=== PATIENT | female | born 1955 | race Caucasian/White ===

== ENCOUNTER → 2016-10-23 | Outpatient (CLI) | payer OTHER ==
[~2016-10-23] MED LIST: ALBINS INH; ASPI-390 PO; BUTACAP7 PO; CHOL1TAB42 PO; CIPR-255 PO; CLON0.5T3 PO; CYAN100020 PO; DIPH1CRE EXT; DIPH1TAB87 PO; FRN PO; INSDGI SC; INSDGIPEN SC; IPRA1AER2 INH; Ipratropium-Albuterol INH; LEVO150T PO; METR-163 PO; MULT-845 PO; NVLG SC; NVLGI IM; PROM25TA9 PO; PRT40 PO; RANI1TAB75 PO; RANI300T2 PO; SNG10 PO; SPRIN INH; SYMIN INH; SYMIN160 INH; SYN175 PO; TRAM-10 PO; TRAZ100T29 PO; TRAZ1TAB52 PO; VITAMIN D PO; WLLSR150 PO; [UNRECOGNIZED DRUG - CODE] PO
--- NOTE | 2016-10-23 16:25 | DIAGNOSTIC IMAGING REPORT ---
L-SPINE MIN 4 VIEWS ROUTINE CLINICAL HISTORY: Low back pain with adequate. COMPARISON: None FINDINGS: Alignment of the lumbar spine is anatomic. Vertebral body heights are maintained. There is no fracture or suspicious lesion. There is mild multilevel degenerative disc disease and moderate multilevel facet arthrosis. IMPRESSION: 1. No acute lumbar spine fracture or subluxation. 2. Qysz-bn-thxkyvck multilevel degenerative disc disease and facet arthrosis. Electronically signed by: Israel Oliva M.D. 10/23/2016 4:23 PM Dictated Date/Time: 10/23/2016 4:22 PM
[2016-10-23 17:30] LABS: ALT/SGPT 60 U/L (12-78); AST/SGOT 84 U/L (15-37); BLOOD UREA NITROGEN 9 mg/dl (7-18); BUN/CREATININE RATIO 11.4 (10-20); CALCIUM 9.4 mg/dl (8.5-10.1); CARBON DIOXIDE 28 mmol/L (21-32); CHLORIDE 105 mmol/L (98-107); CREATININE 0.82 mg/dl (0.60-1.20); GLUCOSE 214 mg/dl (70-99); POTASSIUM 4.1 mmol/L (3.5-5.1); SODIUM 141 mmol/L (136-145)
[2016-10-23 17:41] LABS: ALB/GLOB RATIO 0.8 (0.9-2); ALKALINE PHOSPHATASE 68 U/L (45-117)
[2016-10-24 06:14] LABS: ESTIMATED AVERAGE GLUCOSE 214 mg/dl; HA1C FLAG Normal (Normal)
== END ==
LOC: C.LABBC 15:39
PROVIDERS: ATTEND Physician Assistant Medical
DX: M54.40 Lumbago with sciatica, unspecified side (principal)

== ENCOUNTER 2016-11-20 11:43 | Emergency (ER) | payer OTHER ==
[~2016-11-20] VITALS: Ht 167.6 cm; Wt 122.1 kg
[~2016-11-20 11:43] MED LIST changes: -ASPI-390 PO; -BUTACAP7 PO; -CIPR-255 PO; -CYAN100020 PO; -DIPH1CRE EXT; -DIPH1TAB87 PO; -FRN PO; -IPRA1AER2 INH; -LEVO150T PO; -METR-163 PO; -NVLG SC; -PROM25TA9 PO; -RANI300T2 PO; -SYMIN160 INH; -TRAZ1TAB52 PO; -VITAMIN D PO; -[UNRECOGNIZED DRUG - CODE] PO
[2016-11-20 11:48] VITALS: Ht 167.6 cm; Wt 122.1 kg
[2016-11-20] MEDS ORDERED: SODIUM CHLORIDE 0.9% 1000ML 1,000 ML IV STA ×2 (12:10)
[2016-11-20 12:36] VITALS: O2SAT 97
--- NOTE | 2016-11-20 12:37 | DIAGNOSTIC IMAGING REPORT ---
CHEST ONE VIEW PORTABLE CLINICAL HISTORY: Weakness, fever. COMPARISON STUDY: 03/11/2015 FINDINGS: The cardiac and mediastinal contours are normal. There is no evidence of focal pulmonary consolidation. There is no evidence of failure. No pleural effusions are visualized.[ IMPRESSION: No active disease in the chest. Electronically signed by: Renzo Arceo M.D. 11/20/2016 12:36 PM Dictated Date/Time: 11/20/2016 12:36 PM
[2016-11-20 12:42] LABS: BASO ABS # 0.07 K/uL (0-0.2); COMPLETE YES; EOS % 2.4 %; HEMATOCRIT 40.3 % (37-47); IG% 0.3 %; MEAN CORPUSCULAR HEMOGLOBIN 30.7 pg (25-34); MEAN PLATELET VOLUME 11.4 fL (7.4-10.4); MONO % 8.2 %; NEUT % 45.1 %; PLATELET COUNT 234 K/uL (130-400); WHITE BLOOD COUNT 6.97 K/uL (4.8-10.8)
[2016-11-20] MEDS ORDERED: DIPH1TAB87 PO (12:54)
[2016-11-20] MEDS ORDERED: DIPH1CRE EXT (12:54)
[2016-11-20] MEDS ORDERED: IPRA1AER2 INH (12:54)
[2016-11-20] MEDS ORDERED: FRN PO (12:54)
[2016-11-20] MEDS ORDERED: ASPI-390 PO (12:54)
[2016-11-20] MEDS ORDERED: RANI300T2 PO (12:54)
[2016-11-20] MEDS ORDERED: LEVO150T PO (12:54)
[2016-11-20] MEDS ORDERED: NVLG SC (12:55)
[2016-11-20] MEDS ORDERED: INSDGI SC (12:55)
[2016-11-20 12:56] LABS: INR 1.1 (0.9-1.1); PROTHROMBIN TIME (PATIENT) 11.3 SECONDS (9.0-12.0)
[2016-11-20] MEDS ORDERED: OPTIRAY 320 IV PRN (13:00)
[2016-11-20 13:06] LABS: CALCIUM 9.4 mg/dl (8.5-10.1)
[2016-11-20 13:07] LABS: ALT/SGPT 32 U/L (12-78); AST/SGOT 64 U/L (15-37); BLOOD UREA NITROGEN 7 mg/dl (7-18); CARBON DIOXIDE 23 mmol/L (21-32); CHLORIDE 108 mmol/L (98-107); GLUCOSE 217 mg/dl (70-99); MAGNESIUM 2.1 mg/dl (1.8-2.4); POTASSIUM 3.7 mmol/L (3.5-5.1); SODIUM 142 mmol/L (136-145)
[2016-11-20 13:17] LABS: ALKALINE PHOSPHATASE 67 U/L (45-117)
--- NOTE | 2016-11-20 13:57 | DIAGNOSTIC IMAGING REPORT ---
ABDOMEN AND PELVIS CT WITH IV CONTRAST CT DOSE: 1622.52 mGy.cm HISTORY: Pain Upper abd pain, fever TECHNIQUE: Multiaxial CT images of the abdomen and pelvis were performed following the use of intravenous contrast. COMPARISON STUDY: 08/30/2007 FINDINGS: Focal atelectasis right base. Lung bases otherwise are clear. Mild fatty infiltration of liver. Kidneys enhance uniformly. There is no evidence for renal mass or hydronephrosis. Abdominal bowel pattern is unremarkable. Pelvic bowel pattern is remarkable for chronic sigmoid diverticulosis. There is a small focus of pericolonic infiltrative change of the mid sigmoid suggesting a component of acute diverticulitis. There is no evidence for abscess collection or obstruction. Several small reactive mesenteric nodes. There is no bulky adenopathy. IMPRESSION: 1. Mild acute sigmoid diverticulitis 2. Mild pericolonic infiltrative change. 3. No abscess,collection,or obstruction./ Electronically signed by: John Paul Márquez M.D. 11/20/2016 1:55 PM Dictated Date/Time: 11/20/2016 1:37 PM
[2016-11-20] MEDS ORDERED: CIPROFLOXACIN 500 MG TAB PO STA (14:32)
[2016-11-20] MEDS ORDERED: METRONIDAZOLE 250 MG TAB PO STA (14:32)
[2016-11-20] MEDS ORDERED: PROMETHAZINE HCL 25 MG TAB PO ONE (14:45)
[2016-11-20 15:54] LABS: URINE APPEARANCE CLEAR (CLEAR); URINE BILIRUBIN NEG (NEG); URINE COLOR YELLOW; URINE NITRITE NEG (NEG); URINE SPECIFIC GRAVITY 1.028 (1.000-1.030); UROBILINOGEN NEG (NEG)
[2016-11-20 16:12] LABS: MANUAL MICROSCOPIC REQUIRED? NO; REVIEW REQ? NO
[2016-11-20] MEDS ORDERED: METR-163 PO (16:12)
[2016-11-20] MEDS ORDERED: CIPR-255 PO (16:12)
[2016-11-20] MEDS ORDERED: PROM25TA9 PO (16:12)
[2016-11-20 16:52] VITALS: BP 152/89; PULSE 77; TEMP 36; O2SAT 95
--- NOTE | 2016-11-20 19:04 | EMERGENCY ROOM VISIT NOTE ---
History Report prepared by Du: Rigoberto De Jesus Under the Supervision of: Dr. Jerrell Siegel M.D. First contact with patient: 12:02 Chief Complaint: FEVER Stated Complaint: TEMP X3 WKS (PMR ON PREDNISONE) History of Present Illness The patient is a 61 year old female who presents to the Emergency Room with complaints of persistent fevers that the patient has been experiencing for the past three weeks. She is referred to the Emergency Room by her boat laborer, Dr. Jaimes. The patient states that her normal body temperature is 96.8 degrees, and has had fevers as high as 102 degrees over the past three weeks. Before her fever began she experienced umbilical abdominal pain. She is still experiencing this abdominal discomfort. Over the last weeks she has also experienced constipation, diarrhea, vomiting, and respiratory issues. She has been having increased difficulty breathing. The patient was recently on Prednisone for PMR, but stopped this medication due to blood sugars into the 400s. The patient is diabetic. She also has a history of COPD, hypertension, and hyperlipidemia. The patient currently denies LOC, headache, chills, diaphoresis, visual changes, neck pain, chest pain, back pain, melena, hematochezia, urinary symptoms, numbness, weakness, lymphadenopathy, rash, or other complaints. Source of History: patient Onset: 3 weeks Position: other (Global) Quality: other (Fever) Timing: other (Persistent) Associated Symptoms: + SOB, + abdominal pain, + diarrhea, + vomiting Review of Systems See HPI for pertinent positives and negatives. A total of ten systems were reviewed and were otherwise negative. Past Medical & Surgical Medical Problems: (1) Asthma, Unspecified (2) Bronchitis Nos (3) Chr Ischemic Hrt Dis Nos (4) Chronic Sinusitis Nos (5) COPD (chronic obstructive pulmonary disease) (6) [place]'s Syndrome (7) Depressive Disorder Nec (8) Diab Jenna Wo Compl, Type Ii Or Unspec Type, Not Uncntrld (9) Esophageal Reflux (10) Hyperlipidemia Nec/Nos (11) Hypertension Nos (12) Hypothyroidism Nos (13) Irritable Bowel Syndrome (14) Lupus (15) Urticaria Family History FH: lung disease Hypertension Social History Smoking Status: Former Smoker Alcohol Use: none Drug Use: none Marital Status: Housing Status: lives with family Occupation Status: unemployed Current/Historical Medications Scheduled Nancbtm-Yzajzfgmgoxuo-Agzxpmwx (Excedrin Migraine), 2 TABS PO QAM Budesonide/Formoterol Fumarate (Symbicort 160-4.5 Mcg/Act), 2 PUFFS INH BID Bupropion HCl (Bupropion HCl Sr), 150 MG PO BID Cholecalciferol (Vitamin D), 10,000 UNITS PO DAILY Ciprofloxacin Hcl (Cipro), 500 MG PO BID Diphenhydramine Hcl (Benadryl Allergy), 1 CAP PO HS Insulin Glargine (Lantus Solostar), 100 UNIT SC QAM Insulin Glargine (Lantus), 50 UNITS SC QPM Ipratropium-Albuterol (Combivent Respimat), 1 PUFFS INH QID Levothyroxine Sodium (Synthroid), 150 MCG PO DAILY Metronidazole (Flagyl), 500 MG PO TID Montelukast Sod (Montelukast Sodium), 10 MG PO HS Multiple Vitamins W/ Minerals (Centrum Silver Adult 50+), 1 TAB PO DAILY Pantoprazole (Pantoprazole Sodium), 40 MG PO BID Ranitidine (Zantac), 300 MG PO BID Tiotropium [place] (Spiriva Handihaler), 1 PUFF INH QAM Trazodone Hcl (Trazodone), 100 MG PO HS [Ipratropium-Albuterol], 3 ML INH Q6R Scheduled PRN Albuterol Sulf (Albuterol Sulfate), 1 INHA INH QID PRN for SOB/Wheezing Dvvlfffspj-Ewpjtig-Jamolxkx (Butalbital/Aspirin/Caffei 50-325-40 mg), 1 CAP PO Q6 PRN for Headache Diphenhydramine-Zinc Acetate (Benadryl), 1 APPLN EXT UD PRN for Itching Promethazine Hcl (Phenergan), 25 MG PO Q6H PRN for Nausea Tramadol (Ultram), 50 MG PO Q4 PRN for Pain Miscellaneous Medications Insulin Aspart (Novolog) Allergies Coded Allergies: Penicillins (Verified Allergy, Severe, THROAT SWELLS, 11/20/16) Fluticasone (Unverified Allergy, Intermediate, HARD OF BREATHING, 11/20/16) Insulin Lispro (Unverified Allergy, Intermediate, HIVES, 11/20/16) Milk Protein Extract (Unverified Allergy, Intermediate, HARD OF BREATHING , 11/20/16) Phenol (Unverified Allergy, Intermediate, HIVES, 11/20/16) Salmeterol (Unverified Allergy, Intermediate, HARD OF BREATHING, 11/20/16) Fluoxetine (Unverified Allergy, Mild, UNKNOWN, 11/20/16) Iodides (Unverified Allergy, Mild, RASH, 11/20/16) Levofloxacin (Unverified Allergy, Mild, UNKNOWN, 11/20/16) Cephalosporins (Verified Allergy, Unknown, 11/20/16) Citalopram (Verified Allergy, Unknown, 11/20/16) Dust (Verified Allergy, Unknown, 11/20/16) Goose Feathers (Verified Allergy, Unknown, 11/20/16) Guaifenesin (Verified Allergy, Unknown, 11/20/16) Macrolides and Ketolides (Verified Allergy, Unknown, UNKNOWN, 11/20/16) Molds and Smuts (Verified Allergy, Unknown, 11/20/16) Phenylephrine (Verified Allergy, Unknown, 11/20/16) Phenylpropanolamine (Verified Allergy, Unknown, 11/20/16) Quinolones (Verified Allergy, Unknown, 11/20/16) Physical Exam Vital Signs Date Time Temp Pulse Resp B/P Pulse Ox O2 Delivery O2 Flow Rate FiO2 11/20/16 16:52 36.0 77 18 152/89 95 11/20/16 15:28 78 18 160/89 94 Room Air 11/20/16 14:49 77 16 152/93 94 Room Air 11/20/16 13:38 81 18 164/91 94 Room Air 11/20/16 12:36 97 Room Air 11/20/16 12:25 94 125/97 96 Room Air 93 121/96 93 103/76 11/20/16 11:48 36.0 92 26 164/86 93 Room Air Physical Exam GENERAL: Awake, alert, well-appearing, in no distress HENT: Normocephalic, atraumatic. Oropharynx unremarkable. EYES: Normal conjunctiva. Sclera non-icteric. NECK: Supple. No nuchal rigidity. FROM. No JVD. RESPIRATORY: Clear to auscultation. CARDIAC: Borderline Tachycardiac rate, normal rhythm. Extremities warm and well perfused. Pulses equal. ABDOMEN: Soft, non-distended. Mild RUQ and Epigastric abdominal tenderness to palpation. No rebound or guarding. No masses. RECTAL: Deferred. MUSCULOSKELETAL: Chest examination reveals no tenderness. The back is symmetrical on inspection without obvious abnormality. There is no CVA tenderness to palpation. No joint edema. LOWER EXTREMITIES: Calves are equal size bilaterally and non-tender. No edema. No discoloration. NEURO: Normal sensorium. No sensory or motor deficits noted. SKIN: No rash or jaundice noted. Medical Decision & Procedures ER Provider Diagnostic Interpretation: Radiology results as stated below per my review and radiologist interpretation: ABDOMEN AND PELVIS CT WITH IV CONTRAST CT DOSE: 1622.52 mGy.cm HISTORY: Pain Upper abd pain, fever TECHNIQUE: Multiaxial CT images of the abdomen and pelvis were performed following the use of intravenous contrast. COMPARISON STUDY: 08/30/2007 FINDINGS: Focal atelectasis right base. Lung bases otherwise are clear. Mild fatty infiltration of liver. Kidneys enhance uniformly. There is no evidence for renal mass or hydronephrosis. Abdominal bowel pattern is unremarkable. Pelvic bowel pattern is remarkable for chronic sigmoid diverticulosis. There is a small focus of pericolonic infiltrative change of the mid sigmoid suggesting a component of acute diverticulitis. There is no evidence for abscess collection or obstruction. Several small reactive mesenteric nodes. There is no bulky adenopathy. IMPRESSION: 1. Mild acute sigmoid diverticulitis 2. Mild pericolonic infiltrative change. 3. No abscess,collection,or obstruction./ Electronically signed by: John Paul Márquez M.D. 11/20/2016 1:55 PM Dictated Date/Time: 11/20/2016 1:37 PM Laboratory Results 11/20/16 12:27 Red Blood Count 4.20, Mean Corpuscular Volume 96.0, Mean Corpuscular Hemoglobin 30.7, Mean Corpuscular Hemoglobin Concent 32.0, Mean Platelet Volume 11.4, Neutrophils (%) (Auto) 45.1, Lymphocytes (%) (Auto) 43.0, Monocytes (%) (Auto) 8.2, Eosinophils (%) (Auto) 2.4, Basophils (%) (Auto) 1.0, Neutrophils # (Auto) 3.14, Lymphocytes # (Auto) 3.00, Monocytes # (Auto) 0.57, Eosinophils # (Auto) 0.17, Basophils # (Auto) 0.07 11/20/16 12:27 Test 11/20/16 12:27 11/20/16 15:40 White Blood Count 6.97 K/uL (4.8-10.8) Red Blood Count 4.20 M/uL (4.2-5.4) Hemoglobin 12.9 g/dL (12.0-16.0) Hematocrit 40.3 % (37-47) Mean Corpuscular Volume 96.0 fL (80-100) Mean Corpuscular Hemoglobin 30.7 pg (25-34) Mean Corpuscular Hemoglobin Concent 32.0 g/dl (32-36) Platelet Count 234 K/uL (130-400) Mean Platelet Volume 11.4 fL (7.4-10.4) Neutrophils (%) (Auto) 45.1 % Lymphocytes (%) (Auto) 43.0 % Monocytes (%) (Auto) 8.2 % Eosinophils (%) (Auto) 2.4 % Basophils (%) (Auto) 1.0 % Neutrophils # (Auto) 3.14 K/uL (1.4-6.5) Lymphocytes # (Auto) 3.00 K/uL (1.2-3.4) Monocytes # (Auto) 0.57 K/uL (0.11-0.59) Eosinophils # (Auto) 0.17 K/uL (0-0.5) Basophils # (Auto) 0.07 K/uL (0-0.2) RDW Standard Deviation 49.8 fL (36.4-46.3) RDW Coefficient of Variation 14.2 % (11.5-14.5) Immature Granulocyte % (Auto) 0.3 % Immature Granulocyte # (Auto) 0.02 K/uL (0.00-0.02) Prothrombin Time 11.3 SECONDS (9.0-12.0) Prothromb Time International Ratio 1.1 (0.9-1.1) Activated Partial Thromboplast Time 26.4 SECONDS (21.0-31.0) Partial Thromboplastin Ratio 1.0 Anion Gap 11.0 mmol/L (3-11) Est Creatinine Clear Calc Drug Dose 115.3 ml/min Estimated GFR () 109.9 Estimated GFR (Non- 94.8 BUN/Creatinine Ratio 10.0 (10-20) Calcium Level 9.4 mg/dl (8.5-10.1) Magnesium Level 2.1 mg/dl (1.8-2.4) Total Bilirubin 0.4 mg/dl (0.2-1) Direct Bilirubin < 0.1 mg/dl (0-0.2) Aspartate Amino Transf (AST/SGOT) 64 U/L (15-37) Alanine Aminotransferase (ALT/SGPT) 32 U/L (12-78) Alkaline Phosphatase 67 U/L (45-117) Troponin I < 0.015 ng/ml (0-0.045) Total Protein 7.7 gm/dl (6.4-8.2) Albumin 3.3 gm/dl (3.4-5.0) Lipase 103 U/L (73-393) Thyroid Stimulating Hormone (TSH) 2.660 uIu/ml (0.300-4.500) Urine Color YELLOW Urine Appearance CLEAR (CLEAR) Urine pH 5.0 (4.5-7.5) Urine Specific [place] 1.028 (1.000-1.030) Urine Protein NEG (NEG) Urine Glucose (UA) NEG (NEG) Urine Ketones NEG (NEG) Urine Occult Blood NEG (NEG) Urine Nitrite NEG (NEG) Urine Bilirubin NEG (NEG) Urine Urobilinogen NEG (NEG) Urine Leukocyte Esterase NEG (NEG) Laboratory results reviewed by me Medications Administered Medications (Trade) Dose Ordered Sig/John Route Start Time Stop Time Status Last Admin Dose Admin Sodium Chloride 1,000 ml @ 125 mls/hr Q8H STAT IV 11/20/16 12:10 11/20/16 17:29 DC 11/20/16 12:10 125 MLS/HR Sodium Chloride (Nss 1000ml) 1,000 ml @ 999 mls/hr Q1H1M STAT IV 11/20/16 12:10 11/20/16 13:10 DC 11/20/16 12:10 999 MLS/HR Ciprofloxacin (Cipro Tab) 500 mg NOW STAT PO 11/20/16 14:32 11/20/16 14:35 DC 11/20/16 15:31 500 MG Metronidazole (Flagyl Tab) 500 mg NOW STAT PO 11/20/16 14:32 11/20/16 14:35 DC 11/20/16 15:31 500 MG Promethazine HCl (Phenergan Tab) 25 mg NOW ONCE PO 11/20/16 14:45 11/20/16 14:46 DC 11/20/16 16:00 25 MG ECG Indication: SOB/dyspnea Rate (beats per minute): 81 Rhythm: normal sinus Findings: nonspecific-ST abn, prolonged QT ED Course 1210: Ordered Sodium Chloride 1000 mL @ 999 mL/hr IV, Sodium Chloride 1000 mL @ 125 mL/hr IV. 1211: The patient was evaluated in room B9. A complete history and physical exam was performed. 1407: I reevaluated the patient at this time. She was resting in bed. 1431: I made the nurse aware that I was going to order medications at this time , and told her to observe the patient closely. 1432: Ordered Flagyl 500 mg PO, Ciprofloxacin 500 mg PO. 1445: Ordered Promethazine HCl 25 mg PO. 1548: I reevaluated the patient at this time. She was doing well. 1610: I discussed the case with Dr. Jaimes - Rheumatology at this time who referred the patient here today. She is in agreement with the plan. She agrees that she should follow up with her PCP. She will be discharged home. Medical Decision Triage Nursing notes reviewed. The patient's presentation and history were concerning for fevers and abdominal pain. Etiologies such as bacteremia, UTI, biliary pathology, appendicitis, diverticulitis, obstruction, inflammatory bowel disease, renal colic, PUD, pancreatitis, mesenteric ischemia, infections, genitourinary, perforated viscus , as well as others were entertained. The patient was evaluated. She had a tender abdomen no peritoneal findings. Her CBC, chemistry panel and urinalysis were unremarkable. She had a mild elevation of blood glucose. Her AST were minimally elevated. The patient's troponin, TSH and lipase are negative. The patient underwent CT imaging and this revealed diverticulitis. This would explain fever as well as her abdominal pain and GI symptoms. The patient was treated with oral Cipro, Phenergan, and metronidazole. She was observed as she has had GI upset with Levaquin. She had no GI upset. The patient felt very comfortable with conservative management. I did inform her significant other who presented to the Emergency Room as well. If the patient worsens in any way she will be back. The patient will follow-up with her primary physician. By the evaluation outlined above other emergent etiologies such as those listed in the differential, as well as others, were deemed relatively unlikely. The patient and significant other were informed about the findings as listed above. All questions were answered and they were pleased with the treatment. Return instructions were outlined and the patient was discharged in stable condition. The patient was referred to her PCP for follow-up first thing next week for a recheck of the current condition. The chart was completed utilizing [employer] Speech voice recognition software. Grammatical errors, random word insertions, pronoun errors, and incomplete sentences are an occasional consequence of this system due to software limitations, ambient noise, and hardware issues. Any formal questions or concerns about the content, text, or information contained within the body of this dictation should be directly addressed to the physician for clarification. Consults Time Called: 1605 Consulting Physician: Dr. Theodore Bunn Returned Call: 1610 I discussed the case with Dr. Theodore Bunn at this time who referred the patient here today. She is in agreement with the plan. She agrees that she should follow up with her PCP. Impression Primary Impression: Diverticulitis Additional Impression: Fever Scribe Attestation The scribe's documentation has been prepared under my direction and personally reviewed by me in its entirety. I confirm that the note above accurately reflects all work, treatment, procedures, and medical decision making performed by me. Departure Information Dispostion Home / Self-Care Prescriptions Promethazine Hcl (Phenergan) 25 Mg Tab 25 MG PO Q6H Y for Nausea, #10 TAB Prov: Jerrell Siegel MD 11/20/16 Metronidazole (Flagyl) 500 Mg Tab 500 MG PO TID, #29 TAB Prov: Jerrell Siegel MD 11/20/16 Ciprofloxacin Hcl (CIPRO) 500 Mg Tab 500 MG PO BID, #19 TAB Prov: Jerrell Siegel MD 11/20/16 Referrals Michael Wharton M.D. (PCP) Forms HOME CARE DOCUMENTATION FORM, IMPORTANT VISIT INFORMATION Patient Instructions [facility] Additional Instructions DIVERTICULITIS INSTRUCTIONS: Ciprofloxacin(Cipro) 500mg: Take one pill twice daily for 10 days for your bowel infection. All antibiotics can cause diarrhea. If this occurs and you feel worse or it does not resolve in 1-2 days follow up with your doctor or return to the Emergency Department as this could be signs of serious underlying problems. If you experience any pain in your tendons or any tendon injury return to the ER for re-evaluation. Any medication can cause an allergic reaction, stop the pills immediately and return to the ER for rash, hives, breathing difficulties, or swelling. Metronidazole(Flagyl) 500mg: Take one pill 3 times daily for 10 days for your bowel infection. DO NOT drink alcohol or take alcohol containing products with this medication. Any medication can cause an allergic reaction, stop the pills immediately and return to the ER for rash, hives, breathing difficulties, or swelling. Acetaminophen(Tylenol) may be used for fever or pain. Use 1000mg every six hours as needed. Avoid using more than 4000mg in a 24 hour period. Phenergan 25mg tabs, one every six hours for nausea. Rest and drink plenty of fluids as tolerated. Slow sips of water or sports drinks are recommended instead of large amounts all at once. Continue current medications. Once your stomach is settled start with a clear liquid diet (jello, soup broth, etc.) and then advance as tolerated. You should avoid full, heavy meals for about 24 hrs from the time your symptoms resolved. Return to the ER immediately for worsening or persistent abdominal pain, vomiting, fevers, chest pains, difficulty breathing, black or bloody stools, worsening of your condition, or as needed. Follow up with your primary physician Thursday for recheck of your current condition. Problem Qualifiers
[2017-01-21] MEDS ORDERED: TRAZ1TAB52 PO (11:28)
[2017-01-21] MEDS ORDERED: IPRA1AER2 INH (11:28)
[2017-01-21] MEDS ORDERED: VITAMIN D PO (11:28)
[2017-01-21] MEDS ORDERED: SYMIN160 INH (11:28)
[2017-01-21] MEDS ORDERED: CYAN100020 PO (11:28)
[2017-01-21] MEDS ORDERED: BUTACAP7 PO (11:28)
[2017-01-21] MEDS ORDERED: TRAM-10 PO (11:28)
[2017-01-21] MEDS ORDERED: ASPI-390 PO (11:28)
[2017-01-21] MEDS ORDERED: [UNRECOGNIZED DRUG - CODE] PO (11:28)
== END 2016-11-20 16:53 | disposition home or self-care (01) ==
LOC: C.EDB 11:47
DX: K57.92 Diverticulitis of intestine, part unspecified, without perforation or abscess without bleeding (principal); R50.9 Fever, unspecified; E11.9 Type 2 diabetes mellitus without complications; J44.9 Chronic obstructive pulmonary disease, unspecified; I10 Essential (primary) hypertension; E78.5 Hyperlipidemia, unspecified; J45.909 Unspecified asthma, uncomplicated; I25.9 Chronic ischemic heart disease, unspecified; J32.9 Chronic sinusitis, unspecified; F32.9 Major depressive disorder, single episode, unspecified; E24.9 Cushing's syndrome, unspecified; K21.9 Gastro-esophageal reflux disease without esophagitis; E03.9 Hypothyroidism, unspecified; K58.9 Irritable bowel syndrome, unspecified; L93.0 Discoid lupus erythematosus; Z87.891 Personal history of nicotine dependence; Z82.49 Family history of ischemic heart disease and other diseases of the circulatory system; Z79.4 Long term (current) use of insulin

== ENCOUNTER → 2017-01-26 | Day surgery (SDC) | payer OTHER ==
[2017-01-21 11:07] VITALS: Ht 167.6 cm; Wt 119.5 kg
[~2017-01-26] VITALS: Ht 167.6 cm; Wt 119.5 kg
[~2017-01-26] MED LIST changes: +ASPI-390 PO; +BUTACAP7 PO; -CHOL1TAB42 PO; -CLON0.5T3 PO; +CYAN100020 PO; +DIPH1CRE EXT; +DIPH1TAB PO; +IPRA1AER2 INH; -Ipratropium-Albuterol INH; +LEVO150T PO; +LIDOCAINE HCL 2% 2 ML VIAL (20MG/ML) ONE; +NVLG SC; -NVLGI IM; +PROPOFOL IV EMULSION 10 MG/ML 20 ML VIAL IV ONE; -PRT40 PO; -RANI1TAB75 PO; +RANI300T2 PO; +SODIUM CHLORIDE 0.9% 500ML 500 ML IV ONE; -SYMIN INH; +SYMIN160 INH; -SYN175 PO; -TRAZ100T29 PO; +TRAZ1TAB52 PO; +VITAMIN D PO; -WLLSR150 PO; +[UNRECOGNIZED DRUG - CODE] PO
--- NOTE | 2017-01-26 11:59 | Endo History and Physical ---
History & Physical Date of Service: Jan 26, 2017. Chief Complaint: Diverticulitis Referring Physician: Sandra BRYANT History of Present Illness 61 yo CF who presents for colonoscopy secondary to diverticulitis. Past Medical History Diabetes, Asthma, Anxiety, Reflux, High Cholesterol, Sleep Apnea, Hypertension, COPD, Thyroid Disease, Depression Past Surgical History Hx Cardiac Surgery: Yes (HEART CATH X 2 (NO STENTS)) Hx Internal Defibrillator: No Hx Pacemaker: No Hx Abdominal Surgery: Yes (LAPAROSCOPY) Hx of Implantable Prosthesis: No Hx Post-Op Nausea and Vomiting: No Hx Cancer Surgery: No Hx Thoracic Surgery: No Hx Orthopedic: No Hx Urinary Tract Surgery: No Family History IBD Social History Smoking Status: Former Smoker Hx Substance Use: No Hx Alcohol Use: No Allergies Coded Allergies: Penicillins (Verified Allergy, Severe, THROAT SWELLS, 01/21/17) Fluticasone (Verified Allergy, Intermediate, HARD OF BREATHING, 01/26/17) Insulin Lispro (Verified Allergy, Intermediate, HIVES, 01/26/17) Milk Protein Extract (Verified Allergy, Intermediate, HARD OF BREATHING, ) Phenol (Verified Allergy, Intermediate, HIVES, 01/26/17) Salmeterol (Verified Allergy, Intermediate, HARD OF BREATHING, 01/26/17) Fluoxetine (Verified Allergy, Mild, UNKNOWN, 01/26/17) Iodides (Verified Allergy, Mild, RASH, 01/26/17) Levofloxacin (Verified Allergy, Mild, SEVERE NAUSEA, 01/26/17) Adhesives (Verified Allergy, Unknown, WELTS ON SKIN, 01/21/17) Cefaclor (Verified Allergy, Unknown, HIVES, HARD TIME BREATHING, 01/21/17) Cephalosporins (Verified Allergy, Unknown, UNKNOWN, 01/21/17) Citalopram (Verified Allergy, Unknown, UNKNOWN, 01/21/17) Dust (Verified Allergy, Unknown, ENVIRONMENTAL ALLERGIES, 01/21/17) Goose Feathers (Verified Allergy, Unknown, ALLERGIC RX "SOMETHING WEIRD", 01/21/17) Guaifenesin (Verified Allergy, Unknown, UNKNOWN, 01/21/17) Macrolides and Ketolides (Verified Allergy, Unknown, UNKNOWN, 11/20/16) Molds and Smuts (Verified Allergy, Unknown, 11/20/16) Phenylephrine (Verified Allergy, Unknown, UNKNOWN, 01/21/17) Phenylpropanolamine (Verified Allergy, Unknown, UNKNOWN, 01/21/17) Quinolones (Verified Allergy, Unknown, UNKNOWN, 01/21/17) Yellow Dye (Verified Allergy, Unknown, DIFFICULTY BREATHING, 01/21/17) Current Medications Reported Home Medications Medications Dose Route/Sig Max Daily Dose Days Date Category Dose Instructions Vitamin B12 (Cyanocobalamin) 1,000 Mcg Tab 1 Tab PO QPM 01/21/17 Reported [Vitamin D] 1 Tab PO QPM 01/21/17 Reported Desyrel (Trazodone Hcl) 150 Mg Tab 1-2 Tab PO HS 01/21/17 Reported Ultram (Tramadol HCl) 50 Mg Tab 50 Mg PO Q4H PRN 01/21/17 Reported Symbicort 160/4.5 Inhaler (Budesonide/Formoterol Fumarate) Aero 2 Puffs INH BID 01/21/17 Reported Gas Relief Maximum Streng (Simethicone) 125 Mg Chw 1 Dose PO DIRECTED PRN 01/21/17 Reported Excedrin Migraine (Trnhzbd-Oakajjhihgqpy-Nurqzfui) 1 Tab Tab 1 Tab PO QAM 01/21/17 Reported Butal/Asa/Caff (Yxogsznvic-Qzoocxo-Zfubnifw) 1 Cap Cap 1 Cap PO DIRECTED PRN 01/21/17 Reported Combivent Respimat (Ipratropium-Albuterol) 1 Aer Aer 1 Puffs INH QID PRN 01/21/17 Reported Lantus (Insulin Glargine) 100 Unit/Ml Inj 50 Units SC QPM 11/20/16 Reported Novolog (Insulin Aspart) 100 Units/Ml Inj 1 Dose SC DIRECTED 11/20/16 Reported SL[employer]ING [employer] Benadryl Allergy (Diphenhydramine Hcl) 25 Mg Tab 1 Cap PO DAILY PRN 11/20/16 Reported Benadryl (Diphenhydramine-Zinc Acetate) 1 Cre Cre 1 Appln EXT UD PRN 11/20/16 Reported Zantac (Ranitidine HCl) 300 Mg Tab 300 Mg PO BID 11/20/16 Reported Synthroid (Levothyroxine Sodium) 150 Mcg Tab 150 Mcg PO DAILY 11/20/16 Reported TAKES 2 PILLS ON TUESDAYS Montelukast Sodium (Montelukast Sod) 10 Mg Tab 10 Mg PO HS 03/15/15 Rx Spiriva Handihaler (Tiotropium [place]) 5 Puff/90 Mcg Aerp 1 Puff INH QAM 03/15/15 Rx Albuterol Sulfate (Albuterol Sulf) 2.5 Mg/3 Ml Nebu 1 Inha INH QID PRN 03/11/15 Reported Lantus Solostar (Insulin Glargine) 100 Unit/Ml Inj 100 Unit SC QAM 03/11/15 Reported Centrum Silver Adult 50+ (Multiple Vitamins W/ Minerals) 1 Tab Tab 1 Tab PO QPM 03/11/15 Reported Vital Signs Weight (Kilograms): 119.55 Height (Feet): 5 Height (Inches): 6 Date Time Temp Pulse Resp B/P (MAP) Pulse Ox O2 Delivery O2 Flow Rate FiO2 01/26/17 11:19 37.4 95 22 135/83 (100) 95 Room Air Physical Exam General Appearance: WD/WN, no apparent distress Respiratory/Chest: Auscultation: breath sounds normal Cardiovascular: Heart Auscultation: RRR Abdomen: Bowel Sounds: normal Inspection & Palpation: soft, non-distended, no tenderness, guarding & rebound Assessment and Plan Assessment: 61 yo CF who presents for colonoscopy secondary to diverticulitis. Plan: Proceed with colonoscopy.
--- NOTE | 2017-01-26 12:47 | Anesthesiology Progress Note ---
Anesthesia Post Op Note Date & Time Jan 26, 2017 at 12:47 Vital Signs Pain Intensity: 2 Vital Signs Past 12 Hours Date Time Temp Pulse Resp B/P (MAP) Pulse Ox O2 Delivery O2 Flow Rate FiO2 01/26/17 12:41 78 22 135/79 (97) 96 Room Air 01/26/17 11:19 37.4 95 22 135/83 (100) 95 Room Air Notes Mental Status: alert / awake / arousable, participated in evaluation Pt Amnestic to Procedure: Yes Nausea / Vomiting: adequately controlled Pain: adequately controlled Airway Patency, RR, SpO2: stable & adequate BP & HR: stable & adequate Hydration State: stable & adequate Anesthetic Complications: no major complications apparent
--- NOTE | 2017-01-26 12:56 | GI REPORT ---
Procedure Date: 01/26/2017 11:38 AM Procedure: Colonoscopy Indications: Follow-up of diverticulitis Medicines: Monitored Anesthesia Care Complications: No immediate complications. Estimated Blood Loss: Estimated blood loss: none. Procedure: Pre-Anesthesia Assessment: - Prior to the procedure, a History and Physical was performed, and patient medications and allergies were reviewed. The patient's tolerance of previous anesthesia was also reviewed. The risks and benefits of the procedure and the sedation options and risks were discussed with the patient. All questions were answered, and informed consent was obtained. Prior Anticoagulants: The patient has taken aspirin, last dose was 2 days prior to procedure. ASA Grade Assessment: III - A patient with severe systemic disease. After reviewing the risks and benefits, the patient was deemed in satisfactory condition to undergo the procedure. After I obtained informed consent, the scope was passed under direct vision. Throughout the procedure, the patient's blood pressure, pulse, and oxygen saturations were monitored continuously. The scope was introduced through the anus and advanced to the terminal ileum. The patient tolerated the procedure well. The quality of the bowel preparation was good. The terminal ileum, ileocecal valve, appendiceal orifice, and rectum were photographed. The colonoscopy was performed with moderate difficulty due to significant looping. Successful completion of the procedure was aided by withdrawing the scope and replacing with the pediatric colonoscope. Findings: Two sessile polyps were found in the ascending colon. The polyps were 5 to 7 mm in size. These polyps were removed with a hot snare. Resection and retrieval were complete. Multiple small-mouthed diverticula were found in the sigmoid colon. Non-bleeding internal hemorrhoids were found during retroflexion. The hemorrhoids were small. Impression: - Two 5 to 7 mm polyps in the ascending colon, removed with a hot snare. Resected and retrieved. - Diverticulosis in the sigmoid colon. - Non-bleeding internal hemorrhoids. Recommendation: - Resume previous diet. - Continue present medications. - Repeat colonoscopy for surveillance based on pathology results. - Return to primary care physician as previously scheduled. Attila Valentine DO 01/26/2017 12:55:55 PM This report has been signed electronically. Note Initiated On: 01/26/2017 11:38 AM I attest to the content of the Intraoperative Record and orders documented therein, exceptions below
[2017-01-26 13:15] VITALS: BP 119/81; PULSE 74; O2SAT 93
--- NOTE | 2017-01-26 13:16 | Discharge Instructions ---
Endoscopy Patient Instructions Date / Procedure(s) Performed Jan 26, 2017. Colonoscopy Allergy Information Coded Allergies: Penicillins (Verified Allergy, Severe, THROAT SWELLS, 01/21/17) Fluticasone (Verified Allergy, Intermediate, HARD OF BREATHING, 01/26/17) Insulin Lispro (Verified Allergy, Intermediate, HIVES, 01/26/17) Milk Protein Extract (Verified Allergy, Intermediate, HARD OF BREATHING, ) Phenol (Verified Allergy, Intermediate, HIVES, 01/26/17) Salmeterol (Verified Allergy, Intermediate, HARD OF BREATHING, 01/26/17) Fluoxetine (Verified Allergy, Mild, UNKNOWN, 01/26/17) Iodides (Verified Allergy, Mild, RASH, 01/26/17) Levofloxacin (Verified Allergy, Mild, SEVERE NAUSEA, 01/26/17) Adhesives (Verified Allergy, Unknown, WELTS ON SKIN, 01/21/17) Cefaclor (Verified Allergy, Unknown, HIVES, HARD TIME BREATHING, 01/21/17) Cephalosporins (Verified Allergy, Unknown, UNKNOWN, 01/21/17) Citalopram (Verified Allergy, Unknown, UNKNOWN, 01/21/17) Dust (Verified Allergy, Unknown, ENVIRONMENTAL ALLERGIES, 01/21/17) Goose Feathers (Verified Allergy, Unknown, ALLERGIC RX "SOMETHING WEIRD", 01/21/17) Guaifenesin (Verified Allergy, Unknown, UNKNOWN, 01/21/17) Macrolides and Ketolides (Verified Allergy, Unknown, UNKNOWN, 11/20/16) Molds and Smuts (Verified Allergy, Unknown, 11/20/16) Phenylephrine (Verified Allergy, Unknown, UNKNOWN, 01/21/17) Phenylpropanolamine (Verified Allergy, Unknown, UNKNOWN, 01/21/17) Quinolones (Verified Allergy, Unknown, UNKNOWN, 01/21/17) Yellow Dye (Verified Allergy, Unknown, DIFFICULTY BREATHING, 01/21/17) Discharge Date / Findings Jan 26, 2017. Colon polyps Diverticulosis Internal hemorrhoids Medication Instructions Stopped Medication(s): Patient was told to stop insulin. OK to resume all medications today as prescribed Reported Home Medications Medications Dose Route/Sig Max Daily Dose Days Date Category Dose Instructions Vitamin B12 (Cyanocobalamin) 1,000 Mcg Tab 1 Tab PO QPM 01/21/17 Reported [Vitamin D] 1 Tab PO QPM 01/21/17 Reported Desyrel (Trazodone Hcl) 150 Mg Tab 1-2 Tab PO HS 01/21/17 Reported Ultram (Tramadol HCl) 50 Mg Tab 50 Mg PO Q4H PRN 01/21/17 Reported Symbicort 160/4.5 Inhaler (Budesonide/Formoterol Fumarate) Aero 2 Puffs INH BID 01/21/17 Reported Gas Relief Maximum Streng (Simethicone) 125 Mg Chw 1 Dose PO DIRECTED PRN 01/21/17 Reported Excedrin Migraine (Skkwoyy-Oegfaehchnylh-Twywssls) 1 Tab Tab 1 Tab PO QAM 01/21/17 Reported Butal/Asa/Caff (Qwmafflvgi-Oqjhzic-Tmvgediv) 1 Cap Cap 1 Cap PO DIRECTED PRN 01/21/17 Reported Combivent Respimat (Ipratropium-Albuterol) 1 Aer Aer 1 Puffs INH QID PRN 01/21/17 Reported Lantus (Insulin Glargine) 100 Unit/Ml Inj 50 Units SC QPM 11/20/16 Reported Novolog (Insulin Aspart) 100 Units/Ml Inj 1 Dose SC DIRECTED 11/20/16 Reported [employer] Benadryl Allergy (Diphenhydramine Hcl) 25 Mg Tab 1 Cap PO DAILY PRN 11/20/16 Reported Benadryl (Diphenhydramine-Zinc Acetate) 1 Cre Cre 1 Appln EXT UD PRN 11/20/16 Reported Zantac (Ranitidine HCl) 300 Mg Tab 300 Mg PO BID 11/20/16 Reported Synthroid (Levothyroxine Sodium) 150 Mcg Tab 150 Mcg PO DAILY 11/20/16 Reported TAKES 2 PILLS ON TUESDAYS Montelukast Sodium (Montelukast Sod) 10 Mg Tab 10 Mg PO HS 03/15/15 Rx Spiriva Handihaler (Tiotropium [place]) 5 Puff/90 Mcg Aerp 1 Puff INH QAM 03/15/15 Rx Albuterol Sulfate (Albuterol Sulf) 2.5 Mg/3 Ml Nebu 1 Inha INH QID PRN 03/11/15 Reported Lantus Solostar (Insulin Glargine) 100 Unit/Ml Inj 100 Unit SC QAM 03/11/15 Reported Centrum Silver Adult 50+ (Multiple Vitamins W/ Minerals) 1 Tab Tab 1 Tab PO QPM 03/11/15 Reported Provider Instructions Activity Restrictions - No exercising or heavy lifting for 24 hours. - Do not drink alcohol the day of the procedure. - Do not drive a car or operate machinery until the day after the procedure. - Do not make any important decisions or sign important papers in 24 hours after the procedure. Following Day: - Return to full activity which may include returning to work/school. Diet Start your diet with liquids and light foods (jello, soup, juice, toast). Then eat your usual diet if not nauseated. Treatment For Common After Affects For mild abdominal pain, bloating, or excessive gas: - Rest - Eat lightly - Lie on right side Followup in our office for evaluation of constipation. Follow-Up Information Follow-up with Sandra BRYANT as scheduled Anesthesia Information What You Should Know You have had a procedure that required some medicine to reduce anxiety and discomfort. This treatment is called moderate sedation. After receiving the treatment, you may be sleepy, but you will be able to breathe on your own. The effects of the treatment may last for several hours. Follow these instructions along with Activity/Diet recommendations noted above: * Do NOT do anything where dizziness or clumsiness would be dangerous. * Rest quietly at home today, then you can be up and about tomorrow. * Have a responsible person stay with you the rest of today. * You may have had an I.V. today. If so, you may take the dressing off later today. Recommendations Call your doctor if: * Trouble breathing * Continuous vomiting for more than 24 hours * Temperature above 101 degrees * Severe abdominal pain or bloating * Pain not relieved by pain medicine ordered * There is increased drainage or redness from any incision * A large amount of rectal bleeding greater than 2-3 tablespoons. (If you had a polyp/s removed or have hemorrhoids, a small amount of blood - from the rectum is to be expected.) * You have any unanswered questions or concerns. IN THE EVENT OF A SERIOUS EMERGENCY, GO TO THE NEAREST EMERGENCY ROOM Your discharge instructions were prepared by provider Attila Valentine. Patient Instructions Signature Page Tamara Bryan Patient (or Guardian) Signature/Date: I have read and understand the instructions given to me by my caregivers. Caregiver/RN/Doctor Signature/Date: The above-named patient and/or guardian has received patient instructions on this date. + Original Patient Signature Page (only) stays with chart. Please make copy for patient.
== END | disposition home or self-care (01) ==
LOC: C.GI 10:57
PROVIDERS: ATTEND Internal Medicine
DX: K57.30 Diverticulosis of large intestine without perforation or abscess without bleeding (principal); D12.2 Benign neoplasm of ascending colon; K64.8 Other hemorrhoids; E11.9 Type 2 diabetes mellitus without complications; J45.909 Unspecified asthma, uncomplicated; K21.9 Gastro-esophageal reflux disease without esophagitis; E78.00 Pure hypercholesterolemia, unspecified; G47.30 Sleep apnea, unspecified; I10 Essential (primary) hypertension; J44.9 Chronic obstructive pulmonary disease, unspecified; F32.9 Major depressive disorder, single episode, unspecified; Z87.891 Personal history of nicotine dependence

== ENCOUNTER → 2017-01-27 | Outpatient (CLI) | payer OTHER ==
[~2017-01-27] MED LIST changes: -LIDOCAINE HCL 2% 2 ML VIAL (20MG/ML) ONE; -PROPOFOL IV EMULSION 10 MG/ML 20 ML VIAL IV ONE; -SODIUM CHLORIDE 0.9% 500ML 500 ML IV ONE
[2017-01-27 12:37] LABS: ALT/SGPT 32 U/L (12-78); BLOOD UREA NITROGEN 5 mg/dl (7-18); BUN/CREATININE RATIO 7.1 (10-20); CALCIUM 9.6 mg/dl (8.5-10.1); CARBON DIOXIDE 29 mmol/L (21-32); CHLORIDE 106 mmol/L (98-107); CREATININE 0.76 mg/dl (0.60-1.20); GLUCOSE 149 mg/dl (70-99); POTASSIUM 3.7 mmol/L (3.5-5.1); SODIUM 141 mmol/L (136-145)
[2017-01-27 12:40] LABS: ALB/GLOB RATIO 0.7 (0.9-2); ALKALINE PHOSPHATASE 90 U/L (45-117); AST/SGOT 39 U/L (15-37)
[2017-01-27 12:49] LABS: THYROID STIMULATING HORMONE 1.31 uIu/ml (0.300-4.500)
== END | disposition home or self-care (01) ==
LOC: C.LAB1850 09:44
PROVIDERS: ATTEND Internal Medicine Endocrinology, Diabetes & Metabolism
DX: E89.0 Postprocedural hypothyroidism (principal); E11.9 Type 2 diabetes mellitus without complications; R53.82 Chronic fatigue, unspecified; Z79.899 Other long term (current) drug therapy; E78.5 Hyperlipidemia, unspecified; E55.9 Vitamin D deficiency, unspecified; R70.0 Elevated erythrocyte sedimentation rate

== ENCOUNTER → 2017-07-10 | Outpatient (CLI) | payer OTHER ==
[~2017-07-10] MED LIST changes: -DIPH1TAB PO; +DIPH1TAB87 PO
[2017-07-10 10:17] LABS: T3 FREE 2.92 pg/ml (2.30-4.20)
== END | disposition home or self-care (01) ==
LOC: C.LAB1850 08:39
PROVIDERS: ATTEND Internal Medicine
DX: E89.0 Postprocedural hypothyroidism (principal); E11.9 Type 2 diabetes mellitus without complications; E78.5 Hyperlipidemia, unspecified; E55.9 Vitamin D deficiency, unspecified

== ENCOUNTER → 2018-02-27 | Outpatient (CLI) | payer OTHER | END | disposition home or self-care (01) | LOC: C.LAB 10:05 | PROVIDERS: ATTEND Physician Assistant Medical | DX: E89.0 Postprocedural hypothyroidism (principal) ==

== ENCOUNTER 2020-02-12 13:54 | Inpatient (IN) ==
[2020-02-12] MEDS ORDERED: ALBUT/IPRATROP 3MG/0.5MG NEB 3 ML VIAL INH STA (14:43)
[2020-02-12] MEDS ORDERED: methylPREDNISolone 125 MG/2 ML VIAL IV STA (14:43)
--- NOTE | 2020-02-12 14:51 | Emergency Department Note ---
History of Present Illness General Chief complaint: Shortness of Breath/Dyspnea Stated complaint: TROUBLE BREATHING Time Seen by Provider: 02/12/20 14:22 Source: patient History of Present Illness Provider complaint: Shortness of breath Onset (ago): week(s) Location: chest Radiation: non-radiation Severity: severe Pain Consistency: + intermittent Maximum Pain Intensity: 5 Quality: + other (Wheezing and shortness of breath) Relieved By: + medication (Nebulizers every 2 hours) Associated symptoms: + cough and + fever/chills; no chest pain and no nausea/vomiting This is a 64-year-old female with a history of COPD who is been sick for about 6 weeks. She has had a productive cough with brown sputum as well as shortness of breath. Her shortness of breath is slightly improved when she uses her nebulizer. She has been on 3 courses of antibiotics prescribed by her doctor. She was initially on Zithromax and then another course of Zithromax. She was then placed on Levaquin here but she was afraid to take it because she was concerned about the side effects and so her doctor placed her on doxycycline which she has finished. She continues to have a cough. She has had low-grade fevers at home up to 99.9. She complains of body aches. She has had no loss of sense of taste or smell. She has not been around anyone she knows of that has had COVID. She is only been to the doctor's office and to the emergency department and has her groceries and medications delivered. She has not been tested for COVID-19 during the course of her illness. She does complain of diarrhea which is now resolved. She started having diarrhea after the antibiotics and it got better after she was placed on probiotics by the physician in the emergency department. She has had ankle and foot swelling but this is a chronic problem for her. Home Medications Home Medications Medication Instructions Recorded Confirmed Type CPAP Machine #1 ea 01/01/19 08/23/19 History ywupsgp-xpvuxknbjtwim-hlcwoqwf 250 2 tab PO QAM tab 01/01/19 02/12/20 History mg-250 mg-65 mg tablet blood sugar diagnostic #10 ea 01/01/19 08/23/19 History inhalational spacing device #1 ea 01/01/19 08/23/19 History insulin admin supplies #1 ea 01/01/19 08/23/19 History lancets 33 gauge #100 ea 01/01/19 08/23/19 History multivitamin 1 tab PO DAILY 01/01/19 02/12/20 History pen needle, diabetic 32 gauge x #50 ea 01/01/19 08/23/19 History 1/4" sxcbwpolzy-kblcsjx-jeekxtud 50 1 cap PO DAILY PRN #30 cap 04/11/19 02/12/20 History mg-325 mg-40 mg capsule cholecalciferol (vitamin D3) 25 5,000 units PO DAILY cap 04/12/19 02/12/20 History mcg (1,000 unit) capsule cyanocobalamin (vitamin B-12) 1,000 mcg PO DAILY tab 04/12/19 02/12/20 History 1,000 mcg tablet diphenhydramine-zinc acetate 1 1 appln TOPICAL USEASDIRECTD PRN 06/14/19 02/12/20 History %-0.1 % topical cream gm simethicone 125 mg capsule 125 mg PO USEASDIRECTD PRN cap 06/14/19 02/12/20 History levothyroxine 137 mcg tablet 137 mcg PO DAILY #90 tab 06/29/19 02/12/20 Rx Ventolin HFA 90 mcg/actuation 1 puffs INH QID PRN #18 gm NS 09/06/19 02/12/20 Rx aerosol inhaler montelukast 10 mg tablet 10 mg PO QPM #90 tab 09/09/19 02/12/20 Rx trazodone 150 mg tablet 150 mg PO .COMPLEX #180 tab 09/23/19 02/12/20 Rx metformin 500 mg tablet,extended 1,000 mg PO BIDM #360 tab 10/18/19 02/12/20 Rx release 24 hr famotidine 40 mg tablet 40 mg PO BID #180 tab 12/20/19 02/12/20 Rx tramadol 50 mg tablet 50 mg PO Q4H PRN #30 tab 12/20/19 02/12/20 Rx lorazepam 0.5 mg tablet 0.5 - 1 mg PO DAILY PRN #30 tab 12/21/19 02/12/20 Rx benzonatate 200 mg capsule 200 mg PO TID PRN #21 cap 01/26/20 02/12/20 Rx Saccharomyces boulardii [Florastor] 250 mg PO BID #20 cap 02/01/20 02/12/20 Rx insulin glargine U-300 conc 60 unit SUBCUT QAM 02/01/20 02/12/20 History [Bayron June U-300 Insulin] doxycycline monohydrate 100 mg 100 mg PO BID #20 cap 02/02/20 02/12/20 Rx capsule bupropion HCl 300 mg 24 hr tablet, 300 mg PO QPM #90 tab 02/06/20 02/12/20 Rx extended release Allergies Allergy/AdvReac Type Severity Reaction Status Date / Time cefaclor Allergy Severe HIVES, Verified 02/12/20 15:34 HARD TIME BREATHING Penicillins Allergy Severe THROAT Verified 02/12/20 15:34 SWELLS yellow dye Allergy Severe DIFFICULTY Verified 02/12/20 15:34 BREATHING adhesive Allergy Intermediate WELTS ON Verified 02/12/20 15:34 SKIN fluticasone Allergy Intermediate HARD OF Verified 02/12/20 15:34 BREATHING insulin lispro Allergy Intermediate HIVES Verified 02/12/20 15:34 milk Allergy Intermediate HARD OF Verified 02/12/20 15:34 BREATHING phenol Allergy Intermediate HIVES Verified 02/12/20 15:34 salmeterol Allergy Intermediate HARD OF Verified 02/12/20 15:34 BREATHING fluoxetine Allergy Mild UNKNOWN Verified 02/12/20 15:34 Iodine and Iodide Containing Allergy Mild RASH Verified 02/12/20 15:34 Produc atorvastatin [From Lipitor] Allergy Unknown Unknown Verified 02/12/20 15:34 Cephalosporins Allergy Unknown UNKNOWN Verified 02/12/20 15:34 citalopram Allergy Unknown UNKNOWN Verified 02/12/20 15:34 clarithromycin [From Biaxin] Allergy Unknown Unknown Verified 02/12/20 15:34 duloxetine [From Cymbalta] Allergy Unknown Unknown Verified 02/12/20 15:34 escitalopram [From Lexapro] Allergy Unknown Unknown Verified 02/12/20 15:34 ezetimibe [From Vytorin] Allergy Unknown Unknown Verified 02/12/20 15:34 feathers Allergy Unknown ALLERGIC Verified 02/12/20 15:34 RX "SOMETHING WEIRD" gatifloxacin [From Tequin] Allergy Unknown Unknown Verified 02/12/20 15:34 guaifenesin Allergy Unknown UNKNOWN Verified 02/12/20 15:34 insulin lispro protamine Allergy Unknown Unknown Verified 02/12/20 15:34 [From Humalog Mix] Macrolide Antibiotics Allergy Unknown UNKNOWN Verified 02/12/20 15:34 mold Allergy Unknown Unknown Verified 02/12/20 15:34 moxifloxacin [From Avelox] Allergy Unknown Unknown Verified 02/12/20 15:34 paroxetine [From Paxil] Allergy Unknown Unknown Verified 02/12/20 15:34 phenylephrine Allergy Unknown UNKNOWN Verified 02/12/20 15:34 phenylpropanolamine Allergy Unknown UNKNOWN Verified 02/12/20 15:34 Quinolones Allergy Unknown UNKNOWN Verified 02/12/20 15:34 rosuvastatin [From Crestor] Allergy Unknown Unknown Verified 02/12/20 15:34 simvastatin [From Vytorin] Allergy Unknown Unknown Verified 02/12/20 15:34 Sulfa (Sulfonamide Allergy Unknown Unknown Verified 02/12/20 15:34 Antibiotics) Tetracyclines Allergy Unknown Unknown Verified 02/12/20 15:34 levofloxacin AdvReac Intermediate SEVERE Verified 02/12/20 15:34 NAUSEA house dust AdvReac Unknown Unknown Verified 02/12/20 20:25 insulin aspart AdvReac Unknown Unknown Verified 02/12/20 19:06 [From Novolog U-100 Insulin aspart] Past Med/Surg History Medical History (Updated 02/12/20 @ 21:28 by Luis Alfredo Ahuja MD) Cirrhosis of liver not due to alcohol COPD (chronic obstructive pulmonary disease) (Chronic) Frequent falls (Chronic) Hypertension (Chronic) Non-occlusive coronary artery disease Obstructive sleep apnea of adult (Chronic) Surgical History (Updated 02/12/20 @ 17:56 by Camryn Salazar MD) H/O breast surgery biopsy 1989, cyst removal times 3 H/O prior ablation treatment endometrosis History of adenoidectomy History of ear surgery myringotomy right History of surgery on arm Left ORIF humerus Family History Grandfather (Maternal) Myocardial infarction Mother Anxiety Depression Lung disease Sinusitis Father Stroke Allergies Social History Smoking Status: Former smoker Tobacco Type: Cigarettes Smoking End Date: 6 years ago; Second Hand Exposure: Yes ( smoked); Hx Alcohol Use: No Hx Substance Use: No Preferred Language: Romansh Communication Ability: Effective Visual Impairment: Limited Hearing Ability: Hard of Hearing Entry Level Java Developer Required: No Beliefs That Will Affect Care: None marital status: / Current Living Situation: Alone current occupational status: retired Other Information That Helps Us Care for You: No Feels Safe at Home: Yes Safety Concerns: Feels Safe At This Time caffeine: Yes Dental Care, Regularly: No Physical Activity Frequency: Does not Exercise Seatbelt Use: always Review of Systems See HPI for pertinent positives & negatives. and A total of 10 systems reviewed and were otherwise negative Physical Exam Vital Signs Vital Signs - 24 hr 02/12/20 13:56 02/12/20 15:24 02/12/20 15:35 Temperature 37.2 C Temperature Source Oral Pulse Rate 106 H 102 H Pulse Rate [Left Finger] Pulse Rate from SpO2 Sensor 102 H Respiratory Rate 24 26 H Respiratory Effort / Characteristics Spontaneous Labored Short of Breath Respiratory Pattern Regular Blood Pressure 169/73 H 119/100 Blood Pressure Mean 105 105 Pulse Oximetry 94 98 98 Oxygen Delivery Method Room Air Nasal Cannula Nasal Cannula Oxygen Flow Rate 2 2 Sepsis Recent Fever Within 48 Hours No Sepsis New/Unexplained Change in Mental Status N/A Sepsis Action Taken by Nursing No Action Required Oxygen Flow Rate - Titration 2 Pulse Oximetry Post Tiitration 98 02/12/20 15:49 02/12/20 16:01 02/12/20 16:30 Temperature Temperature Source Pulse Rate 93 H 94 H Pulse Rate [Left Finger] 97 H Pulse Rate from SpO2 Sensor 93 H 93 H Respiratory Rate 20 13 18 Respiratory Effort / Characteristics Spontaneous Respiratory Pattern Blood Pressure 145/103 H 151/99 H Blood Pressure Mean 119 118 Pulse Oximetry 98 100 100 Oxygen Delivery Method Nasal Cannula Oxygen Flow Rate 2 Sepsis Recent Fever Within 48 Hours Sepsis New/Unexplained Change in Mental Status Sepsis Action Taken by Nursing Oxygen Flow Rate - Titration Pulse Oximetry Post Tiitration 02/12/20 17:00 02/12/20 17:21 Temperature Temperature Source Pulse Rate Pulse Rate [Left Finger] 99 H Pulse Rate from SpO2 Sensor 92 H Respiratory Rate 44 H 20 Respiratory Effort / Characteristics Non-Labored Spontaneous Respiratory Pattern Blood Pressure 143/78 H Blood Pressure Mean 113 Pulse Oximetry 100 99 Oxygen Delivery Method Aerosol Mask Oxygen Flow Rate 8 Sepsis Recent Fever Within 48 Hours Sepsis New/Unexplained Change in Mental Status Sepsis Action Taken by Nursing Oxygen Flow Rate - Titration Pulse Oximetry Post Tiitration Constitutional: Vital signs reviewed. Eyes: Pupils are equal round reactive to light. Conjunctiva are noninjected. ENT: Pharynx is clear without erythema or exudate. Mucous membranes are moist. Neck supple without meningeal signs. Respiratory: Diffuse wheezing bilaterally with poor air entry. Breath sounds are equal bilaterally. Cardiovascular: Tachycardic. Heart rate 106. GI: Soft, nondistended and nontender. Bowel sounds are present. Musculoskeletal: Bilateral pedal edema. No lower extremity tenderness. Integumentary: No cyanosis. or jaundice. Neurological: The patient is awake and alert. No focal deficits. Psychiatric: Normal affect. Not anxious appearing. Course Administered Medications Albuterol (Duoneb) 3 ml NEB Q2H PRN PRN Reason: Shortness of Breath/Wheezing Stop: 03/13/20 19:06 Last Admin: 02/12/20 20:26 Dose: 3 ml Documented by: [id number] Albuterol (Duoneb) 3 ml INH Q6R [facility] Stop: 03/13/20 19:06 Last Admin: 02/12/20 19:52 Dose: Not Given Documented by: [id number] Bupropion HCl (Wellbutrin-Xl) 300 mg PO QPM [facility] Stop: 03/13/20 20:59 Last Admin: 02/12/20 20:49 Dose: 300 mg Documented by: [id number] Enoxaparin Sodium (Lovenox) 40 mg SQ Q24H [facility] Stop: 03/13/20 19:59 Last Admin: 02/12/20 20:50 Dose: Not Given Documented by: [id number] Famotidine (Pepcid) 40 mg PO BID [facility] Stop: 03/13/20 20:59 Last Admin: 02/12/20 20:48 Dose: 40 mg Documented by: [id number] Insulin Aspart (Novolog Flexpen) 0 units SC [facility]; Protocol Stop: 03/13/20 19:59 Last Admin: 02/12/20 20:46 Dose: 10 units Documented by: [id number] Cosigned by: [id number] Montelukast Sodium (Singulair) 10 mg PO QPM [facility] Stop: 03/13/20 20:59 Last Admin: 02/12/20 20:49 Dose: 10 mg Documented by: [id number] Saccharomyces Boulardii (Florastor) 250 mg PO BID [facility] Stop: 03/13/20 20:59 Last Admin: 02/12/20 20:49 Dose: 250 mg Documented by: [id number] Discontinued Medications Albuterol (Duoneb) 12 ml INH ONE STA Stop: 02/12/20 14:44 Last Admin: 02/12/20 16:00 Dose: Not Given Documented by: [id number] Albuterol (Ventolin 0.083% 2.5mg/3ml) 10 mg NEB NOW STA Stop: 02/12/20 15:46 Last Admin: 02/12/20 15:48 Dose: 10 mg Documented by: [id number] Ipratropium Aurora (Atrovent 0.02% 0.5mg/2.5ml) 0.5 mg NEB NOW STA Stop: 02/12/20 16:39 Last Admin: 02/12/20 17:21 Dose: 0.5 mg Documented by: [id number] Methylprednisolone (Solumedrol) 125 mg IV NOW STA Stop: 02/12/20 14:44 Last Admin: 02/12/20 15:16 Dose: 125 mg Documented by: [id number] Medical Decision Making Differential Diagnosis Pneumonia, COVID-19, bronchitis, COPD exacerbation, CHF Medical Records Attestation: I reviewed the patient's medical records. The patient was seen here January 31 for similar symptoms. She had a chest x-ray and blood work and was discharged home after treatment and evaluation. She was discharged with a prescription for Levaquin and a probiotic. Home Medications Current Medication List: was personally reviewed by me Laboratory Data Attestation: I reviewed the patient's lab results. Result diagrams: 02/12/20 15:07 02/12/20 15:07 Lab Results 02/12/20 02/12/20 02/12/20 Range/Units 15:07 15:07 15:07 WBC 12.82 H (4.8-10.8) K/uL RBC 4.27 (4.2-5.4) M/uL Hgb 9.1 L (12.0-16.0) g/dL Hct 32.0 L (37-47) % MCV 74.9 L (80-100) fL MCH 21.3 L (25-34) pg MCHC 28.4 L (32-36) g/dL RDW Std Deviation 52.8 H (36.4-46.3) fL RDW Coeff of [place] 19.5 H (11.5-14.5) % Plt Count 359 (130-400) K/uL MPV 10.3 (7.4-10.4) fL Immature Gran % (Auto) 0.8 % Neut % (Auto) 47.9 % Lymph % (Auto) 30.7 % [facility] % (Auto) 6.7 % Eos % (Auto) 13.3 % Baso % (Auto) 0.6 % Neut # (Auto) 6.13 (1.4-6.5) K/uL Lymph # (Auto) 3.94 H (1.2-3.4) K/uL [facility] # (Auto) 0.86 H (0.11-0.59) K/uL Eos # (Auto) 1.71 H (0-0.5) K/uL Baso # (Auto) 0.08 (0-0.2) K/uL Immature Gran # (Auto) 0.10 H (0.00-0.02) K/uL Hypochromasia Present PT (9.0-12.0) Seconds INR (0.9-1.1) APTT (21.0-31.0) Seconds PTT Ratio D-Dimer Cancelled Sodium 139 (136-145) mmol/L Potassium 3.4 L (3.5-5.1) mmol/L Chloride 101 (98-107) mmol/L Carbon Dioxide 27 (21-32) mmol/L Anion Gap 11.0 (3-11) BUN 7 (7-18) mg/dl Creatinine 0.80 (0.6-1.2) mg/dl Est Cr Clr Drug Dosing 88.6 ml/min Est GFR ( Amer) 91.6 Est GFR (Non-Af Amer) 79.0 BUN/Creatinine Ratio 8.6 L (10-20) Glucose 186 H (70-99) mg/dl Lactate (0.4-2.0) mmol/L Calcium 8.6 (8.5-10.1) mg/dl Total Bilirubin 0.3 (0.2-1) mg/dl AST 20 (15-37) U/L ALT 21 (12-78) U/L Alkaline Phosphatase 74 (45-117) U/L Troponin I < 0.015 (0-0.045) ng/ml Total Protein 7.6 (6.4-8.2) gm/dl Albumin 3.4 (3.4-5.0) gm/dl Globulin 4.2 H (2.5-4.0) gm/dl Albumin/Globulin Ratio 0.8 L (0.9-2) COVID-19 PCR (Negative) Hepatitis C Ab Screen (Neg) Influenza Type A (PCR) (Neg) Influenza Type B (PCR) (Neg) 02/12/20 02/12/20 02/12/20 Range/Units 15:07 15:07 15:07 WBC (4.8-10.8) K/uL RBC (4.2-5.4) M/uL Hgb (12.0-16.0) g/dL Hct (37-47) % MCV (80-100) fL MCH (25-34) pg MCHC (32-36) g/dL RDW Std Deviation (36.4-46.3) fL RDW Coeff of [place] (11.5-14.5) % Plt Count (130-400) K/uL MPV (7.4-10.4) fL Immature Gran % (Auto) % Neut % (Auto) % Lymph % (Auto) % [facility] % (Auto) % Eos % (Auto) % Baso % (Auto) % Neut # (Auto) (1.4-6.5) K/uL Lymph # (Auto) (1.2-3.4) K/uL [facility] # (Auto) (0.11-0.59) K/uL Eos # (Auto) (0-0.5) K/uL Baso # (Auto) (0-0.2) K/uL Immature Gran # (Auto) (0.00-0.02) K/uL Hypochromasia PT 11.3 (9.0-12.0) Seconds INR 1.1 (0.9-1.1) APTT 22.2 (21.0-31.0) Seconds PTT Ratio 0.8 D-Dimer 450 Sodium (136-145) mmol/L Potassium (3.5-5.1) mmol/L Chloride (98-107) mmol/L Carbon Dioxide (21-32) mmol/L Anion Gap (3-11) BUN (7-18) mg/dl Creatinine (0.6-1.2) mg/dl Est Cr Clr Drug Dosing ml/min Est GFR ( Amer) Est GFR (Non-Af Amer) BUN/Creatinine Ratio (10-20) Glucose (70-99) mg/dl Lactate 5.1 H* (0.4-2.0) mmol/L Calcium (8.5-10.1) mg/dl Total Bilirubin (0.2-1) mg/dl AST (15-37) U/L ALT (12-78) U/L Alkaline Phosphatase (45-117) U/L Troponin I (0-0.045) ng/ml Total Protein (6.4-8.2) gm/dl Albumin (3.4-5.0) gm/dl Globulin (2.5-4.0) gm/dl Albumin/Globulin Ratio (0.9-2) COVID-19 PCR (Negative) Hepatitis C Ab Screen Neg (Neg) Influenza Type A (PCR) (Neg) Influenza Type B (PCR) (Neg) 02/12/20 02/12/20 02/12/20 Range/Units 15:11 15:11 17:18 WBC (4.8-10.8) K/uL RBC (4.2-5.4) M/uL Hgb (12.0-16.0) g/dL Hct (37-47) % MCV (80-100) fL MCH (25-34) pg MCHC (32-36) g/dL RDW Std Deviation (36.4-46.3) fL RDW Coeff of [place] (11.5-14.5) % Plt Count (130-400) K/uL MPV (7.4-10.4) fL Immature Gran % (Auto) % Neut % (Auto) % Lymph % (Auto) % [facility] % (Auto) % Eos % (Auto) % Baso % (Auto) % Neut # (Auto) (1.4-6.5) K/uL Lymph # (Auto) (1.2-3.4) K/uL [facility] # (Auto) (0.11-0.59) K/uL Eos # (Auto) (0-0.5) K/uL Baso # (Auto) (0-0.2) K/uL Immature Gran # (Auto) (0.00-0.02) K/uL Hypochromasia PT (9.0-12.0) Seconds INR (0.9-1.1) APTT (21.0-31.0) Seconds PTT Ratio D-Dimer Sodium (136-145) mmol/L Potassium (3.5-5.1) mmol/L Chloride (98-107) mmol/L Carbon Dioxide (21-32) mmol/L Anion Gap (3-11) BUN (7-18) mg/dl Creatinine (0.6-1.2) mg/dl Est Cr Clr Drug Dosing ml/min Est GFR ( Amer) Est GFR (Non-Af Amer) BUN/Creatinine Ratio (10-20) Glucose (70-99) mg/dl Lactate 4.3 H* (0.4-2.0) mmol/L Calcium (8.5-10.1) mg/dl Total Bilirubin (0.2-1) mg/dl AST (15-37) U/L ALT (12-78) U/L Alkaline Phosphatase (45-117) U/L Troponin I (0-0.045) ng/ml Total Protein (6.4-8.2) gm/dl Albumin (3.4-5.0) gm/dl Globulin (2.5-4.0) gm/dl Albumin/Globulin Ratio (0.9-2) COVID-19 PCR NEGATIVE (Negative) Hepatitis C Ab Screen (Neg) Influenza Type A (PCR) Neg for Influ A (Neg) Influenza Type B (PCR) Neg for Influ B (Neg) Imaging Data Radiologist's Impression: XR chest 1V portable CLINICAL HISTORY: Dyspnea COMPARISON STUDY: 02/01/2020 FINDINGS: The cardiac and mediastinal contours are normal. There is no evidence of focal pulmonary consolidation. There is no evidence of failure. No pleural effusions are visualized.[ IMPRESSION: No active disease in the chest. ACT 112: Negative or not required by law. Electronically signed by: Renzo Arceo M.D. 02/12/2020 3:38 PM Dictated: 02/12/201537 Transcribed: 02/12/201537 ECG Data Attestation: I personally reviewed and interpreted this ECG as follows: Indication: + SOB/dyspnea Rhythm: + normal sinus ECG Gravity: + Normal ECG ST segments: no ST elevation ECG Findings: no PVCs Blood Pressure Blood Pressure Findings: Elevated blood pressure Blood Pressure Disposition: Referred to patients primary care provider MDM Narrative I did evaluate the patient as noted above. The patient is presenting with cough and shortness of breath for past 6 weeks. She has been on 3 courses of antibiotics and steroids which she has finished. She continues to be short of breath and is tight and wheezing on exam here. She was placed in respiratory isolation. IV access was established. I did treat her with a hour-long continuous nebulizer with albuterol. She told the nurse that she could not take a DuoNeb because of her allergies. She was also given Solu-Medrol IV. I did place an order for continuous cardiac monitoring. The monitor showed sinus tachycardia at a rate of 102. I did order and personally review the patient's 12-lead EKG as described above. She has no acute ischemic changes on there. I did order and personally reviewed the images of the patient's chest x-ray as described above. There is no evidence of pneumonia. I did order and review the patient's blood work as noted in the electronic medical record. Her white count is elevated but this may simply be due to her recent steroids. She is anemic which is stable. Potassium is 3.4 likely from her continuous use of albuterol. Troponin is negative. On reassessment the patient states she feels somewhat better but is still short of breath and tachypneic. She stated that the nebulizer she was given on her previous visit worked well for her. Looking that up she was given a DuoNeb despite saying she was allergic to it. She was given an Atrovent nebulizer. I did recommend hospitalization for further care and evaluation. Her COVID-19 test came back negative. Flu swab is negative as well. I did discuss the case with the hospitalist and bilingual case manager. Impression & Plan Acute exacerbation of chronic obstructive pulmonary disease, Anemia, Bronchitis Discharge Plan Visit Data *Final* Discharge Date/Time: 02/12/20 18:48 Chief Complaint: Shortness of Breath/Dyspnea Stated Complaint: TROUBLE BREATHING ED Provider: Luis Alfredo Ahuja Discharge Problem: Acute exacerbation of chronic obstructive pulmonary disease, Anemia, Bronchitis Patient Disposition: Admitted As Inpatient Discharge Instructions Interventions: ED Discharge Assessment Last Done: 02/12/20 18:48
[2020-02-12 15:25] LABS: Hemoglobin 9.1 g/dL (12.0-16.0); Mean Corpuscular Hemoglobin 21.3 pg (25-34); Mean Corpuscular Hgb Conc 28.4 g/dL (32-36); Mean Corpuscular Volume 74.9 fL (80-100); Mean Platelet Volume 10.3 fL (7.4-10.4); Platelet Count 359 K/uL (130-400); RDW Coefficient of Variation 19.5 % (11.5-14.5); RDW Standard Deviation 52.8 fL (36.4-46.3); Red Blood Count 4.27 M/uL (4.2-5.4); White Blood Count 12.82 K/uL (4.8-10.8)
[2020-02-12 15:33] LABS: D Dimer 450 ug/L FEU (0-500); INR 1.1 (0.9-1.1); Partial Thromboplastin Ratio 0.8; Partial Thromboplastin Time 22.2 Seconds (21.0-31.0); Prothrombin Time 11.3 Seconds (9.0-12.0)
--- NOTE | 2020-02-12 15:39 | XRay Report ---
XR chest 1V portable CLINICAL HISTORY: Dyspnea COMPARISON STUDY: 02/01/2020 FINDINGS: The cardiac and mediastinal contours are normal. There is no evidence of focal pulmonary co nsolidation. There is no evidence of failure. No pleural effusions are visualized.[ IMPRESSION: No active disease in the chest. ACT 112: Negative or not required by law. Electronically signed by: Renzo Arceo M.D. 02/12/2020 3:38 PM
[2020-02-12 15:42] LABS: Alanine Aminotransferase 21 U/L (12-78); Albumin Level 3.4 gm/dl (3.4-5.0); Aspartate Aminotransferase 20 U/L (15-37); BUN Creatinine Ratio 8.6 (10-20); Blood Urea Nitrogen 7 mg/dl (7-18); Calcium 8.6 mg/dl (8.5-10.1); Carbon Dioxide 27 mmol/L (21-32); Chloride 101 mmol/L (98-107); Creatinine Clr Calc Pharmacy 88.6 ml/min; Est GFR (African American) 91.6; Glucose 186 mg/dl (70-99); Potassium 3.4 mmol/L (3.5-5.1); Sodium 139 mmol/L (136-145)
[2020-02-12 15:44] LABS: Basophils # (auto) 0.08 K/uL (0-0.2); Basophils % (auto) 0.6 %; Eosinophils # (auto) 1.71 K/uL (0-0.5); Eosinophils % (auto) 13.3 %; Hypochromasia Present; Immature Granulocytes % (auto) 0.8 %; Lymphocytes # (auto) 3.94 K/uL (1.2-3.4); Lymphocytes % (auto) 30.7 %; Monocytes # (auto) 0.86 K/uL (0.11-0.59); Monocytes % (auto) 6.7 %; Neutrophils # (auto) 6.13 K/uL (1.4-6.5); Neutrophils % (auto) 47.9 %
[2020-02-12] MEDS ORDERED: ALBUTEROL 0.083% NEBU SOLN 3 ML VIAL NEB STA (15:45)
[2020-02-12 15:46] LABS: Albumin Globulin Ratio 0.8 (0.9-2); Alkaline Phosphatase 74 U/L (45-117); Bilirubin,Total 0.3 mg/dl (0.2-1); Globulin 4.2 gm/dl (2.5-4.0); Total Protein 7.6 gm/dl (6.4-8.2); Troponin I < 0.015 ng/ml (0-0.045)
[2020-02-12 16:04] LABS: Influenza A virus by PCR Neg for Influ A (Neg); Influenza B virus by PCR Neg for Influ B (Neg)
[2020-02-12] MEDS ORDERED: IPRATROPIUM BROMIDE NEB SOLN 0.02% 2.5 ML VIAL NEB STA (16:38)
--- NOTE | 2020-02-12 17:16 | History & Physical Report ---
Date of Service February 12, 2020 Assessment & Plan (1) Acute exacerbation of chronic obstructive pulmonary disease: Presents with shortness of breath, productive cough and wheezing for the last 6 weeks that failed outpatient courses of azithromycin and doxycycline as well as prednisone burst. With long history of smoking, [id number], quit in 2013. Last followed with pulmonology in 01/2018 Last PFTs were in 2014 which showed: "Severe obstructive airway disease. Lung volumes demonstrate mixed restrictive/obstructive disease due to obstructive airway disease and obesity. Moderate reduction in DLCO-Dr. Portillo FVC: 2.02/57, FEV1 of 1.23/44, FEV1/FVC: 61/78, FEF 25-75%: 0.69/26, RV: 2.79/134, T.98/91, RV/T/147, DLCO: 53, dL/VA: 83" -Admit to medical floor with telemetry -Continue IV Solu-Medrol 40 mg IV every 8 hours -Continue scheduled duo nebs every 6 hours -She has an allergy to Mucinex -Add flutter valve 4 times daily -No need for antibiotics at this point as she has already taken 2 courses of azithromycin and 1 course of doxycycline in the recent past, with no pneumonia on chest x-ray -Check sputum culture given increased production of sputum -Consider pulmonology consultation -She is not a chronic CO2 retainer as per her serum bicarbonate (2) Acute respiratory failure with hypoxia: Secondary to COPD exacerbation Do not suspect acute CHF D-dimer is negative, do not suspect PE ECG without acute ischemic changes and troponin is negative -Continue supplemental O2 to keep pulse ox greater than 88-92% CPAP for NIGHAT at nighttime -Bronchodilators, IV steroids (3) Anemia: Hemoglobin down to 9.1 and is significantly microcytic. Baseline hemoglobin a year ago was 12.4 She denies any signs or symptoms of GI bleeding, no vaginal bleeding, no hematuria. Colonoscopy was performed in 01/2017 and showed 2 5 to 7 mm polyps in the ascending colon removed, diverticulosis in the sigmoid colon, nonbleeding internal hemorrhoids-pathology showed tubular adenomas EGD was performed in 04/2015 which showed a normal esophagus, mild gastritis, normal duodenum -Check iron studies in the morning -Supplement with iron if iron studies prove to be low -Needs outpatient follow-up with GI-she follows with them anyway for her cirrhosis of the liver and was due to have a screening EGD for varices several months back -Follow CBC (4) Obstructive sleep apnea of adult: She has not been using her CPAP at home as difficult for her to maintain her machine -She is willing to try CPAP here in the hospital again especially in the setting of respiratory distress (5) Hypertension: Blood pressures are mildly hypertensive here She is not on medications at home for this -Monitor blood pressures and consider starting diuretic (6) Non-occlusive coronary artery disease: Diagnostic cardiac catheterization performed in 2009 showed mild scattered CAD with up to 40-50% narrowing in the proximal PDA with normal LV function -She is not on daily aspirin, but with anemia as above, would advise against this at this time in case of peptic ulcer disease -She is also not on a statin -Consider addition of HOLLY inhibitor and/or diuretic for hypertension as above (7) Cirrhosis of liver not due to alcohol: Follows with [facility] Is overdue for follow-up and screening EGD, screening for HCC, etc. likely due to recent COVID pandemic -Follow-up as an outpatient with GI (8) Vitamin D deficiency: Continue home supplementation (9) Migraine, unspecified, not intractable, without status migrainosus: Continue PRN Fioricet (10) Persistent insomnia: Continue home trazodone (11) Chronic sinusitis, unspecified: Continue Singulair (12) Depression: Continue bupropion, trazodone (13) Diabetes: Severely uncontrolled, last hemoglobin A1c was 10.8% in 2019 She takes Toujeo 60 units once daily-continue this here She reports hives with Humalog and 100 pound weight gain on NovoLog -Okay to start NovoLog here at least temporarily, as she will have hyperglycemia with IV Solu-Medrol -Check hemoglobin A1c in the morning -Consult pharmacy for glycemic control ADA diet Accu-Cheks before meals and at bedtime (14) GERD (gastroesophageal reflux disease): Continue Pepcid 40 mg p.o. twice daily Follow-up with GI as an outpatient in the setting of microcytic anemia (15) Hyperlipidemia: Not on a statin Follow-up with PCP (16) Hypothyroidism: Continue home levothyroxine TSH was normal at 1.14 in 06/2018 (17) Polymyalgia rheumatica: Previously on long-term prednisone but now discontinued for several years No longer follows with rheumatology No acute issues (18) DVT prophylaxis: Lovenox SQ Disposition-admit to medical floor with telemetry History of Present Illness Chief Complaint: Shortness of breath Primary Care Provider: Michael Wharton MD This patient is a 64-year-old female with a history of COPD, NIGHAT, HTN, nonocclusive CAD, cirrhosis most likely secondary to fatty liver, vitamin D deficiency, arthritis, migraine, depression, GERD, hyperlipidemia, hypothyroidism, irritable bowel syndrome, and PMR, who presents to the ER for the second time in 1 week with shortness of breath and wheezing. She reports she is been coughing and shortness of breath with wheezing for the last 6 weeks. She has been treated with 2 different courses of azithromycin and was seen in the ER here a week ago. She was given a prednisone burst and a prescription for levofloxacin, however she was hesitant to take it given a severe reaction to it in the past. She was then prescribed doxycycline by her PCP which she finished this morning. She continues to be very short of breath and is wheezing. She has a cough productive of yellow-brown sputum, has been afebrile. In the ER, she was hypoxic to 87% on room air and was placed on nasal cannula. She was tachypneic and tachycardic, but afebrile and blood pressure was elevated. Her chest x-ray was read as normal. She had an elevated WBC count at 12 but recently completed a prednisone burst; her hemoglobin was low at 9.1 with microcytosis. Her d-dimer was normal, her lactate was elevated at 5.1, and her potassium was mildly low at 3.4. She was hyperglycemic in the 180s. Troponin was negative and her ECG showed a normal sinus rhythm, rate 98, with mild T wave flattening in leads II and III. Unchanged from previous. A rapid COVID-19 test was negative. Blood cultures were drawn and pending. She received a continuous albuterol nebulizer, IV Solu-Medrol 125 mg x 1, and had some improvement. She will be admitted for acute COPD exacerbation and acute respiratory failure with hypoxia Allergies Allergy/AdvReac Type Severity Reaction Status Date / Time cefaclor Allergy Severe HIVES, Verified 02/12/20 15:34 HARD TIME BREATHING Penicillins Allergy Severe THROAT Verified 02/12/20 15:34 SWELLS yellow dye Allergy Severe DIFFICULTY Verified 02/12/20 15:34 BREATHING adhesive Allergy Intermediate WELTS ON Verified 02/12/20 15:34 SKIN fluticasone Allergy Intermediate HARD OF Verified 02/12/20 15:34 BREATHING insulin lispro Allergy Intermediate HIVES Verified 02/12/20 15:34 milk Allergy Intermediate HARD OF Verified 02/12/20 15:34 BREATHING phenol Allergy Intermediate HIVES Verified 02/12/20 15:34 salmeterol Allergy Intermediate HARD OF Verified 02/12/20 15:34 BREATHING fluoxetine Allergy Mild UNKNOWN Verified 02/12/20 15:34 Iodine and Iodide Containing Allergy Mild RASH Verified 02/12/20 15:34 Produc atorvastatin [From Lipitor] Allergy Unknown Unknown Verified 02/12/20 15:34 Cephalosporins Allergy Unknown UNKNOWN Verified 02/12/20 15:34 citalopram Allergy Unknown UNKNOWN Verified 02/12/20 15:34 clarithromycin [From Biaxin] Allergy Unknown Unknown Verified 02/12/20 15:34 duloxetine [From Cymbalta] Allergy Unknown Unknown Verified 02/12/20 15:34 escitalopram [From Lexapro] Allergy Unknown Unknown Verified 02/12/20 15:34 ezetimibe [From Vytorin] Allergy Unknown Unknown Verified 02/12/20 15:34 feathers Allergy Unknown ALLERGIC Verified 02/12/20 15:34 RX "SOMETHING WEIRD" gatifloxacin [From Tequin] Allergy Unknown Unknown Verified 02/12/20 15:34 guaifenesin Allergy Unknown UNKNOWN Verified 02/12/20 15:34 insulin lispro protamine Allergy Unknown Unknown Verified 02/12/20 15:34 [From Humalog Mix] Macrolide Antibiotics Allergy Unknown UNKNOWN Verified 02/12/20 15:34 mold Allergy Unknown Unknown Verified 02/12/20 15:34 moxifloxacin [From Avelox] Allergy Unknown Unknown Verified 02/12/20 15:34 paroxetine [From Paxil] Allergy Unknown Unknown Verified 02/12/20 15:34 phenylephrine Allergy Unknown UNKNOWN Verified 02/12/20 15:34 phenylpropanolamine Allergy Unknown UNKNOWN Verified 02/12/20 15:34 Quinolones Allergy Unknown UNKNOWN Verified 02/12/20 15:34 rosuvastatin [From Crestor] Allergy Unknown Unknown Verified 02/12/20 15:34 simvastatin [From Vytorin] Allergy Unknown Unknown Verified 02/12/20 15:34 Sulfa (Sulfonamide Allergy Unknown Unknown Verified 02/12/20 15:34 Antibiotics) Tetracyclines Allergy Unknown Unknown Verified 02/12/20 15:34 levofloxacin AdvReac Intermediate SEVERE Verified 02/12/20 15:34 NAUSEA house dust AdvReac Unknown Unknown Verified 02/12/20 20:25 insulin aspart AdvReac Unknown Unknown Verified 02/12/20 19:06 [From Novolog U-100 Insulin aspart] Home Medications Home Medications Medication Instructions Recorded Confirmed Type CPAP Machine #1 ea 01/01/19 08/23/19 History tirkbut-qvdtsxmoidlsl-itlqzlvj 250 2 tab PO QAM tab 01/01/19 02/12/20 History mg-250 mg-65 mg tablet blood sugar diagnostic #10 ea 01/01/19 08/23/19 History inhalational spacing device #1 ea 01/01/19 08/23/19 History insulin admin supplies #1 ea 01/01/19 08/23/19 History lancets 33 gauge #100 ea 01/01/19 08/23/19 History multivitamin 1 tab PO DAILY 01/01/19 02/12/20 History pen needle, diabetic 32 gauge x #50 ea 01/01/19 08/23/19 History 1/4" xwmlokmede-seoajpc-ljvpyjsu 50 1 cap PO DAILY PRN #30 cap 04/11/19 02/12/20 History mg-325 mg-40 mg capsule cholecalciferol (vitamin D3) 25 5,000 units PO DAILY cap 04/12/19 02/12/20 History mcg (1,000 unit) capsule cyanocobalamin (vitamin B-12) 1,000 mcg PO DAILY tab 04/12/19 02/12/20 History 1,000 mcg tablet diphenhydramine-zinc acetate 1 1 appln TOPICAL USEASDIRECTD PRN 06/14/19 02/12/20 History %-0.1 % topical cream gm simethicone 125 mg capsule 125 mg PO USEASDIRECTD PRN cap 06/14/19 02/12/20 History levothyroxine 137 mcg tablet 137 mcg PO DAILY #90 tab 06/29/19 02/12/20 Rx Ventolin HFA 90 mcg/actuation 1 puffs INH QID PRN #18 gm NS 09/06/19 02/12/20 Rx aerosol inhaler montelukast 10 mg tablet 10 mg PO QPM #90 tab 09/09/19 02/12/20 Rx trazodone 150 mg tablet 150 mg PO .COMPLEX #180 tab 09/23/19 02/12/20 Rx metformin 500 mg tablet,extended 1,000 mg PO BIDM #360 tab 10/18/19 02/12/20 Rx release 24 hr famotidine 40 mg tablet 40 mg PO BID #180 tab 12/20/19 02/12/20 Rx tramadol 50 mg tablet 50 mg PO Q4H PRN #30 tab 12/20/19 02/12/20 Rx lorazepam 0.5 mg tablet 0.5 - 1 mg PO DAILY PRN #30 tab 12/21/19 02/12/20 Rx benzonatate 200 mg capsule 200 mg PO TID PRN #21 cap 01/26/20 02/12/20 Rx Saccharomyces boulardii [Florastor] 250 mg PO BID #20 cap 02/01/20 02/12/20 Rx insulin glargine U-300 conc 60 unit SUBCUT QAM 02/01/20 02/12/20 History [Torodney June U-300 Insulin] doxycycline monohydrate 100 mg 100 mg PO BID #20 cap 02/02/20 02/12/20 Rx capsule bupropion HCl 300 mg 24 hr tablet, 300 mg PO QPM #90 tab 02/06/20 02/12/20 Rx extended release Past Med/Surg History Medical History (Updated 02/12/20 @ 22:47 by Camryn Salazar MD) Arthritis (Acute) Asthma (Chronic) Chronic constipation (Chronic) Chronic fatigue syndrome (Chronic) Chronic ischemic heart disease, unspecified (Chronic) Chronic sinusitis, unspecified (Chronic) Cirrhosis of liver not due to alcohol COPD (chronic obstructive pulmonary disease) (Chronic) Eva's syndrome (Chronic) Depression (Chronic) Diabetes (Chronic) Frequent falls (Chronic) GERD (gastroesophageal reflux disease) (Chronic) Hidradenitis suppurativa (Inactive) Hyperlipidemia (Chronic) Hypertension (Chronic) Hypothyroidism (Chronic) Irritable bowel syndrome (Chronic) Migraine, unspecified, not intractable, without status migrainosus (Chronic) Non-occlusive coronary artery disease Obstructive sleep apnea of adult (Chronic) Persistent insomnia (Chronic) Polymyalgia rheumatica SNHL (sensorineural hearing loss) (Chronic) Tubular adenoma of colon (Chronic) Vitamin D deficiency (Acute) Surgical History H/O breast surgery biopsy 1989, cyst removal times 3 H/O prior ablation treatment endometrosis History of adenoidectomy History of ear surgery myringotomy right History of surgery on arm Left ORIF humerus Family History Grandfather (Maternal) Myocardial infarction Mother Anxiety Depression Lung disease Sinusitis Father Stroke Allergies Social History Smoking Status: Former smoker Tobacco Type: Cigarettes Smoking End Date: 6 years ago; Second Hand Exposure: Yes ( smoked); Hx Alcohol Use: No Hx Substance Use: No Preferred Language: Gambian Communication Ability: Effective Visual Impairment: Limited Hearing Ability: Hard of Hearing Tiltrot[employer] Chief Required: No Beliefs That Will Affect Care: None marital status: / Current Living Situation: Alone current occupational status: retired Other Information That Helps Us Care for You: No Feels Safe at Home: Yes Safety Concerns: Feels Safe At This Time caffeine: Yes Dental Care, Regularly: No Physical Activity Frequency: Does not Exercise Seatbelt Use: always Review of Systems Review of Systems: All systems reviewed & are unremarkable except as noted in HPI & below Physical Exam Constitutional: WD/WN, vitals as above + acute distress (With mild tachypnea) and + ill appearing Eyes: PERRL, conjunctivae normal, anicteric sclerae ENMT: external ear and nose normal, oropharynx normal Neck: trachea midline, no thyromegaly Respiratory: + labored breathing and + tachypneic Auscultation: + diminished lung sounds (Throughout all lung palacios) and + wheezes (Diffusely); no crackles and no rhonchi Cardiovascular: RRR, no murmur, no edema Chest (Breasts): Chest: normal inspection of chest Gastrointestinal (Abdomen): normal bowel sounds, soft, nontender, no hepatosplenomegaly Musculoskeletal: Extremities: extremities normal to inspection; no cyanosis and no clubbing Skin: no rashes, warm and dry Neurologic: moves all extremities and awake; no focal motor deficits Psychiatric: A+Ox3, euthymic affect Lymphatic: no lymphedema Results & Data Results & Data ([facility]) Vital Signs (Past 12 Hours) Vital Signs Temp Pulse Pulse Resp BP Pulse Ox 02/12/20 15:49 97 H 20 98 02/12/20 15:35 102 H 26 H 119/100 98 02/12/20 15:24 98 02/12/20 13:56 37.2 C 106 H 24 169/73 H 94 Laboratory Results 02/12/20 02/12/20 02/12/20 Range/Units 19:11 17:18 15:11 WBC (4.8-10.8) K/uL RBC (4.2-5.4) M/uL Hgb (12.0-16.0) g/dL Hct (37-47) % MCV (80-100) fL MCH (25-34) pg MCHC (32-36) g/dL RDW Std Deviation (36.4-46.3) fL RDW Coeff of [place] (11.5-14.5) % Plt Count (130-400) K/uL MPV (7.4-10.4) fL Immature Gran % (Auto) % Neut % (Auto) % Lymph % (Auto) % [place] % (Auto) % Eos % (Auto) % Baso % (Auto) % Neut # (Auto) (1.4-6.5) K/uL Lymph # (Auto) (1.2-3.4) K/uL [place] # (Auto) (0.11-0.59) K/uL Eos # (Auto) (0-0.5) K/uL Baso # (Auto) (0-0.2) K/uL Immature Gran # (Auto) (0.00-0.02) K/uL Hypochromasia PT (9.0-12.0) Seconds INR (0.9-1.1) APTT (21.0-31.0) Seconds PTT Ratio D-Dimer Sodium (136-145) mmol/L Potassium (3.5-5.1) mmol/L Chloride (98-107) mmol/L Carbon Dioxide (21-32) mmol/L Anion Gap (3-11) BUN (7-18) mg/dl Creatinine (0.6-1.2) mg/dl Est Cr Clr Drug Dosing ml/min Est GFR ( Amer) Est GFR (Non-Af Amer) BUN/Creatinine Ratio (10-20) Glucose (70-99) mg/dl POC Glucose 279 H (70-99) mg/dl Lactate 4.3 H* (0.4-2.0) mmol/L Calcium (8.5-10.1) mg/dl Total Bilirubin (0.2-1) mg/dl AST (15-37) U/L ALT (12-78) U/L Alkaline Phosphatase (45-117) U/L Troponin I (0-0.045) ng/ml Total Protein (6.4-8.2) gm/dl Albumin (3.4-5.0) gm/dl Globulin (2.5-4.0) gm/dl Albumin/Globulin Ratio (0.9-2) COVID-19 PCR NEGATIVE (Negative) Hepatitis C Ab Screen (Neg) Influenza Type A (PCR) (Neg) Influenza Type B (PCR) (Neg) 02/12/20 02/12/20 02/12/20 Range/Units 15:11 15:07 15:07 WBC (4.8-10.8) K/uL RBC (4.2-5.4) M/uL Hgb (12.0-16.0) g/dL Hct (37-47) % MCV (80-100) fL MCH (25-34) pg MCHC (32-36) g/dL RDW Std Deviation (36.4-46.3) fL RDW Coeff of [place] (11.5-14.5) % Plt Count (130-400) K/uL MPV (7.4-10.4) fL Immature Gran % (Auto) % Neut % (Auto) % Lymph % (Auto) % [place] % (Auto) % Eos % (Auto) % Baso % (Auto) % Neut # (Auto) (1.4-6.5) K/uL Lymph # (Auto) (1.2-3.4) K/uL [place] # (Auto) (0.11-0.59) K/uL Eos # (Auto) (0-0.5) K/uL Baso # (Auto) (0-0.2) K/uL Immature Gran # (Auto) (0.00-0.02) K/uL Hypochromasia PT (9.0-12.0) Seconds INR (0.9-1.1) APTT (21.0-31.0) Seconds PTT Ratio D-Dimer Sodium (136-145) mmol/L Potassium (3.5-5.1) mmol/L Chloride (98-107) mmol/L Carbon Dioxide (21-32) mmol/L Anion Gap (3-11) BUN (7-18) mg/dl Creatinine (0.6-1.2) mg/dl Est Cr Clr Drug Dosing ml/min Est GFR ( Amer) Est GFR (Non-Af Amer) BUN/Creatinine Ratio (10-20) Glucose (70-99) mg/dl POC Glucose (70-99) mg/dl Lactate 5.1 H* (0.4-2.0) mmol/L Calcium (8.5-10.1) mg/dl Total Bilirubin (0.2-1) mg/dl AST (15-37) U/L ALT (12-78) U/L Alkaline Phosphatase (45-117) U/L Troponin I (0-0.045) ng/ml Total Protein (6.4-8.2) gm/dl Albumin (3.4-5.0) gm/dl Globulin (2.5-4.0) gm/dl Albumin/Globulin Ratio (0.9-2) COVID-19 PCR (Negative) Hepatitis C Ab Screen Neg (Neg) Influenza Type A (PCR) Neg for Influ A (Neg) Influenza Type B (PCR) Neg for Influ B (Neg) 02/12/20 02/12/20 02/12/20 Range/Units 15:07 15:07 15:07 WBC 12.82 H (4.8-10.8) K/uL RBC 4.27 (4.2-5.4) M/uL Hgb 9.1 L (12.0-16.0) g/dL Hct 32.0 L (37-47) % MCV 74.9 L (80-100) fL MCH 21.3 L (25-34) pg MCHC 28.4 L (32-36) g/dL RDW Std Deviation 52.8 H (36.4-46.3) fL RDW Coeff of [place] 19.5 H (11.5-14.5) % Plt Count 359 (130-400) K/uL MPV 10.3 (7.4-10.4) fL Immature Gran % (Auto) 0.8 % Neut % (Auto) 47.9 % Lymph % (Auto) 30.7 % [place] % (Auto) 6.7 % Eos % (Auto) 13.3 % Baso % (Auto) 0.6 % Neut # (Auto) 6.13 (1.4-6.5) K/uL Lymph # (Auto) 3.94 H (1.2-3.4) K/uL [place] # (Auto) 0.86 H (0.11-0.59) K/uL Eos # (Auto) 1.71 H (0-0.5) K/uL Baso # (Auto) 0.08 (0-0.2) K/uL Immature Gran # (Auto) 0.10 H (0.00-0.02) K/uL Hypochromasia Present PT 11.3 (9.0-12.0) Seconds INR 1.1 (0.9-1.1) APTT 22.2 (21.0-31.0) Seconds PTT Ratio 0.8 D-Dimer 450 Sodium 139 (136-145) mmol/L Potassium 3.4 L (3.5-5.1) mmol/L Chloride 101 (98-107) mmol/L Carbon Dioxide 27 (21-32) mmol/L Anion Gap 11.0 (3-11) BUN 7 (7-18) mg/dl Creatinine 0.80 (0.6-1.2) mg/dl Est Cr Clr Drug Dosing 88.6 ml/min Est GFR ( Amer) 91.6 Est GFR (Non-Af Amer) 79.0 BUN/Creatinine Ratio 8.6 L (10-20) Glucose 186 H (70-99) mg/dl POC Glucose (70-99) mg/dl Lactate (0.4-2.0) mmol/L Calcium 8.6 (8.5-10.1) mg/dl Total Bilirubin 0.3 (0.2-1) mg/dl AST 20 (15-37) U/L ALT 21 (12-78) U/L Alkaline Phosphatase 74 (45-117) U/L Troponin I < 0.015 (0-0.045) ng/ml Total Protein 7.6 (6.4-8.2) gm/dl Albumin 3.4 (3.4-5.0) gm/dl Globulin 4.2 H (2.5-4.0) gm/dl Albumin/Globulin Ratio 0.8 L (0.9-2) COVID-19 PCR (Negative) Hepatitis C Ab Screen (Neg) Influenza Type A (PCR) (Neg) Influenza Type B (PCR) (Neg) 02/12/20 Range/Units 15:07 WBC (4.8-10.8) K/uL RBC (4.2-5.4) M/uL Hgb (12.0-16.0) g/dL Hct (37-47) % MCV (80-100) fL MCH (25-34) pg MCHC (32-36) g/dL RDW Std Deviation (36.4-46.3) fL RDW Coeff of [place] (11.5-14.5) % Plt Count (130-400) K/uL MPV (7.4-10.4) fL Immature Gran % (Auto) % Neut % (Auto) % Lymph % (Auto) % [place] % (Auto) % Eos % (Auto) % Baso % (Auto) % Neut # (Auto) (1.4-6.5) K/uL Lymph # (Auto) (1.2-3.4) K/uL [place] # (Auto) (0.11-0.59) K/uL Eos # (Auto) (0-0.5) K/uL Baso # (Auto) (0-0.2) K/uL Immature Gran # (Auto) (0.00-0.02) K/uL Hypochromasia PT (9.0-12.0) Seconds INR (0.9-1.1) APTT (21.0-31.0) Seconds PTT Ratio D-Dimer Cancelled Sodium (136-145) mmol/L Potassium (3.5-5.1) mmol/L Chloride (98-107) mmol/L Carbon Dioxide (21-32) mmol/L Anion Gap (3-11) BUN (7-18) mg/dl Creatinine (0.6-1.2) mg/dl Est Cr Clr Drug Dosing ml/min Est GFR ( Amer) Est GFR (Non-Af Amer) BUN/Creatinine Ratio (10-20) Glucose (70-99) mg/dl POC Glucose (70-99) mg/dl Lactate (0.4-2.0) mmol/L Calcium (8.5-10.1) mg/dl Total Bilirubin (0.2-1) mg/dl AST (15-37) U/L ALT (12-78) U/L Alkaline Phosphatase (45-117) U/L Troponin I (0-0.045) ng/ml Total Protein (6.4-8.2) gm/dl Albumin (3.4-5.0) gm/dl Globulin (2.5-4.0) gm/dl Albumin/Globulin Ratio (0.9-2) COVID-19 PCR (Negative) Hepatitis C Ab Screen (Neg) Influenza Type A (PCR) (Neg) Influenza Type B (PCR) (Neg) Diagnostic Findings XR chest 1V portable CLINICAL HISTORY: Dyspnea COMPARISON STUDY: 02/01/2020 FINDINGS: The cardiac and mediastinal contours are normal. There is no evidence of focal pulmonary consolidation. There is no evidence of failure. No pleural effusions are visualized.[ IMPRESSION: No active disease in the chest. ECG Additional Comments: ECG on 02/12/2020 at 1503 with normal sinus rhythm, rate 98, nonspecific ST and T wave abnormality in the inferior leads, unchanged from previous Code Status & VTE Plan Code Status DNR/DNI VTE Prophylaxis Plan VTE Prophylaxis will be ordered: Yes PG Care Time/CCT Total # of Minutes Spent Total Time Spent with Patient: Total time spent is greater than 50% in coordination of care (as documented) at patient's floor/unit and/or counseling patient: Coding Level of Care Code 43703 Initial Inpt Care Lvl 3 Diagnoses Acute exacerbation of chronic obstructive pulmonary disease J44.1 Acute respiratory failure with hypoxia J96.01 Anemia D64.9 Anemia type: unspecified type Obstructive sleep apnea of adult G47.33 Hypertension I10 Hypertension type: essential hypertension Non-occlusive coronary artery disease I25.10 Cirrhosis of liver not due to alcohol K74.60 Vitamin D deficiency E55.9 Migraine, unspecified, not intractable, without status migrainosus G43.909 Persistent insomnia G47.00 Chronic sinusitis, unspecified J32.9 Depression F34.1 Depression Type: dysthymia Diabetes E11.65 Diabetes mellitus complication status: with hyperglycemia Diabetes mellitus ocean transportation intermediary insulin use: without ocean transportation intermediary use Diabetes mellitus type: type 2 GERD (gastroesophageal reflux disease) K21.9 Hyperlipidemia E78.5 Hypothyroidism E03.9 Polymyalgia rheumatica M35.3 DVT prophylaxis Z29.9 (1) Diabetes Diabetes mellitus complication status: with hyperglycemia Diabetes mellitus chcf insulin use: without chcf use Diabetes mellitus type: type 2 Qualified Code(s): E11.65 - Type 2 diabetes mellitus with hyperglycemia (2) Depression Depression Type: dysthymia Qualified Code(s): F34.1 - Dysthymic disorder (3) Hypertension Hypertension type: essential hypertension Qualified Code(s): I10 - Essential (primary) hypertension (4) Anemia Anemia type: unspecified type Qualified Code(s): D64.9 - Anemia, unspecified
[2020-02-12] MEDS ORDERED: PHARMACY GLYCEMIC MGMT CONSULT STA (17:24)
[2020-02-12] MEDS ORDERED: DEXTROSE 50% 50 ML SYRINGE IV PRN (19:07)
[2020-02-12] MEDS ORDERED: GLUCOSE 40% GEL 15 GM TUBE PO PRN (19:07)
[2020-02-12] MEDS ORDERED: LORazepam 0.5 MG TAB PO PRN (19:07)
[2020-02-12] MEDS ORDERED: BUTALBITAL/ASPIRIN/CAFFEINE 1 TAB TAB PO PRN (19:07)
[2020-02-12] MEDS ORDERED: CARBOHYDRATES FOR HYPOGLYCEMIA PO PRN (19:07)
[2020-02-12] MEDS ORDERED: GLUCAGON FOR INJ 1 MG VIAL SQ PRN (19:07)
[2020-02-12] MEDS ORDERED: GLUCOSE 10 TABS/TUBE PO PRN (19:07)
[2020-02-12] MEDS ORDERED: BENZONATATE 100 MG CAPSULE PO PRN (19:07)
[2020-02-12] MEDS ORDERED: ONDANSETRON INJ 2 MG/ML 2 ML VIAL IV PRN (19:07)
[2020-02-12] MEDS ORDERED: PHARMACY GLYCEMIC MGMT CONSULT PRN (19:18)
[2020-02-12] MEDS: ALBUT/IPRATROP 3MG/0.5MG NEB 3 ML VIAL INH SCH (19:52)
[2020-02-12] MEDS: ALBUT/IPRATROP 3MG/0.5MG NEB 3 ML VIAL NEB PRN (20:26)
[2020-02-12] MEDS: INSULIN ASPART 100 UNITS/ML 3 ML PEN SC SCH (20:46)
[2020-02-12] MEDS: FAMOTIDINE 40 MG TABLET PO SCH (20:48)
[2020-02-12] MEDS: SACCHAROMYCES BOULARDII 250 MG CAP PO SCH (20:49)
[2020-02-12] MEDS: MONTELUKAST SODIUM 10 MG TABLET PO SCH (20:49)
[2020-02-12] MEDS: BuPROPion XL 300 MG TABCR PO SCH (20:49)
[2020-02-12] MEDS: ENOXAPARIN INJ 40 MG/0.4 ML SYR SQ SCH (20:50)
[2020-02-12] MEDS: TRAZODONE HCL 50 MG TAB PO SCH (22:15)
[2020-02-12] MEDS: methylPREDNISolone 40 MG in SYRINGE 0 ML IV SCH (22:16)
[2020-02-12] MEDS ORDERED: POTASSIUM CHLORIDE 20 MEQ TABCR PO STA (22:20)
[2020-02-12] MEDS ORDERED: COUGH DROP (SUGAR FREE) LOZ 24 LOZ/1 BOX BUCCAL PRN (22:40)
[2020-02-13] MEDS ORDERED: INSULIN HUMAN REGULAR PER UNIT 10 UNITS in SYRINGE 9.9 ML IV ONE ×2 (00:15→04:00)
[2020-02-13] MEDS: INSULIN ASPART 100 UNITS/ML 3 ML PEN SC SCH ×4 (00:51→12:35)
[2020-02-13] MEDS: ALBUT/IPRATROP 3MG/0.5MG NEB 3 ML VIAL INH SCH ×4 (01:20→19:11)
[2020-02-13] MEDS: methylPREDNISolone 40 MG in SYRINGE 0 ML IV SCH ×3 (05:47→21:54)
[2020-02-13] MEDS: LEVOTHYROXINE SODIUM 137 MCG TABLET PO SCH (05:47)
[2020-02-13] MEDS: SACCHAROMYCES BOULARDII 250 MG CAP PO SCH ×2 (08:32→20:36)
[2020-02-13] MEDS: CHOLECALCIFEROL 1,000 UNITS 25 MCG TAB PO SCH (08:32)
[2020-02-13] MEDS: FAMOTIDINE 40 MG TABLET PO SCH ×2 (08:32→20:36)
[2020-02-13] MEDS: CYANOCOBALAMIN 500 MCG TABLET (VITAMIN B-12) PO SCH (08:32)
[2020-02-13] MEDS: MULTIVITAMIN TAB PO SCH (08:32)
[2020-02-13 08:44] LABS: Basophils # (auto) 0.01 K/uL (0-0.2); Basophils % (auto) 0.1 %; Hematocrit (blood only) 28.6 % (37-47); Hemoglobin 8.3 g/dL (12.0-16.0); Immature Granulocytes # (auto) 0.06 K/uL (0.00-0.02); Immature Granulocytes % (auto) 0.7 %; Lymphocytes # (auto) 1.37 K/uL (1.2-3.4); Lymphocytes % (auto) 16.7 %; Mean Corpuscular Hemoglobin 21.4 pg (25-34); Mean Corpuscular Volume 73.7 fL (80-100); Mean Platelet Volume 10.4 fL (7.4-10.4); Monocytes # (auto) 0.23 K/uL (0.11-0.59); Monocytes % (auto) 2.8 %; Neutrophils # (auto) 6.52 K/uL (1.4-6.5); Neutrophils % (auto) 79.7 %; Platelet Count 266 K/uL (130-400); RDW Coefficient of Variation 19.4 % (11.5-14.5); RDW Standard Deviation 51.8 fL (36.4-46.3); Red Blood Count 3.88 M/uL (4.2-5.4); White Blood Count 8.19 K/uL (4.8-10.8)
[2020-02-13] MEDS ORDERED: INSULIN GLARGINE SOLOSTAR 100 UNITS/ML 3 ML PEN SC SCH ×3 (09:00)
[2020-02-13] MEDS ORDERED: NON-FORMULARY MEDICATION (Aspirin-Acetaminophen-Caffeine [Excedrin Migraine] 2 TAB) PO SCH (09:00)
--- NOTE | 2020-02-13 09:14 | Pharmacy Report ---
Glycemic Control Consultation - Date of Service February 13, 2020 - Scope Scope: Glycemic Pharmacist consulted for glycemic control and to write orders per [facility] inpatient glycemic control protocol. - Objective Weight: 100 kg Accdemian BSG (last 24hrs): 02/12/20 02/12/20 02/13/20 15:07 19:11 00:07 Glucose 186 H POC Glucose 279 H 378 H* 02/13/20 02/13/20 03:39 07:36 Glucose POC Glucose 319 H* 254 H Laboratory Data (last 24hrs): 02/12/20 15:07 Potassium 3.4 L Carbon Dioxide 27 Anion Gap 11.0 Creatinine 0.80 Est Cr Clr Drug Dosing 88.6 - Recent Pertinent Medications Outpatient Anti-diabetic Regimen: * Toujeo 60 units SC QAM + Metformin 1000 mg PO BIDM * A1c = [] % [date] The patient is currently receiving: * Basal insulin: Lantus 48 units x 1 this AM * Correctional Insulin: Novolog Correction per scale ACHS Goal Range: Low 110 mg/dL - High 140 mg/dL Correction Factor: 20 mg/dL/unit * Prandial insulin: Per carb ratio of 1 unit per 8 grams CHO consumed Risk Factors for Insulin Resistance: * Steroids: * SoluMedrol 40 mg IV Q8H * Diet: * T2DM - Assessment & Plan Assessment & Plan: ASSESSMENT: * 64 yo F admitted secondary to Acute Exacerbation of COPD. Pharmacy is consulted for inpatient glycemic management. * Patient is uncontrolled as an outpatient on Toujeo and Metformin based upon most recent A1c. However, this result is likely somewhat unreliable secondary to patient's history of anemia. * Admission BSG was 186 mg/dL. Patient received 125 mg of IV SoluMedrol in the ED followed by being started on SoluMedrol 40 mg IV Q8H. Steroids can cause hyperglycemia and have their most profound effect on post-prandial BSGs. * Subsequent BSGs were 279 - 378 - 319 mg/dL. Patient received two 10 unit IV Insulin Boluses with each BSG > 300 mg/dL. * Fasting BSG this AM was 254 mg/dL which is uncontrolled. AM Lantus dose was originally reduced by 20% this morning for conversion from Toujeo to Lantus. However, given steroid-induced hyperglycemia and continued SoluMedrol schedule, Lantus was increased to stress the patient's home dose of Toujeo. * Will also tighten carb ratio and correction factor this morning to reflect a high-stress, weight-based regimen. Patient reports she is not supposed to Novolog because it makes her BSGs "shoot up" and causes her to gain weight. Her insurance will not cover Humalog at home so she takes Metformin instead. Patient was given option to switch to Regular insulin every 6 hours while inpatient but she agreed to continue Novolog for now. * Expect basal and bolus insulin requirements to decrease as steroids are tapered. PLAN FOR INPATIENT GLYCEMIC CONTROL: * Holding outpatient oral diabetes medications * Basal insulin - increased * Lantus 72 units SQ QAM (~ 20% increase in home dose) * Bolus insulin - tightened * NovoLog per scale ACHS or Q6hrs while NPO * Goal Range: Low 110 mg/dL - High 140 mg/dL * Correction Factor: 12 mg/dL/unit * Nutritional / Prandial insulin per carb ratio of 1 unit per 4 grams CHO consumed * Please note that the plan above was derived based on current level of insulin resistance and hospital stress. These recommendations are appropriate for inpatient admission only. Plan of care upon discharge will need to be reassessed to avoid potential outpatient hypo/hyperglycemia. Thank you.
[2020-02-13 09:15] LABS: Hypochromasia Present; Microcytosis Present
[2020-02-13 09:19] LABS: Albumin Level 3.2 gm/dl (3.4-5.0); Bilirubin,Total 0.5 mg/dl (0.2-1); Creatinine Clr Calc Pharmacy 97.1 ml/min; Est GFR (African American) 102.3; Est GFR (Non-African American) 88.3; Potassium 4.1 mmol/L (3.5-5.1)
[2020-02-13 09:24] LABS: Albumin Globulin Ratio 0.8 (0.9-2); Ferritin 7.4 ng/ml (8-388); Thyroid Stimulating Hormone 0.861 uIu/ml (0.300-4.500); Total Protein 7.2 gm/dl (6.4-8.2)
[2020-02-13 09:45] LABS: Estimated Average Glucose 237 mg/dl; Hemoglobin A1C 9.9 % (4.5-5.6)
[2020-02-13] MEDS: TRAMADOL HCL 50 MG TABLET PO PRN (12:32)
--- NOTE | 2020-02-13 14:10 | Hospitalist Progress Note ---
Date of Service February 13, 2020 Assessment & Plan (1) Acute exacerbation of chronic obstructive pulmonary disease: Last PFTs were in 2014 which showed: Severe obstructive airway disease. Lung volumes demonstrate mixed restrictive/obstructive disease due to obstructive airway disease and obesity. Moderate reduction in DLCO. - Continue DuoNebs, steroids - Add flutter valve 4 times daily - No need for antibiotics at this point as she has already taken 2 courses of azithromycin and 1 course of doxycycline in the recent past, with no pneumonia on chest x-ray. - Will get procalcitonin in the AM. - Check sputum culture given increased production of sputum - Improving today. (2) Acute respiratory failure with hypoxia: Secondary to COPD exacerbation. Do not suspect acute CHF. D-dimer is negative, do not suspect PE. ECG without acute ischemic changes and troponin is negative. - Continue supplemental O2 to keep pulse ox greater than 88-92% - CPAP for NIGHAT at nighttime - Bronchodilators, IV steroids (3) Anemia: Hemoglobin down to 9.1 and is significantly microcytic. Baseline hemoglobin a year ago was 12.4. She denies any signs or symptoms of GI bleeding, no vaginal bleeding, no hematuria. Colonoscopy was performed in 01/2017 and showed 2 5 to 7 mm polyps in the ascending colon removed, diverticulosis in the sigmoid colon, nonbleeding internal hemorrhoids-pathology showed tubular adenomas. EGD was performed in 04/2015 which showed a normal esophagus, mild gastritis, normal duodenum. - Iron studies show iron deficiency. - Needs outpatient follow-up with GI - she follows with them anyway for her cirrhosis of the liver and was due to have a screening EGD for varices several months back. - Follow CBC -> Down somewhat today. (4) Obstructive sleep apnea of adult: She has not been using her CPAP at home as difficult for her to maintain her machine. - She is willing to try CPAP here in the hospital again especially in the setting of respiratory distress. (5) Hypertension: Blood pressures is mildly hypertensive today again at 155/80. She is not on medications at home for this. - Monitor blood pressures and consider starting diuretic (6) Non-occlusive coronary artery disease: Diagnostic cardiac catheterization performed in 2009 showed mild scattered CAD with up to 40-50% narrowing in the proximal PDA with normal LV function. 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 Is overdue for follow-up and screening EGD, screening for HCC, etc. likely due to recent COVID pandemic. - Will consult today given worsening anemia. (8) Vitamin D deficiency: Continue home supplementation. (9) Migraine, unspecified, not intractable, without status migrainosus: Continue PRN Fioricet (10) Persistent insomnia: Continue home trazodone (11) Depression: Continue bupropion, trazodone (12) Diabetes: Severely uncontrolled, last hemoglobin A1c was 10.8% in 2019. A1c was 9.9% this admission. - She takes Toujeo 60 units once daily - continue this here. - She reports hives with Humalog and 100 pound weight gain on NovoLog. - Okay to start NovoLog here at least temporarily, as she will have hyperglycemia with IV Solu-Medrol - Consulted pharmacy for glycemic control (13) GERD (gastroesophageal reflux disease): Continue Pepcid 40 mg p.o. twice daily Follow-up with GI as an outpatient in the setting of microcytic anemia (14) Hyperlipidemia: Not on a statin. - Follow-up with PCP (15) Hypothyroidism: TSH was normal at 1.14 in 06/2018. - Continue home levothyroxine (16) Polymyalgia rheumatica: Previously on long-term prednisone but now discontinued for several years. No longer follows with rheumatology. Has some shoulder pain, but this is stable and responds to oral Tylenol. - No acute issues (17) DVT prophylaxis: Lovenox SQ Admission and Anticipated Discharge Date Admission Date: February 12, 2020 Subjective Still with shortness of breath, but 40% better she reports. Reports no fevers/chills, chest pain, abdominal pain, nausea, or vomiting. Physical Exam Constitutional: WD/WN, vitals as above Eyes: EOM intact bilaterally; no conjunctival abnormality ENMT: external ear and nose normal, oropharynx normal Neck: trachea midline, no thyromegaly normal visual inspection Respiratory: normal respiratory effort, lungs clear to auscultation no respiratory distress Cardiovascular: RRR, no murmur, no edema Gastrointestinal (Abdomen): Inspection/Auscultation: abdomen normal to inspection; abdomen not distended Musculoskeletal: no cyanosis or clubbing, extremities motor strength 5/5 Skin: no rashes, warm and dry Neurologic: moves all extremities and awake Psychiatric: Orientation: alert, oriented to person and cooperative Results & Data Results & Data ([facility]) Vital Signs (Past 12 Hours) Vital Signs Temp Pulse Pulse Resp BP Pulse Ox 02/13/20 12:54 92 H 18 94 02/13/20 11:34 36.7 C 93 H 17 154/81 H 93 02/13/20 07:43 36.4 C L 97 H 19 152/70 H 97 02/13/20 07:24 81 02/13/20 07:00 85 16 96 02/13/20 04:00 36.7 C 92 H 18 112/71 92 PG Care Time/CCT Total # of Minutes Spent Total Time Spent with Patient: Total time spent is greater than 50% in coordination of care (as documented) at patient's floor/unit and/or counseling patient: Coding Level of Care Code 45575 Subseq Hosp Care Lvl 2 Diagnoses Acute exacerbation of chronic obstructive pulmonary disease J44.1 Acute respiratory failure with hypoxia J96.01 Anemia D64.9 Anemia type: unspecified type Obstructive sleep apnea of adult G47.33 Hypertension I10 Hypertension type: essential hypertension Non-occlusive coronary artery disease I25.10 Cirrhosis of liver not due to alcohol K74.60 Vitamin D deficiency E55.9 Migraine, unspecified, not intractable, without status migrainosus G43.909 Persistent insomnia G47.00 Depression F34.1 Depression Type: dysthymia Diabetes E11.65 Diabetes mellitus type: type 2 Diabetes mellitus director long term care insulin use: without retirement use Diabetes mellitus complication status: with hyperglycemia GERD (gastroesophageal reflux disease) K21.9 Hyperlipidemia E78.5 Hypothyroidism E03.9 Polymyalgia rheumatica M35.3 DVT prophylaxis Z29.9 (1) Anemia Anemia type: unspecified type Qualified Code(s): D64.9 - Anemia, unspecified (2) Hypertension Hypertension type: essential hypertension Qualified Code(s): I10 - Essential (primary) hypertension (3) Depression Depression Type: dysthymia Qualified Code(s): F34.1 - Dysthymic disorder (4) Diabetes Diabetes mellitus type: type 2 Diabetes mellitus director long term care insulin use: without retirement use Diabetes mellitus complication status: with hyperglycemia Qualified Code(s): E11.65 - Type 2 diabetes mellitus with hyperglycemia
[2020-02-13] MEDS: BUTALBITAL/ASPIRIN/CAFFEINE 1 TAB TAB PO PRN (16:49)
[2020-02-13] MEDS: INSULIN HUMAN LISPRO (humaLOG) 100 UNITS/ML VIAL SC SCH ×2 (17:20→20:37)
--- NOTE | 2020-02-13 17:57 | Electrocardiogram Report ---
Test Reason : Blood Pressure : / mmHG Vent. Rate : 098 BPM Atrial Rate : 098 BPM P-R Int : 150 ms QRS Dur : 096 ms QT Int : 368 ms P-R-T Axes : 091 037 057 degrees QTc Int : 469 ms Poor data quality, interpretation may be adversely affected Normal sinus rhythm Nonspecific ST and T wave abnormality Abnormal ECG When compared with ECG of 01-FEB-2020 18:16, Premature ventricular complexes are no longer Present Confirmed by Mariano Crocker ([id number]) on 02/13/2020 5:57:13 PM Referred By: REFERRED SELF Confirmed By:Delvis Crocker
[2020-02-13] MEDS: ENOXAPARIN INJ 40 MG/0.4 ML SYR SQ SCH (20:34)
[2020-02-13] MEDS: BuPROPion XL 300 MG TABCR PO SCH (20:36)
[2020-02-13] MEDS: MONTELUKAST SODIUM 10 MG TABLET PO SCH (20:36)
[2020-02-13] MEDS: TRAZODONE HCL 50 MG TAB PO SCH (21:54)
[2020-02-14] MEDS: ALBUT/IPRATROP 3MG/0.5MG NEB 3 ML VIAL INH SCH ×4 (00:30→19:03)
[2020-02-14] MEDS ORDERED: INSULIN HUMAN LISPRO (humaLOG) 100 UNITS/ML VIAL SC SCH (02:00)
[2020-02-14] MEDS: methylPREDNISolone 40 MG in SYRINGE 0 ML IV SCH ×3 (05:57→20:36)
[2020-02-14] MEDS: LEVOTHYROXINE SODIUM 137 MCG TABLET PO SCH (05:57)
[2020-02-14 07:05] LABS: Hematocrit (blood only) 31.2 % (37-47); Hemoglobin 8.9 g/dL (12.0-16.0); Mean Corpuscular Hemoglobin 21.2 pg (25-34); Mean Corpuscular Hgb Conc 28.5 g/dL (32-36); Mean Corpuscular Volume 74.3 fL (80-100); Mean Platelet Volume 10.1 fL (7.4-10.4); Platelet Count 301 K/uL (130-400); RDW Coefficient of Variation 19.7 % (11.5-14.5); White Blood Count 11.21 K/uL (4.8-10.8)
[2020-02-14] MEDS: CHOLECALCIFEROL 1,000 UNITS 25 MCG TAB PO SCH (07:19)
[2020-02-14] MEDS: FAMOTIDINE 40 MG TABLET PO SCH ×2 (07:19→20:36)
[2020-02-14] MEDS: CYANOCOBALAMIN 500 MCG TABLET (VITAMIN B-12) PO SCH (07:19)
[2020-02-14] MEDS: MULTIVITAMIN TAB PO SCH (07:19)
[2020-02-14] MEDS: SACCHAROMYCES BOULARDII 250 MG CAP PO SCH ×3 (07:20→20:36)
[2020-02-14 07:26] LABS: BUN Creatinine Ratio 12.1 (10-20); Calcium 8.7 mg/dl (8.5-10.1); Est GFR (African American) 88.9; Est GFR (Non-African American) 76.7; Magnesium 2.1 mg/dl (1.8-2.4); Potassium 3.9 mmol/L (3.5-5.1)
[2020-02-14] MEDS: INSULIN HUMAN LISPRO (humaLOG) 100 UNITS/ML VIAL SC SCH ×4 (08:14→20:37)
--- NOTE | 2020-02-14 08:59 | XRay Report ---
XR chest 2V PA/lateral CLINICAL HISTORY: Hypoxemia COMPARISON STUDY: February 12, 2020 FINDINGS: The cardiac and mediastinal contours are normal. There is no evidence of focal pulmonary co nsolidation. There is no evidence of failure. No pleural effusions are visualized.[ IMPRESSION: No active disease in the chest. ACT 112: Negative or not required by law. Electronically signed by: Renzo Arceo M.D. 02/14/2020 8:57 AM
[2020-02-14] MEDS ORDERED: INSULIN GLARGINE SOLOSTAR 100 UNITS/ML 3 ML PEN SC SCH ×3 (09:00)
--- NOTE | 2020-02-14 09:09 | Pharmacy Report ---
Pharmacy Glycemic Short Note 2 - Date of Service February 14, 2020 - Glycemic Short BSG Results (Last 24 hours): OUTPATIENT ANTIDIABETIC REGIMEN: * Toujeo 60 units SC QAM + Metformin 1000 mg PO BIDM * A1c = 9.9% (02/13/2020) ASSESSMENT: 02/13: * Patient received 147 units of insulin yesterday: * 72 units of basal + 75 units of bolus * BSGs ranged 253 - 319 mg/dL, uncontrolled * Of note, patient was switched to Humalog yesterday afternoon secondary to patient preference and adverse reaction listed to Novolog (weight gain). * Fasting BSG this AM was 211 mg/dL - uncontrolled * Patient's O2 sats dropped into the 80's this morning requiring increase to 5 L NC. Spoke with attending who does not plan on tapering solumedrol dose today. Given continued steroids and uncontrolled BSGs, will stress patient's total daily insulin dose from yesterday: * 20% increase of 147 units = 175 units * Will attempt to split this into a 50% basal and 50% bolus regimen today * Expecting patient's insulin requirements to decrease once steroids begin to be tapered. 02/12: * 64 yo F admitted secondary to Acute Exacerbation of COPD. Pharmacy is consulted for inpatient glycemic management. * Patient is uncontrolled as an outpatient on Toujeo and Metformin based upon most recent A1c. However, this result is likely somewhat unreliable secondary to patient's history of anemia & recent steroid use. * Admission BSG was 186 mg/dL. Patient received 125 mg of IV SoluMedrol in the ED followed by being started on SoluMedrol 40 mg IV Q8H. Steroids can cause hyperglycemia and have their most profound effect on post-prandial BSGs. * Subsequent BSGs were 279 - 378 - 319 mg/dL. Patient received two 10 unit IV Insulin Boluses with each BSG > 300 mg/dL. * Fasting BSG this AM was 254 mg/dL which is uncontrolled. AM Lantus dose was originally reduced by 20% this morning for conversion from Toujeo to Lantus. However, given steroid-induced hyperglycemia and continued SoluMedrol schedule, Lantus was increased to stress the patient's home dose of Toujeo. * Will also tighten carb ratio and correction factor this morning to reflect a high-stress, weight-based regimen. Patient reports she is not supposed to Novolog because it makes her BSGs "shoot up" and causes her to gain weight. Her insurance will not cover Humalog at home so she takes Metformin instead. Patient was given option to switch to Regular insulin every 6 hours while inpatient but she agreed to continue Novolog for now. * Expect basal and bolus insulin requirements to decrease as steroids are tapered. PLAN FOR INPATIENT GLYCEMIC CONTROL: * Hold outpatient oral diabetes medications * Basal insulin - increased * Lantus 84 units SQ QAM * Bolus insulin - tightened CF & CR * NovoLog per scale ACHS or Q6hrs while NPO * Goal Range: Low 110 mg/dL - High 140 mg/dL * Correction Factor: 9 mg/dL/unit * Nutritional / Prandial insulin per carb ratio of 1 unit per 2.5 grams CHO consumed PLAN FOR DISCHARGE: * Most recent A1c of 9.9% shows poor outpatient control of T2DM. * Patient will likely require an increase in Toujeo dose upon discharge. Although a specific dose cannot be recommended at this time secondary to changing insulin requirements while on steroids. One possible strategy is to increase Toujeo dose by 10% every 5 days until fasting BSGs are < 150 mg/dL. Would not recommend increasing more than 20% without talking to provider (MDD: 72 units). * Recommend starting a once weekly GLP-1 agonist, such as Trulicity or Ozempic, for weight loss and post-prandial coverage. According to CDE discussion with patient, she will discuss with her outpatient provider.
[2020-02-14] MEDS: BUTALBITAL/ASPIRIN/CAFFEINE 1 TAB TAB PO PRN ×2 (09:38→16:00)
[2020-02-14] MEDS: ALBUT/IPRATROP 3MG/0.5MG NEB 3 ML VIAL NEB PRN (10:59)
--- NOTE | 2020-02-14 12:39 | Hospitalist Progress Note ---
Date of Service February 14, 2020 Assessment & Plan (1) Acute exacerbation of chronic obstructive pulmonary disease: Last PFTs were in 2014 which showed: "Severe obstructive airway disease. Lung volumes demonstrate mixed restrictive/obstructive disease due to obstructive airway disease and obesity. Moderate reduction in DLCO." - Continue DuoNebs, steroids - Add flutter valve 4 times daily - No need for antibiotics at this point as she has already taken 2 courses of azithromycin and 1 course of doxycycline in the recent past, with no pneumonia on chest x-ray. Procalcitonin on 02/13 was negative. - Sputum culture from 02/13 pending - Improving today, though slowly. (2) Acute respiratory failure with hypoxia: Secondary to COPD exacerbation. Do not suspect acute CHF. D-dimer is negative, do not suspect PE. ECG without acute ischemic changes and troponin is negative. - Continue supplemental O2 to keep pulse ox greater than 88-92% - CPAP for NIGHAT at nighttime -> Trialed, but had an air leak. Will resume when she returns home. - Bronchodilators, IV steroids (3) Anemia: Hemoglobin down to 9.1 and is significantly microcytic. Baseline hemoglobin a year ago was 12.4. She denies any signs or symptoms of GI bleeding, no vaginal bleeding, no hematuria. Colonoscopy was performed in 01/2017 and showed 2 5 to 7 mm polyps in the ascending colon removed, diverticulosis in the sigmoid colon, nonbleeding internal hemorrhoids-pathology showed tubular adenomas. EGD was performed in 04/2015 which showed a normal esophagus, mild gastritis, normal duodenum. - Iron studies show iron deficiency. - Needs outpatient follow-up with GI - she follows with them anyway for her cirrhosis of the liver and was due to have a screening EGD for varices several months back. - Follow CBC -> Stable today. (4) Obstructive sleep apnea of adult: She has not been using her CPAP at home as difficult for her to maintain her machine. - She tried CPAP here in the hospital again especially in the setting of respiratory distress, but had an air leak and didn't want to try further. (5) Hypertension: Blood pressures was mildly hypertensive at 155/80 sometimes. Other times, she was ok at 135/70. She is not on medications at home for this. - Monitor blood pressures and consider starting diuretic (6) Non-occlusive coronary artery disease: Diagnostic cardiac catheterization performed in 2009 showed mild scattered CAD with up to 40-50% narrowing in the proximal PDA with normal LV function. 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 Is overdue for follow-up and screening EGD, screening for HCC, etc. likely due to recent COVID pandemic. - Will consult given anemia. (8) Vitamin D deficiency: Continue home supplementation. (9) Migraine, unspecified, not intractable, without status migrainosus: Continue PRN Fioricet (10) Persistent insomnia: Continue home trazodone (11) Depression: Continue bupropion, trazodone (12) Diabetes: Severely uncontrolled, last hemoglobin A1c was 10.8% in 2019. A1c was 9.9% this admission. - She takes Toujeo 60 units once daily - continue this here. - She reports hives with Humalog and 100 pound weight gain on NovoLog. - Okay to start NovoLog here at least temporarily, as she will have hyperglycemia with IV Solu-Medrol - Consulted pharmacy for glycemic control (13) GERD (gastroesophageal reflux disease): Follow-up with GI as an outpatient in the setting of microcytic anemia. - Continue Pepcid 40 mg p.o. twice daily (14) Hyperlipidemia: Not on a statin. - Follow-up with PCP (15) Hypothyroidism: TSH was normal at 1.14 in 06/2018. - Continue home levothyroxine (16) Polymyalgia rheumatica: Previously on long-term prednisone but now discontinued for several years. No longer follows with rheumatology. Has some shoulder pain, but this is stable and responds to oral Tylenol. - No acute issues (17) DVT prophylaxis: Lovenox SQ Admission and Anticipated Discharge Date Admission Date: February 12, 2020 Subjective Doing well today. A bit better than yesterday at ~50%. Reports no fevers/chills, chest pain, abdominal pain, nausea, or vomiting. Physical Exam Constitutional: WD/WN, vitals as above Eyes: EOM intact bilaterally; no conjunctival abnormality ENMT: external ear and nose normal, oropharynx normal Neck: trachea midline, no thyromegaly normal visual inspection Respiratory: no respiratory distress Auscultation: + wheezes Cardiovascular: RRR, no murmur, no edema Gastrointestinal (Abdomen): Inspection/Auscultation: abdomen normal to inspection; abdomen not distended Musculoskeletal: no cyanosis or clubbing, extremities motor strength 5/5 Skin: no rashes, warm and dry Neurologic: moves all extremities and awake Psychiatric: Orientation: alert, oriented to person and cooperative Results & Data Results & Data ([facility]) Vital Signs (Past 12 Hours) Vital Signs Temp Pulse Resp BP Pulse Ox 02/14/20 11:03 37.0 C 89 18 135/71 93 02/14/20 11:02 87 20 93 02/14/20 07:01 36.7 C 86 20 111/72 93 02/14/20 06:12 73 20 86 L 02/14/20 06:10 101 H 26 H 84 L 02/14/20 01:53 36.9 C 84 18 118/56 L 95 PG Care Time/CCT Total # of Minutes Spent Total Time Spent with Patient: Total time spent is greater than 50% in coordination of care (as documented) at patient's floor/unit and/or counseling patient: Coding Level of Care Code 83518 Subseq Hosp Care Lvl 2 Diagnoses Acute exacerbation of chronic obstructive pulmonary disease J44.1 Acute respiratory failure with hypoxia J96.01 Anemia D64.9 Anemia type: unspecified type Obstructive sleep apnea of adult G47.33 Hypertension I10 Hypertension type: essential hypertension Non-occlusive coronary artery disease I25.10 Cirrhosis of liver not due to alcohol K74.60 Vitamin D deficiency E55.9 Migraine, unspecified, not intractable, without status migrainosus G43.909 Persistent insomnia G47.00 Depression F34.1 Depression Type: dysthymia Diabetes E11.65 Diabetes mellitus complication status: with hyperglycemia Diabetes mellitus long term care pharmacist insulin use: without retirement use Diabetes mellitus type: type 2 GERD (gastroesophageal reflux disease) K21.9 Hyperlipidemia E78.5 Hypothyroidism E03.9 Polymyalgia rheumatica M35.3 DVT prophylaxis Z29.9 (1) Diabetes Diabetes mellitus complication status: with hyperglycemia Diabetes mellitus long term care pharmacist insulin use: without retirement use Diabetes mellitus type: type 2 Qualified Code(s): E11.65 - Type 2 diabetes mellitus with hyperglycemia (2) Anemia Anemia type: unspecified type Qualified Code(s): D64.9 - Anemia, unspecified (3) Depression Depression Type: dysthymia Qualified Code(s): F34.1 - Dysthymic disorder (4) Hypertension Hypertension type: essential hypertension Qualified Code(s): I10 - Essential (primary) hypertension
[2020-02-14] MEDS: TRAMADOL HCL 50 MG TABLET PO PRN ×2 (13:42→21:02)
[2020-02-14] MEDS: IRON SUCROSE 200 MG in 0.9 % SODIUM CHLORIDE 100 ML IV SCH (13:53)
--- NOTE | 2020-02-14 15:49 | Gastrointestinal Consultation ---
Date of Consultation February 14, 2020 Assessment & Plan (1) Microcytic anemia: -Can consider endoscopic evaluation once respiratory status improves (or sooner if significant gross bleeding were to occur). -Protonix 40 mg BID. -Continue to monitor H/H. (2) Cirrhosis of liver not due to alcohol: -Will require further outpatient management including HCC surveillance imaging & variceal surveillance. Supervising Physician Co-Signing Physician Notes I personally evaluated the patient and agree with the findings as documented by Roseanne Beck, PAC Exam: abd: soft, nt, nd, obese will need EGD for variceal surveillance at some point likely as an outpatient, but could be done sooner if her anemia worsens while inpatient. treatment of COPD exacerbation as per primary team. History of Present Illness Attending Physician: Paresh Wells MD History of Present Illness Patient is a 64 year-old female with a history of fatty liver disease, diabetes, HTN, and lupus being first seen in our outpatient clinic by Rocio Shrestha in April 2019 for an incidental finding of cirrhotic appearing liver on CTA chest from January 2019. From review of past laboratory testing, it appears she has been noted to have mildly elevated AST levels in the past. Most recent liver panel was normal. Preliminary laboratory work up included iron studies, acute hepatitis serologies and autoantibodies (slightly elevated ASMA of 1:20) but work up has been otherwise unremarkable. H&H, platelets, electrolytes, TB and albumin were normal at that time, but she had not had a recent INR then in order to calculate a MELD score. She denies any alcohol consumptionand reported only several glasses of wine total since 2016. Over the past 1-2 years, she reportedly lost 80 pounds with a prior maximal weight of 296 pounds. BMI is 35. No family history of liver disease. She was scheduled with Dr. Heck for an EGD for variceal surveillance but has not had this at this time. Colonoscopy in 2017 indicated polyps and diverticulosis. She is currently hospitalized with an exacerbation of her COPD. GI has been consulted for further evaluation of her cirrhosis & anemia. The patient's current H/H is at 8.9/31.2. She denies hematemesis, melena, or hematochezia. She denies abdominal pain & jaundice. She denies NSAID use as an outpatient. She notes that her biggest complaint (and what brought her to the ED) is her breathing. She reports significant shortness of breath at rest and with exertion. She is also reporting a migraine today. Allergies Allergy/AdvReac Type Severity Reaction Status Date / Time cefaclor Allergy Severe HIVES, Verified 02/12/20 15:34 HARD TIME BREATHING Penicillins Allergy Severe THROAT Verified 02/12/20 15:34 SWELLS yellow dye Allergy Severe DIFFICULTY Verified 02/12/20 15:34 BREATHING adhesive Allergy Intermediate WELTS ON Verified 02/12/20 15:34 SKIN fluticasone Allergy Intermediate HARD OF Verified 02/12/20 15:34 BREATHING insulin lispro Allergy Intermediate HIVES Verified 02/12/20 15:34 milk Allergy Intermediate HARD OF Verified 02/12/20 15:34 BREATHING phenol Allergy Intermediate HIVES Verified 02/12/20 15:34 salmeterol Allergy Intermediate HARD OF Verified 02/12/20 15:34 BREATHING fluoxetine Allergy Mild UNKNOWN Verified 02/12/20 15:34 Iodine and Iodide Containing Allergy Mild RASH Verified 02/12/20 15:34 Produc atorvastatin [From Lipitor] Allergy Unknown Unknown Verified 02/12/20 15:34 Cephalosporins Allergy Unknown UNKNOWN Verified 02/12/20 15:34 citalopram Allergy Unknown UNKNOWN Verified 02/12/20 15:34 clarithromycin [From Biaxin] Allergy Unknown Unknown Verified 02/12/20 15:34 duloxetine [From Cymbalta] Allergy Unknown Unknown Verified 02/12/20 15:34 escitalopram [From Lexapro] Allergy Unknown Unknown Verified 02/12/20 15:34 ezetimibe [From Vytorin] Allergy Unknown Unknown Verified 02/12/20 15:34 feathers Allergy Unknown ALLERGIC Verified 02/12/20 15:34 RX "SOMETHING WEIRD" gatifloxacin [From Tequin] Allergy Unknown Unknown Verified 02/12/20 15:34 guaifenesin Allergy Unknown UNKNOWN Verified 02/12/20 15:34 insulin lispro protamine Allergy Unknown Unknown Verified 02/12/20 15:34 [From Humalog Mix] Macrolide Antibiotics Allergy Unknown UNKNOWN Verified 02/12/20 15:34 mold Allergy Unknown Unknown Verified 02/12/20 15:34 moxifloxacin [From Avelox] Allergy Unknown Unknown Verified 02/12/20 15:34 paroxetine [From Paxil] Allergy Unknown Unknown Verified 02/12/20 15:34 phenylephrine Allergy Unknown UNKNOWN Verified 02/12/20 15:34 phenylpropanolamine Allergy Unknown UNKNOWN Verified 02/12/20 15:34 Quinolones Allergy Unknown UNKNOWN Verified 02/12/20 15:34 rosuvastatin [From Crestor] Allergy Unknown Unknown Verified 02/12/20 15:34 simvastatin [From Vytorin] Allergy Unknown Unknown Verified 02/12/20 15:34 Sulfa (Sulfonamide Allergy Unknown Unknown Verified 02/12/20 15:34 Antibiotics) Tetracyclines Allergy Unknown Unknown Verified 02/12/20 15:34 levofloxacin AdvReac Intermediate SEVERE Verified 02/12/20 15:34 NAUSEA house dust AdvReac Unknown Unknown Verified 02/12/20 20:25 insulin aspart AdvReac Unknown Unknown Verified 02/12/20 19:06 [From Novolog U-100 Insulin aspart] Home Medications Home Medications Medication Instructions Recorded Confirmed Type CPAP Machine #1 ea 01/01/19 08/23/19 History hzaltgx-chiengvxctwdd-otkirxim 250 2 tab PO QAM tab 01/01/19 02/12/20 History mg-250 mg-65 mg tablet blood sugar diagnostic #10 ea 01/01/19 08/23/19 History inhalational spacing device #1 ea 01/01/19 08/23/19 History insulin admin supplies #1 ea 01/01/19 08/23/19 History lancets 33 gauge #100 ea 01/01/19 08/23/19 History multivitamin 1 tab PO DAILY 01/01/19 02/12/20 History pen needle, diabetic 32 gauge x #50 ea 01/01/19 08/23/19 History 1/4" vprfpbhkgc-warqbvv-eqjomayp 50 1 cap PO DAILY PRN #30 cap 04/11/19 02/12/20 History mg-325 mg-40 mg capsule cholecalciferol (vitamin D3) 25 5,000 units PO DAILY cap 04/12/19 02/12/20 History mcg (1,000 unit) capsule cyanocobalamin (vitamin B-12) 1,000 mcg PO DAILY tab 04/12/19 02/12/20 History 1,000 mcg tablet diphenhydramine-zinc acetate 1 1 appln TOPICAL USEASDIRECTD PRN 06/14/19 02/12/20 History %-0.1 % topical cream gm simethicone 125 mg capsule 125 mg PO USEASDIRECTD PRN cap 06/14/19 02/12/20 History levothyroxine 137 mcg tablet 137 mcg PO DAILY #90 tab 06/29/19 02/12/20 Rx Ventolin HFA 90 mcg/actuation 1 puffs INH QID PRN #18 gm NS 09/06/19 02/12/20 Rx aerosol inhaler montelukast 10 mg tablet 10 mg PO QPM #90 tab 09/09/19 02/12/20 Rx trazodone 150 mg tablet 150 mg PO .COMPLEX #180 tab 09/23/19 02/12/20 Rx metformin 500 mg tablet,extended 1,000 mg PO BIDM #360 tab 10/18/19 02/12/20 Rx release 24 hr famotidine 40 mg tablet 40 mg PO BID #180 tab 12/20/19 02/12/20 Rx tramadol 50 mg tablet 50 mg PO Q4H PRN #30 tab 12/20/19 02/12/20 Rx lorazepam 0.5 mg tablet 0.5 - 1 mg PO DAILY PRN #30 tab 12/21/19 02/12/20 Rx benzonatate 200 mg capsule 200 mg PO TID PRN #21 cap 01/26/20 02/12/20 Rx Saccharomyces boulardii [Florastor] 250 mg PO BID #20 cap 02/01/20 02/12/20 Rx insulin glargine U-300 conc 60 unit SUBCUT QAM 02/01/20 02/12/20 History [Toujeo SoloStar U-300 Insulin] doxycycline monohydrate 100 mg 100 mg PO BID #20 cap 02/02/20 02/12/20 Rx capsule bupropion HCl 300 mg 24 hr tablet, 300 mg PO QPM #90 tab 02/06/20 02/12/20 Rx extended release Patient History Medical History (Updated 02/14/20 @ 15:58 by Roseanne Beck PA-C) Arthritis (Acute) Asthma (Chronic) Chronic constipation (Chronic) Chronic fatigue syndrome (Chronic) Chronic ischemic heart disease, unspecified (Chronic) Chronic sinusitis, unspecified (Chronic) Cirrhosis of liver not due to alcohol COPD (chronic obstructive pulmonary disease) (Chronic) Eva's syndrome (Chronic) Depression (Chronic) Diabetes (Chronic) Frequent falls (Chronic) GERD (gastroesophageal reflux disease) (Chronic) Hidradenitis suppurativa (Inactive) Hyperlipidemia (Chronic) Hypertension (Chronic) Hypothyroidism (Chronic) Irritable bowel syndrome (Chronic) Migraine, unspecified, not intractable, without status migrainosus (Chronic) Non-occlusive coronary artery disease Obstructive sleep apnea of adult (Chronic) Persistent insomnia (Chronic) Polymyalgia rheumatica SNHL (sensorineural hearing loss) (Chronic) Tubular adenoma of colon (Chronic) Vitamin D deficiency (Acute) Surgical History H/O breast surgery biopsy 1989, cyst removal times 3 H/O prior ablation treatment endometrosis History of adenoidectomy History of ear surgery myringotomy right History of surgery on arm Left ORIF humerus Family History Grandfather (Maternal) Myocardial infarction Mother Anxiety Depression Lung disease Sinusitis Father Stroke Allergies Social History Smoking Status: Former smoker Tobacco Type: Cigarettes Smoking End Date: 6 years ago; Second Hand Exposure: Yes ( smoked); Hx Alcohol Use: No Hx Substance Use: No Preferred Language: Surinamese Communication Ability: Effective Visual Impairment: Limited Hearing Ability: Hard of Hearing 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 Beliefs That Will Affect Care: None marital status: / Current Living Situation: Alone current occupational status: retired Other Information That Helps Us Care for You: No Feels Safe at Home: Yes Safety Concerns: Feels Safe At This Time caffeine: Yes Dental Care, Regularly: No Physical Activity Frequency: Does not Exercise Seatbelt Use: always Review of Systems Constitutional: no fever and no chills Eyes: no problem reported Ear, Nose, Mouth, Throat: reports lump on neck Respiratory: + cough, + dyspnea and + dyspnea on exertion; no hemoptysis Cardiovascular: no chest pain Gastrointestinal: no abdominal pain, no coffee ground emesis, no hematemesis, no change in bowel habits, no blood in stools and no melena Musculoskeletal: no problem reported Integumentary: no rash Neurologic: + headache(s) Psychiatric: no problem reported Hematologic / Lymphatic: no unexplained weight loss Physical Exam Constitutional: WD/WN, vitals as above Eyes: PERRL, conjunctivae normal, anicteric sclerae Neck: normal visual inspection Respiratory: normal respiratory effort Cardiovascular: Extremities: no edema Gastrointestinal (Abdomen): Inspection/Auscultation: abdomen normal to in spection Musculoskeletal: Head/Neck/Chest: normocephalic Skin: no rashes Neurologic: Motor/Sensory: no tremor Psychiatric: A+Ox3, euthymic affect Results & Data ([facility]) Vital Signs (Past 12 Hours) Vital Signs Temp Pulse Resp BP BP Pulse Ox 02/14/20 15:16 37.5 C 104 H 18 137/77 90 02/14/20 13:15 93 H 20 96 02/14/20 11:03 37.0 C 89 18 135/71 93 02/14/20 11:02 87 20 93 02/14/20 07:01 36.7 C 86 20 111/72 93 02/14/20 06:12 73 20 86 L 02/14/20 06:10 101 H 26 H 84 L PG Care Time/CCT Total # of Minutes Spent Total Time Spent with Patient: Total time spent is greater than 50% in coordination of care (as documented) at patient's floor/unit and/or counseling patient: Coding Level of Care Code 29735 Inpt Consult Level 4 Diagnoses Microcytic anemia D50.9 Cirrhosis of liver not due to alcohol K74.60
[2020-02-14] MEDS: ENOXAPARIN INJ 40 MG/0.4 ML SYR SQ SCH (20:35)
[2020-02-14] MEDS: PANTOprazole 40 MG TAB PO SCH (20:36)
[2020-02-14] MEDS: MONTELUKAST SODIUM 10 MG TABLET PO SCH (20:37)
[2020-02-14] MEDS: BuPROPion XL 300 MG TABCR PO SCH (20:37)
[2020-02-15] MEDS: ALBUT/IPRATROP 3MG/0.5MG NEB 3 ML VIAL INH SCH ×6 (00:35→22:02)
[2020-02-15] MEDS: TRAZODONE HCL 50 MG TAB PO SCH ×2 (00:51→22:06)
[2020-02-15] MEDS: LEVOTHYROXINE SODIUM 137 MCG TABLET PO SCH (06:33)
[2020-02-15] MEDS: methylPREDNISolone 40 MG in SYRINGE 0 ML IV SCH (06:33)
[2020-02-15 07:10] LABS: Hemoglobin 8.8 g/dL (12.0-16.0); Mean Corpuscular Hemoglobin 21.1 pg (25-34); Mean Corpuscular Hgb Conc 28.4 g/dL (32-36); Mean Corpuscular Volume 74.3 fL (80-100); Mean Platelet Volume 10.1 fL (7.4-10.4); Platelet Count 290 K/uL (130-400); RDW Coefficient of Variation 19.7 % (11.5-14.5); RDW Standard Deviation 52.1 fL (36.4-46.3); Red Blood Count 4.17 M/uL (4.2-5.4); White Blood Count 11.42 K/uL (4.8-10.8)
[2020-02-15] MEDS: SACCHAROMYCES BOULARDII 250 MG CAP PO SCH ×2 (07:24→20:19)
[2020-02-15] MEDS: BUTALBITAL/ASPIRIN/CAFFEINE 1 TAB TAB PO PRN ×3 (07:26→20:20)
[2020-02-15] MEDS: MULTIVITAMIN TAB PO SCH (07:26)
[2020-02-15] MEDS: PANTOprazole 40 MG TAB PO SCH ×2 (07:26→20:20)
[2020-02-15] MEDS: CYANOCOBALAMIN 500 MCG TABLET (VITAMIN B-12) PO SCH (07:26)
[2020-02-15] MEDS: FAMOTIDINE 40 MG TABLET PO SCH ×2 (07:26→20:19)
[2020-02-15 07:29] LABS: Albumin Level 3.3 gm/dl (3.4-5.0); Calcium 8.7 mg/dl (8.5-10.1); Creatinine Clr Calc Pharmacy 96.1 ml/min; Est GFR (African American) 100.6; Est GFR (Non-African American) 86.8; Magnesium 2.2 mg/dl (1.8-2.4); Potassium 3.5 mmol/L (3.5-5.1)
[2020-02-15 07:32] LABS: Albumin Globulin Ratio 0.8 (0.9-2); Bilirubin,Total 0.3 mg/dl (0.2-1); Total Protein 7.3 gm/dl (6.4-8.2)
[2020-02-15] MEDS: INSULIN HUMAN LISPRO (humaLOG) 100 UNITS/ML VIAL SC SCH ×4 (08:01→20:45)
[2020-02-15] MEDS: CHOLECALCIFEROL 1,000 UNITS 25 MCG TAB PO SCH (08:02)
[2020-02-15] MEDS: IRON SUCROSE 200 MG in 0.9 % SODIUM CHLORIDE 100 ML IV SCH (08:36)
[2020-02-15] MEDS ORDERED: INSULIN GLARGINE SOLOSTAR 100 UNITS/ML 3 ML PEN SC SCH (09:00)
[2020-02-15] MEDS: TRAMADOL HCL 50 MG TABLET PO PRN ×3 (10:14→20:20)
[2020-02-15] MEDS: ALBUT/IPRATROP 3MG/0.5MG NEB 3 ML VIAL NEB PRN (11:16)
--- NOTE | 2020-02-15 12:04 | Pharmacy Report ---
Pharmacy Glycemic Short Note 2 - Date of Service February 15, 2020 - Glycemic Short BSG Results (Last 24 hours): 02/14/20 02/14/20 02/14/20 14:13 16:27 20:11 Glucose POC Glucose 258 H 272 H 170 H 02/15/20 02/15/20 02/15/20 06:28 07:21 11:31 Glucose 120 H POC Glucose 132 H 208 H OUTPATIENT ANTIDIABETIC REGIMEN: * Toujeo 60 units SC QAM + Metformin 1000 mg PO BIDM * A1c = 9.9% (02/13/2020) ASSESSMENT: 02/14: * Patient received 189 units of insulin yesterday with BSGs ranging from 170 - 272 mg/dL: * 84 units of basal * 105 units of bolus * on solu medrol 40 mg IV q8h during this time * Solu medrol IV was discontinued after the morning dose today. Patient will start pred 40 mg PO daily starting 02/15. Will need to back off insulin over the next 24 hours due to tapering of steroids: * Decrease basal insulin * Start NPH (0.4 unit/kg) tomorrow AM - to be given with prednisone * Loosen Novolog CF/CR after lunch administration 02/13: * Patient received 147 units of insulin yesterday: * 72 units of basal + 75 units of bolus * BSGs ranged 253 - 319 mg/dL, uncontrolled * Of note, patient was switched to Humalog yesterday afternoon secondary to patient preference and adverse reaction listed to Novolog (weight gain). * Fasting BSG this AM was 211 mg/dL - uncontrolled * Patient's O2 sats dropped into the 80's this morning requiring increase to 5 L NC. Spoke with attending who does not plan on tapering solumedrol dose today. Given continued steroids and uncontrolled BSGs, will stress patient's total daily insulin dose from yesterday: * 20% increase of 147 units = 175 units * Will attempt to split this into a 50% basal and 50% bolus regimen today * Expecting patient's insulin requirements to decrease once steroids begin to be tapered. 02/12: * 64 yo F admitted secondary to Acute Exacerbation of COPD. Pharmacy is consulted for inpatient glycemic management. * Patient is uncontrolled as an outpatient on Toujeo and Metformin based upon m ost recent A1c. However, this result is likely somewhat unreliable secondary to patient's history of anemia & recent steroid use. * Admission BSG was 186 mg/dL. Patient received 125 mg of IV SoluMedrol in the ED followed by being started on SoluMedrol 40 mg IV Q8H. Steroids can cause hyperglycemia and have their most profound effect on post-prandial BSGs. * Subsequent BSGs were 279 - 378 - 319 mg/dL. Patient received two 10 unit IV Insulin Boluses with each BSG > 300 mg/dL. * Fasting BSG this AM was 254 mg/dL which is uncontrolled. AM Lantus dose was originally reduced by 20% this morning for conversion from Toujeo to Lantus. However, given steroid-induced hyperglycemia and continued SoluMedrol schedule, Lantus was increased to stress the patient's home dose of Toujeo. * Will also tighten carb ratio and correction factor this morning to reflect a high-stress, weight-based regimen. Patient reports she is not supposed to Novolog because it makes her BSGs "shoot up" and causes her to gain weight. Her insurance will not cover Humalog at home so she takes Metformin instead. Patient was given option to switch to Regular insulin every 6 hours while inpatient but she agreed to continue Novolog for now. * Expect basal and bolus insulin requirements to decrease as steroids are tapered. PLAN FOR INPATIENT GLYCEMIC CONTROL: * Hold outpatient oral diabetes medications * Basal insulin - decrease * Lantus 72 units SQ QAM * Bolus insulin - loosen CF & CR after lunch * NovoLog per scale ACHS or Q6hrs while NPO * Goal Range: Low 110 mg/dL - High 140 mg/dL * Correction Factor: 9 mg/dL/unit * Nutritional / Prandial insulin per carb ratio of 1 unit per 2.5 grams CHO consumed Starting with dinner on 02/14: * Correction Factor: 15 mg/dL/unit * Nutritional / Prandial insulin per carb ratio of 1 unit per 5 grams CHO consumed PLAN FOR DISCHARGE: * Most recent A1c of 9.9% shows poor outpatient control of T2DM. * Patient will likely require an increase in Toujeo dose upon discharge. Although a specific dose cannot be recommended at this time secondary to changing insulin requirements while on steroids. One possible strategy is to increase Toujeo dose by 10% every 5 days until fasting BSGs are < 150 mg/dL. Would not recommend increasing more than 20% without talking to provider (MDD: 72 units). * Recommend starting a once weekly GLP-1 agonist, such as Trulicity or Ozempic, for weight loss and post-prandial coverage. According to CDE discussion with patient, she will discuss with her outpatient provider.
--- NOTE | 2020-02-15 13:52 | Hospitalist Progress Note ---
Date of Service February 15, 2020 Assessment & Plan (1) Acute exacerbation of chronic obstructive pulmonary disease: Last PFTs were in 2014 which showed: "Severe obstructive airway disease. Lung volumes demonstrate mixed restrictive/obstructive disease due to obstructive airway disease and obesity. Moderate reduction in DLCO." - Continue DuoNebs, steroids - Add flutter valve 4 times daily - No need for antibiotics at this point as she has already taken 2 courses of azithromycin and 1 course of doxycycline in the recent past, with no pneumonia on chest x-ray. Procalcitonin on 02/13 was negative. - Sputum culture from 02/13 pending, but prelim just shows heavy normal buck. - Improving today, though slowly. Will get PT/OT as atelectasis may be playing a role in hypoxemia. (2) Acute respiratory failure with hypoxia: Secondary to COPD exacerbation. Do not suspect acute CHF. D-dimer is negative, do not suspect PE. ECG without acute ischemic changes and troponin is negative. - Continue supplemental O2 to keep pulse ox greater than 88-92% - CPAP for NIGHAT at nighttime -> Trialed, but had an air leak. Will resume when she returns home. - Bronchodilators, IV steroids (3) Anemia: Hemoglobin down to 9.1 and is significantly microcytic. Baseline hemoglobin a year ago was 12.4. She denies any signs or symptoms of GI bleeding, no vaginal bleeding, no hematuria. Colonoscopy was performed in 01/2017 and showed 2 5 to 7 mm polyps in the ascending colon removed, diverticulosis in the sigmoid colon, nonbleeding internal hemorrhoids-pathology showed tubular adenomas. EGD was performed in 04/2015 which showed a normal esophagus, mild gastritis, normal duodenum. - Iron studies show iron deficiency. - Needs outpatient follow-up with GI - she follows with them anyway for her cirrhosis of the liver and was due to have a screening EGD for varices several months back. - Follow CBC -> Stable today at 8.8. (4) Obstructive sleep apnea of adult: She has not been using her CPAP at home as difficult for her to maintain her machine. - She tried CPAP here in the hospital again especially in the setting of respiratory distress, but had an air leak and didn't want to try further. (5) Hypertension: Blood pressures was mildly hypertensive at 170/90 sometimes. Other times, she was ok at 135/70. She is not on medications at home for this. - Will start HCTZ tomorrow. (6) Non-occlusive coronary artery disease: Diagnostic cardiac catheterization performed in 2009 showed mild scattered CAD with up to 40-50% narrowing in the proximal PDA with normal LV function. 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 Is overdue for follow-up and screening EGD, screening for HCC, etc. likely due to recent COVID pandemic. - Consulted -> No acute inpatient need for EGD. (8) Vitamin D deficiency: Continue home supplementation. (9) Migraine, unspecified, not intractable, without status migrainosus: Continue PRN Fioricet (10) Persistent insomnia: Continue home trazodone (11) Depression: Continue bupropion, trazodone (12) Diabetes: Severely uncontrolled, last hemoglobin A1c was 10.8% in 2019. A1c was 9.9% this admission. - She takes Toujeo 60 units once daily - continue this here. - She reports hives with Humalog and 100 pound weight gain on NovoLog. - Okay to start NovoLog here at least temporarily, as she will have hyperg lycemia with IV Solu-Medrol - Consulted pharmacy for glycemic control (13) GERD (gastroesophageal reflux disease): Follow-up with GI as an outpatient in the setting of microcytic anemia. - Continue Pepcid 40 mg p.o. twice daily (14) Hyperlipidemia: Not on a statin. - Follow-up with PCP (15) Hypothyroidism: TSH was normal at 1.14 in 06/2018. - Continue home levothyroxine (16) Polymyalgia rheumatica: Previously on long-term prednisone but now discontinued for several years. No longer follows with rheumatology. Has some shoulder pain, but this is stable and responds to oral Tylenol. - No acute issues (17) DVT prophylaxis: Lovenox SQ Admission and Anticipated Discharge Date Admission Date: February 12, 2020 Subjective Improving again today. No major changes in cough though. Reports no fevers/chills, chest pain, abdominal pain, nausea, or vomiting. Physical Exam Constitutional: WD/WN, vitals as above + acute distress Eyes: EOM intact bilaterally; no conjunctival abnormality ENMT: external ear and nose normal, oropharynx normal Neck: trachea midline, no thyromegaly normal visual inspection Respiratory: normal respiratory effort, lungs clear to auscultation no respiratory distress Auscultation: no wheezes Cardiovascular: RRR, no murmur, no edema Gastrointestinal (Abdomen): Inspection/Auscultation: abdomen normal to inspec tion; abdomen not distended Musculoskeletal: no cyanosis or clubbing, extremities motor strength 5/5 Skin: no rashes, warm and dry Neurologic: moves all extremities and awake Psychiatric: Orientation: alert, oriented to person and cooperative Results & Data Results & Data ([facility]) Vital Signs (Past 12 Hours) Vital Signs Temp Pulse Resp BP BP Pulse Ox 02/15/20 13:14 69 20 93 02/15/20 11:16 37.1 C 86 18 167/99 H 92 02/15/20 07:25 89 18 91 02/15/20 06:54 37.0 C 88 18 138/72 90 02/15/20 04:08 36.8 C 89 20 148/78 H 95 PG Care Time/CCT Total # of Minutes Spent Total Time Spent with Patient: Total time spent is greater than 50% in coordination of care (as documented) at patient's floor/unit and/or counseling patient: Coding Level of Care Code 30409 Subseq Hosp Care Lvl 2 Diagnoses Acute exacerbation of chronic obstructive pulmonary disease J44.1 Acute respiratory failure with hypoxia J96.01 Anemia D64.9 Anemia type: unspecified type Obstructive sleep apnea of adult G47.33 Hypertension I10 Hypertension type: essential hypertension Non-occlusive coronary artery disease I25.10 Cirrhosis of liver not due to alcohol K74.60 Vitamin D deficiency E55.9 Migraine, unspecified, not intractable, without status migrainosus G43.909 Persistent insomnia G47.00 Depression F34.1 Depression Type: dysthymia Diabetes E11.65 Diabetes mellitus type: type 2 Diabetes mellitus chcf insulin use: without chcf use Diabetes mellitus complication status: with hyperglycemia GERD (gastroesophageal reflux disease) K21.9 Hyperlipidemia E78.5 Hypothyroidism E03.9 Polymyalgia rheumatica M35.3 DVT prophylaxis Z29.9 (1) Anemia Anemia type: unspecified type Qualified Code(s): D64.9 - Anemia, unspecified (2) Hypertension Hypertension type: essential hypertension Qualified Code(s): I10 - Essential (primary) hypertension (3) Depression Depression Type: dysthymia Qualified Code(s): F34.1 - Dysthymic disorder (4) Diabetes Diabetes mellitus type: type 2 Diabetes mellitus chcf insulin use: without chcf use Diabetes mellitus complication status: with hyperglycemia Qualified Code(s): E11.65 - Type 2 diabetes mellitus with hyperglycemia
[2020-02-15] MEDS: POLYETHYLENE (MIRALAX) 17 GM PACK PO SCH (14:10)
[2020-02-15 17:03] LABS: Appearance Urine Clear (Clear); Bacteria Urine Automated Negative (Negative); Bilirubin Urine Negative (Negative); Blood Urine Negative (Negative); Cast Urine Automated 0 /lpf (0-5); Color Urine Yellow; Epithelial Cell Urine Auto 0-5 /lpf (0-5); Glucose Urine UA 1+ (Negative); Ketones Urine Negative (Negative); Leukocyte Esterase Urine Trace (Negative); Nitrite Urine Negative (Negative); Protein Urine Negative (Negative); RBC Urine Automated 0-4 /hpf (0-4); Specific Gravity Urine 1.015 (1.000-1.030); Urobilinogen Urine Negative (Negative); pH Urine 6.5 (4.5-7.5)
[2020-02-15] MEDS: ENOXAPARIN INJ 40 MG/0.4 ML SYR SQ SCH (20:06)
[2020-02-15] MEDS: BuPROPion XL 300 MG TABCR PO SCH (20:19)
[2020-02-15] MEDS: MONTELUKAST SODIUM 10 MG TABLET PO SCH (20:19)
[2020-02-16] MEDS: ALBUT/IPRATROP 3MG/0.5MG NEB 3 ML VIAL INH SCH ×4 (02:23→15:24)
[2020-02-16] MEDS ORDERED: COUGH DROP (SUGAR FREE) LOZ 24 LOZ/1 BOX BUCCAL STA (04:30)
[2020-02-16] MEDS: LEVOTHYROXINE SODIUM 137 MCG TABLET PO SCH (06:08)
[2020-02-16 07:11] LABS: Hematocrit (blood only) 30.9 % (37-47); Hemoglobin 8.7 g/dL (12.0-16.0); Mean Corpuscular Hemoglobin 21.1 pg (25-34); Mean Corpuscular Hgb Conc 28.2 g/dL (32-36); Nucleated RBC # (auto) 0.08 K/uL (0-0); Nucleated RBC % (auto) 0.7 %; Platelet Count 257 K/uL (130-400); RDW Standard Deviation 53.9 fL (36.4-46.3); Red Blood Count 4.12 M/uL (4.2-5.4); White Blood Count 12.32 K/uL (4.8-10.8)
[2020-02-16] MEDS: POLYETHYLENE (MIRALAX) 17 GM PACK PO SCH (07:25)
[2020-02-16] MEDS: CYANOCOBALAMIN 500 MCG TABLET (VITAMIN B-12) PO SCH (07:25)
[2020-02-16] MEDS: CHOLECALCIFEROL 1,000 UNITS 25 MCG TAB PO SCH (07:25)
[2020-02-16] MEDS: SACCHAROMYCES BOULARDII 250 MG CAP PO SCH ×2 (07:26→20:48)
[2020-02-16] MEDS: FAMOTIDINE 40 MG TABLET PO SCH ×2 (07:26→20:48)
[2020-02-16] MEDS: predniSONE 20 MG TAB PO SCH (07:26)
[2020-02-16] MEDS: PANTOprazole 40 MG TAB PO SCH ×2 (07:26→20:48)
[2020-02-16] MEDS: MULTIVITAMIN TAB PO SCH (07:26)
[2020-02-16 07:37] LABS: BUN Creatinine Ratio 11.9 (10-20); Calcium 8.8 mg/dl (8.5-10.1); Est GFR (African American) 107.6; Est GFR (Non-African American) 92.9; Magnesium 2.1 mg/dl (1.8-2.4); Potassium 3.2 mmol/L (3.5-5.1)
[2020-02-16] MEDS: IRON SUCROSE 200 MG in 0.9 % SODIUM CHLORIDE 100 ML IV SCH (07:42)
[2020-02-16] MEDS: INSULIN HUMAN LISPRO (humaLOG) 100 UNITS/ML VIAL SC SCH ×4 (08:27→20:49)
[2020-02-16] MEDS: INSULIN GLARGINE SOLOSTAR 100 UNITS/ML 3 ML PEN SC SCH (08:28)
[2020-02-16] MEDS ORDERED: NovoLIN-N (NPH) PER UNIT CHARGE SQ ONE (09:00)
--- NOTE | 2020-02-16 10:08 | Gastroenterology Progress Note ---
Date of Service February 16, 2020 Assessment & Plan (1) Microcytic anemia: -Keep NPO after midnight; If breathing is better in the AM, can proceed with an EGD. -Protonix 40 mg BID. -Continue to monitor H/H. (2) Cirrhosis of liver not due to alcohol: -Will require further outpatient management including HCC surveillance imaging. Admission and Anticipated Discharge Date Admission Date: February 12, 2020 Subjective Patient is a 64 yo female hospitalized with a COPD exacerbation and anemia along with a diagnosis of cirrhosis. Her H/H is 8.7/30.9. She denies visible GI bleeding. She feels exhausted at present and notes she feels as though her breathing "took 4 steps forward and 2 steps back." She reports significant dyspnea on exertion and cough. She does not presently feel up to an EGD. She denies any further new symptoms. Review of Systems Constitutional: no fever and no chills Respiratory: + cough, + dyspnea and + dyspnea on exertion; no hemoptysis Cardiovascular: no chest pain Gastrointestinal: no abdominal pain, no blood in stools and no melena Physical Exam Constitutional: WD/WN, vitals as above Eyes: PERRL, conjunctivae normal, anicteric sclerae Neck: normal visual inspection Respiratory: normal respiratory effort Cardiovascular: Extremities: no edema Gastrointestinal (Abdomen): Inspection/Auscultation: abdomen normal to inspection Musculoskeletal: Head/Neck/Chest: normocephalic Skin: no rashes Neurologic: Motor/Sensory: no tremor Psychiatric: A+Ox3, euthymic affect Results & Data Results & Data ([facility]) Vital Signs (Past 12 Hours) Vital Signs Temp Pulse Pulse Resp BP BP Pulse Ox 02/16/20 07:44 98 H 20 93 02/16/20 07:06 88 18 97 02/16/20 07:00 36.7 C 104 H 22 146/78 H 95 02/16/20 03:02 36.7 C 86 18 95/58 L 95 02/16/20 02:38 94 H 18 92 02/16/20 02:23 93 H 22 89 L 02/16/20 02:15 103 H 02/15/20 22:39 36.8 C 78 18 145/77 H 93 PG Care Time/CCT Total # of Minutes Spent Total Time Spent with Patient: Total time spent is greater than 50% in coordination of care (as documented) at patient's floor/unit and/or counseling patient: Coding Level of Care Code 60976 Subseq Hosp Care Lvl 2 Diagnoses Microcytic anemia D50.9 Cirrhosis of liver not due to alcohol K74.60
--- NOTE | 2020-02-16 10:13 | Pharmacy Report ---
Pharmacy Glycemic Short Note 2 - Date of Service February 16, 2020 - Glycemic Short BSG Results (Last 24 hours): 02/15/20 02/15/20 02/15/20 11:31 16:25 20:42 Glucose POC Glucose 208 H 205 H 110 H 02/16/20 02/16/20 06:41 07:28 Glucose 82 POC Glucose 95 OUTPATIENT ANTIDIABETIC REGIMEN: * Toujeo 60 units SC QAM + Metformin 1000 mg PO BIDM * A1c = 9.9% (02/13/2020) ASSESSMENT: 02/15: * Glycemic control significantly improved with tapering of IV steroids * Fasting BSG of 95 mg/dL is at goal. I will resume home dose of Lantus at this time (~17% decrease compared to yesterdays dose). * Will start once daily NPH (0.4 units/kg based on AdjBW) to combat hyperglycemia from prednisone * Will slightly back of Novolog since NPH is on board 02/14: * Patient received 189 units of insulin yesterday with BSGs ranging from 170 - 272 mg/dL: * 84 units of basal * 105 units of bolus * on solu medrol 40 mg IV q8h during this time * Solu medrol IV was discontinued after the morning dose today. Patient will s tart pred 40 mg PO daily starting 02/15. Will need to back off insulin over the next 24 hours due to tapering of steroids: * Decrease basal insulin * Start NPH (0.4 unit/kg) tomorrow AM - to be given with prednisone * Loosen Novolog CF/CR after lunch administration 02/13: * Patient received 147 units of insulin yesterday: * 72 units of basal + 75 units of bolus * BSGs ranged 253 - 319 mg/dL, uncontrolled * Of note, patient was switched to Humalog yesterday afternoon secondary to patient preference and adverse reaction listed to Novolog (weight gain). * Fasting BSG this AM was 211 mg/dL - uncontrolled * Patient's O2 sats dropped into the 80's this morning requiring increase to 5 L NC. Spoke with attending who does not plan on tapering solumedrol dose today. Given continued steroids and uncontrolled BSGs, will stress patient's total daily insulin dose from yesterday: * 20% increase of 147 units = 175 units * Will attempt to split this into a 50% basal and 50% bolus regimen today * Expecting patient's insulin requirements to decrease once steroids begin to be tapered. 02/12: * 64 yo F admitted secondary to Acute Exacerbation of COPD. Pharmacy is consulted for inpatient glycemic management. * Patient is uncontrolled as an outpatient on Toujeo and Metformin based upon most recent A1c. However, this result is likely somewhat unreliable secondary to patient's history of anemia & recent steroid use. * Admission BSG was 186 mg/dL. Patient received 125 mg of IV SoluMedrol in the ED followed by being started on SoluMedrol 40 mg IV Q8H. Steroids can cause hyperglycemia and have their most profound effect on post-prandial BSGs. * Subsequent BSGs were 279 - 378 - 319 mg/dL. Patient received two 10 unit IV Insulin Boluses with each BSG > 300 mg/dL. * Fasting BSG this AM was 254 mg/dL which is uncontrolled. AM Lantus dose was originally reduced by 20% this morning for conversion from Toujeo to Lantus. However, given steroid-induced hyperglycemia and continued SoluMedrol schedule, Lantus was increased to stress the patient's home dose of Toujeo. * Will also tighten carb ratio and correction factor this morning to reflect a high-stress, weight-based regimen. Patient reports she is not supposed to Novolog because it makes her BSGs "shoot up" and causes her to gain weight. Her insurance will not cover Humalog at home so she takes Metformin instead. Patient was given option to switch to Regular insulin every 6 hours while inpatient but she agreed to continue Novolog for now. * Expect basal and bolus insulin requirements to decrease as steroids are tapered. PLAN FOR INPATIENT GLYCEMIC CONTROL: * Hold outpatient oral diabetes medications * Basal insulin - decrease Lantus, add NPH * Lantus 60 units SQ QAM * NPH 32 units SQ QAM (to be given with prednisone 40 mg) * Bolus insulin - loosen * NovoLog per scale ACHS or Q6hrs while NPO * Goal Range: Low 110 mg/dL - High 140 mg/dL * Correction Factor: 20 mg/dL/unit * Nutritional / Prandial insulin per carb ratio of 1 unit per 6 grams CHO consumed PLAN FOR DISCHARGE: * Most recent A1c of 9.9% shows poor outpatient control of T2DM. * Patient will likely require an increase in Toujeo dose upon discharge. Although a specific dose cannot be recommended at this time secondary to changing insulin requirements while on steroids. One possible strategy is to increase Toujeo dose by 10% every 5 days until fasting BSGs are < 150 mg/dL. Would not recommend increasing more than 20% without talking to provider (MDD: 72 units). * Recommend starting a once weekly GLP-1 agonist, such as Trulicity or Ozempic, for weight loss and post-prandial coverage. According to CDE discussion with patient, she will discuss with her outpatient provider.
[2020-02-16] MEDS: POTASSIUM CHLORIDE 10 MEQ TABCR PO SCH ×2 (11:55→20:50)
--- NOTE | 2020-02-16 15:00 | Pulmonary Consultation ---
Date of Consultation February 16, 2020 Assessment & Plan (1) Acute exacerbation of chronic obstructive pulmonary disease: Is a 64-year-old female who presented 8-20 with shortness of breath and admitted for COPD exacerbation. Over the course of her hospital stay she has not improved significantly. Imaging shows no significant cardiopulmonary disease. She has intermittent increased needs for supplemental oxygen of undisclosed etiology. The patient does have obstructive sleep apnea and has refused polysomnography exam. She is most recently seen in the pulmonary office January 2019. It was recommended at that time that she repeat PFTs. This has not been done. Her most recent PFTs are from 2014. Quit smoking in 2013. Reports compliance with prescribed medications. Follows with Dr. Michael Wharton for primary care. Patient tolerates powdered inhalers poorly and failed Brio Ellipta in the past. She apparently has done well with Symbicort and Combivent in the past. Recommendations: 1. Hypoxia: Patient has not been ambulating well in the hospital. Imaging is nondiagnostic. We will continue supplemental oxygen to titrate between 88 and 92%. Currently on prednisone 40 mg p.o. daily. We will continue to taper this as tolerated. Currently tolerating Anoro Ellipta which provides AC/LABA coverage. Also tolerating duo nebs for JUAN. Continue Anoro Ellipta on discharge if covered by insurance. Continue to encourage increased activity as tolerated. Continue incentive spirometry. No benefit to flutter valve is patient's x-ray and physical examination revealed no rhonchi or congestion. 2. NIGHAT: Patient has history of severe sleep apnea. She is refused treatment and testing in the past. Continue to encourage outpatient polysomnography. Chemistry CO2 is 28. No indication of hypercapnia. Outpatient follow-up in the pulmonary clinic on discharge 3. Obesity: Discussed role of weight loss in respiratory disease. Continue to work on calorie reduction and increasing activity. Thank you for including us in the care of this patient. Please refer to Dr. Elizabeth's addendum for further recommendations. (2) Obstructive sleep apnea of adult: (3) Asthma: Asthma severity: mild Asthma persistence: intermittent Asthma complication type: uncomplicated Qualified Code(s): J45.20 - Mild intermittent asthma, uncomplicated (4) Obesity: Supervising Physician Co-Signing Physician Notes Patient seen and examined with Lamont fabian PA-C. I agree with his assessment and plan aside for any additions/exceptions noted: Patient with a known history of COPD and asthma. She is also morbidly obese and has obstructive sleep apnea. She is noncompliant with therapy. She also notes that she was previously on oxygen but stopped using oxygen many years ago as she felt that she did not need to wear it. She uses nebulizers sometimes up to every 2 hours. She is not on any maintenance inhaler. She says she was previously on Spiriva but has stopped taking it as she cannot afford it. She is currently on steroids during this hospital admission. She is not on any maintenance inhalers currently. Recommend starting her on Anoro Ellipta. Recommend a short course of prednisone 5 to 7 days. Significant weight loss is also recommended. She will likely need chronic oxygen and should be evaluated for home oxygen prior to discharge. I also discussed pulmonary rehab with her and she indicated that she would be interested in this. She will need follow-up in the pulmonary clinic with repeat pulmonary function testing. History of Present Illness Attending Physician: Paresh Wells MD History of Present Illness Attending: Dr. Elizabeth Is a 64-year-old female with past medical history of polymyalgia rheumatica, GERD, tubular adenoma of colon, diabetes mellitus type 2, hypothyroidism, irritable bowel syndrome, hyperlipidemia, chronic anemia, insomnia, hydradenitis superlative, chronic fatigue syndrome, asthma, history of bronchitis, COPD, obstructive sleep apnea, nonocclusive coronary artery disease, [place], frequent falls, and hypertension. Patient was admitted 02/12/2020 for COPD exacerbation. She had recently completed a course of azithromycin and doxycycline so was not started on antibiotics. Patient was doing well and was hopeful for discharge but had acute hypoxia. Over the course of the last 2 days patient's SaO2 would suddenly be found to be low but would recover quickly. D-dimer was completed and is negative. Imaging is negative for acute cardiopulmonary disease. Patient does have multifactoral medical history including COPD with severe obstructive disease as well as restrictive/obstructive disease. PFTs were last completed in 2014 and revealed FVC: 2.02/57, FEV1 of 1.23/44, FEV1/FVC: 61/78, FEF 25-75%: 0.69/26, RV: 2.79/134, T.98/91, RV/T/147, DLCO: 53, dL/VA: 83. Patient previously followed with Dr. Jolley and states that she has not seen anyone since he left. Patient does have a tobacco abuse history with a 40+ pack year. And states that she quit smoking 6 years ago in 2013. Most recent CT of the chest was 01/18/2019 and showed no significant pulmonary disease. The patient denies any significant sputum production. She has no hemoptysis. She does have fatigability. She is quick to point out that she is on 4 L/min via nasal cannula. She has no chest pain or tightness. Exam is negative for significant bronchospasm and patient denies any significant wheezing. She has no fever chills. She denies any nausea or vomiting. From a social standpoint, the patient lives alone at home. Her committed suicide a little over 2 years ago in their home. The patient gets tearful thinking about that and states that she has to walk by that site every time she comes out of the bathroom. In disclosing this she developed anxiety and appeared to have some increased respiratory effort. She denies suicidal ideology but states that she does have difficulty coping some days. Allergies Allergy/AdvReac Type Severity Reaction Status Date / Time cefaclor Allergy Severe HIVES, Verified 02/12/20 15:34 HARD TIME BREATHING Penicillins Allergy Severe THROAT Verified 02/12/20 15:34 SWELLS yellow dye Allergy Severe DIFFICULTY Verified 02/12/20 15:34 BREATHING adhesive Allergy Intermediate WELTS ON Verified 02/12/20 15:34 SKIN fluticasone Allergy Intermediate HARD OF Verified 02/12/20 15:34 BREATHING insulin lispro Allergy Intermediate HIVES Verified 02/12/20 15:34 milk Allergy Intermediate HARD OF Verified 02/12/20 15:34 BREATHING phenol Allergy Intermediate HIVES Verified 02/12/20 15:34 salmeterol Allergy Intermediate HARD OF Verified 02/12/20 15:34 BREATHING fluoxetine Allergy Mild UNKNOWN Verified 02/12/20 15:34 Iodine and Iodide Containing Allergy Mild RASH Verified 02/12/20 15:34 Produc atorvastatin [From Lipitor] Allergy Unknown Unknown Verified 02/12/20 15:34 Cephalosporins Allergy Unknown UNKNOWN Verified 02/12/20 15:34 citalopram Allergy Unknown UNKNOWN Verified 02/12/20 15:34 clarithromycin [From Biaxin] Allergy Unknown Unknown Verified 02/12/20 15:34 duloxetine [From Cymbalta] Allergy Unknown Unknown Verified 02/12/20 15:34 escitalopram [From Lexapro] Allergy Unknown Unknown Verified 02/12/20 15:34 ezetimibe [From Vytorin] Allergy Unknown Unknown Verified 02/12/20 15:34 feathers Allergy Unknown ALLERGIC Verified 02/12/20 15:34 RX "SOMETHING WEIRD" gatifloxacin [From Tequin] Allergy Unknown Unknown Verified 02/12/20 15:34 guaifenesin Allergy Unknown UNKNOWN Verified 02/12/20 15:34 insulin lispro protamine Allergy Unknown Unknown Verified 02/12/20 15:34 [From Humalog Mix] Macrolide Antibiotics Allergy Unknown UNKNOWN Verified 02/12/20 15:34 mold Allergy Unknown Unknown Verified 02/12/20 15:34 moxifloxacin [From Avelox] Allergy Unknown Unknown Verified 02/12/20 15:34 paroxetine [From Paxil] Allergy Unknown Unknown Verified 02/12/20 15:34 phenylephrine Allergy Unknown UNKNOWN Verified 02/12/20 15:34 phenylpropanolamine Allergy Unknown UNKNOWN Verified 02/12/20 15:34 Quinolones Allergy Unknown UNKNOWN Verified 02/12/20 15:34 rosuvastatin [From Crestor] Allergy Unknown Unknown Verified 02/12/20 15:34 simvastatin [From Vytorin] Allergy Unknown Unknown Verified 02/12/20 15:34 Sulfa (Sulfonamide Allergy Unknown Unknown Verified 02/12/20 15:34 Antibiotics) Tetracyclines Allergy Unknown Unknown Verified 02/12/20 15:34 levofloxacin AdvReac Intermediate SEVERE Verified 02/12/20 15:34 NAUSEA house dust AdvReac Unknown Unknown Verified 02/12/20 20:25 insulin aspart AdvReac Unknown Unknown Verified 02/12/20 19:06 [From Novolog U-100 Insulin aspart] Home Medications Home Medications Medication Instructions Recorded Confirmed Type CPAP Machine #1 ea 01/01/19 08/23/19 History eryzpwg-aufykrrmepawc-tiupjtal 250 2 tab PO QAM tab 01/01/19 02/12/20 History mg-250 mg-65 mg tablet blood sugar diagnostic #10 ea 01/01/19 08/23/19 History inhalational spacing device #1 ea 01/01/19 08/23/19 History insulin admin supplies #1 ea 01/01/19 08/23/19 History lancets 33 gauge #100 ea 01/01/19 08/23/19 History multivitamin 1 tab PO DAILY 01/01/19 02/12/20 History pen needle, diabetic 32 gauge x #50 ea 01/01/19 08/23/19 History 1/4" owglenvorr-txoqzcv-gflzkecj 50 1 cap PO DAILY PRN #30 cap 04/11/19 02/12/20 History mg-325 mg-40 mg capsule cholecalciferol (vitamin D3) 25 5,000 units PO DAILY cap 04/12/19 02/12/20 History mcg (1,000 unit) capsule cyanocobalamin (vitamin B-12) 1,000 mcg PO DAILY tab 04/12/19 02/12/20 History 1,000 mcg tablet diphenhydramine-zinc acetate 1 1 appln TOPICAL USEASDIRECTD PRN 06/14/19 02/12/20 History %-0.1 % topical cream gm simethicone 125 mg capsule 125 mg PO USEASDIRECTD PRN cap 06/14/19 02/12/20 History levothyroxine 137 mcg tablet 137 mcg PO DAILY #90 tab 06/29/19 02/12/20 Rx Ventolin HFA 90 mcg/actuation 1 puffs INH QID PRN #18 gm NS 09/06/19 02/12/20 Rx aerosol inhaler montelukast 10 mg tablet 10 mg PO QPM #90 tab 09/09/19 02/12/20 Rx trazodone 150 mg tablet 150 mg PO .COMPLEX #180 tab 09/23/19 02/12/20 Rx metformin 500 mg tablet,extended 1,000 mg PO BIDM #360 tab 10/18/19 02/12/20 Rx release 24 hr famotidine 40 mg tablet 40 mg PO BID #180 tab 12/20/19 02/12/20 Rx tramadol 50 mg tablet 50 mg PO Q4H PRN #30 tab 12/20/19 02/12/20 Rx lorazepam 0.5 mg tablet 0.5 - 1 mg PO DAILY PRN #30 tab 12/21/19 02/12/20 Rx benzonatate 200 mg capsule 200 mg PO TID PRN #21 cap 01/26/20 02/12/20 Rx Saccharomyces boulardii [Florastor] 250 mg PO BID #20 cap 02/01/20 02/12/20 Rx insulin glargine U-300 conc 60 unit SUBCUT QAM 02/01/20 02/12/20 History [Bayron June U-300 Insulin] doxycycline monohydrate 100 mg 100 mg PO BID #20 cap 02/02/20 02/12/20 Rx capsule bupropion HCl 300 mg 24 hr tablet, 300 mg PO QPM #90 tab 02/06/20 02/12/20 Rx extended release Patient History Medical History Arthritis (Acute) Asthma (Chronic) Chronic constipation (Chronic) Chronic fatigue syndrome (Chronic) Chronic ischemic heart disease, unspecified (Chronic) Chronic sinusitis, unspecified (Chronic) Cirrhosis of liver not due to alcohol COPD (chronic obstructive pulmonary disease) (Chronic) Eva's syndrome (Chronic) Depression (Chronic) Diabetes (Chronic) Frequent falls (Chronic) GERD (gastroesophageal reflux disease) (Chronic) Hidradenitis suppurativa (Inactive) Hyperlipidemia (Chronic) Hypertension (Chronic) Hypothyroidism (Chronic) Irritable bowel syndrome (Chronic) Migraine, unspecified, not intractable, without status migrainosus (Chronic) Non-occlusive coronary artery disease Obstructive sleep apnea of adult (Chronic) Persistent insomnia (Chronic) Polymyalgia rheumatica SNHL (sensorineural hearing loss) (Chronic) Tubular adenoma of colon (Chronic) Vitamin D deficiency (Acute) Surgical History H/O breast surgery biopsy 1989, cyst removal times 3 H/O prior ablation treatment endometrosis History of adenoidectomy History of ear surgery myringotomy right History of surgery on arm Left ORIF humerus Family History Grandfather (Maternal) Myocardial infarction Mother Anxiety Depression Lung disease Sinusitis Father Stroke Allergies Social History Smoking Status: Former smoker Tobacco Type: Cigarettes Smoking End Date: 6 years ago; Second Hand Exposure: Yes ( smoked); Hx Alcohol Use: No Hx Substance Use: No Preferred Language: Moroccan Communication Ability: Effective Visual Impairment: Limited Hearing Ability: Hard of Hearing Manugrapher Required: No Beliefs That Will Affect Care: None marital status: / Current Living Situation: Alone current occupational status: retired Other Information That Helps Us Care for You: No Feels Safe at Home: Yes Safety Concerns: Feels Safe At This Time caffeine: Yes Dental Care, Regularly: No Physical Activity Frequency: Does not Exercise Seatbelt Use: always Review of Systems Review of Systems: All systems reviewed & are unremarkable except as noted in HPI & below Physical Exam Physical Exam: GENERAL : No acute distress. EYES: No icterus, gaze conjugate NOSE: No evidence of epistaxis. Nasal cannula in place MOUTH: No lesions or candidiasis. NECK: Supple LUNGS: Decreased breath sounds globally. No rales rhonchi or bronchospasm appreciated HEART: Regular, rate controlled ABDOMEN: Soft, NT, ND, BS Present EXTREMITIES: No LE edema, pedal pulses intact and equal bilaterally. NEURO: A&OX3 Results & Data Results & Data ([facility]) Vital Signs (Past 12 Hours) Vital Signs Temp Pulse Resp BP BP Pulse Ox Pulse Ox 02/16/20 14:46 92 02/16/20 11:03 91 H 18 94 02/16/20 11:02 36.8 C 95 H 20 127/77 94 02/16/20 07:44 98 H 20 93 02/16/20 07:06 88 18 97 02/16/20 07:00 36.7 C 104 H 22 146/78 H 95 02/16/20 03:02 36.7 C 86 18 95/58 L 95 Laboratory Results 02/16/20 06:41 02/16/20 06:41 Diagnostic Findings XR chest 2V PA/lateral CLINICAL HISTORY: Hypoxemia COMPARISON STUDY: February 12, 2020 FINDINGS: The cardiac and mediastinal contours are normal. There is no evidence of focal pulmonary consolidation. There is no evidence of failure. No pleural effusions are visualized.[ IMPRESSION: No active disease in the chest. ACT 112: Negative or not required by law. Electronically signed by: Renzo Arceo M.D. 02/14/2020 8:57 AM PG Care Time/CCT Total # of Minutes Spent Total Time Spent with Patient: Total time spent is greater than 50% in coordination of care (as documented) at patient's floor/unit and/or counseling patient: 45 minutes Coding Diagnoses Acute exacerbation of chronic obstructive pulmonary disease J44.1 Obstructive sleep apnea of adult G47.33 Asthma J45.20 Asthma severity: mild Asthma persistence: intermittent Asthma complication type: uncomplicated Obesity E66.9
[2020-02-16] MEDS ORDERED: UMECLIDINIUM/VILANTEROL 62.5/25MCG 7 PUFFS/INHALER INH SCH (16:15)
--- NOTE | 2020-02-16 17:14 | Hospitalist Progress Note ---
Date of Service February 16, 2020 Assessment & Plan (1) Acute exacerbation of chronic obstructive pulmonary disease: Last PFTs were in 2014 which showed: "Severe obstructive airway disease. Lung volumes demonstrate mixed restrictive/obstructive disease due to obstructive airway disease and obesity. Moderate reduction in DLCO." - Continue DuoNebs, steroids - Add flutter valve 4 times daily - No need for antibiotics at this point as she has already taken 2 courses of azithromycin and 1 course of doxycycline in the recent past, with no pneumonia on chest x-ray. Procalcitonin on 02/13 was negative. - Sputum culture from 02/13 pending, but prelim just shows heavy normal buck. - Not dramatically better today. Will get pulm consult to try to determine if I'm missing anything regarding pneumonia or other infection. (2) Acute respiratory failure with hypoxia: Secondary to COPD exacerbation. Do not suspect acute CHF. D-dimer is negative, do not suspect PE. ECG without acute ischemic changes and troponin is negative. - Continue supplemental O2 to keep pulse ox greater than 88-92%. - CPAP for NIGHAT at night-time -> Trialed, but had an air leak. Will resume when she returns home. Will need outpatient repeat sleep study. - Bronchodilators, IV steroids (3) Anemia: Hemoglobin down to 9.1 and is significantly microcytic. Baseline hemoglobin a year ago was 12.4. She denies any signs or symptoms of GI bleeding, no vaginal bleeding, no hematuria. Colonoscopy was performed in 01/2017 and showed 2 5 to 7 mm polyps in the ascending colon removed, diverticulosis in the sigmoid colon, nonbleeding internal hemorrhoids-pathology showed tubular adenomas. EGD was performed in 04/2015 which showed a normal esophagus, mild gastritis, normal duodenum. - Iron studies show iron deficiency. - Needs outpatient follow-up with GI - she follows with them anyway for her cirrhosis of the liver and was due to have a screening EGD for varices several months back. - Follow CBC -> Stable today at 8.7. (4) Obstructive sleep apnea of adult: She has not been using her CPAP at home as difficult for her to maintain her machine. - She tried CPAP here in the hospital again especially in the setting of respiratory distress, but had an air leak and didn't want to try further. (5) Hypertension: Blood pressures was mildly hypertensive at 170/90 sometimes. Other times, she was ok at 135/70. She is not on medications at home for this. - Monitor (6) Non-occlusive coronary artery disease: Diagnostic cardiac catheterization performed in 2009 showed mild scattered CAD with up to 40-50% narrowing in the proximal PDA with normal LV function. - She is not on daily aspirin, but with anemia as above, would advise against this at this time in case of peptic ulcer disease - She is also not on a statin (7) Cirrhosis of liver not due to alcohol: Follows with [facility]. Is overdue for follow-up and screening EGD, screening for HCC, etc. likely due to recent COVID pandemic. - GI consulted -> Considering EGD tomorrow if respiratory status stable. (8) Vitamin D deficiency: Continue home supplementation. (9) Migraine, unspecified, not intractable, without status migrainosus: Continue PRN Fioricet (10) Persistent insomnia: Continue home trazodone (11) Depression: Continue bupropion, trazodone (12) Diabetes: Severely uncontrolled, last hemoglobin A1c was 10.8% in 2018. A1c was 9.9% this admission. - She takes Toujeo 60 units once daily - continue this here. - She reports hives with Humalog and 100 pound weight gain on NovoLog. - Okay to start NovoLog here at least temporarily, as she will have hyperglycemia with IV Solu-Medrol - Consulted pharmacy for glycemic control (13) GERD (gastroesophageal reflux disease): Follow-up with GI as an outpatient in the setting of microcytic anemia. - Continue Pepcid 40 mg p.o. twice daily (14) Hyperlipidemia: Not on a statin. - Follow-up with PCP (15) Hypothyroidism: TSH was normal at 1.14 in 06/2018. - Continue home levothyroxine (16) Polymyalgia rheumatica: Previously on long-term prednisone but now discontinued for several years. No longer follows with rheumatology. Has some shoulder pain, but this is stable and responds to oral Tylenol. - No acute issues (17) DVT prophylaxis: Will hold Lovenox tomorrow for possible EGD. Admission and Anticipated Discharge Date Admission Date: February 12, 2020 Subjective Feels she is not doing well today. Reports more shortness of breath and that she's "never been this sick before." Reports no fevers/chills, chest pain, abdominal pain, nausea, or vomiting. Physical Exam Constitutional: WD/WN, vitals as above + acute distress Eyes: EOM intact bilaterally; no conjunctival abnormality ENMT: external ear and nose normal, oropharynx normal Neck: trachea midline, no thyromegaly normal visual inspection Respiratory: normal respiratory effort, lungs clear to auscultation no respiratory distress Auscultation: no wheezes Cardiovascular: RRR, no murmur, no edema Gastrointestinal (Abdomen): Inspection/Auscultation: abdomen normal to inspection; abdomen not distended Musculoskeletal: no cyanosis or clubbing, extremities motor strength 5/5 Skin: no rashes, warm and dry Neurologic: moves all extremities and awake Psychiatric: Orientation: alert, oriented to person and cooperative Results & Data Results & Data ([facility]) Vital Signs (Past 12 Hours) Vital Signs Temp Pulse Pulse Resp BP BP Pulse Ox 02/16/20 15:42 90 18 90 02/16/20 15:38 36.8 C 93 H 18 109/61 91 02/16/20 15:04 104 H 02/16/20 14:46 02/16/20 11:03 91 H 18 94 02/16/20 11:02 36.8 C 95 H 20 127/77 94 02/16/20 07:44 98 H 20 93 02/16/20 07:06 88 18 97 02/16/20 07:00 36.7 C 104 H 22 146/78 H 95 Pulse Ox 02/16/20 15:42 02/16/20 15:38 02/16/20 15:04 02/16/20 14:46 92 02/16/20 11:03 02/16/20 11:02 02/16/20 07:44 02/16/20 07:06 02/16/20 07:00 PG Care Time/CCT Total # of Minutes Spent Total Time Spent with Patient: Total time spent is greater than 50% in coordination of care (as documented) at patient's floor/unit and/or counseling patient: Coding Level of Care Code 48100 Subseq Hosp Care Lvl 2 Diagnoses Acute exacerbation of chronic obstructive pulmonary disease J44.1 Acute respiratory failure with hypoxia J96.01 Anemia D64.9 Anemia type: unspecified type Obstructive sleep apnea of adult G47.33 Hypertension I10 Hypertension type: essential hypertension Non-occlusive coronary artery disease I25.10 Cirrhosis of liver not due to alcohol K74.60 Vitamin D deficiency E55.9 Migraine, unspecified, not intractable, without status migrainosus G43.909 Persistent insomnia G47.00 Depression F34.1 Depression Type: dysthymia Diabetes E11.65 Diabetes mellitus type: type 2 Diabetes mellitus exterminator helper insulin use: without senior living use Diabetes mellitus complication status: with hyperglycemia GERD (gastroesophageal reflux disease) K21.9 Hyperlipidemia E78.5 Hypothyroidism E03.9 Polymyalgia rheumatica M35.3 DVT prophylaxis Z29.9 (1) Anemia Anemia type: unspecified type Qualified Code(s): D64.9 - Anemia, unspecified (2) Hypertension Hypertension type: essential hypertension Qualified Code(s): I10 - Essential (primary) hypertension (3) Depression Depression Type: dysthymia Qualified Code(s): F34.1 - Dysthymic disorder (4) Diabetes Diabetes mellitus type: type 2 Diabetes mellitus senior living insulin use: without senior living use Diabetes mellitus complication status: with hyperglycemia Qualified Code(s): E11.65 - Type 2 diabetes mellitus with hyperglycemia
[2020-02-16] MEDS: FLUTICASONE/VILANTEROL 100/25MCG 14 PUFFS/INHALER INH SCH (18:35)
[2020-02-16] MEDS: BUTALBITAL/ASPIRIN/CAFFEINE 1 TAB TAB PO PRN (19:17)
[2020-02-16] MEDS: BuPROPion XL 300 MG TABCR PO SCH (20:48)
[2020-02-16] MEDS: MONTELUKAST SODIUM 10 MG TABLET PO SCH (20:48)
[2020-02-16] MEDS: TRAZODONE HCL 50 MG TAB PO SCH (20:48)
[2020-02-16] MEDS: ALBUT/IPRATROP 3MG/0.5MG NEB 3 ML VIAL NEB PRN (21:03)
[2020-02-17] MEDS ORDERED: INSULIN HUMAN LISPRO (humaLOG) 100 UNITS/ML VIAL SC SCH
[2020-02-17] MEDS: LEVOTHYROXINE SODIUM 137 MCG TABLET PO SCH (05:51)
[2020-02-17] MEDS: ALBUT/IPRATROP 3MG/0.5MG NEB 3 ML VIAL NEB PRN ×3 (06:13→19:08)
[2020-02-17 06:50] LABS: Hematocrit (blood only) 27.3 % (37-47); Hemoglobin 7.8 g/dL (12.0-16.0); Mean Corpuscular Hemoglobin 21.7 pg (25-34); Mean Corpuscular Hgb Conc 28.6 g/dL (32-36); Mean Platelet Volume 10.2 fL (7.4-10.4); Nucleated RBC # (auto) 0.07 K/uL (0-0); Nucleated RBC % (auto) 0.7 %; Platelet Count 248 K/uL (130-400); RDW Coefficient of Variation 20.3 % (11.5-14.5); RDW Standard Deviation 54.5 fL (36.4-46.3); Red Blood Count 3.59 M/uL (4.2-5.4); White Blood Count 10.25 K/uL (4.8-10.8)
[2020-02-17 07:00] LABS: BUN Creatinine Ratio 12.1 (10-20); Calcium 8.6 mg/dl (8.5-10.1); Creatinine Clr Calc Pharmacy 130.7 ml/min; Est GFR (African American) 115.8; Est GFR (Non-African American) 99.9; Magnesium 2.1 mg/dl (1.8-2.4); Potassium 3.5 mmol/L (3.5-5.1)
[2020-02-17] MEDS: FLUTICASONE/VILANTEROL 100/25MCG 14 PUFFS/INHALER INH SCH (07:09)
[2020-02-17] MEDS: INSULIN GLARGINE SOLOSTAR 100 UNITS/ML 3 ML PEN SC SCH (08:40)
[2020-02-17] MEDS: INSULIN HUMAN LISPRO (humaLOG) 100 UNITS/ML VIAL SC SCH ×4 (08:42→20:55)
[2020-02-17] MEDS: CHOLECALCIFEROL 1,000 UNITS 25 MCG TAB PO SCH (08:50)
[2020-02-17] MEDS: BUTALBITAL/ASPIRIN/CAFFEINE 1 TAB TAB PO PRN ×2 (08:51→14:40)
[2020-02-17] MEDS: FAMOTIDINE 40 MG TABLET PO SCH ×2 (08:51→20:57)
[2020-02-17] MEDS: MULTIVITAMIN TAB PO SCH (08:51)
[2020-02-17] MEDS: predniSONE 20 MG TAB PO SCH (08:51)
[2020-02-17] MEDS: PANTOprazole 40 MG TAB PO SCH ×2 (08:51→20:57)
[2020-02-17] MEDS: CYANOCOBALAMIN 500 MCG TABLET (VITAMIN B-12) PO SCH (08:51)
[2020-02-17] MEDS: POLYETHYLENE (MIRALAX) 17 GM PACK PO SCH (08:51)
[2020-02-17] MEDS: SACCHAROMYCES BOULARDII 250 MG CAP PO SCH ×2 (08:51→20:57)
[2020-02-17] MEDS ORDERED: NovoLIN-N (NPH) PER UNIT CHARGE SQ ONE (09:00)
--- NOTE | 2020-02-17 09:12 | Anesthesiology Consultation ---
Date of Service February 17, 2020 Assessment & Plan (1) Encounter for pre-operative examination: Chart Review Chart Review: Acceptable Risk for Surgery (Increased risk of pulmonary complications but Hb continues to drop) History Surgery Operation Date: 02/17/20 13:00 Proposed Procedures p Esophagogastroduodenoscopy Dr. Umang Heck MD Height/Weight Height: 5 ft 7 in Weight: 106.3 kg Allergies Allergy/AdvReac Type Severity Reaction Status Date / Time cefaclor Allergy Severe HIVES, Verified 02/12/20 15:34 HARD TIME BREATHING Penicillins Allergy Severe THROAT Verified 02/12/20 15:34 SWELLS yellow dye Allergy Severe DIFFICULTY Verified 02/12/20 15:34 BREATHING adhesive Allergy Intermediate WELTS ON Verified 02/12/20 15:34 SKIN fluticasone Allergy Intermediate HARD OF Verified 02/12/20 15:34 BREATHING insulin lispro Allergy Intermediate HIVES Verified 02/12/20 15:34 milk Allergy Intermediate HARD OF Verified 02/12/20 15:34 BREATHING phenol Allergy Intermediate HIVES Verified 02/12/20 15:34 salmeterol Allergy Intermediate HARD OF Verified 02/12/20 15:34 BREATHING fluoxetine Allergy Mild UNKNOWN Verified 02/12/20 15:34 Iodine and Iodide Containing Allergy Mild RASH Verified 02/12/20 15:34 Produc atorvastatin [From Lipitor] Allergy Unknown Unknown Verified 02/12/20 15:34 Cephalosporins Allergy Unknown UNKNOWN Verified 02/12/20 15:34 citalopram Allergy Unknown UNKNOWN Verified 02/12/20 15:34 clarithromycin [From Biaxin] Allergy Unknown Unknown Verified 02/12/20 15:34 duloxetine [From Cymbalta] Allergy Unknown Unknown Verified 02/12/20 15:34 escitalopram [From Lexapro] Allergy Unknown Unknown Verified 02/12/20 15:34 ezetimibe [From Vytorin] Allergy Unknown Unknown Verified 02/12/20 15:34 feathers Allergy Unknown ALLERGIC Verified 02/12/20 15:34 RX "SOMETHING WEIRD" gatifloxacin [From Tequin] Allergy Unknown Unknown Verified 02/12/20 15:34 guaifenesin Allergy Unknown UNKNOWN Verified 02/12/20 15:34 insulin lispro protamine Allergy Unknown Unknown Verified 02/12/20 15:34 [From Humalog Mix] Macrolide Antibiotics Allergy Unknown UNKNOWN Verified 02/12/20 15:34 mold Allergy Unknown Unknown Verified 02/12/20 15:34 moxifloxacin [From Avelox] Allergy Unknown Unknown Verified 02/12/20 15:34 paroxetine [From Paxil] Allergy Unknown Unknown Verified 02/12/20 15:34 phenylephrine Allergy Unknown UNKNOWN Verified 02/12/20 15:34 phenylpropanolamine Allergy Unknown UNKNOWN Verified 02/12/20 15:34 Quinolones Allergy Unknown UNKNOWN Verified 02/12/20 15:34 rosuvastatin [From Crestor] Allergy Unknown Unknown Verified 02/12/20 15:34 simvastatin [From Vytorin] Allergy Unknown Unknown Verified 02/12/20 15:34 Sulfa (Sulfonamide Allergy Unknown Unknown Verified 02/12/20 15:34 Antibiotics) Tetracyclines Allergy Unknown Unknown Verified 02/12/20 15:34 levofloxacin AdvReac Intermediate SEVERE Verified 02/12/20 15:34 NAUSEA house dust AdvReac Unknown Unknown Verified 02/12/20 20:25 insulin aspart AdvReac Unknown Unknown Verified 02/12/20 19:06 [From Novolog U-100 Insulin aspart] Medications Home Medications Medication Instructions Recorded Confirmed Last Taken CPAP Machine #1 ea 01/01/19 08/23/19 Unknown ypicebv-tgnhtuwsrbhwm-pgbuiluo 250 2 tab PO QAM tab 01/01/19 02/12/20 02/12/20 mg-250 mg-65 mg tablet blood sugar diagnostic #10 01/01/19 08/23/19 Unknown inhalational spacing device #1 ea 01/01/19 08/23/19 Unknown insulin admin supplies #1 ea 01/01/19 08/23/19 Unknown lancets 33 gauge #100 ea 01/01/19 08/23/19 Unknown multivitamin 1 tab PO DAILY 01/01/19 02/12/20 02/12/20 pen needle, diabetic 32 gauge x #50 ea 01/01/19 08/23/19 Unknown 1/4" myesxfyggg-hvtlvxr-hcuumfgd 50 1 cap PO DAILY PRN #30 cap 04/11/19 02/12/20 Unknown mg-325 mg-40 mg capsule cholecalciferol (vitamin D3) 25 5,000 units PO DAILY cap 04/12/19 02/12/20 02/12/20 mcg (1,000 unit) capsule cyanocobalamin (vitamin B-12) 1,000 mcg PO DAILY tab 04/12/19 02/12/20 02/12/20 1,000 mcg tablet diphenhydramine-zinc acetate 1 1 appln TOPICAL USEASDIRECTD PRN 06/14/19 02/12/20 Unknown %-0.1 % topical cream gm simethicone 125 mg capsule 125 mg PO USEASDIRECTD PRN cap 06/14/19 02/12/20 Unknown levothyroxine 137 mcg tablet 137 mcg PO DAILY #90 tab 06/29/19 02/12/20 02/12/20 Ventolin HFA 90 mcg/actuation 1 puffs INH QID PRN #18 gm NS 09/06/19 02/12/20 Unknown aerosol inhaler montelukast 10 mg tablet 10 mg PO QPM #90 tab 09/09/19 02/12/20 02/11/20 trazodone 150 mg tablet 150 mg PO .COMPLEX #180 tab 09/23/19 02/12/20 02/11/20 metformin 500 mg tablet,extended 1,000 mg PO BIDM #360 tab 10/18/19 02/12/20 02/12/20 08:00 release 24 hr famotidine 40 mg tablet 40 mg PO BID #180 tab 12/20/19 02/12/20 02/12/20 08:00 tramadol 50 mg tablet 50 mg PO Q4H PRN #30 tab 12/20/19 02/12/20 Unknown lorazepam 0.5 mg tablet 0.5 - 1 mg PO DAILY PRN #30 tab 12/21/19 02/12/20 Unknown benzonatate 200 mg capsule 200 mg PO TID PRN #21 cap 01/26/20 02/12/20 Unknown Saccharomyces boulardii [Florastor] 250 mg PO BID #20 cap 02/01/20 02/12/20 02/12/20 08:00 insulin glargine U-300 conc 60 unit SUBCUT QAM 02/01/20 02/12/20 02/12/20 [Bayron June U-300 Insulin] doxycycline monohydrate 100 mg 100 mg PO BID #20 cap 02/02/20 02/12/20 02/12/20 08:00 capsule LAST DAY OF COURSE bupropion HCl 300 mg 24 hr tablet, 300 mg PO QPM #90 tab 02/06/20 02/12/20 02/11/20 extended release Active Medications Generic Name Dose Route Start Last Admin Trade Name Freq PRN Reason Stop Dose Admin Albuterol 3 ml 02/16/20 16:07 02/17/20 06:13 Duoneb NEB 03/13/20 19:06 3 ml Q4H PRN Administration Shortness of Breath/Wheezing Benzonatate 200 mg 02/12/20 19:07 02/14/20 21:01 Tessalon Perle PO 03/13/20 19:06 200 mg TID PRN Administration cough Bupropion HCl 300 mg 02/12/20 21:00 02/16/20 20:48 Wellbutrin-Xl PO 03/13/20 20:59 300 mg QPM VANE Administration Butalbital/Aspirin/Caffeine 1 tab 02/13/20 15:54 02/17/20 08:51 Fiorinal PO 03/14/20 15:53 1 tab Q6H PRN Administration Migraine Headache Cyanocobalamin 1,000 mcg 02/13/20 09:00 02/17/20 08:51 Vitamin B-12 PO 03/14/20 08:59 1,000 mcg DAILY VANE Administration Famotidine 40 mg 02/12/20 21:00 02/17/20 08:51 Pepcid PO 03/13/20 20:59 40 mg BID VANE Administration Fluticasone/Vilanterol 1 puffs 02/16/20 17:15 02/17/20 07:09 Breo Ellipta 100/25 Mcg Inh INH 03/17/20 17:14 1 puffs DAILY VANE Administration Insulin Glargine 60 units 02/16/20 09:00 02/17/20 08:40 Lantus Solostar Pen SC 03/17/20 08:59 60 units QAM VANE Administration Protocol Insulin Human Lispro 0 units 02/13/20 16:30 02/17/20 08:42 Humalog SC 03/14/20 16:29 Not Given ACHS VANE Protocol Levothyroxine Sodium 137 mcg 02/13/20 06:30 02/17/20 05:51 Levothyroxine Sodium PO 03/14/20 06:29 137 mcg DAILYBB VANE Administration Montelukast Sodium 10 mg 02/12/20 21:00 02/16/20 20:48 Singulair PO 03/13/20 20:59 10 mg QPM VANE Administration Multivitamins 1 tab 02/13/20 09:00 02/17/20 08:51 Multivitamin Tab PO 03/14/20 08:59 1 tab DAILY VANE Administration Pantoprazole Sodium 40 mg 02/14/20 21:00 02/17/20 08:51 Protonix PO 03/15/20 20:59 40 mg BID VANE Administration Polyethylene Glycol 17 gm 02/15/20 14:00 02/17/20 08:51 Miralax Powder Packet PO 03/16/20 13:59 Not Given DAILY VANE Prednisone 40 mg 02/16/20 09:00 02/17/20 08:51 Prednisone PO 03/17/20 08:59 40 mg DAILY VANE Administration Saccharomyces Boulardii 250 mg 02/12/20 21:00 02/17/20 08:51 Florastor PO 03/13/20 20:59 250 mg BID VANE Administration Tramadol HCl 50 mg 02/12/20 19:07 02/15/20 20:20 Ultram PO 03/13/20 19:06 50 mg Q4H PRN Administration pain Trazodone HCl 150 mg 02/12/20 21:00 02/16/20 20:48 Desyrel PO 03/13/20 20:59 150 mg HS VANE Administration Vitamin D 5,000 units 02/13/20 09:00 02/17/20 08:50 Vitamin D3 PO 03/14/20 08:59 5,000 units DAILY VANE Administration NPO Date Last Intake of Fluids: 02/17/20 Time Last Intake of Fluids: 00:00 Date Last Intake of Solids: 02/17/20 Time Last Intake of Solids: 00:00 Past Medical History Medical History (Updated 02/17/20 @ 09:12 by Fran Monroy MD) Arthritis (Acute) Asthma (Chronic) Chronic constipation (Chronic) Chronic fatigue syndrome (Chronic) Chronic ischemic heart disease, unspecified (Chronic) Chronic sinusitis, unspecified (Chronic) Cirrhosis of liver not due to alcohol COPD (chronic obstructive pulmonary disease) (Chronic) Eva's syndrome (Chronic) Depression (Chronic) Diabetes (Chronic) Frequent falls (Chronic) GERD (gastroesophageal reflux disease) (Chronic) Hidradenitis suppurativa (Inactive) Hyperlipidemia (Chronic) Hypertension (Chronic) Hypothyroidism (Chronic) Irritable bowel syndrome (Chronic) Microcytic anemia Migraine, unspecified, not intractable, without status migrainosus (Chronic) Non-occlusive coronary artery disease Obesity Obstructive sleep apnea of adult (Chronic) Persistent insomnia (Chronic) Polymyalgia rheumatica SNHL (sensorineural hearing loss) (Chronic) Tubular adenoma of colon (Chronic) Vitamin D deficiency (Acute) Past Family History Family History Grandfather (Maternal) Myocardial infarction Mother Anxiety Depression Lung disease Sinusitis Father Stroke Allergies Past Surgical History Surgical History H/O breast surgery biopsy 1989, cyst removal times 3 H/O prior ablation treatment endometrosis History of adenoidectomy History of ear surgery myringotomy right History of surgery on arm Left ORIF humerus Social History Smoking Status: Former smoker Smoking End Date: 6 years ago Hx Alcohol Use: No Hx Substance Use: No Physical Exam Vital Signs Last Vital Signs Temp 36.9 C 02/17/20 07:00 Pulse 93 H 02/17/20 07:00 Resp 18 02/17/20 07:00 BP 130/92 02/17/20 07:00 Pulse Ox 91 02/17/20 07:00 Testing Laboratory Results 02/17/20 05:47 02/17/20 05:47 PT 11.0 Seconds (9.0-12.0) 02/15/20 06:28 INR 1.0 (0.9-1.1) 02/15/20 06:28 APTT 22.2 Seconds (21.0-31.0) 02/12/20 15:07 Hemoglobin A1c 9.9 % (4.5-5.6) H 02/13/20 07:51 Urine Color Yellow 02/15/20 16:30 Urine Appearance Clear (Clear) 02/15/20 16:30 Urine pH 6.5 (4.5-7.5) 02/15/20 16:30 Ur Specific [place] 1.015 (1.000-1.030) 02/15/20 16:30 Urine Protein Negative (Negative) 02/15/20 16:30 Urine Glucose (UA) 1+ (Negative) H 02/15/20 16:30 Urine Ketones Negative (Negative) 02/15/20 16:30 Urine Nitrite Negative (Negative) 02/15/20 16:30 Ur Leukocyte Esterase Trace (Negative) H 02/15/20 16:30 Urine WBC (Auto) 1-5 /hpf (0-5) 02/15/20 16:30 Urine RBC (Auto) 0-4 /hpf (0-4) 02/15/20 16:30 U Hyaline Cast (Auto) 0 /lpf (0-5) 02/15/20 16:30 U Epithel Cells (Auto) 0-5 /lpf (0-5) 02/15/20 16:30 Urine Bacteria (Auto) Negative (Negative) 02/15/20 16:30 02/14/20 11:26 Gram Stain - Final Sputum, Expectorated Sputum Culture - Final Heavy normal buck. 02/12/20 15:19 Aerobic Blood Culture - Preliminary Blood No growth in Aerobic bottle after 48 hours. Anaerobic Blood Culture - Preliminary No growth in Anaerobic bottle after 48 hours. 02/12/20 15:07 Aerobic Blood Culture - Preliminary Blood No growth in Aerobic bottle after 48 hours. Anaerobic Blood Culture - Preliminary No growth in Anaerobic bottle after 48 hours. 02/17/20 02/16/20 07:27 23:52 POC Glucose 91 98
--- NOTE | 2020-02-17 09:28 | History & Physical Bridge Note ---
Date of Service February 17, 2020 History & Physical Bridge Note I have examined the patient, reviewed the History & Physical and in the interval since the performance of the History & Physical I have noted the following changes of clinical significance: no changes noted. Patient has been evaluated by pulmonology & hospitalist team. It is felt she is close to her baseline COPD. If okay with anesthesia, proceed with an EGD today as her H/H has declined overnight to 7.8/27.3. Patient is very emotional about the state of her medical issues. No obvious bleeding.
--- NOTE | 2020-02-17 11:36 | Pharmacy Report ---
Pharmacy Glycemic Short Note 2 - Date of Service February 17, 2020 - Glycemic Short BSG Results (Last 24 hours): 02/16/20 02/16/20 02/16/20 11:31 16:46 20:03 Glucose POC Glucose 203 H 202 H 162 H 02/16/20 02/17/20 02/17/20 23:52 05:47 07:27 Glucose 70 POC Glucose 98 91 02/17/20 11:21 Glucose POC Glucose 93 OUTPATIENT ANTIDIABETIC REGIMEN: * Toujeo 60 units SC QAM + Metformin 1000 mg PO BIDM * A1c = 9.9% (02/13/2020) ASSESSMENT: 02/16: * Patient received 126 units of insulin over the past 24hrs * 60 units of basal + 32 units of NPH for steroid induced hyperglycemia + 34 units of bolus * BSGs ranged 95 - 203 mg/dl * Pt NPO today for EGD --> it is recommended to decrease basal insulin regimen by 20-50% while NPO. Unfortunately insulin orders were not adjusted this morning; full doses of Lantus 60 units and NPH 32 units given. Checking BSGs frequently and were 91, 93. May consider addition of D5W if NPO will be prolonged. Will significantly loosen CF/CR today since she has full basal/steroid hyperglycemia insulin doses on board. 02/15: * Glycemic control significantly improved with tapering of IV steroids * Fasting BSG of 95 mg/dL is at goal. I will resume home dose of Lantus at this time (~17% decrease compared to yesterdays dose). * Will start once daily NPH (0.4 units/kg based on AdjBW) to combat hyperglycemia from prednisone * Will slightly back of Novolog since NPH is on board 02/14: * Patient received 189 units of insulin yesterday with BSGs ranging from 170 - 272 mg/dL: * 84 units of basal * 105 units of bolus * on solu medrol 40 mg IV q8h during this time * Solu medrol IV was discontinued after the morning dose today. Patient will start pred 40 mg PO daily starting 02/15. Will need to back off insulin over the next 24 hours due to tapering of steroids: * Decrease basal insulin * Start NPH (0.4 unit/kg) tomorrow AM - to be given with prednisone * Loosen Novolog CF/CR after lunch administration PLAN FOR INPATIENT GLYCEMIC CONTROL: * Hold outpatient oral diabetes medications * Basal insulin * Lantus 60 units SQ QAM * Steroid induced hyperglycemia * NPH 32 units SQ QAM (to be given with prednisone 40 mg) * May need to reduce dosing if NPO/prolonged NPO * Bolus insulin - loosen * NovoLog per scale ACHS or Q6hrs while NPO * Goal Range: Low 110 mg/dL - High 140 mg/dL * Correction Factor: 30 mg/dL/unit * Nutritional / Prandial insulin per carb ratio of 1 unit per 10 grams CHO consumed PLAN FOR DISCHARGE: * Most recent A1c of 9.9% shows poor outpatient control of T2DM. * Patient will likely require an increase in Toujeo dose upon discharge. Although a specific dose cannot be recommended at this time secondary to changing insulin requirements while on steroids. One possible strategy is to increase Toujeo dose by 10% every 5 days until fasting BSGs are < 150 mg/dL. Would not recommend increasing more than 20% without talking to provider (MDD: 72 units). * Recommend starting a once weekly GLP-1 agonist, such as Trulicity or Ozempic, for weight loss and post-prandial coverage. According to CDE discussion with patient, she will discuss with her outpatient provider.
[2020-02-17] MEDS ORDERED: LIDOCAINE HCL 2% 2 ML VIAL/AMP(20MG/ML) INFIL ONE (12:26)
[2020-02-17] MEDS ORDERED: PROPOFOL IV EMULSION 10 MG/ML 20 ML VIAL IV ONE (12:26)
--- NOTE | 2020-02-17 13:04 | GI REPORT ---
Addendum Number: 1 Addendum Date: 02/17/2020 1:04:17 PM return to floor for ongoing care. Blade Heck MD 02/17/2020 1:04:30 PM This report has been signed electronically. Patient Name: Tamara Horvath Procedure Date: 02/17/2020 12:27 PM Date of : 1955 Admit Type: Inpatient Age: 64 Gender: Female Attending MD: Blade Heck MD Procedure: Upper GI endoscopy Providers: Blade Heck MD Referring MD: Referred Self Indications: Unexplained iron deficiency anemia Medicines: Monitored Anesthesia Care Complications: No immediate complications. Estimated blood loss: None. Estimated Blood Loss: Estimated blood loss: none. Procedure: Pre-Anesthesia Assessment: - Prior Anticoagulants: The patient has taken no previous anticoagulant or antiplatelet agents. - ASA Grade Assessment: III - A patient with severe systemic disease. After obtaining informed consent, the endoscope was passed under direct vision. Throughout the procedure, the patient's blood pressure, pulse, and oxygen saturations were monitored continuously. The Endoscope was introduced through the mouth, and advanced to the second part of duodenum. The upper GI endoscopy was accomplished without difficulty. The patient tolerated the procedure well. Findings: Mildly severe esophagitis with no bleeding was found. Cells for cytology were obtained by brushing. Estimated blood loss: none. Diffuse moderate inflammation characterized by erosions and erythema was found in the gastric antrum. Biopsies were taken with a cold forceps for Helicobacter pylori testing. Estimated blood loss: none. The duodenal bulb and second portion of the duodenum were normal. Impression: - Mildly severe candidiasis esophagitis. Cells for cytology obtained. - Gastritis. Biopsied. - Normal duodenal bulb and second portion of the duodenum. Recommendation: - Discharge patient to home (with escort). - Resume previous diet today. - Await pathology results and cytology. supportive care will need colonoscopy to further evaluate symptoms likely as an outpatient Blade Heck MD 02/17/2020 1:03:28 PM This report has been signed electronically. Note Initiated On: 02/17/2020 12:27 PM Number of Addenda: 1 I attest to the content of the Intraoperative Record and orders documented therein, exceptions below {[id number]}
--- NOTE | 2020-02-17 14:14 | Hospitalist Progress Note ---
Date of Service February 17, 2020 Assessment & Plan (1) Acute exacerbation of chronic obstructive pulmonary disease: Last PFTs were in 2014 which showed: "Severe obstructive airway disease. Lung volumes demonstrate mixed restrictive/obstructive disease due to obstructive airway disease and obesity. Moderate reduction in DLCO." - Continue DuoNebs, steroids - Add flutter valve 4 times daily - No need for antibiotics at this point as she has already taken 2 courses of azithromycin and 1 course of doxycycline in the recent past, with no pneumonia on chest x-ray. Procalcitonin on 02/13 was negative. Sputum culture from 02/13 only grew heavy normal buck. - Pulm consulted who feel she is near baseline and would like further outpatient testing. - Not dramatically better today. (2) Anemia: Baseline hemoglobin a year ago was 12.4. She denies any signs or symptoms of GI bleeding, no vaginal bleeding, no hematuria. Colonoscopy was performed in 01/2017 and showed 2 5 to 7 mm polyps in the ascending colon removed, diverticulosis in the sigmoid colon, nonbleeding internal hemorrhoids-pathology showed tubular adenomas. EGD was performed in 04/2015 which showed a normal esophagus, mild gastritis, normal duodenum. - Iron studies show iron deficiency. - EGD on 02/16 showed esophageal candidiasis and gastritis. Will start fluconazole and continue PPI BID. - Start IV iron (3) Acute respiratory failure with hypoxia: Secondary to COPD exacerbation. Do not suspect acute CHF. D-dimer is negative, do not suspect PE. ECG without acute ischemic changes and troponin is negative. - Continue supplemental O2 to keep pulse ox greater than 88-92%. - CPAP for NIGHAT at night-time -> Trialed, but had an air leak. Will resume when she returns home. Will need outpatient repeat sleep study. - Bronchodilators, steroids (4) Obstructive sleep apnea of adult: She has not been using her CPAP at home as difficult for her to maintain her machine. - She tried CPAP here in the hospital again especially in the setting of respiratory distress, but had an air leak and didn't want to try further. (5) Hypertension: Blood pressures was mildly hypertensive at 170/90 sometimes. Other times, she was ok at 135/70. She is not on medications at home for this. - Monitor (6) Diabetes: Severely uncontrolled, last hemoglobin A1c was 10.8% in 2019. A1c was 9.9% this admission. - She takes Toujeo 60 units once daily - continue this here. - She reports hives with Humalog and 100 pound weight gain on NovoLog. - Okay to start NovoLog here at least temporarily, as she will have hyperglycemia with steroids - Consulted pharmacy for glycemic control (7) Non-occlusive coronary artery disease: Diagnostic cardiac catheterization performed in 2009 showed mild scattered CAD with up to 40-50% narrowing in the proximal PDA with normal LV function. - She is not on daily aspirin, but with anemia & EGD findings as above, would advise against this at this time - She is also not on a statin (8) Cirrhosis of liver not due to alcohol: Follows with [facility]. Is overdue for follow-up and screening EGD, screening for HCC, etc. likely due to recent COVID pandemic. - GI consulted -> EGD as above (9) Migraine, unspecified, not intractable, without status migrainosus: Continue PRN Fioricet (10) Persistent insomnia: Continue home trazodone (11) Depression: Continue bupropion, trazodone (12) GERD (gastroesophageal reflux disease): Gastritis seen on EGD on 02/17/2020. - Continue Pepcid 40 mg p.o. twice daily (13) Hyperlipidemia: Not on a statin. - Follow-up with PCP (14) Hypothyroidism: TSH was normal at 1.14 in 06/2018. - Continue home levothyroxine (15) Polymyalgia rheumatica: Previously on long-term prednisone but now discontinued for several years. No longer follows with rheumatology. Has some shoulder pain, but this is stable and responds to oral Tylenol. - No acute issues (16) DVT prophylaxis: Will hold Lovenox today for EGD. Can restart tomorrow. Admission and Anticipated Discharge Date Admission Date: February 12, 2020 Subjective Still very dispirited and frustrated today. She reports she doesn't feel any better than previous days. Physical Exam Constitutional: WD/WN, vitals as above + acute distress Eyes: EOM intact bilaterally; no conjunctival abnormality ENMT: external ear and nose normal, oropharynx normal Neck: trachea midline, no thyromegaly normal visual inspection Respiratory: normal respiratory effort, lungs clear to auscultation no respiratory distress Auscultation: no wheezes Cardiovascular: RRR, no murmur, no edema Gastrointestinal (Abdomen): Inspection/Auscultation: abdomen normal to inspection; abdomen not distended Musculoskeletal: no cyanosis or clubbing, extremities motor strength 5/5 Skin: no rashes, warm and dry Neurologic: moves all extremities and awake Psychiatric: Orientation: alert, oriented to person and cooperative Results & Data Results & Data ([facility]) Vital Signs (Past 12 Hours) Vital Signs Temp Pulse Resp BP BP Pulse Ox 02/17/20 13:18 85 16 146/82 H 94 02/17/20 13:02 89 16 157/94 H 93 02/17/20 12:47 92 H 16 98/71 L 94 02/17/20 11:38 36.8 C 90 20 165/76 H 96 02/17/20 11:04 93 H 18 91 02/17/20 11:00 36.9 C 90 18 135/69 94 02/17/20 07:00 36.9 C 93 H 18 130/92 91 02/17/20 06:13 90 18 91 02/17/20 04:00 36.8 C 79 18 112/74 96 PG Care Time/CCT Total # of Minutes Spent Total Time Spent with Patient: Total time spent is greater than 50% in coordination of care (as documented) at patient's floor/unit and/or counseling patient: Coding Level of Care Code 99957 Subseq Hosp Care Lvl 3 Diagnoses Acute exacerbation of chronic obstructive pulmonary disease J44.1 Anemia D64.9 Anemia type: unspecified type Acute respiratory failure with hypoxia J96.01 Obstructive sleep apnea of adult G47.33 Hypertension I10 Hypertension type: essential hypertension Diabetes E11.65 Diabetes mellitus complication status: with hyperglycemia Diabetes mellitus fpc insulin use: without fpc use Diabetes mellitus type: type 2 Non-occlusive coronary artery disease I25.10 Cirrhosis of liver not due to alcohol K74.60 Migraine, unspecified, not intractable, without status migrainosus G43.909 Persistent insomnia G47.00 Depression F34.1 Depression Type: dysthymia GERD (gastroesophageal reflux disease) K21.9 Hyperlipidemia E78.5 Hypothyroidism E03.9 Polymyalgia rheumatica M35.3 DVT prophylaxis Z29.9 (1) Diabetes Diabetes mellitus complication status: with hyperglycemia Diabetes mellitus fpc insulin use: without fpc use Diabetes mellitus type: type 2 Qualified Code(s): E11.65 - Type 2 diabetes mellitus with hyperglycemia (2) Anemia Anemia type: unspecified type Qualified Code(s): D64.9 - Anemia, unspecified (3) Depression Depression Type: dysthymia Qualified Code(s): F34.1 - Dysthymic disorder (4) Hypertension Hypertension type: essential hypertension Qualified Code(s): I10 - Essential (primary) hypertension
--- NOTE | 2020-02-17 14:22 | Anesthesiology Progress Note ---
Date of Service February 17, 2020 Anesthesia Post Procedure Vital Signs Vital Signs: Temp Pulse Pulse Resp BP BP Pulse Ox 02/17/20 13:18 85 16 146/82 H 94 02/17/20 13:02 89 16 157/94 H 93 02/17/20 12:47 92 H 16 98/71 L 94 02/17/20 11:38 36.8 C 90 20 165/76 H 96 02/17/20 11:04 93 H 18 91 02/17/20 11:00 36.9 C 90 18 135/69 94 02/17/20 07:00 36.9 C 93 H 18 130/92 91 02/17/20 06:13 90 18 91 02/17/20 04:00 36.8 C 79 18 112/74 96 02/16/20 23:00 37.0 C 85 18 109/66 92 02/16/20 22:22 81 02/16/20 21:04 93 H 18 92 02/16/20 19:15 36.8 C 89 18 115/74 95 02/16/20 15:42 90 18 90 02/16/20 15:38 36.8 C 93 H 18 109/61 91 02/16/20 15:04 104 H 02/16/20 14:46 Pulse Ox 02/17/20 13:18 02/17/20 13:02 02/17/20 12:47 02/17/20 11:38 02/17/20 11:04 02/17/20 11:00 02/17/20 07:00 02/17/20 06:13 02/17/20 04:00 02/16/20 23:00 02/16/20 22:22 02/16/20 21:04 02/16/20 19:15 02/16/20 15:42 02/16/20 15:38 02/16/20 15:04 02/16/20 14:46 92 Pain Intensity Head: Pain Intensity: 5 Transfer of Care Handoff Completed per policy Notes Mental Status: alert / awake / arousable Patient Amnestic to Procedure: Yes Nausea / Vomiting: adequately controlled Pain: adequately controlled Airway Patency, RR, SpO2: stable & adequate BP & HR: stable & adequate Hydration State: stable & adequate Anesthetic Complications: no major complications apparent
[2020-02-17] MEDS: IRON SUCROSE 300 MG in SODIUM CHLORIDE 0.9% 250 ML IV SCH (15:29)
[2020-02-17] MEDS ORDERED: IOVERSOL 100ml IV ONE (18:12)
--- NOTE | 2020-02-17 18:51 | CT Scan Report ---
CT OF THE CHEST WITHOUT IV CONTRAST CLINICAL HISTORY: Cough, shortness of breath COMPARISON STUDY: Chest CT January 18, 2019. Chest radiograph February 14, 2020. TECHNIQUE: Axial images of the chest were obtained without IV contrast. Images were reviewed in the axial, sagittal, and coronal planes. IV contrast was not administered for this examination. Automat ed exposure control was utilized for the study. A dose lowering technique was utilized adhering to t he principles of ALARA. FINDINGS: No enlarged axillary, mediastinal or hilar lymph nodes are present. The size the heart is normal. There is moderate coronary artery calcification. There is no pericardial effusion. No pneumot horax or pleural effusion is noted. Bilateral lower lobe airspace opacity is present. This favors ate lectasis. No central obstructing mass is noted. There is mild diffuse bronchial wall thickening. No s uspicious pulmonary nodules are noted. Bony thorax is unremarkable. The abdomen and pelvis will be re ported separately. IMPRESSION: 1. Bilateral lower lobe airspace opacity which favors subsegmental atelectasis. An infectious process is considered less likely. A chest CT in 2 months to ensure resolution is recommended. 2. Mild diffuse bronchial wall thickening. ACT 112: Negative or not required by law. Electronically signed by: Israel Oliva M.D. 02/17/2020 6:50 PM
--- NOTE | 2020-02-17 19:00 | CT Scan Report ---
CT OF THE ABDOMEN AND PELVIS WITH CONTRAST CLINICAL HISTORY: Abdominal pain; low hgb COMPARISON STUDY: CT of the abdomen and pelvis November 20, 2016. TECHNIQUE: Following IV administration of 94 mL of Optiray-320, axial images of the abdomen and pelvi s were obtained from the lung bases to the proximal femurs. Images were reviewed in the axial, sagitt al, and coronal planes. IV contrast was administered without complication. Automated exposure contro l was utilized for the study. A dose lowering technique was utilized adhering to the principles of A NAVID. CT DOSE: 2163.32 mGy.cm FINDINGS: Please note that the chest CT will be reported separately. The liver is cirrhotic. Sensitiv ity for detection of hypervascular lesions is diminished. No hepatic lesions are identified. There is no biliary or pancreatic ductal dilatation. There is moderate pancreatic glandular atrophy. There ar e pancreatic parenchymal calcifications. There is no peripancreatic infiltration. Size of the spleen is at the upper limits of normal. The adrenal glands and kidneys are normal. There is no hydronephros is. A moderate amount of stool within the colon is noted. There is sigmoid diverticulosis without abdias dence for acute diverticulitis. The appendix is normal. Sensitivity for detection mucosal lesions is diminished on CT. However, none are identified. Major vasculature is patent. There is no lymphadenopa thy or ascites. No suspicious osseous lesions are noted. IMPRESSION: 1. No acute findings within the abdomen or pelvis. 2. Cirrhosis. 3. Colonic diverticulosis without evidence for acute diverticulitis. Moderate amount stool within the colon. 4. Findings suggestive of chronic pancreatitis. No peripancreatic infiltration. ACT 112: Negative or not required by law. Electronically signed by: Israel Oliva M.D. 02/17/2020 6:58 PM
[2020-02-17] MEDS: MONTELUKAST SODIUM 10 MG TABLET PO SCH (20:57)
[2020-02-17] MEDS: TRAZODONE HCL 50 MG TAB PO SCH (20:57)
[2020-02-17] MEDS: BuPROPion XL 300 MG TABCR PO SCH (20:57)
[2020-02-18] MEDS: ALBUT/IPRATROP 3MG/0.5MG NEB 3 ML VIAL NEB PRN ×3 (03:47→19:41)
[2020-02-18] MEDS: TRAMADOL HCL 50 MG TABLET PO PRN (04:32)
[2020-02-18] MEDS: LEVOTHYROXINE SODIUM 137 MCG TABLET PO SCH (06:07)
[2020-02-18 08:22] LABS: Hemoglobin 8.9 g/dL (12.0-16.0); Mean Corpuscular Hemoglobin 22.1 pg (25-34); Mean Corpuscular Hgb Conc 28.7 g/dL (32-36); Mean Corpuscular Volume 76.9 fL (80-100); Mean Platelet Volume 10.6 fL (7.4-10.4); Platelet Count 272 K/uL (130-400); RDW Coefficient of Variation 20.7 % (11.5-14.5); RDW Standard Deviation 53.8 fL (36.4-46.3); Red Blood Count 4.03 M/uL (4.2-5.4); White Blood Count 10.15 K/uL (4.8-10.8)
[2020-02-18] MEDS: FLUTICASONE/VILANTEROL 100/25MCG 14 PUFFS/INHALER INH SCH (08:35)
[2020-02-18 08:45] LABS: BUN Creatinine Ratio 10.3 (10-20); Calcium 8.8 mg/dl (8.5-10.1); Creatinine Clr Calc Pharmacy 109.4 ml/min; Est GFR (African American) 109.2; Est GFR (Non-African American) 94.2; Magnesium 2.2 mg/dl (1.8-2.4); Potassium 3.3 mmol/L (3.5-5.1)
[2020-02-18] MEDS ORDERED: INSULIN HUMAN NPH SC SCH (09:00)
[2020-02-18] MEDS ORDERED: INSULIN GLARGINE SOLOSTAR 100 UNITS/ML 3 ML PEN SC SCH (09:00)
[2020-02-18] MEDS: CHOLECALCIFEROL 1,000 UNITS 25 MCG TAB PO SCH (09:03)
[2020-02-18] MEDS: FAMOTIDINE 40 MG TABLET PO SCH ×2 (09:03→20:00)
[2020-02-18] MEDS: CYANOCOBALAMIN 500 MCG TABLET (VITAMIN B-12) PO SCH (09:03)
[2020-02-18] MEDS: SACCHAROMYCES BOULARDII 250 MG CAP PO SCH ×2 (09:03→20:00)
[2020-02-18] MEDS: predniSONE 20 MG TAB PO SCH (09:03)
[2020-02-18] MEDS: MULTIVITAMIN TAB PO SCH (09:03)
[2020-02-18] MEDS: PANTOprazole 40 MG TAB PO SCH ×2 (09:03→20:01)
[2020-02-18] MEDS: INSULIN HUMAN LISPRO (humaLOG) 100 UNITS/ML VIAL SC SCH ×4 (09:04→20:35)
[2020-02-18] MEDS: POLYETHYLENE (MIRALAX) 17 GM PACK PO SCH (09:09)
--- NOTE | 2020-02-18 09:26 | Pharmacy Report ---
Pharmacy Glycemic Short Note 2 - Date of Service February 18, 2020 - Glycemic Short BSG Results (Last 24 hours): 02/17/20 02/17/20 02/17/20 11:21 16:37 20:40 Glucose POC Glucose 93 200 H 191 H 02/18/20 02/18/20 07:34 07:51 Glucose 75 POC Glucose 87 OUTPATIENT ANTIDIABETIC REGIMEN: * Toujeo 60 units SC QAM + Metformin 1000 mg PO BIDM * A1c = 9.9% (02/13/2020) ASSESSMENT: 02/17: * Patient received 100 units of insulin over the past 24hrs * 60 units of basal + 32 units of NPH for steroid induced hyperglycemia + 8 units of bolus * Bolus insulin "low dose" since pt NPO yesterday AM for EGD * Diet resumed yesterday after procedure. Pt eating well per discussion with nursing * AM fasting BSG just slightly below goal range again at 87mg/dl this morning. Will decrease basal insulin by ~10% * Loosened CF/CR yesterday when full insulin doses given while NPO - will tighten back today since diet resumed 02/16: * Patient received 126 units of insulin over the past 24hrs * 60 units of basal + 32 units of NPH for steroid induced hyperglycemia + 34 units of bolus * BSGs ranged 95 - 203 mg/dl * Pt NPO today for EGD --> it is recommended to decrease basal insulin regimen by 20-50% while NPO. Unfortunately insulin orders were not adjusted this morning; full doses of Lantus 60 units and NPH 32 units given. Checking BSGs frequently and were 91, 93. May consider addition of D5W if NPO will be prol onged. Will significantly loosen CF/CR today since she has full basal/steroid hyperglycemia insulin doses on board. 02/15: * Glycemic control significantly improved with tapering of IV steroids * Fasting BSG of 95 mg/dL is at goal. I will resume home dose of Lantus at this time (~17% decrease compared to yesterdays dose). * Will start once daily NPH (0.4 units/kg based on AdjBW) to combat hyperglycem ia from prednisone * Will slightly back of Novolog since NPH is on board 02/14: * Patient received 189 units of insulin yesterday with BSGs ranging from 170 - 272 mg/dL: * 84 units of basal * 105 units of bolus * on solu medrol 40 mg IV q8h during this time * Solu medrol IV was discontinued after the morning dose today. Patient will start pred 40 mg PO daily starting 8/6. Will need to back off insulin over the next 24 hours due to tapering of steroids: * Decrease basal insulin * Start NPH (0.4 unit/kg) tomorrow AM - to be given with prednisone * Loosen Novolog CF/CR after lunch administration PLAN FOR INPATIENT GLYCEMIC CONTROL: * Hold outpatient oral diabetes medications * Basal insulin * Lantus 60 units SQ QAM * Steroid induced hyperglycemia * NPH 32 units SQ QAM (to be given with prednisone 40 mg) * May need to reduce dosing if NPO/prolonged NPO * Bolus insulin - resume previous parameters * NovoLog per scale ACHS or Q6hrs while NPO * Goal Range: Low 110 mg/dL - High 140 mg/dL * Correction Factor: 20 mg/dL/unit * Nutritional / Prandial insulin per carb ratio of 1 unit per 5 grams CHO c onsumed PLAN FOR DISCHARGE: * Most recent A1c of 9.9% shows poor outpatient control of T2DM. * Patient will likely require addition of meal-time insulin. Could consider fi xed dosing vs CHO counting. * Fixed dosing would be ~ 15 units of NovoLog with meals * Carb counting would be CF = 20; CR = 5 * Recommend starting a once weekly GLP-1 agonist, such as Trulicity or Ozempic, for weight loss and post-prandial coverage. According to CDE discussion with patient, she will discuss with her outpatient provider.
[2020-02-18] MEDS: IRON SUCROSE 300 MG in SODIUM CHLORIDE 0.9% 250 ML IV SCH (09:48)
[2020-02-18] MEDS ORDERED: bisacodyL 5 MG TABEC PO ONE (10:01)
[2020-02-18] MEDS: ENOXAPARIN INJ 40 MG/0.4 ML SYR SQ SCH (10:04)
--- NOTE | 2020-02-18 12:13 | Hospitalist Progress Note ---
Date of Service February 18, 2020 Assessment & Plan (1) Acute exacerbation of chronic obstructive pulmonary disease: Last PFTs were in 2014 which showed: "Severe obstructive airway disease. Lung volumes demonstrate mixed restrictive/obstructive disease due to obstructive airway disease and obesity. Moderate reduction in DLCO." - Continue DuoNebs, steroids - Add flutter valve 4 times daily - No need for antibiotics at this point as she has already taken 2 courses of azithromycin and 1 course of doxycycline in the recent past, with no pneumonia on chest x-ray. Procalcitonin on 02/13 was negative. Sputum culture from 02/13 only grew heavy normal buck. - Pulm consulted who feel she is near baseline and would like further outpatient testing. - Somewhat better today. Will drop prednisone to 20 mg tomorrow, then stop. (2) Anemia: Baseline hemoglobin a year ago was 12.4. She denies any signs or symptoms of GI bleeding, no vaginal bleeding, no hematuria. Colonoscopy was performed in 01/2017 and showed 2 5 to 7 mm polyps in the ascending colon removed, diverticulosis in the sigmoid colon, nonbleeding internal hemorrhoids-pathology showed tubular adenomas. EGD was performed in 04/2015 which showed a normal esophagus, mild gastritis, normal duodenum. - Iron studies show iron deficiency. - EGD on 02/16 showed esophageal candidiasis and gastritis. Will continue PPI BID. Will start fluconazole if cytology confirms Aurelia. - Started IV iron on 02/16 -> Will have received 3 300 mg doses by discharge. (3) Acute respiratory failure with hypoxia: Secondary to COPD exacerbation. Do not suspect acute CHF. D-dimer is negative, do not suspect PE. ECG without acute ischemic changes and troponin is negative. - Continue supplemental O2 to keep pulse ox greater than 88-92%. - CPAP for NIGHAT at night-time -> Trialed, but had an air leak. Will resume when she returns home. Will need outpatient repeat sleep study. - Bronchodilators, steroids - Two-step today for O2 tomorrow. (4) Obstructive sleep apnea of adult: She has not been using her CPAP at home as difficult for her to maintain her machine. - She tried CPAP here in the hospital again especially in the setting of respiratory distress, but had an air leak and didn't want to try further. (5) Hypertension: Blood pressures was mildly hypertensive at 170/90 sometimes. Other times, she was ok at 135/70. She is not on medications at home for this. - Monitor (6) Diabetes: Severely uncontrolled, last hemoglobin A1c was 10.8% in 2019. A1c was 9.9% this admission. - She takes Toujeo 60 units once daily - continue this here. - She reports hives with Humalog and 100 pound weight gain on NovoLog. - Okay to start NovoLog here at least temporarily, as she will have hyperglycemia with steroids - Consulted pharmacy for glycemic control (7) Non-occlusive coronary artery disease: Diagnostic cardiac catheterization performed in 2009 showed mild scattered CAD with up to 40-50% narrowing in the proximal PDA with normal LV function. - She is not on daily aspirin, but with anemia & EGD findings as above, would advise against this at this time - She is also not on a statin (8) Cirrhosis of liver not due to alcohol: Follows with [facility]. Is overdue for follow-up and screening EGD, screening for HCC, etc. likely due to recent COVID pandemic. - GI consulted -> EGD as above (9) Migraine, unspecified, not intractable, without status migrainosus: Continue PRN Fioricet (10) Persistent insomnia: Continue home trazodone (11) Depression: Continue bupropion, trazodone (12) GERD (gastroesophageal reflux disease): Gastritis seen on EGD on 02/17/2020. - Continue Pepcid 40 mg p.o. twice daily (13) Hyperlipidemia: Not on a statin. - Follow-up with PCP (14) Hypothyroidism: TSH was normal at 1.14 in 06/2018. - Continue home levothyroxine (15) Polymyalgia rheumatica: Previously on long-term prednisone but now discontinued for several years. No longer follows with rheumatology. Has some shoulder pain, but this is stable and responds to oral Tylenol. - No acute issues (16) DVT prophylaxis: Lovenox SQ Admission and Anticipated Discharge Date Admission Date: February 12, 2020 Subjective Doing better today. Was able to sleep well without a roommate. Overall improving. Reports no fevers/chills, chest pain, abdominal pain, nausea, or vomiting. Physical Exam Constitutional: WD/WN, vitals as above + acute distress Eyes: EOM intact bilaterally; no conjunctival abnormality ENMT: external ear and nose normal, oropharynx normal Neck: trachea midline, no thyromegaly normal visual inspection Respiratory: normal respiratory effort, lungs clear to auscultation no respiratory distress Auscultation: no wheezes Cardiovascular: RRR, no murmur, no edema Gastrointestinal (Abdomen): Inspection/Auscultation: abdomen normal to inspection; abdomen not distended Musculoskeletal: no cyanosis or clubbing, extremities motor strength 5/5 Skin: no rashes, warm and dry Neurologic: moves all extremities and awake Psychiatric: Orientation: alert, oriented to person and cooperative Results & Data Results & Data ([facility]) Vital Signs (Past 12 Hours) Vital Signs Temp Pulse Resp BP BP Pulse Ox 02/18/20 11:19 36.7 C 80 16 130/82 91 02/18/20 07:16 36.7 C 84 16 125/61 97 02/18/20 03:48 84 20 87 L 02/18/20 03:00 36.6 C 69 20 108/67 90 PG Care Time/CCT Total # of Minutes Spent Total Time Spent with Patient: Total time spent is greater than 50% in coordination of care (as documented) at patient's floor/unit and/or counseling patient: Coding Level of Care Code 17144 Subseq Hosp Care Lvl 2 Diagnoses Acute exacerbation of chronic obstructive pulmonary disease J44.1 Anemia D64.9 Anemia type: unspecified type Acute respiratory failure with hypoxia J96.01 Obstructive sleep apnea of adult G47.33 Hypertension I10 Hypertension type: essential hypertension Diabetes E11.65 Diabetes mellitus type: type 2 Diabetes mellitus termite treater insulin use: without jail use Diabetes mellitus complication status: with hyperglycemia Non-occlusive coronary artery disease I25.10 Cirrhosis of liver not due to alcohol K74.60 Migraine, unspecified, not intractable, without status migrainosus G43.909 Persistent insomnia G47.00 Depression F34.1 Depression Type: dysthymia GERD (gastroesophageal reflux disease) K21.9 Hyperlipidemia E78.5 Hypothyroidism E03.9 Polymyalgia rheumatica M35.3 DVT prophylaxis Z29.9 (1) Anemia Anemia type: unspecified type Qualified Code(s): D64.9 - Anemia, unspecified (2) Hypertension Hypertension type: essential hypertension Qualified Code(s): I10 - Essential (primary) hypertension (3) Diabetes Diabetes mellitus type: type 2 Diabetes mellitus jail insulin use: without termite treater use Diabetes mellitus complication status: with hyperglycemia Qualified Code(s): E11.65 - Type 2 diabetes mellitus with hyperglycemia (4) Depression Depression Type: dysthymia Qualified Code(s): F34.1 - Dysthymic disorder
[2020-02-18] MEDS: BUTALBITAL/ASPIRIN/CAFFEINE 1 TAB TAB PO PRN (13:49)
--- NOTE | 2020-02-18 14:32 | Pulmonology Progress Note ---
Date of Service February 18, 2020 Assessment & Plan (1) Acute exacerbation of chronic obstructive pulmonary disease: 64-year-old female with a past medical history of reported COPD, tobacco abuse, obstructive sleep apnea noncompliant with therapy, chronic hypoxemic respiratory failure, morbid obesity and diastolic heart failure presenting to the hospital due to shortness of breath. Recommend obtaining an echocardiogram to evaluate for diastolic heart failure and secondary pulmonary hypertension. I would not recommend more than a 5 to 7- day course of prednisone especially in light of her esophagitis, anemia and diabetes mellitus. I do not think she has a very significant COPD exacerbation at this time. Continue Brio Ellipta inhaler. Strongly encourage CPAP compliance, but she is not interested at this time. She will likely need supplemental oxygen when she goes home. Pulmonary rehab is recommended as well. Patient needs updated pulmonary function testing in outpatient setting. She can follow-up with our pulmonary clinic if she would like. I do not think she currently has any significant pneumonia. Weight loss is advised. Pulmonary will sign off. Please call us with questions. Thank you. (2) Obstructive sleep apnea of adult: (3) Asthma: Asthma severity: mild Asthma persistence: intermittent Asthma complication type: uncomplicated Qualified Code(s): J45.20 - Mild intermittent asthma, uncomplicated (4) Obesity: Admission and Anticipated Discharge Date Admission Date: February 12, 2020 Subjective Patient seen and examined in the room today. She notes that she continues to feel weak and lethargic. She continues to have shortness of breath with exertion. She is currently down to 2 L via nasal cannula. Denies any chest pain currently. Appetite is good. Review of Systems Review of Systems: All systems reviewed & are unremarkable except as noted in HPI & below Physical Exam Physical Exam: GENERAL : No acute distress. EYES: No icterus, gaze conjugate NOSE: No evidence of epistaxis. Nasal cannula in place MOUTH: No lesions or candidiasis. NECK: Supple LUNGS: Decreased breath sounds globally. No rales rhonchi or bronchospasm appreciated HEART: Regular, rate controlled ABDOMEN: Soft, NT, ND, BS Present EXTREMITIES: No LE edema, pedal pulses intact and equal bilaterally. NEURO: A&OX3 Results & Data Results & Data ([facility]) Vital Signs (Past 12 Hours) Vital Signs Temp Pulse Pulse Pulse Pulse Pulse Resp 02/18/20 13:07 101 H 111 H 86 101 H 02/18/20 13:06 78 20 02/18/20 11:19 98.1 F 80 16 02/18/20 07:16 98.1 F 84 16 02/18/20 03:48 84 20 02/18/20 03:00 97.9 F 69 20 Resp Resp Resp Resp BP BP Pulse Ox 02/18/20 13:07 20 22 20 16 02/18/20 13:06 91 02/18/20 11:19 130/82 91 02/18/20 07:16 125/61 97 02/18/20 03:48 87 L 02/18/20 03:00 108/67 90 Pulse Ox Pulse Ox Pulse Ox Pulse Ox 02/18/20 13:07 92 90 93 84 L 02/18/20 13:06 02/18/20 11:19 02/18/20 07:16 02/18/20 03:48 02/18/20 03:00 I personally reviewed vital signs, labs and chest imaging PG Care Time/CCT Total # of Minutes Spent Total Time Spent with Patient: Total time spent is greater than 50% in coordination of care (as documented) at patient's floor/unit and/or counseling patient: Coding Level of Care Code 30659 Subseq Hosp Care Lvl 2 Diagnoses Acute exacerbation of chronic obstructive pulmonary disease J44.1 Obstructive sleep apnea of adult G47.33 Asthma J45.20 Asthma severity: mild Asthma persistence: intermittent Asthma complication type: uncomplicated Obesity E66.9
[2020-02-18] MEDS: MONTELUKAST SODIUM 10 MG TABLET PO SCH (20:00)
[2020-02-18] MEDS: BuPROPion XL 300 MG TABCR PO SCH (20:00)
[2020-02-18] MEDS: TRAZODONE HCL 50 MG TAB PO SCH (20:01)
[2020-02-19 05:52] LABS: Hemoglobin 8.4 g/dL (12.0-16.0); Mean Corpuscular Hemoglobin 22.8 pg (25-34); Mean Corpuscular Volume 78.8 fL (80-100); Mean Platelet Volume 10.3 fL (7.4-10.4); Platelet Count 250 K/uL (130-400); RDW Coefficient of Variation 22.4 % (11.5-14.5); RDW Standard Deviation 54.4 fL (36.4-46.3); Red Blood Count 3.68 M/uL (4.2-5.4); White Blood Count 10.46 K/uL (4.8-10.8)
[2020-02-19] MEDS: LEVOTHYROXINE SODIUM 137 MCG TABLET PO SCH (06:10)
[2020-02-19 06:21] LABS: BUN Creatinine Ratio 11.1 (10-20); Calcium 8.2 mg/dl (8.5-10.1); Creatinine Clr Calc Pharmacy 126.4 ml/min; Est GFR (African American) 114.5; Est GFR (Non-African American) 98.8; Potassium 3.3 mmol/L (3.5-5.1)
[2020-02-19] MEDS: ALBUT/IPRATROP 3MG/0.5MG NEB 3 ML VIAL NEB PRN (06:33)
[2020-02-19] MEDS ORDERED: INSULIN HUMAN NPH SC SCH (09:00)
[2020-02-19] MEDS ORDERED: predniSONE 20 MG TAB PO SCH (09:00)
[2020-02-19] MEDS ORDERED: INSULIN GLARGINE SOLOSTAR 100 UNITS/ML 3 ML PEN SC SCH (09:00)
[2020-02-19] MEDS: INSULIN HUMAN LISPRO (humaLOG) 100 UNITS/ML VIAL SC SCH ×2 (09:04→13:00)
[2020-02-19] MEDS: ENOXAPARIN INJ 40 MG/0.4 ML SYR SQ SCH (09:06)
[2020-02-19] MEDS: CYANOCOBALAMIN 500 MCG TABLET (VITAMIN B-12) PO SCH (09:07)
[2020-02-19] MEDS: PANTOprazole 40 MG TAB PO SCH (09:07)
[2020-02-19] MEDS: CHOLECALCIFEROL 1,000 UNITS 25 MCG TAB PO SCH (09:07)
[2020-02-19] MEDS: SACCHAROMYCES BOULARDII 250 MG CAP PO SCH (09:08)
[2020-02-19] MEDS: MULTIVITAMIN TAB PO SCH (09:08)
[2020-02-19] MEDS: FLUTICASONE/VILANTEROL 100/25MCG 14 PUFFS/INHALER INH SCH (09:08)
[2020-02-19] MEDS: POLYETHYLENE (MIRALAX) 17 GM PACK PO SCH (09:09)
[2020-02-19] MEDS: FAMOTIDINE 40 MG TABLET PO SCH (09:09)
[2020-02-19] MEDS ORDERED: OXYMETAZOLINE 0.05% 30 ML BTL SCH (09:45)
[2020-02-19] MEDS ORDERED: FLUTICASONE PROPIONATE NA SPR 16 GM BTL SCH (09:45)
--- NOTE | 2020-02-19 09:47 | Pharmacy Report ---
Pharmacy Glycemic Short Note 2 - Date of Service February 19, 2020 - Glycemic Short BSG Results (Last 24 hours): 02/18/20 02/18/20 02/18/20 11:37 16:41 20:18 Glucose POC Glucose 112 H 179 H 154 H 02/19/20 02/19/20 02/19/20 05:17 07:35 07:36 Glucose 54 L POC Glucose 67 L* 71 OUTPATIENT ANTIDIABETIC REGIMEN: * Toujeo 60 units SC QAM + Metformin 1000 mg PO BIDM * A1c = 9.9% (02/13/2020) ASSESSMENT: 02/18: * Patient received 112 units of insulin over the past 24hrs * 55 units of basal (Lantus) + 32 units of NPH for steroid induced hyperglycemia + 25 units of bolus (NovoLog) * Pt with LOW BSG this AM Fasting. Most likely secondary to Lantus dosing. * Will decrease Lantus dosing by 20% * Prednisone dosing tapering from 40mg daily to 20mg daily. * Will decrease NPH dosing by 50% and loosen CF/CR since steroids have their most profound effect on post-prandial hyperglycemia. * Step down in steroid dosing should decrease insulin needs. * NPH insulin is used to counteract the hyperglycemic effect of prednisone. The rationale for this approach is that the pharmacodynamics profile of NPH, with a peak effect of 4-8hrs and duration of action of 12-16hrs, mirrors the pharmacodynamics of prednisone. NPH should be dosed at the same time that prednisone is given * The dose of NPH given is dependent on the steroid dose given * For doses of prednisone 20mg/day or above NPH dose should be ~ 0.2 units/kg 02/17: * Patient received 100 units of insulin over the past 24hrs * 60 units of basal + 32 units of NPH for steroid induced hyperglycemia + 8 units of bolus * Bolus insulin "low dose" since pt NPO yesterday AM for EGD * Diet resumed yesterday after procedure. Pt eating well per discussion with nursing * AM fasting BSG just slightly below goal range again at 87mg/dl this morning. Will decrease basal insulin by ~10% * Loosened CF/CR yesterday when full insulin doses given while NPO - will tighten back today since diet resumed 02/16: * Patient received 126 units of insulin over the past 24hrs * 60 units of basal + 32 units of NPH for steroid induced hyperglycemia + 34 units of bolus * BSGs ranged 95 - 203 mg/dl * Pt NPO today for EGD --> it is recommended to decrease basal insulin regimen by 20-50% while NPO. Unfortunately insulin orders were not adjusted this morning; full doses of Lantus 60 units and NPH 32 units given. Checking BSGs frequently and were 91, 93. May consider addition of D5W if NPO will be prolonged. Will significantly loosen CF/CR today since she has full basal/steroid hyperglycemia insulin doses on board. 02/15: * Glycemic control significantly improved with tapering of IV steroids * Fasting BSG of 95 mg/dL is at goal. I will resume home dose of Lantus at this time (~17% decrease compared to yesterdays dose). * Will start once daily NPH (0.4 units/kg based on AdjBW) to combat hyperglycemia from prednisone * Will slightly back of Novolog since NPH is on board 02/14: * Patient received 189 units of insulin yesterday with BSGs ranging from 170 - 272 mg/dL: * 84 units of basal * 105 units of bolus * on solu medrol 40 mg IV q8h during this time * Solu medrol IV was discontinued after the morning dose today. Patient will start pred 40 mg PO daily starting 02/15. Will need to back off insulin over the next 24 hours due to tapering of steroids: * Decrease basal insulin * Start NPH (0.4 unit/kg) tomorrow AM - to be given with prednisone * Loosen Novolog CF/CR after lunch administration PLAN FOR INPATIENT GLYCEMIC CONTROL: * Hold outpatient oral diabetes medications * Basal insulin: decrease for LOW this AM * Lantus 45 units SQ QAM * Steroid induced hyperglycemia: decrease dosing for step down in steroid dosing * NPH 16 units SQ QAM (to be given with prednisone 20 mg) * Bolus insulin - loosen parameters for step down in steroid dosing * NovoLog per scale ACHS or Q6hrs while NPO * Goal Range: Low 110 mg/dL - High 140 mg/dL * Correction Factor: 20 mg/dL/unit * Nutritional / Prandial insulin per carb ratio of 1 unit per 6 grams CHO consumed PLAN FOR DISCHARGE: * Most recent A1c of 9.9% shows poor outpatient control of T2DM. * Patient will likely require addition of meal-time insulin. Could consider fixed dosing vs CHO counting. * Fixed dosing would be ~ 15 units of NovoLog with meals * Carb counting would be CF = 20; CR = 5 * Recommend starting a once weekly GLP-1 agonist, such as Trulicity or Ozempic, for weight loss and post-prandial coverage. According to CDE discussion with patient, she will discuss with her outpatient provider.
[2020-02-19] MEDS: IRON SUCROSE 300 MG in SODIUM CHLORIDE 0.9% 250 ML IV SCH (10:22)
--- NOTE | 2020-02-19 10:44 | XCELERA ---
[id number]
[2020-02-19] MEDS ORDERED: bisacodyL 5 MG TABEC PO ONE (11:57)
--- NOTE | 2020-02-19 13:49 | Discharge Summary ---
Date of Service February 19, 2020 Admission HPI Per Admitting Provider This patient is a 64-year-old female with a history of COPD, NIGHAT, HTN, nonocclusive CAD, cirrhosis most likely secondary to fatty liver, vitamin D deficiency, arthritis, migraine, depression, GERD, hyperlipidemia, hypot hyroidism, irritable bowel syndrome, and PMR, who presents to the ER for the second time in 1 week with shortness of breath and wheezing. She reports she is been coughing and shortness of breath with wheezing for the last 6 weeks. She has been treated with 2 different courses of azithromycin and was seen in the ER here a week ago. She was given a prednisone burst and a prescription for levofloxacin, however she was hesitant to take it given a severe reaction to it in the past. She was then prescribed doxycycline by her PCP which she finished this morning. She continues to be very short of breath and is wheezing. She has a cough productive of yellow-brown sputum, has been afebrile. In the ER, she was hypoxic to 87% on room air and was placed on nasal cannula. She was tachypneic and tachycardic, but afebrile and blood pressure was elevated. Her chest x-ray was read as normal. She had an elevated WBC count at 12 but recently completed a prednisone burst; her hemoglobin was low at 9.1 with microcytosis. Her d-dimer was normal, her lactate was elevated at 5.1, and her potassium was mildly low at 3.4. She was hyperglycemic in the 180s. Troponin was negative and her ECG showed a normal sinus rhythm, rate 98, with mild T wave flattening in leads II and III. Unchanged from previous. A rapid COVID-19 test was negative. Blood cultures were drawn and pending. She received a continuous albuterol nebulizer, IV Solu-Medrol 125 mg x 1, and had some improvement. She will be admitted for acute COPD exacerbation and acute respiratory failure with hypoxia Principal Diagnosis COPD exacerbation Iron deficiency anemia of unknown origin Discharge Exam Constitutional WD/WN, vitals as above + acute distress Eyes EOM intact bilaterally; no conjunctival abnormality ENMT external ear and nose normal, oropharynx normal Neck trachea midline, no thyromegaly normal visual inspection Respiratory normal respiratory effort, lungs clear to auscultation no respiratory distress Auscultation: no wheezes Cardiovascular RRR, no murmur, no edema Gastrointestinal (Abdomen) Inspection/Auscultation: abdomen normal to inspection; abdomen not distended Musculoskeletal no cyanosis or clubbing, extremities motor strength 5/5 Skin no rashes, warm and dry Neurologic moves all extremities and awake Psychiatric Orientation: alert, oriented to person and cooperative Discharge Data Allergies Allergy/AdvReac Type Severity Reaction Status Date / Time cefaclor Allergy Severe HIVES, Verified 02/12/20 15:34 HARD TIME BREATHING Penicillins Allergy Severe THROAT Verified 02/12/20 15:34 SWELLS yellow dye Allergy Severe DIFFICULTY Verified 02/12/20 15:34 BREATHING adhesive Allergy Intermediate WELTS ON Verified 02/12/20 15:34 SKIN fluticasone Allergy Intermediate HARD OF Verified 02/12/20 15:34 BREATHING insulin lispro Allergy Intermediate HIVES Verified 02/12/20 15:34 milk Allergy Intermediate HARD OF Verified 02/12/20 15:34 BREATHING phenol Allergy Intermediate HIVES Verified 02/12/20 15:34 salmeterol Allergy Intermediate HARD OF Verified 02/12/20 15:34 BREATHING fluoxetine Allergy Mild UNKNOWN Verified 02/12/20 15:34 Iodine and Iodide Containing Allergy Mild RASH Verified 02/12/20 15:34 Produc atorvastatin [From Lipitor] Allergy Unknown Unknown Verified 02/12/20 15:34 Cephalosporins Allergy Unknown UNKNOWN Verified 02/12/20 15:34 citalopram Allergy Unknown UNKNOWN Verified 02/12/20 15:34 clarithromycin [From Biaxin] Allergy Unknown Unknown Verified 02/12/20 15:34 duloxetine [From Cymbalta] Allergy Unknown Unknown Verified 02/12/20 15:34 escitalopram [From Lexapro] Allergy Unknown Unknown Verified 02/12/20 15:34 ezetimibe [From Vytorin] Allergy Unknown Unknown Verified 02/12/20 15:34 feathers Allergy Unknown ALLERGIC Verified 02/12/20 15:34 RX "SOMETHING WEIRD" gatifloxacin [From Tequin] Allergy Unknown Unknown Verified 02/12/20 15:34 guaifenesin Allergy Unknown UNKNOWN Verified 02/12/20 15:34 insulin lispro protamine Allergy Unknown Unknown Verified 02/12/20 15:34 [From Humalog Mix] Macrolide Antibiotics Allergy Unknown UNKNOWN Verified 02/12/20 15:34 mold Allergy Unknown Unknown Verified 02/12/20 15:34 moxifloxacin [From Avelox] Allergy Unknown Unknown Verified 02/12/20 15:34 paroxetine [From Paxil] Allergy Unknown Unknown Verified 02/12/20 15:34 phenylephrine Allergy Unknown UNKNOWN Verified 02/12/20 15:34 phenylpropanolamine Allergy Unknown UNKNOWN Verified 02/12/20 15:34 Quinolones Allergy Unknown UNKNOWN Verified 02/12/20 15:34 rosuvastatin [From Crestor] Allergy Unknown Unknown Verified 02/12/20 15:34 simvastatin [From Vytorin] Allergy Unknown Unknown Verified 02/12/20 15:34 Sulfa (Sulfonamide Allergy Unknown Unknown Verified 02/12/20 15:34 Antibiotics) Tetracyclines Allergy Unknown Unknown Verified 02/12/20 15:34 levofloxacin AdvReac Intermediate SEVERE Verified 02/12/20 15:34 NAUSEA house dust AdvReac Unknown Unknown Verified 02/12/20 20:25 insulin aspart AdvReac Unknown Unknown Verified 02/12/20 19:06 [From Novolog U-100 Insulin aspart] Consultations 02/12/20 16:38 ED Decision to Admit Stat 02/14/20 12:44 Consult Gastroenterology Routine 02/16/20 11:31 Consult Pulmonology Routine Procedures Performed Operation Date: 02/17/20 13:00 Actual Procedures p EGD Biopsy Cytology - Blade Heck MD Ordered Studies 02/17/20 17:42 CT abd pelvis IV con only Routine CT chest wo con Routine Hospital Course (1) Acute exacerbation of chronic obstructive pulmonary disease: Last PFTs were in 2014 which showed: "Severe obstructive airway disease. Lung volumes demonstrate mixed restrictive/obstructive disease due to obstructive airway disease and obesity. Moderate reduction in DLCO." - Continue DuoNebs, steroids - Add flutter valve 4 times daily - No need for antibiotics at this point as she has already taken 2 courses of azithromycin and 1 course of doxycycline in the recent past, with no pneumonia on chest x-ray. Procalcitonin on 02/13 was negative. Sputum culture from 02/13 only grew heavy normal buck. - Pulm consulted who feel she is near baseline and would like further outpatient testing. Finished course of steroids inpatient. - Discharged on 2L home O2. (2) Anemia: Baseline hemoglobin a year ago was 12.4. She denies any signs or symptoms of GI bleeding, no vaginal bleeding, no hematuria. Colonoscopy was performed in 01/2017 and showed 2 5 to 7 mm polyps in the ascending colon removed, diverticulosis in the sigmoid colon, nonbleeding internal hemorrhoids-pathology showed tubular adenomas. EGD was performed in 04/2015 which showed a normal esophagus, mild gastritis, normal duodenum. - Iron studies show iron deficiency. - EGD on 02/16 showed esophageal candidiasis and gastritis. Will continue PPI BID. Will start fluconazole if cytology confirms Aurelia. - Started IV iron on 02/16 -> Will have received 4 300 mg doses by discharge. - Follow up with GI as outpatient for colonoscopy. (3) Acute respiratory failure with hypoxia: Secondary to COPD exacerbation. Do not suspect acute CHF. D-dimer is negative, do not suspect PE. ECG without acute ischemic changes and troponin is negative. - Continue supplemental O2 to keep pulse ox greater than 88-92%. - CPAP for NIGHAT at night-time -> Trialed, but had an air leak. Will resume when she returns home. Will need outpatient repeat sleep study. - Bronchodilators, steroids (4) Obstructive sleep apnea of adult: She has not been using her CPAP at home as difficult for her to maintain her machine. - She tried CPAP here in the hospital again especially in the setting of respiratory distress, but had an air leak and didn't want to try further. (5) Hypertension: Blood pressures was mildly hypertensive at 170/90 sometimes. Other times, she was ok at 135/70. She is not on medications at home for this. - Monitor (6) Diabetes: Severely uncontrolled, last hemoglobin A1c was 10.8% in 2019. A1c was 9.9% this admission. - She takes Toujeo 60 units once daily - continue this here. (7) Non-occlusive coronary artery disease: Diagnostic cardiac catheterization performed in 2009 showed mild scattered CAD with up to 40-50% narrowing in the proximal PDA with normal LV function. - She is not on daily aspirin, but with anemia & EGD findings as above, would advise against this at this time - She is also not on a statin (8) Cirrhosis of liver not due to alcohol: Follows with [facility]. Is overdue for follow-up and screening EGD, screening for HCC, etc. likely due to recent COVID pandemic. - GI consulted -> EGD as above (9) Migraine, unspecified, not intractable, without status migrainosus: Continue PRN Fioricet (10) Persistent insomnia: Continue home trazodone (11) Depression: Continue bupropion, trazodone (12) GERD (gastroesophageal reflux disease): Gastritis seen on EGD on 02/17/2020. - Continue Pepcid 40 mg p.o. twice daily (13) Hyperlipidemia: Not on a statin. - Follow-up with PCP (14) Hypothyroidism: TSH was normal at 1.14 in 06/2018. - Continue home levothyroxine (15) Polymyalgia rheumatica: Previously on long-term prednisone but now discontinued for several years. No longer follows with rheumatology. Has some shoulder pain, but this is stable and responds to oral Tylenol. - No acute issues (16) DVT prophylaxis: Lovenox SQ Total Time Total Time Spent Total Time Spent (In Minutes): 35 Discharge Plan Discharge Items Patient Disposition: Home - Home Health Services Reason For Visit: COPD EXACERBATION Discharge Diagnosis: COPD exacerbation Anemia (low red blood cells) from iron deficiency of unknown cause Activity: Resume your previous activity Non-emergency contact: Primary Care Provider and Manager Grant Call non-emergency contact if: your symptoms worsen Follow-up/Referrals: Michael Wharton MD [Primary Care Provider] - Gerald Elizabeth MD [Physician] - (Please follow up with the lung team in the next 1-2 weeks to see how you're doing and for any further testing.) Blade Heck MD [Physician] - (Please see Dr. Heck in his clinic in 2 weeks for further follow up.) Diet: Carb Consistent or DM2 Addtl Attending Provider Instructions: You were admitted to the hospital with shortness of breath that we felt was related to a COPD exacerbation. With some time, the steroids and breathing treatments did the trick and have helped open up your airways & lungs. However, it does seem like you now need oxygen in the daytime. We have helped arrange home oxygen supplies. Please follow up with the lung doctors in their clinic. They will repeat your breathing tests and can even offer a sleep study to help optimize your lung function. However, we also noted that you have become quite anemic in the year since your last check. This means you have fewer red blood cells than you did a year ago. The red blood cells carry oxygen around to the body, so you especially want lots of the since you have COPD. We did a scope (called an EGD) of your stomach and first part of the small intestine, and did not see any signs of bleeding. The GI doctors would like you to follow up in their clinic to discuss further investigation (such as a colonoscopy). Our CT scan did not see any internal bleeding which is great news! Please use the Afrin nasal spray 1 spray two times per day in the left nostril for the next 3 days, then stop. Please use the Flonase nasal spray 1 spray two times per day in the left nostril for the next 2 weeks. If your left ear "fullness" or popping has not resolved by then, please speak with Dr. Wharton about seeing an ENT doctor. Pending Studies at Discharge: Yes Studies:: Pathology results from EGD Stand-Alone Forms: My [facility], Smoking Cessation Medications and DC Order Prescriptions: New fluticasone propionate 50 mcg/actuation [place],Suspension 1 spray NA BID Qty: 1 RF: 0 oxymetazoline [Nasal [place] (oxymetazoline)] 0.05 % [place],Non-Aerosol 1 spray NA BID 3 Days Qty: 1 RF: 0 Breo Ellipta 100-25 mcg/dose Blister With Device 1 ea inhalation DAILY Qty: 28 RF: 0 pantoprazole 40 mg tablet,delayed release (DR/EC) 40 mg PO BID 14 Days Qty: 28 RF: 0 Continued levothyroxine 137 mcg tablet 137 mcg PO DAILY Qty: 90 RF: 3 albuterol sulfate [Ventolin HFA] 90 mcg/actuation HFA aerosol inhaler 1 puffs INH QID PRN (Reason: shortness of breath or wheezing) Qty: 18 RF: 3 montelukast 10 mg tablet 10 mg PO QPM Qty: 90 RF: 4 trazodone 150 mg tablet 150 mg PO .COMPLEX Qty: 180 RF: 3 metformin 500 mg tablet extended release 24 hr 1,000 mg PO BIDM Qty: 360 RF: 3 tramadol 50 mg tablet 50 mg PO Q4H PRN (Reason: pain) Qty: 30 RF: 0 lorazepam 0.5 mg tablet 0.5 - 1 mg PO DAILY PRN (Reason: anxiety) Qty: 30 RF: 0 benzonatate 200 mg capsule 200 mg PO TID PRN (Reason: cough) Qty: 21 RF: 2 bupropion HCl 300 mg tablet extended release 24 hr 300 mg PO QPM Qty: 90 RF: 2 (DME) Aerochamber Plus Z Stat spacer See Dose Instructions .ROUTE .MEDSUPPLY Qty: 1 RF: 0 (DME) insulin admin supplies insulin pen See Dose Instructions .ROUTE .MEDSUPPLY Qty: 1 RF: 0 Excedrin Migraine 250-250-65 mg tablet 2 tab PO QAM RF: 0 (DME) CPAP Machine Misc See Dose Instructions .ROUTE .MEDSUPPLY Qty: 1 RF: 0 (DME) pen needle, diabetic [Novofine 32] 32 gauge x 1/4" needle See Dose Instructions .ROUTE .MEDSUPPLY Qty: 50 RF: 0 (DME) lancets [OneTouch Delica Plus Lancet] 33 gauge misc See Dose Instructions .ROUTE .MEDSUPPLY Qty: 100 RF: 0 (DME) blood sugar diagnostic strip See Dose Instructions .ROUTE .MEDSUPPLY Qty: 10 RF: 0 multivitamin [Multiple Vitamins] tablet 1 tab PO DAILY RF: 0 fhygongvps-cppyygl-fdsstbsf 50-325-40 mg capsule 1 cap PO DAILY PRN (Reason: Migraine Headache) Qty: 30 RF: 0 cholecalciferol (vitamin D3) 1,000 unit capsule 5,000 units PO DAILY RF: 0 cyanocobalamin (vitamin B-12) 1,000 mcg tablet 1,000 mcg PO DAILY RF: 0 simethicone 125 mg capsule 125 mg PO USEASDIRECTD PRN (Reason: BLOATING/GAS RELIEF) RF: 0 diphenhydramine-zinc acetate 1-0.1 % cream 1 appln topical USEASDIRECTD PRN (Reason: itching) RF: 0 famotidine 40 mg tablet 40 mg PO BID Qty: 180 RF: 3 Saccharomyces boulardii [Florastor] 250 mg capsule 250 mg PO BID Qty: 20 RF: 0 Toujeo SoloStar U-300 Insulin 300 unit/mL (1.5 mL) insulin pen 60 unit SUBCUT QAM RF: 0 Discontinued doxycycline monohydrate 100 mg capsule 100 mg PO BID Qty: 20 RF: 0 Discharge Orders: Discharge Order (Routine); Ordered 02/19/20 Ordered By: Paresh Wells Admission Data Admit Date/Time: 02/12/20 17:24 Attending Provider: Paresh Wells Admit Provider: Camryn Salazar Primary Care Provider: Michael Wharton Other Providers: Paresh Wells ; Camryn Salazar ; Blade Heck ; Gerald Elizabeth Other Interventions: Discharge Summary Assessment (RN) Last Done: 02/19/20 12:42 DC Date/Time DO NOT enter until pt leaves facility: 02/19/20 13:40 Coding Level of Care Code D/C Day Management >30 mins Diagnoses Acute exacerbation of chronic obstructive pulmonary disease J44.1 Anemia D64.9 Anemia type: unspecified type Acute respiratory failure with hypoxia J96.01 Obstructive sleep apnea of adult G47.33 Hypertension I10 Hypertension type: essential hypertension Diabetes E11.65 Diabetes mellitus type: type 2 Diabetes mellitus [facility] insulin use: without [facility] use Diabetes mellitus complication status: with hyperglycemia Non-occlusive coronary artery disease I25.10 Cirrhosis of liver not due to alcohol K74.60 Migraine, unspecified, not intractable, without status migrainosus G43.909 Persistent insomnia G47.00 Depression F34.1 Depression Type: dysthymia GERD (gastroesophageal reflux disease) K21.9 Hyperlipidemia E78.5 Hypothyroidism E03.9 Polymyalgia rheumatica M35.3 DVT prophylaxis Z29.9
== END 2020-02-19 13:40 | disposition home or self-care (01) | DRG 190 ==
LOC: ED 13:54 → SUATTDRO 17:24 → 2W 17:24

== ENCOUNTER 2023-12-05 13:15 | Inpatient (IN) ==
[2023-12-05 14:54] LABS: Base Excess VBG -0.2 mEq/L; HCO3 VBG 26 mmol/L; Oxygen Saturation VBG < 60.0 %; PCO2 VBG 47 mmHg (38-50); PO2 VBG 22 mmHg; pH VBG 7.35 (7.36-7.41)
[2023-12-05 15:05] LABS: Basophils # (auto) 0.04 K/uL (0.00-0.20); Basophils % (auto) 0.8 %; Eosinophils # (auto) 0.11 K/uL (0.00-0.50); Eosinophils % (auto) 2.3 %; Hematocrit (blood only) 35.5 % (37.0-47.0); Hemoglobin 11.1 g/dl (12.0-16.0); Immature Granulocytes # (auto) 0.03 K/uL (0.01-0.20); Immature Granulocytes % (auto) 0.6 %; Lymphocytes # (auto) 0.73 K/uL (1.20-3.40); Lymphocytes % (auto) 15.4 %; Mean Corpuscular Hemoglobin 26.4 pg (25.0-34.0); Mean Corpuscular Hgb Conc 31.3 g/dL (32.0-36.0); Mean Corpuscular Volume 84.3 fL (80.0-100.0); Mean Platelet Volume 11.5 fL (9.4-12.4); Monocytes # (auto) 0.27 K/uL (0.11-0.59); Monocytes % (auto) 5.7 %; Neutrophils # (auto) 3.57 K/uL (1.40-6.50); Neutrophils % (auto) 75.2 %; Platelet Count 124 K/uL (130-400); Red Blood Count 4.21 M/uL (4.20-5.40); White Blood Count 4.75 K/ul (4.8-10.8)
--- NOTE | 2023-12-05 15:15 | CT Scan Report ---
HEAD CT NONCONTRAST CT DOSE: 2552.74 mGy.cm HISTORY: fall TECHNIQUE: Multiaxial CT images of the head were performed without the use of intravenous contrast. A utomated exposure control was utilized for this study. A dose lowering technique was utilized adheri ng to the principles of ALARA. Comparison: None. Findings: The paranasal sinuses and mastoid air cells are clear. The calvarium and skull base are int act. The ventricles and sulci are within normal limits. There is no mass, hematoma, midline shift, or acute infarct. Motion artifact at the skull base. Impression: Motion artifact. No definite acute intracranial abnormality. ACT 112: Negative or not required by law. Electronically signed by: Amari Christiansen M.D. 12/05/2023 3:13 PM
--- NOTE | 2023-12-05 15:20 | CT Scan Report ---
CERVICAL SPINE CT CT DOSE: HISTORY: fall TECHNIQUE: Multiaxial CT images of the cervical spine were performed and reformatted in the sagittal and coronal plane without the use of contrast. A dose lowering technique was utilized adhering to th e principles of ALARA. COMPARISON: None. FINDINGS: No fractures. No subluxation. Prevertebral soft tissues and the C1-C2 interval are intact. No pneumothorax. IMPRESSION: No fractures within the cervical spine. ACT 112: Negative or not required by law. Electronically signed by: Amari Christiansen M.D. 12/05/2023 3:18 PM
[2023-12-05 15:26] LABS: Calcium 9.1 mg/dl (8.6-10.3); Creatinine Clr Calc Pharmacy 96.4 ml/min; Est GFR (African American) 106.2 ml/min; Est GFR (Non-African American) 91.6 ml/min; Magnesium 1.8 mg/dl (1.7-2.4); Potassium 4.5 mmol/L (3.5-5.1)
--- NOTE | 2023-12-05 15:35 | CT Scan Report ---
ABDOMEN AND PELVIS CT WITHOUT CONTRAST CT DOSE: HISTORY: fall TECHNIQUE: Multiaxial CT images of the abdomen and pelvis were performed without contrast. A dose lo wering technique was utilized adhering to the principles of ALARA. COMPARISON STUDY: Abdomen and pelvis CT 02/17/2020. FINDINGS: The lung bases are clear. No pneumoperitoneum. No pneumatosis. An acute mild superior endpl ate compression fracture at L1 demonstrating less than 10% loss of height. No associated retropulsion . No additional fractures identified. Cirrhotic liver and splenomegaly again noted. Punctate calcific ations within the pancreatic head. The unenhanced adrenal glands and kidneys unremarkable. No hydrone phrosis. Calcified plaque within the normal caliber abdominal aorta. No retroperitoneal hematoma or l ymphadenopathy. No pelvic free fluid. The bladder is unremarkable. The uterus and bilateral adnexa ar e within normal limits. Suboptimal evaluation for bowel pathology due to the lack of intravenous and oral contrast. However, there is no definite bowel wall thickening or obstruction. Colonic diverticul osis. No evidence for acute diverticulitis. Moderate fecal retention. Normal appendix. IMPRESSION: 1. An acute mild superior endplate compression fracture at L1. No associated retropulsion. 2. Cirrhotic liver with splenomegaly, unchanged. 3. Colonic diverticulosis. No evidence for acute diverticulitis. 4. Additional findings as described above. ACT 112: Negative or not required by law. Electronically signed by: Amari Christiansen M.D. 12/05/2023 3:32 PM
[2023-12-05 15:36] LABS: INR 1.1 (0.9-1.1); Partial Thromboplastin Ratio 0.9; Partial Thromboplastin Time 23 Seconds (21-31); Prothrombin Time 11.4 Seconds (9.0-12.0)
[2023-12-05] MEDS: SODIUM CHLORIDE 0.9% 1,000 ML IV ONE (15:36)
--- NOTE | 2023-12-05 16:40 | XRay Report ---
XR chest 1V portable HISTORY: fall COMPARISON: Chest 02/14/2020. FINDINGS: No pneumothorax. No pleural fusions. The cardiac silhouette is borderline enlarged. The emile gs are clear. No evidence for pulmonary edema. No acute fractures identified. Postoperative changes w ithin the left humerus. IMPRESSION: No acute process. ACT 112: Negative or not required by law. Electronically signed by: Amari Christiansen M.D. 12/05/2023 4:39 PM
--- NOTE | 2023-12-05 16:42 | XRay Report ---
LEFT KNEE 2 VIEWS HISTORY: Left knee pain. fall COMPARISON: Left knee 10/23/2021. FINDINGS: There is no fracture or dislocation. Soft tissues are unremarkable. No radiopaque foreign b odies. No knee effusion. Mild osteoarthritis again noted. IMPRESSION: No fracture or dislocation within the left knee. ACT 112: Negative or not required by law. Electronically signed by: Amari Christiansen M.D. 12/05/2023 4:40 PM
--- NOTE | 2023-12-05 16:43 | XRay Report ---
XR lumbar spine min 4V routine CLINICAL HISTORY: fall COMPARISON STUDY: Lumbar spine 10/23/2016. FINDINGS: There is an acute mild superior endplate compression fracture at L1. This demonstrates less than 10% loss of height. No associated retropulsion. No additional fractures within the lumbar spine . Yaxv-uc-baabjpix facet degenerative changes. The visualized sacrum is intact. IMPRESSION: An acute mild superior endplate compression fracture at L1. No associated retropulsion. ACT 112: Negative or not required by law. Electronically signed by: Amari Christiansen M.D. 12/05/2023 4:41 PM
--- NOTE | 2023-12-05 16:44 | XRay Report ---
XR pelvis 1-2V routine CLINICAL HISTORY: fall. Pelvic pain. COMPARISON STUDY: None. FINDINGS: No fracture or dislocation within the pelvis or hips. The sacrum is intact. Mild degenerati ve changes within the bilateral hips. Soft tissues are unremarkable. No radiopaque foreign bodies. IMPRESSION: No fracture or dislocation within the pelvis or hips. ACT 112: Negative or not required by law. Electronically signed by: Amari Christiansen M.D. 12/05/2023 4:42 PM
--- NOTE | 2023-12-05 16:52 | Emergency Department Note ---
History of Present Illness General Chief complaint: Fall Time Seen by Provider: 12/05/23 14:16 History of Present Illness Provider complaint: Fall Onset (ago): hour(s) 2 Maximum Pain Intensity: 6 68-year-old female presents emergency department for fall. Patient states she fell around noon. Patient states since then she has been having pain in her back. No urinary incontinence or retention. No numbness. Patient reports her sugars have been running high and her abdomen has been hurting. Home Medications Medication Instructions Recorded Confirmed Type inhalational spacing device #1 ea 01/01/19 10/14/23 History (Aerochamber Plus Z Stat spacer) insulin admin supplies #1 ea 01/01/19 10/14/23 History lancets 33 gauge (OneTouch Delica #100 ea 01/01/19 10/14/23 History Plus Lancet) multivitamin (Multiple Vitamins 1 tab PO DAILY 01/01/19 12/05/23 History tablet) pen needle, diabetic 32 gauge x #50 ea 01/01/19 10/14/23 History 1/4" (Novofine 32) fluticasone furoate 100 1 inh inhalation DAILY #3 ea 04/13/23 12/05/23 Rx mcg-vilanterol 25 mcg/dose inhalation powder (Breo Ellipta) lorazepam 0.5 mg tablet 0.5 - 1 mg (1 - 2 x 0.5 mg) PO 04/13/23 12/05/23 Rx DAILY PRN anxiety #30 tabs tramadol 50 mg tablet 50 mg PO Q4H PRN pain #30 tabs 04/13/23 12/05/23 Rx pen needle, diabetic 31 gauge x #100 ea 04/28/23 10/14/23 Rx 3/16" (BD Ultra-Fine Mini Pen Needle) Ventolin HFA 90 mcg/actuation 1 inh inhalation QID PRN shortness 07/14/23 12/05/23 Rx aerosol inhaler (albuterol sulfate) of breath or wheezing #18 grams bppzqpz-ljoanznrscfov-cawfobni 250 2 tab PO QAM PRN headache #100 tabs 07/14/23 12/05/23 Rx mg-250 mg-65 mg tablet (Excedrin Migraine) blood sugar diagnostic #100 ea 07/14/23 10/14/23 Rx bupropion HCl 300 mg 24 hr tablet, 300 mg PO QPM #90 tabs 07/14/23 12/05/23 Rx extended release cholecalciferol (vitamin D3) 25 5,000 unit PO DAILY #90 caps 07/14/23 12/05/23 Rx mcg (1,000 unit) capsule cyanocobalamin (vitamin B-12) 1,000 mcg PO DAILY #90 tabs 07/14/23 12/05/23 Rx 1,000 mcg tablet famotidine 40 mg tablet 40 mg PO BID #180 tabs 07/14/23 12/05/23 Rx ipratropium 0.5 mg-albuterol 3 mg 3 ml inhalation QID PRN wheezing 07/14/23 12/05/23 Rx (2.5 mg base)/3 mL nebulization #90 mL soln levothyroxine 137 mcg tablet 137 mcg PO DAILY #90 tabs 07/14/23 12/05/23 Rx pantoprazole 40 mg tablet,delayed 40 mg PO DAILY #90 tabs 07/14/23 12/05/23 Rx release pen needle, diabetic 31 gauge x #100 ea 09/03/23 10/14/23 Rx 3/16" (BD Ultra-Fine Mini Pen Needle) blood sugar diagnostic (OneTouch #100 ea 09/22/23 10/14/23 Rx Verio test strips) blood-glucose meter (OneTouch #1 ea 09/22/23 10/14/23 Rx Verio Flex Meter) blood sugar diagnostic (True #100 ea 09/30/23 10/14/23 Rx Metrix Glucose Test Strip) blood-glucose meter (True Metrix #1 ea 09/30/23 10/14/23 Rx Glucose Meter) metformin 500 mg tablet,extended 1,000 mg PO BIDM 10/14/23 12/05/23 History release 24 hr insulin glargine U-300 conc 300 72 unit subcut QAM 12/05/23 12/05/23 History unit/mL (1.5 mL) subcutaneous pen (Bayron June U-300 Insulin) montelukast 10 mg tablet 10 mg PO QPM 12/05/23 12/05/23 History oxycodone 5 mg tablet 5 mg PO Q8H PRN pain #23 tabs 12/05/23 Rx trazodone 150 mg tablet 150 - 300 mg PO HS 12/05/23 12/05/23 History Allergies Allergy/AdvReac Type Severity Reaction Status Date / Time cefaclor Allergy Severe HIVES, Verified 12/05/23 15:49 HARD TIME BREATHING Penicillins Allergy Severe THROAT Verified 12/05/23 15:49 SWELLS yellow dye Allergy Severe DIFFICULTY Verified 12/05/23 15:49 BREATHING adhesive Allergy Intermediate WELTS ON Verified 12/05/23 15:49 SKIN fluticasone Allergy Intermediate HARD OF Verified 12/05/23 15:49 BREATHING insulin lispro Allergy Intermediate HIVES Verified 12/05/23 15:49 milk Allergy Intermediate HARD OF Verified 12/05/23 15:49 BREATHING phenol Allergy Intermediate HIVES Verified 12/05/23 15:49 salmeterol Allergy Intermediate HARD OF Verified 12/05/23 15:49 BREATHING fluoxetine Allergy Mild UNKNOWN Verified 12/05/23 15:49 iodine Allergy Mild Rash Verified 12/05/23 15:49 Iodine and Iodide Containing Allergy Mild RASH Verified 12/05/23 15:49 Produc atorvastatin [From Lipitor] Allergy Unknown Unknown Verified 12/05/23 15:49 Cephalosporins Allergy Unknown UNKNOWN Verified 12/05/23 15:49 citalopram Allergy Unknown UNKNOWN Verified 12/05/23 15:49 clarithromycin [From Biaxin] Allergy Unknown Unknown Verified 12/05/23 15:49 duloxetine [From Cymbalta] Allergy Unknown Unknown Verified 12/05/23 15:49 escitalopram [From Lexapro] Allergy Unknown Unknown Verified 12/05/23 15:49 ezetimibe [From Vytorin] Allergy Unknown Unknown Verified 12/05/23 15:49 feathers Allergy Unknown ALLERGIC Verified 12/05/23 15:49 RX "SOMETHING WEIRD" gatifloxacin [From Tequin] Allergy Unknown Unknown Verified 12/05/23 15:49 guaifenesin Allergy Unknown UNKNOWN Verified 12/05/23 15:49 insulin lispro protamine Allergy Unknown Unknown Verified 12/05/23 15:49 [From Humalog Mix] Macrolide Antibiotics Allergy Unknown UNKNOWN Verified 12/05/23 15:49 mold Allergy Unknown Unknown Verified 12/05/23 15:49 moxifloxacin [From Avelox] Allergy Unknown Unknown Verified 12/05/23 15:49 paroxetine [From Paxil] Allergy Unknown Unknown Verified 12/05/23 15:49 phenylephrine Allergy Unknown UNKNOWN Verified 12/05/23 15:49 phenylpropanolamine Allergy Unknown UNKNOWN Verified 12/05/23 15:49 Quinolones Allergy Unknown UNKNOWN Verified 12/05/23 15:49 rosuvastatin [From Crestor] Allergy Unknown Unknown Verified 12/05/23 15:49 simvastatin [From Vytorin] Allergy Unknown Unknown Verified 12/05/23 15:49 Sulfa (Sulfonamide Allergy Unknown Unknown Verified 12/05/23 15:49 Antibiotics) Tetracyclines Allergy Unknown Unknown Verified 12/05/23 15:49 levofloxacin AdvReac Intermediate SEVERE Verified 12/05/23 15:49 NAUSEA house dust AdvReac Unknown Unknown Verified 12/05/23 15:49 insulin aspart AdvReac Unknown Unknown Verified 12/05/23 15:49 [From Novolog U-100 Insulin aspart] Past Med/Surg History Problem List (Updated 12/05/23 @ 17:12 by Garrett Luciano MD) Hyperglycemia due to diabetes mellitus (Acute) Closed compression fracture of L1 vertebra (Acute) Gait abnormality Left knee DJD Shoulder pain Encounter for pre-operative examination Pending covid test. Poorly controlled diabetes mellitus Microcytic anemia Obesity Anemia Acute respiratory failure with hypoxia Irritable bowel syndrome (Chronic) Hypothyroidism (Chronic) Hyperlipidemia (Chronic) GERD (gastroesophageal reflux disease) (Chronic) Diabetes (Chronic) Depression (Chronic) [place]'s syndrome (Chronic) Chronic sinusitis, unspecified (Chronic) Chronic ischemic heart disease, unspecified (Chronic) Tubular adenoma of colon (Chronic) SNHL (sensorineural hearing loss) (Chronic) Persistent insomnia (Chronic) Migraine, unspecified, not intractable, without status migrainosus (Chronic) Chronic fatigue syndrome (Chronic) Chronic constipation (Chronic) Asthma (Chronic) Arthritis (Acute) Vitamin D deficiency (Acute) Bronchitis (Acute) COPD (chronic obstructive pulmonary disease) (Chronic) Obstructive sleep apnea of adult (Chronic) Hypertension (Chronic) 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 Chondromalacia of patella (Chronic) Frequent falls (Chronic) Medical History Polymyalgia rheumatica Acute exacerbation of chronic obstructive pulmonary disease Surgical History History of surgery on arm Left ORIF humerus H/O prior ablation treatment endometrosis History of ear surgery myringotomy right History of adenoidectomy H/O breast surgery biopsy 1989, cyst removal times 3 Family History Grandfather (Maternal) Myocardial infarction Mother Anxiety Depression Lung disease Sinusitis Father Stroke Allergies Social History Smoking Status: Former smoker Tobacco Type: Cigarettes Second Hand Exposure: Yes ( smoked); Hx Alcohol Use: No Hx Substance Use: No Preferred Language: Telugu Communication Ability: Effective Visual Impairment: Limited Hearing Ability: Hard of Hearing Flare Maker Required: No Beliefs That Will Affect Care: None marital status: / Current Living Situation: Alone current occupational status: retired Feels Safe at Home: Yes caffeine: Yes Dental Care, Regularly: No Physical Activity Frequency: Does not Exercise Seatbelt Use: always (takes bus) Assistive Devices: Cane, Oxygen - at Night, Raised Toilet Seat, Walker and Other (Shower Chair) Physical Exam Vital Signs Vital Signs - 24 hr 12/05/23 13:18 12/05/23 13:18 12/05/23 13:31 Temperature 37.2 C Temperature Source Oral Pulse Rate 84 83 Pulse Rate [Apical] 81 Respiratory Rate 20 20 Respiratory Effort / Characteristics Non-Labored Spontaneous Non-Labored Spontaneous Respiratory Depth Normal Normal Respiratory Pattern Regular Regular Blood Pressure 165/69 H Blood Pressure [Right Arm] 165/69 H Blood Pressure Mean 101 Blood Pressure Mean [Right Arm] 101 Blood Pressure Position Lying Blood Pressure Position [Right Arm] Lying Pulse Oximetry 92 93 Oxygen Delivery Method Room Air Room Air Sepsis Recent Fever Within 48 Hours No Sepsis New/Unexplained Change in Mental Status N/A Sepsis Action Taken by Nursing No Action Required 12/05/23 14:43 Temperature Temperature Source Pulse Rate 82 Pulse Rate [Apical] Respiratory Rate 20 Respiratory Effort / Characteristics Respiratory Depth Respiratory Pattern Blood Pressure Blood Pressure [Right Arm] Blood Pressure Mean Blood Pressure Mean [Right Arm] Blood Pressure Position Blood Pressure Position [Right Arm] Pulse Oximetry 94 Oxygen Delivery Method Room Air Sepsis Recent Fever Within 48 Hours Sepsis New/Unexplained Change in Mental Status Sepsis Action Taken by Nursing Physical Exam GENERAL: She is oriented to person, place, and time. She appears well-developed and well-nourished. She does not appear distressed. HENT: Exam performed. -Head: Normocephalic and atraumatic. -Right Ear: External ear normal. No mastoid erythema -Left Ear: External ear normal. No mastoid erythema -Mouth/Throat: The oropharynx is clear and moist. No trismus in the jaw. No dental abscesses or uvula swelling. No oropharyngeal exudate or tonsillar abscesses. EYES: Conjunctivae and EOM are normal. Pupils are equal, round, and reactive to light. Right eye exhibits no discharge. Left eye exhibits no discharge. No scleral icterus. NECK: Normal range of motion. Neck supple. No JVD present. No spinous process tenderness present. CV: Normal rate, regular rhythm, normal heart sounds and intact distal pulses. There is no peripheral edema. Palpable radial pulses bue. PULM/CHEST: Effort normal and breath sounds normal. No respiratory distress. No stridor. She has no wheezes. She has no rales. -Chest Wall: She exhibits no tenderness. ABD: The abdomen is soft. There is no tenderness. There is no rebound, no guarding MUSC/SKEL: Pelvis stable. No C or T-spine tenderness. Pain on palpation of the upper lumbar spine reproducing chief complaint. NEURO: She is alert and oriented to person, place, and time. She has normal strength. No cranial nerve deficit or sensory deficit. No saddle anesthesias or paresthesias. GCS eye subscore is 4. GCS verbal subscore is 5. GCS motor subscore is 6. Cerebellar tests wnl. SKIN: Skin is warm and dry. She is not diaphoretic. PSYCH: She has a normal mood and affect. Behavior is normal. Judgment and thought content normal. Course Course 1416: The patient was evaluated in room B3. A complete history and physical exam was performed Cardiac monitoring: An order was placed for continuous cardiac monitoring. The monitor shows a rate of 80 with sinus rhythm interpreted by me 1710: Vital signs stable. Imaging shows L1 compression fracture. Labs show hyperglycemia without any anion gap elevation. Blood sugar improved with IV hydration. Patient be discharged with follow-up spine surgery for bracing. DISCHARGE - Plan of care discussed with patient and questions answered. The patient was given both verbal and printed discharge instructions. The patient verbalized understanding and ability to comply. The patient is to seek outpatient follow up as noted in the discharge instructions. The patient verbalized understanding and ability to comply. The patient is discharged in stable condition. The patient was instructed to return for worsening symptoms. 1754: Vital signs stable. Family is at bedside stating they live very far away and do not think that the patient can be discharged home as they are afraid she will keep falling due to her pain and will not take her medications. I discussed with them we could try to place her into a jail/rehab facility and the patient and family are amenable to this idea. Patient and family will meet with case management to discuss these options. 1822: Spoke with [facility] case management assistant and the rehab facilities have no available beds. Patient will be admitted to the hospitalist team for rehab placement as the family states they cannot take the patient home. Administered Medications Discontinued Medications Sodium Chloride (Nss) 1,000 mls @ 999 mls/hr IV .Q1H1M ONE Stop: 12/05/23 16:30 Last Infusion: 12/05/23 16:49 Dose: Infused Documented By: Admin: 12/05/23 15:36 Dose: 999 mls/hr Documented By: THUY Ondansetron HCl (Ondansetron Inj 2 Mg/Ml 2 Ml Vial) 4 mg IV NOW STA Stop: 12/05/23 17:27 Last Admin: 12/05/23 17:31 Dose: 4 mg Documented By: THUY Medical Decision Making Laboratory Data Attestation: I reviewed the patient's lab results. 12/05/23 14:43 12/05/23 14:43 Lab Results 12/05/23 12/05/23 12/05/23 Range/Units 13:25 13:27 14:39 WBC (4.8-10.8) K/ul RBC (4.20-5.40) M/uL Hgb (12.0-16.0) g/dl Hct (37.0-47.0) % MCV (80.0-100.0) fL MCH (25.0-34.0) pg MCHC (32.0-36.0) g/dL RDW Std Deviation (36.4-46.3) fL RDW Coeff of [place] (11.5-14.5) % Plt Count (130-400) K/uL MPV (9.4-12.4) fL Immature Gran % (Auto) % Neut % (Auto) % Lymph % (Auto) % [place] % (Auto) % Eos % (Auto) % Baso % (Auto) % Neut # (Auto) (1.40-6.50) K/uL Lymph # (Auto) (1.20-3.40) K/uL [place] # (Auto) (0.11-0.59) K/uL Eos # (Auto) (0.00-0.50) K/uL Baso # (Auto) (0.00-0.20) K/uL Immature Gran # (Auto) (0.01-0.20) K/uL PT (9.0-12.0) Seconds INR (0.9-1.1) APTT (21-31) Seconds PTT Ratio VBG pH (7.36-7.41) VBG pCO2 (38-50) mmHg VBG pO2 mmHg VBG HCO3 mmol/L VBG O2 Saturation % VBG Base Excess mEq/L Sodium (136-145) mmol/L Potassium (3.5-5.1) mmol/L Chloride (98-107) mmol/L Carbon Dioxide (21-32) mmol/L Anion Gap (3-11) BUN (6-23) mg/dl Creatinine (0.6-1.2) mg/dl Est Cr Clr Drug Dosing ml/min Est GFR ( Amer) ml/min Est GFR (Non-Af Amer) ml/min BUN/Creatinine Ratio (10-20) Glucose (70-99(Fasting)) mg/dl POC Glucose 405 H* 358 H* 399 H* (70-99) mg/dl Calcium (8.6-10.3) mg/dl Magnesium (1.7-2.4) mg/dl Total Creatine Kinase (26-192) U/L Lipase (11-82) U/L 12/05/23 12/05/23 Range/Units 14:43 16:51 WBC 4.75 L (4.8-10.8) K/ul RBC 4.21 (4.20-5.40) M/uL Hgb 11.1 L (12.0-16.0) g/dl Hct 35.5 L (37.0-47.0) % MCV 84.3 (80.0-100.0) fL MCH 26.4 (25.0-34.0) pg MCHC 31.3 L (32.0-36.0) g/dL RDW Std Deviation 49.0 H (36.4-46.3) fL RDW Coeff of [place] 16.0 H (11.5-14.5) % Plt Count 124 L (130-400) K/uL MPV 11.5 (9.4-12.4) fL Immature Gran % (Auto) 0.6 % Neut % (Auto) 75.2 % Lymph % (Auto) 15.4 % [place] % (Auto) 5.7 % Eos % (Auto) 2.3 % Baso % (Auto) 0.8 % Neut # (Auto) 3.57 (1.40-6.50) K/uL Lymph # (Auto) 0.73 L (1.20-3.40) K/uL [place] # (Auto) 0.27 (0.11-0.59) K/uL Eos # (Auto) 0.11 (0.00-0.50) K/uL Baso # (Auto) 0.04 (0.00-0.20) K/uL Immature Gran # (Auto) 0.03 (0.01-0.20) K/uL PT 11.4 (9.0-12.0) Seconds INR 1.1 (0.9-1.1) APTT 23 (21-31) Seconds PTT Ratio 0.9 VBG pH 7.35 L (7.36-7.41) VBG pCO2 47 (38-50) mmHg VBG pO2 22 mmHg VBG HCO3 26 mmol/L VBG O2 Saturation < 60.0 % VBG Base Excess -0.2 mEq/L Sodium 133 L (136-145) mmol/L Potassium 4.5 (3.5-5.1) mmol/L Chloride 99 (98-107) mmol/L Carbon Dioxide 26 (21-32) mmol/L Anion Gap 8 (3-11) BUN 6 (6-23) mg/dl Creatinine 0.67 (0.6-1.2) mg/dl Est Cr Clr Drug Dosing 96.4 ml/min Est GFR ( Amer) 106.2 ml/min Est GFR (Non-Af Amer) 91.6 ml/min BUN/Creatinine Ratio 9.0 L (10-20) Glucose 436 H* (70-99(Fasting)) mg/dl POC Glucose 324 H* (70-99) mg/dl Calcium 9.1 (8.6-10.3) mg/dl Magnesium 1.8 (1.7-2.4) mg/dl Total Creatine Kinase 49 (26-192) U/L Lipase 23 (11-82) U/L Imaging Data Attestation: I personally reviewed and interpreted this imaging study as follows: My Impression: Lumbar spine x-ray: L1 for compression fracture. Radiologist's Impression: Abdomen/Pelvis CT 12/05/23 14:[address] WITHOUT CONTRAST CT DOSE: HISTORY: fall TECHNIQUE: Multiaxial CT images of the abdomen and pelvis were performed without contrast. A dose lowering technique was utilized adhering to the principles of ALARA. COMPARISON STUDY: Abdomen and pelvis CT 02/17/2020. FINDINGS: The lung bases are clear. No pneumoperitoneum. No pneumatosis. An acute mild superior endplate compression fracture at L1 demonstrating less than 10% loss of height. No associated retropulsion. No additional fractures identified. Cirrhotic liver and splenomegaly again noted. Punctate calcifications within the pancreatic head. The unenhanced adrenal glands and kidneys unremarkable. No hydronephrosis. Calcified plaque within the normal caliber abdominal aorta. No retroperitoneal hematoma or lymphadenopathy. No pelvic free fluid. The bladder is unremarkable. The uterus and bilateral adnexa are within normal limits. Suboptimal evaluation for bowel pathology due to the lack of intravenous and oral contrast. However, there is no definite bowel wall thickening or obstruction. Colonic diverticulosis. No evidence for acute diverticulitis. Moderate fecal retention. Normal appendix. IMPRESSION: 1. An acute mild superior endplate compression fracture at L1. No associated retropulsion. 2. Cirrhotic liver with splenomegaly, unchanged. 3. Colonic diverticulosis. No evidence for acute diverticulitis. 4. Additional findings as described above. ACT 112: Negative or not required by law. Electronically signed by: Amari Christiansen M.D. 12/05/2023 3:[address] 12/05/23 14:[address] DOSE: HISTORY: fall TECHNIQUE: Multiaxial CT images of the cervical spine were performed and reformatted in the sagittal and coronal plane without the use of contrast. A dose lowering technique was utilized adhering to the principles of ALARA. COMPARISON: None. FINDINGS: No fractures. No subluxation. Prevertebral soft tissues and the C1-C2 interval are intact. No pneumothorax. IMPRESSION: No fractures within the cervical spine. ACT 112: Negative or not required by law. Electronically signed by: Amari Christiansen M.D. 12/05/2023 3:18 PM Chest X-Ray 12/05/23 14:24 XR chest 1V portable HISTORY: fall COMPARISON: Chest 02/14/2020. FINDINGS: No pneumothorax. No pleural fusions. The cardiac silhouette is borderline enlarged. The lungs are clear. No evidence for pulmonary edema. No acute fractures identified. Postoperative changes within the left humerus. IMPRESSION: No acute process. ACT 112: Negative or not required by law. Electronically signed by: Amari Christiansen M.D. 12/05/2023 4:[address] 12/05/23 14:[address] DOSE: 2552.74 mGy.cm HISTORY: fall TECHNIQUE: Multiaxial CT images of the head were performed without the use of intravenous contrast. Automated exposure control was utilized for this study. A dose lowering technique was utilized adhering to the principles of ALARA. Comparison: None. Findings: The paranasal sinuses and mastoid air cells are clear. The calvarium and skull base are intact. The ventricles and sulci are within normal limits. There is no mass, hematoma, midline shift, or acute infarct. Motion artifact at the skull base. Impression: Motion artifact. No definite acute intracranial abnormality. ACT 112: Negative or not required by law. Electronically signed by: Amari Christiansen M.D. 12/05/2023 3:13 PM Knee X-Ray 12/05/23 14:25 LEFT KNEE 2 VIEWS HISTORY: Left knee pain. fall COMPARISON: Left knee 10/23/2021. FINDINGS: There is no fracture or dislocation. Soft tissues are unremarkable. No radiopaque foreign bodies. No knee effusion. Mild osteoarthritis again noted. IMPRESSION: No fracture or dislocation within the left knee. ACT 112: Negative or not required by law. Electronically signed by: Amari Christiansen M.D. 12/05/2023 4:40 PM Lumbar Spine X-Ray 12/05/23 14:25 XR lumbar spine min 4V routine CLINICAL HISTORY: fall COMPARISON STUDY: Lumbar spine 10/23/2016. FINDINGS: There is an acute mild superior endplate compression fracture at L1. This demonstrates less than 10% loss of height. No associated retropulsion. No additional fractures within the lumbar spine. [id number]-as-[id number] facet degenerative changes. The visualized sacrum is intact. IMPRESSION: An acute mild superior endplate compression fracture at L1. No associated retropulsion. ACT 112: Negative or not required by law. Electronically signed by: Amari Christiansen M.D. 12/05/2023 4:41 PM Pelvis X-Ray 12/05/23 14:25 XR pelvis 1-2V routine CLINICAL HISTORY: fall. Pelvic pain. COMPARISON STUDY: None. FINDINGS: No fracture or dislocation within the pelvis or hips. The sacrum is intact. Mild degenerative changes within the bilateral hips. Soft tissues are unremarkable. No radiopaque foreign bodies. IMPRESSION: No fracture or dislocation within the pelvis or hips. ACT 112: Negative or not required by law. Electronically signed by: Amari Christiansen M.D. 12/05/2023 4:42 PM ECG Data Attestation: I personally reviewed and interpreted this ECG as follows: Rate (beats per minute): 82 Rhythm: + normal sinus ECG Intervals/blocks: + Right Bundle branch block ECG ST segments: + Normal ST segments Additional Comments: CT 168 QRS 128 QTc 507 MDM Narrative 1416: The patient was evaluated in room B3. A complete history and physical exam was performed Cardiac monitoring: An order was placed for continuous cardiac monitoring. The monitor shows a rate of 80 with sinus rhythm interpreted by sc 1710: Vital signs stable. Imaging shows L1 compression fracture. Labs show hyperglycemia without any anion gap elevation. Blood sugar improved with IV hydration. Patient be discharged with follow-up spine surgery for bracing. DISCHARGE - Plan of care discussed with patient and questions answered. The patient was given both verbal and printed discharge instructions. The patient verbalized understanding and ability to comply. The patient is to seek outpatient follow up as noted in the discharge instructions. The patient verbalized understanding and ability to comply. The patient is discharged in stable condition. The patient was instructed to return for worsening symptoms. 1754: Vital signs stable. Family is at bedside stating they live very far away and do not think that the patient can be discharged home as they are afraid she will keep falling due to her pain and will not take her medications. I discussed with them we could try to place her into a jail/rehab facility and the patient and family are amenable to this idea. Patient and family will meet with case management to discuss these options. 1822: Spoke with [facility] case management assistant and the rehab facilities have no available beds. Patient will be admitted to the hospitalist team for rehab placement as the family states they cannot take the patient home. Impression & Plan Closed compression fracture of L1 vertebra, Hyperglycemia due to diabetes mellitus Discharge Plan Visit Data Chief Complaint: Fall ED Provider: Garrett Luciano Discharge Problem: Closed compression fracture of L1 vertebra, Hyperglycemia due to diabetes mellitus Patient Disposition: Being Evaluated by Hospitalist Discharge Instructions Fab/Other Patient Handouts: Compression Fx Forms Stand Alone Forms: [facility], Important Visit Information Prescriptions Prescriptions: New oxycodone 5 mg tablet 5 mg PO Q8H PRN (Reason: pain) Qty: 23 0RF No Action lorazepam 0.5 mg tablet 0.5 - 1 mg PO DAILY PRN (Reason: anxiety) Qty: 30 0RF fluticasone furoate-vilanterol [Breo Ellipta] 100-25 mcg/dose blister with device 1 inh inhalation DAILY Qty: 3 3RF tramadol 50 mg tablet 50 mg PO Q4H PRN (Reason: pain) Qty: 30 0RF Excedrin Migraine 250-250-65 mg tablet 2 tab PO QAM PRN (Reason: headache) Qty: 100 0RF (DME) blood sugar diagnostic Strip See Dose Instructions .ROUTE .MEDSUPPLY Qty: 100 3RF Rx Instructions: Testing four times per day. bupropion HCl 300 mg tablet extended release 24 hr 300 mg PO QPM Qty: 90 3RF cholecalciferol (vitamin D3) 25 mcg (1,000 unit) capsule 5,000 unit PO DAILY Qty: 90 3RF cyanocobalamin (vitamin B-12) 1,000 mcg tablet 1,000 mcg PO DAILY Qty: 90 3RF famotidine 40 mg tablet 40 mg PO BID Qty: 180 3RF ipratropium-albuterol 0.5 mg-3 mg(2.5 mg base)/3 mL solution for nebulization 3 ml inhalation QID PRN (Reason: wheezing) Qty: 90 3RF levothyroxine 137 mcg tablet 137 mcg PO DAILY Qty: 90 3RF pantoprazole 40 mg tablet,delayed release (DR/EC) 40 mg PO DAILY Qty: 90 3RF albuterol sulfate [Ventolin HFA] 90 mcg/actuation HFA aerosol inhaler 1 inh INH QID PRN (Reason: shortness of breath or wheezing) Qty: 18 3RF (DME) Aerochamber Plus Z Stat spacer See Dose Instructions .ROUTE .MEDSUPPLY Qty: 1 Rx Instructions: [place] [place] admin supplies insulin pen See Dose Instructions .ROUTE .MEDSUPPLY Qty: 1 Rx Instructions: Injecting 4-5 times QD. (DME) pen needle, diabetic [Novofine 32] 32 gauge x 1/4" needle See Dose Instructions .ROUTE .MEDSUPPLY Qty: 50 Rx Instructions: [place] directed [place] [place] lancets [OneTouch Delica Plus Lancet] 33 gauge misc See Dose Instructions .ROUTE .MEDSUPPLY Qty: 100 Rx Instructions: Testing four times per day. multivitamin [Multiple Vitamins] tablet 1 tab PO DAILY metformin 500 mg tablet extended release 24 hr 1,000 mg PO BIDM Rx Instructions: TAKE TWO TABLETS BY MOUTH TWICE DAILY (DME) pen needle, diabetic [BD Ultra-Fine Mini Pen Needle] 31 gauge x 3/16" needle See Rx Instructions .Route Qty: 100 0RF Rx Instructions: As directed [place] [place] blood-glucose meter [OneTouch Verio Flex meter] [facility] [place] See Rx Instructions .Route Qty: 1 0RF Rx Instructions: Test blood sugar twice daily (DME) OneTouch Verio test strips Strip See Rx Instructions .Route Qty: 100 6RF Rx Instructions: Test blood sugar twice daily (DME) blood-glucose meter [True Metrix Glucose Meter] [facility] [place] See Rx Instructions .Route Qty: 1 0RF Rx Instructions: test blood sugar 2 times daily (DME) True Metrix Glucose Test Strip Strip See Rx Instructions .Route Qty: 100 4RF Rx Instructions: test blood sugar twice daily (DME) pen needle, diabetic [BD Ultra-Fine Mini Pen Needle] 31 gauge x 3/16" needle See Rx Instructions .Route Qty: 100 2RF Rx Instructions: As directed trazodone 150 mg tablet 150 - 300 mg PO HS Rx Instructions: take 1 to 2 tablets by mouth daily montelukast 10 mg tablet 10 mg PO QPM Rx Instructions: take 1 tablet by mouth every evening insulin glargine U-300 conc [Toujeo SoloStar U-300 Insulin] 300 unit/mL (1.5 mL) insulin pen 72 unit SUBCUT QAM Rx Instructions: Dispense 90 day supply Referrals Referrals: Sreedhar Gaviria MD [Surgeon] - (Follow-up in 1-7 days.) Chrissy Henry DO [Primary Care Provider] - (Follow-up in 1-7 days.) Discharge Problem: Closed compression fracture of L1 vertebra Qualifiers: Encounter type: initial encounter Qualified Code(s): S32.010A - Wedge compression fracture of first lumbar vertebra, initial encounter for closed fracture
[2023-12-05] MEDS: ONDANSETRON INJ 2 MG/ML 2 ML VIAL IV STA (17:31)
--- NOTE | 2023-12-05 18:22 | History & Physical Report ---
Date of Service December 05, 2023 Assessment & Plan (1) Ambulatory dysfunction: Plan: Fall, ambulatory dysfunction Family reports goal has been to maintain her independence, but 'this isn't where we are at anymore'. Has multiple falls, lives alone, and cannot manage her medications any longer. Request PT/OT/CM/Placement - PT/OT consulted - CM consulted Pelvic x-ray: No acute fracture or dislocation Lumbar spine x-ray: L1 endplate compression fracture without retropulsion Left knee x-ray: No fracture or dislocation CThead: Motion artifact, no acute intracranial abnormality CTC-spine: No fracture/subluxation Chest x-ray: No acute findings CTA/P: L1 compression fracture noted. Cirrhotic liver with splenomegaly unchanged from prior. Diverticulosis with diverticulitis. Suboptimal bowel evaluation, but no overt abnormalities are noted No leukocytosis BSG 436, 324 and recheck post fluids (2) Diabetes: Plan: Type II DM Poorly controlled Basal bolus insulin while inpatient Basal 70 units every morning continued (3) COPD (chronic obstructive pulmonary disease): Plan: COPD/asthma overlap Severe obstructive disease on PFTs Continue nocturnal oxygen Patient has declined pulmonary follow-up in the past (4) Hypertension: Plan: Hypertension Normotensive on admission (5) Hypothyroidism: Plan: - Continue synthroid (6) Depression: Plan: Anxiety/depression Continue Wellbutrin/trazodone. 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 She endorses that she has had abdominal pain in addition to this. Imaging showed L1 compression fracture. Patient was treated symptomatically and recommended for discharge home. Unfortunately patient reports family is very far away, and patient cannot ambulate due to pain. Family request placement to prison/rehab. Recommended for admission for Was turning and lost balance and fell. No syncope/presyncope. Did hit head. No loss of consciousness. No fever/chills/sweats preceding fall or weakness. No chest pain No chest pressure Hx of COPD and asthma with some chronic shortness of breath which has not change. Is on 2L qHS No numbness or tingling in arms or legs NO pain when she pees Feels sore from her fall, had a little bit of belly pain by her bellybutton/pannus. Medical History: Reviewed Medications: Reviewed Surgical History: Reviewed Family history: Reviewed Allergies: Reviewed Social History: Deniest tobacco/etoh Code Status: DNR/DNI confirmed with family. Has an advanced directive Allergies Allergy/AdvReac Type Severity Reaction Status Date / Time cefaclor Allergy Severe HIVES, Verified 12/05/23 15:49 HARD TIME BREATHING Penicillins Allergy Severe THROAT Verified 12/05/23 15:49 SWELLS yellow dye Allergy Severe DIFFICULTY Verified 12/05/23 15:49 BREATHING adhesive Allergy Intermediate WELTS ON Verified 12/05/23 15:49 SKIN fluticasone Allergy Intermediate HARD OF Verified 12/05/23 15:49 BREATHING insulin lispro Allergy Intermediate HIVES Verified 12/05/23 15:49 milk Allergy Intermediate HARD OF Verified 12/05/23 15:49 BREATHING phenol Allergy Intermediate HIVES Verified 12/05/23 15:49 salmeterol Allergy Intermediate HARD OF Verified 12/05/23 15:49 BREATHING fluoxetine Allergy Mild UNKNOWN Verified 12/05/23 15:49 iodine Allergy Mild Rash Verified 12/05/23 15:49 Iodine and Iodide Containing Allergy Mild RASH Verified 12/05/23 15:49 Produc atorvastatin [From Lipitor] Allergy Unknown Unknown Verified 12/05/23 15:49 Cephalosporins Allergy Unknown UNKNOWN Verified 12/05/23 15:49 citalopram Allergy Unknown UNKNOWN Verified 12/05/23 15:49 clarithromycin [From Biaxin] Allergy Unknown Unknown Verified 12/05/23 15:49 duloxetine [From Cymbalta] Allergy Unknown Unknown Verified 12/05/23 15:49 escitalopram [From Lexapro] Allergy Unknown Unknown Verified 12/05/23 15:49 ezetimibe [From Vytorin] Allergy Unknown Unknown Verified 12/05/23 15:49 feathers Allergy Unknown ALLERGIC Verified 12/05/23 15:49 RX "SOMETHING WEIRD" gatifloxacin [From Tequin] Allergy Unknown Unknown Verified 12/05/23 15:49 guaifenesin Allergy Unknown UNKNOWN Verified 12/05/23 15:49 insulin lispro protamine Allergy Unknown Unknown Verified 12/05/23 15:49 [From Humalog Mix] Macrolide Antibiotics Allergy Unknown UNKNOWN Verified 12/05/23 15:49 mold Allergy Unknown Unknown Verified 12/05/23 15:49 moxifloxacin [From Avelox] Allergy Unknown Unknown Verified 12/05/23 15:49 paroxetine [From Paxil] Allergy Unknown Unknown Verified 12/05/23 15:49 phenylephrine Allergy Unknown UNKNOWN Verified 12/05/23 15:49 phenylpropanolamine Allergy Unknown UNKNOWN Verified 12/05/23 15:49 Quinolones Allergy Unknown UNKNOWN Verified 12/05/23 15:49 rosuvastatin [From Crestor] Allergy Unknown Unknown Verified 12/05/23 15:49 simvastatin [From Vytorin] Allergy Unknown Unknown Verified 12/05/23 15:49 Sulfa (Sulfonamide Allergy Unknown Unknown Verified 12/05/23 15:49 Antibiotics) Tetracyclines Allergy Unknown Unknown Verified 12/05/23 15:49 levofloxacin AdvReac Intermediate SEVERE Verified 12/05/23 15:49 NAUSEA house dust AdvReac Unknown Unknown Verified 12/05/23 15:49 insulin aspart AdvReac Unknown Unknown Verified 12/05/23 15:49 [From Novolog U-100 Insulin aspart] Home Medications Medication Instructions Recorded Confirmed Type inhalational spacing device #1 ea 01/01/19 10/14/23 History (Aerochamber Plus Z Stat spacer) insulin admin supplies #1 ea 01/01/19 10/14/23 History lancets 33 gauge (OneTouch Delica #100 ea 01/01/19 10/14/23 History Plus Lancet) multivitamin (Multiple Vitamins 1 tab PO DAILY 01/01/19 12/05/23 History tablet) pen needle, diabetic 32 gauge x #50 ea 01/01/19 10/14/23 History 1/4" (Novofine 32) fluticasone furoate 100 1 inh inhalation DAILY #3 ea 04/13/23 12/05/23 Rx mcg-vilanterol 25 mcg/dose inhalation powder (Breo Ellipta) lorazepam 0.5 mg tablet 0.5 - 1 mg (1 - 2 x 0.5 mg) PO 04/13/23 12/05/23 Rx DAILY PRN anxiety #30 tabs tramadol 50 mg tablet 50 mg PO Q4H PRN pain #30 tabs 04/13/23 12/05/23 Rx pen needle, diabetic 31 gauge x #100 ea 04/28/23 10/14/23 Rx 3/16" (BD Ultra-Fine Mini Pen Needle) Ventolin HFA 90 mcg/actuation 1 inh inhalation QID PRN shortness 07/14/23 12/05/23 Rx aerosol inhaler (albuterol sulfate) of breath or wheezing #18 grams pifixvi-ktdtlygkawbqg-vitmlibx 250 2 tab PO QAM PRN headache #100 tabs 07/14/23 12/05/23 Rx mg-250 mg-65 mg tablet (Excedrin Migraine) blood sugar diagnostic #100 ea 07/14/23 10/14/23 Rx bupropion HCl 300 mg 24 hr tablet, 300 mg PO QPM #90 tabs 07/14/23 12/05/23 Rx extended release cholecalciferol (vitamin D3) 25 5,000 unit PO DAILY #90 caps 07/14/23 12/05/23 Rx mcg (1,000 unit) capsule cyanocobalamin (vitamin B-12) 1,000 mcg PO DAILY #90 tabs 07/14/23 12/05/23 Rx 1,000 mcg tablet famotidine 40 mg tablet 40 mg PO BID #180 tabs 07/14/23 12/05/23 Rx ipratropium 0.5 mg-albuterol 3 mg 3 ml inhalation QID PRN wheezing 07/14/23 12/05/23 Rx (2.5 mg base)/3 mL nebulization #90 mL soln levothyroxine 137 mcg tablet 137 mcg PO DAILY #90 tabs 07/14/23 12/05/23 Rx pantoprazole 40 mg tablet,delayed 40 mg PO DAILY #90 tabs 07/14/23 12/05/23 Rx release pen needle, diabetic 31 gauge x #100 ea 09/03/23 10/14/23 Rx 3/16" (BD Ultra-Fine Mini Pen Needle) blood sugar diagnostic (OneTouch #100 ea 09/22/23 10/14/23 Rx Verio test strips) blood-glucose meter (OneTouch #1 ea 09/22/23 10/14/23 Rx Verio Flex Meter) blood sugar diagnostic (True #100 ea 09/30/23 10/14/23 Rx Metrix Glucose Test Strip) blood-glucose meter (True Metrix #1 ea 09/30/23 10/14/23 Rx Glucose Meter) metformin 500 mg tablet,extended 1,000 mg PO BIDM 10/14/23 12/05/23 History release 24 hr insulin glargine U-300 conc 300 72 unit subcut QAM 12/05/23 12/05/23 History unit/mL (1.5 mL) subcutaneous pen (Touadal SoloStar U-300 Insulin) montelukast 10 mg tablet 10 mg PO QPM 12/05/23 12/05/23 History oxycodone 5 mg tablet 5 mg PO Q8H PRN pain #23 tabs 12/05/23 Rx trazodone 150 mg tablet 150 - 300 mg PO HS 12/05/23 12/05/23 History Past Med/Surg History Problem List (Updated 12/05/23 @ 17:12 by Garrett Luciano MD) Hyperglycemia due to diabetes mellitus (Acute) Closed compression fracture of L1 vertebra (Acute) Gait abnormality Left knee DJD Shoulder pain Encounter for pre-operative examination Pending covid test. Poorly controlled diabetes mellitus Microcytic anemia Obesity Anemia Acute respiratory failure with hypoxia Irritable bowel syndrome (Chronic) Hypothyroidism (Chronic) Hyperlipidemia (Chronic) GERD (gastroesophageal reflux disease) (Chronic) Diabetes (Chronic) Depression (Chronic) Eva's syndrome (Chronic) Chronic sinusitis, unspecified (Chronic) Chronic ischemic heart disease, unspecified (Chronic) Tubular adenoma of colon (Chronic) SNHL (sensorineural hearing loss) (Chronic) Persistent insomnia (Chronic) Migraine, unspecified, not intractable, without status migrainosus (Chronic) Chronic fatigue syndrome (Chronic) Chronic constipation (Chronic) Asthma (Chronic) Arthritis (Acute) Vitamin D deficiency (Acute) Bronchitis (Acute) COPD (chronic obstructive pulmonary disease) (Chronic) Obstructive sleep apnea of adult (Chronic) Hypertension (Chronic) 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 Chondromalacia of patella (Chronic) Frequent falls (Chronic) Medical History Polymyalgia rheumatica Acute exacerbation of chronic obstructive pulmonary disease Surgical History History of surgery on arm Left ORIF humerus H/O prior ablation treatment endometrosis History of ear surgery myringotomy right History of adenoidectomy H/O breast surgery biopsy 1989, cyst removal times 3 Family History Grandfather (Maternal) Myocardial infarction Mother Anxiety Depression Lung disease Sinusitis Father Stroke Allergies Social History Smoking Status: Former smoker Tobacco Type: Cigarettes Second Hand Exposure: Yes ( smoked); Hx Alcohol Use: No Hx Substance Use: No Preferred Language: [place] Communication Ability: Effective Visual Impairment: Limited Hearing Ability: Hard of Hearing 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 NAD. Cooperative. HEENT: Atraumatic, normocephalic. Pulm: CTAB A&P. -wheezes, -rales, -rhonchi. Symmetrical chest rise. No increased work of breathing. No respiratory distress. Cardiac: RRR, -mrg. Radial pulses intact and symmetrical. Abdominal: Nontender, nondistended, soft. BS present. Obese. No hematoma on the abdomen or back Back: No midline TTP. R low back muscular tenderness w/o hematoma/contusion. ext: salt grinder, elbow flexion, ankle dorsi/plantarflexion, hip flexion 5/5. No sensory deficits Results & Data Results & Data Vital Signs (Past 12 Hours) Vital Signs Temp Pulse Pulse Resp BP BP Pulse Ox 12/05/23 14:43 82 20 94 12/05/23 13:31 83 12/05/23 13:18 81 20 165/69 H 93 12/05/23 13:18 37.2 C 84 20 165/69 H 92 O2 Del Method 12/05/23 14:43 Room Air 12/05/23 13:31 12/05/23 13:18 Room Air 12/05/23 13:18 Room Air PG Care Time/CCT Total # of Minutes Spent Total Time Spent with Patient: Total time spent is greater than 50% in coordination of care (as documented) at patient's floor/unit and/or counseling patient: Coding Level of Care Code 45278 INT INP/OBS CARE MIN Diagnoses Ambulatory dysfunction R26.2 Type 2 diabetes mellitus with hyperglycemia, without long-term current use of insulin E11.65 Diabetes mellitus type: type 2 Diabetes mellitus garde manager insulin use: without fci use Diabetes mellitus complication status: with hyperglycemia Chronic bronchitis, unspecified chronic bronchitis type J42 COPD type: chronic bronchitis Chronic bronchitis type: unspecified Essential hypertension I10 Hypertension type: essential hypertension Hypothyroidism E03.9 Dysthymia F34.1 Depression Type: dysthymia Cirrhosis of liver not due to alcohol K74.60 (2) Diabetes Diabetes mellitus type: type 2 Diabetes mellitus garde manager insulin use: without garde manager use Diabetes mellitus complication status: with hyperglycemia Qualified Code(s): E11.65 - Type 2 diabetes mellitus with hyperglycemia (3) COPD (chronic obstructive pulmonary disease) COPD type: chronic bronchitis Chronic bronchitis type: unspecified Qualified Code(s): J42 - Unspecified chronic bronchitis (4) Hypertension Hypertension type: essential hypertension Qualified Code(s): I10 - Essential (primary) hypertension (6) Depression Depression Type: dysthymia Qualified Code(s): F34.1 - Dysthymic disorder
[2023-12-05] MEDS ORDERED: PHARMACY GLYCEMIC MGMT CONSULT PRN (18:23)
[2023-12-05] MEDS ORDERED: DEXTROSE 50% 50 ML SYRINGE IV PRN (18:23)
[2023-12-05] MEDS ORDERED: CARBOHYDRATES FOR HYPOGLYCEMIA PO PRN (18:23)
[2023-12-05] MEDS ORDERED: GLUCOSE 40% GEL 15 GM TUBE PO PRN (18:23)
[2023-12-05] MEDS ORDERED: GLUCAGON FOR INJ 1 MG VIAL SQ PRN (18:23)
[2023-12-05] MEDS ORDERED: GLUCOSE 10 TAB/TUBE PO PRN (18:23)
[2023-12-05] MEDS: MoRPHine SULFATE 4 MG/ML 1 ML CARP\\VIAL IV STA (18:27)
[2023-12-05] MEDS: LANTUS PER UNIT CHARGE SC SCH (20:36)
[2023-12-05] MEDS: CALCITONIN SALMON NA 200 IU/AC 3.7 ML BTL SCH (20:37)
[2023-12-05] MEDS: INSULIN ASPART PER UNIT CHARGE SC SCH (20:37)
[2023-12-05] MEDS: CALCIUM 600MG + VIT D 400 IU TAB PO SCH (20:37)
[2023-12-06] MEDS: FAMOTIDINE 40 MG TABLET PO SCH (00:24)
[2023-12-06] MEDS: buPROPion XL 300 MG TABCR PO SCH (00:24)
[2023-12-06] MEDS: traZODone HCL 50 MG TAB PO SCH (00:24)
[2023-12-06] MEDS: MONTELUKAST SODIUM 10 MG TABLET PO SCH (00:24)
[2023-12-06] MEDS: oxyCODONE HCL IR 5 MG TAB (IMMEDIATE RELEASE) PO PRN (00:31)
[2023-12-06] MEDS: INSULIN ASPART PER UNIT CHARGE SC SCH (00:54)
[2023-12-06 05:50] LABS: Basophils # (auto) 0.05 K/uL (0.00-0.20); Eosinophils # (auto) 0.12 K/uL (0.00-0.50); Eosinophils % (auto) 2.5 %; Hematocrit (blood only) 31.7 % (37.0-47.0); Hemoglobin 9.9 g/dl (12.0-16.0); Immature Granulocytes # (auto) 0.03 K/uL (0.01-0.20); Immature Granulocytes % (auto) 0.6 %; Lymphocytes # (auto) 1.15 K/uL (1.20-3.40); Lymphocytes % (auto) 23.7 %; Mean Corpuscular Hgb Conc 31.2 g/dL (32.0-36.0); Mean Corpuscular Volume 83.2 fL (80.0-100.0); Mean Platelet Volume 11.2 fL (9.4-12.4); Monocytes # (auto) 0.44 K/uL (0.11-0.59); Monocytes % (auto) 9.1 %; Neutrophils # (auto) 3.07 K/uL (1.40-6.50); Neutrophils % (auto) 63.1 %; Platelet Count 130 K/uL (130-400); RDW Standard Deviation 48.6 fL (36.4-46.3); Red Blood Count 3.81 M/uL (4.20-5.40); White Blood Count 4.86 K/ul (4.8-10.8)
[2023-12-06 06:01] LABS: BUN Creatinine Ratio 12.5 (10-20); Calcium 8.6 mg/dl (8.6-10.3); Creatinine Clr Calc Pharmacy 116.5 ml/min; Est GFR (African American) 112.6 ml/min; Est GFR (Non-African American) 97.2 ml/min
[2023-12-06] MEDS: LEVOTHYROXINE SODIUM 137 MCG TABLET PO SCH (06:08)
[2023-12-06] MEDS: FLUTICASONE/VILANTEROL 100/25MCG 14 PUFFS/INHALER INH SCH (07:50)
[2023-12-06] MEDS: LANTUS PER UNIT CHARGE SC SCH (08:04)
[2023-12-06] MEDS ORDERED: LANTUS PER UNIT CHARGE SQ SCH (09:00)
[2023-12-06] MEDS: ACETAMINOPHEN 325 MG TAB PO PRN (09:36)
--- NOTE | 2023-12-06 13:11 | Hospitalist Progress Note ---
Date of Service December 06, 2023 Assessment & Plan (1) Ambulatory dysfunction: Plan: Family reports goal has been to maintain her independence, but 'this isn't where we are at anymore'. Has multiple falls, lives alone, and cannot manage her medications any longer. Did hit her head, no LOC. Request placement Pelvic x-ray: No acute fracture or dislocation Left knee x-ray: No fracture or dislocation CThead: Motion artifact, no acute intracranial abnormality CTC-spine: No fracture/subluxation Chest x-ray: No acute findings CTA/P: L1 compression fracture noted. Cirrhotic liver with splenomegaly unchanged from prior. Diverticulosis with diverticulitis. Suboptimal bowel evaluation, but no overt abnormalities are noted Lumbar spine x-ray: L1 endplate compression fracture without retropulsion - TLSO brace - scheduled tylenol, PRN oxycodone - PT/OT consulted - CM consulted (2) Diabetes: Plan: Type II DM Poorly controlled Basal bolus insulin while inpatient - pharmacy glycemic consulted. A1c pending (3) COPD (chronic obstructive pulmonary disease): Plan: COPD/asthma overlap Severe obstructive disease on PFTs Continue nocturnal oxygen Patient has declined pulmonary follow-up in the past (4) Hypothyroidism: Plan: - Continue synthroid TSH AM (5) Irritable bowel syndrome: Plan: Reports last BM over 10 days ago - daily ducolax prn miralax. Reports has had enema in the past without improvement Plan Chronic stable medical conditions: - Cirrhosis - no acute transaminitis - anxiety/depression - continue Wellbutrin/trazodone. prn lorazepam - hypertension - managed by diet DVT prophylaxis: heparin q12 Disposition: continued inpatient stay pending PT/OT evals Admission and Anticipated Discharge Date Admission Date: December 05, 2023 Supervising Physician Co-Signing Physician Notes Attending Attestation: Chart reviewed, care plan d/w ANNETTE Horton. I agree w/ the ash components of her documentation. Fall with L1 compression fracture. Agree with TLSO brace. PT, OT. Probable placement after discharge. Horacio Steven MD Subjective Tamara was seen resting in bed, has not been seen by therapy yet. Pain improving with PO pain meds. States last BM was 10 days ago, but she does have constipation at baseline Reports multiple falls at home Review of Systems Review of Systems: All systems reviewed & are unremarkable except as noted in Subjective Physical Exam Physical Exam: General: NAD, VS as above Resp: normal respiratory effort, lungs clear to auscultation CV: RRR, no murmur, Abd: mild distention, non tender, no hepatosplenomegaly Extremities: Moves all extremities, no edema Results & Data Results & Data Vital Signs (Past 12 Hours) Vital Signs Temp Pulse Resp BP Pulse Ox O2 Del Method 12/06/23 09:00 Room Air 12/06/23 08:36 97 Room Air 12/06/23 07:39 37.7 C H 83 16 101/64 90 Room Air Laboratory Results CBC and chemistry reviewed PG Care Time/CCT Total # of Minutes Spent Total Time Spent with Patient: Total time spent is greater than 50% in coordination of care (as documented) at patient's floor/unit and/or counseling patient: Coding Level of Care Code 14210 SUB INP/OBS CARE 2/35MIN Diagnoses Ambulatory dysfunction R26.2 Type 2 diabetes mellitus with hyperglycemia, without long-term current use of insulin E11.65 Diabetes mellitus complication status: with hyperglycemia Diabetes mellitus mold forms builder insulin use: without mold forms builder use Diabetes mellitus type: type 2 Chronic bronchitis, unspecified chronic bronchitis type J42 COPD type: chronic bronchitis Chronic bronchitis type: unspecified Hypothyroidism E03.9 Irritable bowel syndrome K58.9 (2) Diabetes Diabetes mellitus complication status: with hyperglycemia Diabetes mellitus mold forms builder insulin use: without mold forms builder use Diabetes mellitus type: type 2 Qualified Code(s): E11.65 - Type 2 diabetes mellitus with hyperglycemia (3) COPD (chronic obstructive pulmonary disease) COPD type: chronic bronchitis Chronic bronchitis type: unspecified Qualified Code(s): J42 - Unspecified chronic bronchitis
[2023-12-06] MEDS: ACETAMINOPHEN 500 MG TAB PO SCH (14:36)
[2023-12-06] MEDS: bisacodyL 5 MG TABEC PO SCH (14:36)
--- NOTE | 2023-12-06 14:38 | Pharmacy Report ---
Pharmacy Glycemic Short Note 2 - Date of Service December 06, 2023 - Glycemic Short BSG Results (Last 24 hours): 12/05/23 12/05/23 12/05/23 14:39 14:43 16:51 Glucose 436 H* POC Glucose 399 H* 324 H* 12/05/23 12/05/23 12/06/23 20:02 21:53 00:05 Glucose POC Glucose 276 H 265 H 237 H 12/06/23 12/06/23 12/06/23 00:41 04:05 05:23 Glucose 190 H POC Glucose 243 H 177 H 12/06/23 12/06/23 07:37 11:33 Glucose POC Glucose 161 H 119 H OUTPATIENT ANTIDIABETIC REGIMEN: * Toujeo 72 units daily, metformin 1 gm bid ASSESSMENT: * Patient admitted with s/p fall - patient with poorly controlled DM per notes, A1c pending. Patient had BSGs in 400s on arrival yesterday. Received 40 units of basal. Fasting BSG 190 mg/dL this AM, will increase to 50 units basal this AM with is full weight based stress 3 dosing * Lunch BSG trending down, will plan to loosen parameters for novolog with higher basal now on board. Note, this is about ~30% reduction from home dose. PLAN FOR INPATIENT GLYCEMIC CONTROL: * Hold outpatient oral diabetes medications * Basal insulin * Lantus 50 units daily * Bolus insulin * NovoLog per scale ACHS or Q6hrs while NPO * Goal Range: Low 110 mg/dL - High 150 mg/dL * Correction Factor: 15 mg/dL/unit * Nutritional / Prandial insulin per carb ratio of 1 unit per 6 grams CHO consumed
[2023-12-06] MEDS: HEPARIN SOD 5,000 UNIT/0.5 ML VIAL SQ SCH (20:54)
[2023-12-06] MEDS: POLYETHYLENE (MIRALAX) 17 GM PACK PO PRN (20:56)
--- NOTE | 2023-12-06 21:00 | Electrocardiogram Report ---
Test Reason : Blood Pressure : / mmHG Vent. Rate : 082 BPM Atrial Rate : 082 BPM P-R Int : 168 ms QRS Dur : 128 ms QT Int : 434 ms P-R-T Axes : 056 -01 010 degrees QTc Int : 507 ms Normal sinus rhythm Intermittent Right bundle branch block Abnormal ECG When compared with ECG of 23-OCT-2021 04:55, Right bundle branch block is now Present Confirmed by Thad Branch ([id number]) on 12/06/2023 9:00:24 PM Referred By: REFERRED SELF Confirmed By:Thad Branch
[2023-12-07 06:16] LABS: Basophils # (auto) 0.04 K/uL (0.00-0.20); Basophils % (auto) 0.8 %; Eosinophils # (auto) 0.23 K/uL (0.00-0.50); Eosinophils % (auto) 4.6 %; Hematocrit (blood only) 32.7 % (37.0-47.0); Hemoglobin 10.2 g/dl (12.0-16.0); Immature Granulocytes # (auto) 0.02 K/uL (0.01-0.20); Immature Granulocytes % (auto) 0.4 %; Lymphocytes # (auto) 1.33 K/uL (1.20-3.40); Lymphocytes % (auto) 26.6 %; Mean Corpuscular Hgb Conc 31.2 g/dL (32.0-36.0); Mean Corpuscular Volume 83.4 fL (80.0-100.0); Mean Platelet Volume 11.2 fL (9.4-12.4); Monocytes # (auto) 0.54 K/uL (0.11-0.59); Monocytes % (auto) 10.8 %; Neutrophils # (auto) 2.84 K/uL (1.40-6.50); Neutrophils % (auto) 56.8 %; Platelet Count 130 K/uL (130-400); RDW Coefficient of Variation 16.6 % (11.5-14.5); RDW Standard Deviation 49.9 fL (36.4-46.3); Red Blood Count 3.92 M/uL (4.20-5.40)
[2023-12-07 06:35] LABS: BUN Creatinine Ratio 13.7 (10-20); Calcium 8.3 mg/dl (8.6-10.3); Est GFR (African American) 116.1 ml/min; Est GFR (Non-African American) 100.2 ml/min
[2023-12-07 06:51] LABS: Thyroid Stimulating Hormone 0.366 uIu/ml (0.300-4.500)
[2023-12-07 07:10] LABS: Estimated Average Glucose 258 mg/dl; Hemoglobin A1C 10.6 % (4.5-5.6)
[2023-12-07] MEDS: metFORMIN HCL ER 500 MG TABCR PO SCH (08:17)
[2023-12-07] MEDS: INSULIN HUMAN NPH SC SCH (08:18)
[2023-12-07] MEDS ORDERED: LANTUS PER UNIT CHARGE SC SCH (09:00)
--- NOTE | 2023-12-07 12:48 | Hospitalist Progress Note ---
Date of Service December 07, 2023 Assessment & Plan (1) Ambulatory dysfunction: Plan: Supportive care. OT and PT evaluations. Multiple x-rays and CT scans are negative for fracture except she has an L1 compression fracture that may be chronic. CTA/P: L1 compression fracture noted. Cirrhotic liver with splenomegaly unchanged from prior imaging. She also has diverticulosis. (2) Diabetes: Plan: ADA diet. NPH insulin twice daily. She states she is allergic to NovoLog so short acting insulin will be avoided. (3) COPD (chronic obstructive pulmonary disease): Plan: Stable. Continue current management. She uses oxygen at bedtime (4) Hypothyroidism: Plan: Stable. Continue current Synthroid replacement therapy (5) Irritable bowel syndrome: Plan: Stable. Continue current medical management Plan It appears she will need placement. OT and PT assessments requested. Case management involved. Admission and Anticipated Discharge Date Admission Date: December 07, 2023 Subjective Alert and oriented. No distress. Lantus has been changed to NPH insulin twice daily dosing and metformin restarted. She now tells the nurse she is allergic to NovoLog short acting insulin. She has a long list of allergies which I suspect are mostly side effects but overall her "allergy reactions" are unknown to me. Will hold off on any further NovoLog for now. She is using oxycodone for her back pain. OT and PT evaluations are pending. It appears she will need placement since she lives alone and is exhibiting failure to thrive while living alone. Review of Systems 2 Review of Systems: Constitutional-no fever or chills ENT-no blurred vision, no double vision, no epistaxis, no sore throat Respiratory-no cough, no wheezing, no shortness of breath Cardiac-no palpitations, no chest pain, no syncope GI-no nausea, vomiting, diarrhea, melena, hematochezia -no urinary retention, no urinary incontinence, no dysuria, no hematuria Musculoskeletal-chronic low back pain. No muscle tenderness Skin-no bruising, no rashes, no pruritus Neuro-no isolated weakness, no paresthesia. Generalized weakness is present Psych-no depression, no anxiety Physical Exam 2 Physical Exam: General-alert and oriented x3, no fever, no chills HEENT-head atraumatic and normocephalic, pupils equal and reactive to light, extraocular muscles intact Neck-no lymphadenopathy or thyromegaly, trachea midline Chest-clear to auscultation. No rales, wheezing or rhonchi Cardiac-regular rate and rhythm, normal S1 and S2 Abdomen-normal bowel sounds, no hepatosplenomegaly Extremities-no cyanosis, clubbing, or edema Neuro-cranial nerves II through XII intact, motor and sensory function within normal limits, strength symmetrical with generalized weakness, no focal deficits Psych-normal affect, normal mood Results & Data Results & Data Vital Signs (Past 12 Hours) Vital Signs Temp Pulse Resp BP Pulse Ox O2 Del Method 12/07/23 09:00 Room Air 12/07/23 07:01 37.1 C 87 16 102/58 L 91 Room Air Laboratory Results 12/07/23 05:20 12/07/23 05:20 PG Care Time/CCT Total # of Minutes Spent Total Time Spent with Patient: Total time spent is greater than 50% in coordination of care (as documented) at patient's floor/unit and/or counseling patient: Coding Level of Care Code 95292 SUB INP/OBS CARE 3/50MIN Diagnoses Ambulatory dysfunction R26.2 Type 2 diabetes mellitus with hyperglycemia, without long-term current use of insulin E11.65 Diabetes mellitus type: type 2 Diabetes mellitus superintendent marine oil terminal insulin use: without superintendent marine [employer] use Diabetes mellitus complication status: with hyperglycemia Chronic bronchitis, unspecified chronic bronchitis type J42 COPD type: chronic bronchitis Chronic bronchitis type: unspecified Hypothyroidism E03.9 Irritable bowel syndrome K58.9 (2) Diabetes Diabetes mellitus type: type 2 Diabetes mellitus superintendent marine oil terminal insulin use: w ithout superintendent [employer] use Diabetes mellitus complication status: with hyperglycemia Qualified Code(s): E11.65 - Type 2 diabetes mellitus with hyperglycemia (3) COPD (chronic obstructive pulmonary disease) COPD type: chronic bronchitis Chronic bronchitis type: unspecified Qualified Code(s): J42 - Unspecified chronic bronchitis
[2023-12-07] MEDS: diphenhydrAMINE 50 MG/ML VIAL IV STA (22:08)
[2023-12-08 07:19] LABS: Basophils # (auto) 0.03 K/uL (0.00-0.20); Basophils % (auto) 0.7 %; Eosinophils # (auto) 0.23 K/uL (0.00-0.50); Eosinophils % (auto) 5.7 %; Hematocrit (blood only) 32.5 % (37.0-47.0); Hemoglobin 10.2 g/dl (12.0-16.0); Immature Granulocytes # (auto) 0.02 K/uL (0.01-0.20); Immature Granulocytes % (auto) 0.5 %; Lymphocytes # (auto) 1.31 K/uL (1.20-3.40); Lymphocytes % (auto) 32.5 %; Mean Corpuscular Hgb Conc 31.4 g/dL (32.0-36.0); Mean Corpuscular Volume 82.9 fL (80.0-100.0); Mean Platelet Volume 11.5 fL (9.4-12.4); Monocytes # (auto) 0.48 K/uL (0.11-0.59); Monocytes % (auto) 11.9 %; Neutrophils # (auto) 1.96 K/uL (1.40-6.50); Neutrophils % (auto) 48.7 %; Platelet Count 129 K/uL (130-400); RDW Coefficient of Variation 16.8 % (11.5-14.5); RDW Standard Deviation 50.2 fL (36.4-46.3); Red Blood Count 3.92 M/uL (4.20-5.40); White Blood Count 4.03 K/ul (4.8-10.8)
[2023-12-08 07:46] LABS: BUN Creatinine Ratio 13.7 (10-20); Calcium 8.4 mg/dl (8.6-10.3); Est GFR (African American) 116.1 ml/min; Est GFR (Non-African American) 100.2 ml/min
[2023-12-08] MEDS: diphenhydrAMINE Capsule 25 MG CAP PO SCH (09:32)
[2023-12-08] MEDS: INSULIN HUMAN NPH SC SCH (09:35)
--- NOTE | 2023-12-08 11:11 | Hospitalist Progress Note ---
Date of Service December 08, 2023 Assessment & Plan (1) Ambulatory dysfunction: Plan: Supportive care. OT and PT evaluations. Multiple x-rays and CT scans are negative for fracture except she has an L1 compression fracture that may be chronic. CTA/P: L1 compression fracture noted. Cirrhotic liver with splenomegaly unchanged from prior imaging. She also has diverticulosis. (2) Diabetes: Plan: ADA diet. NPH insulin twice daily. NPH dosage uptitrated today, December 07. She states she is allergic to NovoLog so short acting insulin will be avoided. (3) COPD (chronic obstructive pulmonary disease): Plan: Stable. Continue current management. She uses oxygen at bedtime (4) Hypothyroidism: Plan: Stable. Continue current Synthroid replacement therapy (5) Irritable bowel syndrome: Plan: Stable. Continue current medical management (6) Pruritus: Plan: No evidence of rash. Hydrocortisone cream ordered twice daily Plan It appears she will need placement. OT and PT assessments requested. Case management involved. Admission and Anticipated Discharge Date Admission Date: December 07, 2023 Subjective Alert and stable. She is complaining of itching but has no evidence of a rash or allergic reaction. This is probably from dry skin. Hydrocortisone cream has been ordered. She is requesting to take Benadryl before she takes her NPH insulin. Insulin was uptitrated to 20 units twice daily today. Glucose was 207 this morning Review of Systems 2 Review of Systems: Constitutional-no fever or chills ENT-no blurred vision, no double vision, no epistaxis, no sore throat Respiratory-no cough, no wheezing, no shortness of breath Cardiac-no palpitations, no chest pain, no syncope GI-no nausea, vomiting, diarrhea, melena, hematochezia -no urinary retention, no urinary incontinence, no dysuria, no hematuria Musculoskeletal-chronic low back pain. No muscle tenderness Skin-no bruising, no rashes. Diffuse pruritus however Neuro-no isolated weakness, no paresthesia. Generalized weakness is present Psych-no depression, no anxiety Physical Exam 2 Physical Exam: General-alert and oriented x3, no fever, no chills HEENT-head atraumatic and normocephalic, pupils equal and reactive to light, extraocular muscles intact Neck-no lymphadenopathy or thyromegaly, trachea midline Chest-clear to auscultation. No rales, wheezing or rhonchi Cardiac-regular rate and rhythm, normal S1 and S2 Abdomen-normal bowel sounds, no hepatosplenomegaly Extremities-no cyanosis, clubbing, or edema Neuro-cranial nerves II through XII intact, motor and sensory function within normal limits, strength symmetrical with generalized weakness, no focal deficits Psych-normal affect, normal mood Results & Data Results & Data Vital Signs (Past 12 Hours) Vital Signs Temp Pulse Resp BP Pulse Ox O2 Del Method 12/08/23 08:00 Room Air 12/08/23 07:17 37.1 C 78 16 117/75 92 Room Air 12/08/23 00:42 Room Air Laboratory Results 12/08/23 06:37 12/08/23 06:37 PG Care Time/CCT Total # of Minutes Spent Total Time Spent with Patient: Total time spent is greater than 50% in coordination of care (as documented) at patient's floor/unit and/or counseling patient: Coding Level of Care Code 84090 SUB INP/OBS CARE 3/50MIN Diagnoses Ambulatory dysfunction R26.2 Type 2 diabetes mellitus with hyperglycemia, without long-term current use of insulin E11.65 Diabetes mellitus type: type 2 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 use Diabetes mellitus complication status: with hyperglycemia Chronic bronchitis, unspecified chronic bronchitis type J42 COPD type: chronic bronchitis Chronic bronchitis type: unspecified Hypothyroidism E03.9 Irritable bowel syndrome K58.9 Pruritus L29.9 (2) Diabetes Diabetes mellitus type: type 2 Diabetes mellitus chcf insulin use: w ithout chcf use Diabetes mellitus complication status: with hyperglycemia Qualified Code(s): E11.65 - Type 2 diabetes mellitus with hyperglycemia (3) COPD (chronic obstructive pulmonary disease) COPD type: chronic bronchitis Chronic bronchitis type: unspecified Qualified Code(s): J42 - Unspecified chronic bronchitis
[2023-12-08] MEDS: HYDROCORTISONE 1% CRM 30 GM TUBE EXT PRN (12:01)
[2023-12-08] MEDS: ONDANSETRON INJ 2 MG/ML 2 ML VIAL IV PRN (19:39)
[2023-12-08] MEDS: ONDANSETRON 4 MG OD TAB PO PRN (21:50)
[2023-12-09] MEDS: POLYETHYLENE (MIRALAX) 17 GM PACK PO SCH (10:11)
[2023-12-09] MEDS: DOCUSATE SODIUM 100 MG CAP PO SCH (10:11)
--- NOTE | 2023-12-09 11:01 | Hospitalist Progress Note ---
Date of Service December 09, 2023 Assessment & Plan (1) Ambulatory dysfunction: Plan: Supportive care. OT and PT evaluations. Multiple x-rays and CT scans are negative for fracture except she has an L1 compression fracture that may be chronic. CTA/P: L1 compression fracture noted. Cirrhotic liver with splenomegaly unchanged from prior imaging. She also has diverticulosis. (2) Diabetes: Plan: Controlled. ADA diet. NPH insulin twice daily. NPH dosage uptitrated on December 07. She states she is allergic to NovoLog so short acting insulin will be avoided. (3) COPD (chronic obstructive pulmonary disease): Plan: Stable. Continue current management. She uses oxygen at bedtime (4) Hypothyroidism: Plan: Stable. Continue current Synthroid replacement therapy (5) Irritable bowel syndrome: Plan: Stable. Continue current medical management (6) Pruritus: Plan: No evidence of rash. Hydrocortisone cream ordered twice daily (7) Constipation: Plan: Scheduled MiraLAX and Colace ordered Plan Discharge to [facility] is pending Admission and Anticipated Discharge Date Admission Date: December 07, 2023 Subjective Alert and oriented. No distress. She is complaining of constipation. MiraLAX and Colace have been ordered on a scheduled basis twice daily. Glucose is 134 on current diabetic management. Benadryl and hydrocortisone cream have been ordered for the pruritus. She has no obvious rash. Awaiting eventual placement at [facility]. Review of Systems 2 Review of Systems: Constitutional-no fever or chills ENT-no blurred vision, no double vision, no epistaxis, no sore throat Respiratory-no cough, no wheezing, no shortness of breath Cardiac-no palpitations, no chest pain, no syncope GI-no nausea, vomiting, diarrhea, melena, hematochezia -no urinary retention, no urinary incontinence, no dysuria, no hematuria Musculoskeletal-chronic low back pain. No muscle tenderness Skin-no bruising, no rashes. Diffuse pruritus however Neuro-no isolated weakness, no paresthesia. Generalized weakness is present Psych-no depression, no anxiety Physical Exam 2 Physical Exam: General-alert and oriented x3, no fever, no chills HEENT-head atraumatic and normocephalic, pupils equal and reactive to light, extraocular muscles intact Neck-no lymphadenopathy or thyromegaly, trachea midline Chest-clear to auscultation. No rales, wheezing or rhonchi Cardiac-regular rate and rhythm, normal S1 and S2 Abdomen-normal bowel sounds, no hepatosplenomegaly Extremities-no cyanosis, clubbing, or edema Neuro-cranial nerves II through XII intact, motor and sensory function within normal limits, strength symmetrical with generalized weakness, no focal deficits Psych-normal affect, normal mood Results & Data Results & Data Vital Signs (Past 12 Hours) Vital Signs Temp Pulse Resp BP Pulse Ox O2 Del Method 12/09/23 07:20 Room Air 12/09/23 07:07 36.6 C 76 16 125/72 97 Room Air Laboratory Results 12/08/23 06:37 12/08/23 06:37 PG Care Time/CCT Total # of Minutes Spent Total Time Spent with Patient: Total time spent is greater than 50% in coordination of care (as documented) at patient's floor/unit and/or counseling patient: Coding Level of Care Code 72181 SUB INP/OBS CARE 3/50MIN Diagnoses Ambulatory dysfunction R26.2 Type 2 diabetes mellitus with hyperglycemia, without long-term current use of insulin E11.65 Diabetes mellitus type: type 2 Diabetes mellitus fpc insulin use: without fpc use Diabetes mellitus complication status: with hyperglycemia Chronic bronchitis, unspecified chronic bronchitis type J42 COPD type: chronic bronchitis Chronic bronchitis type: unspecified Hypothyroidism E03.9 Irritable bowel syndrome K58.9 Pruritus L29.9 Constipation K59.00 (2) Diabetes Diabetes mellitus type: type 2 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
--- NOTE | 2023-12-09 11:14 | Discharge Summary ---
Date of Service December 09, 2023 Admission HPI Per Admitting Provider Tamara is a 68-year-old female who presents with a fall around noon and presents to the ER for continued pain in her back. She endorses that she has had abdominal pain in addition to this. Imaging showed L1 compression fracture. Patient was treated symptomatically and recommended for discharge home. Unfortunately patient reports family is very far away, and patient cannot ambulate due to pain. Family request placement to half-way/rehab. Recommended for admission for Was turning and lost balance and fell. No syncope/presyncope. Did hit head. No loss of consciousness. No fever/chills/sweats preceding fall or weakness. No chest pain No chest pressure Hx of COPD and asthma with some chronic shortness of breath which has not change. Is on 2L qHS No numbness or tingling in arms or legs NO pain when she pees Feels sore from her fall, had a little bit of belly pain by her bellybutton/pannus. Medical History: Reviewed Medications: Reviewed Surgical History: Reviewed Family history: Reviewed Allergies: Reviewed Social History: Deniest tobacco/etoh Code Status: DNR/DNI confirmed with family. Has an advanced directive Principal Diagnosis Multiple falls, failure to thrive, L1 compression fracture with back pain, pruritus Discharge Exam General-alert and oriented x3, no fever, no chills HEENT-head atraumatic and normocephalic, pupils equal and reactive to light, extraocular muscles intact Neck-no lymphadenopathy or thyromegaly, trachea midline Chest-clear to auscultation. No rales, wheezing or rhonchi Cardiac-regular rate and rhythm, normal S1 and S2 Abdomen-normal bowel sounds, no hepatosplenomegaly Extremities-no cyanosis, clubbing, or edema Neuro-cranial nerves II through XII intact, motor and sensory function within normal limits, strength symmetrical with generalized weakness, no focal deficits Psych-normal affect, normal mood Discharge Data Allergies Allergy/AdvReac Type Severity Reaction Status Date / Time cefaclor Allergy Severe HIVES, Verified 12/05/23 15:49 HARD TIME BREATHING Penicillins Allergy Severe THROAT Verified 12/05/23 15:49 SWELLS yellow dye Allergy Severe DIFFICULTY Verified 12/05/23 15:49 BREATHING adhesive Allergy Intermediate WELTS ON Verified 12/05/23 15:49 SKIN fluticasone Allergy Intermediate HARD OF Verified 12/05/23 15:49 BREATHING insulin lispro Allergy Intermediate HIVES Verified 12/05/23 15:49 milk Allergy Intermediate HARD OF Verified 12/05/23 15:49 BREATHING phenol Allergy Intermediate HIVES Verified 12/05/23 15:49 salmeterol Allergy Intermediate HARD OF Verified 12/05/23 15:49 BREATHING fluoxetine Allergy Mild UNKNOWN Verified 12/05/23 15:49 iodine Allergy Mild Rash Verified 12/05/23 15:49 Iodine and Iodide Containing Allergy Mild RASH Verified 12/05/23 15:49 Produc atorvastatin [From Lipitor] Allergy Unknown Unknown Verified 12/05/23 15:49 Cephalosporins Allergy Unknown UNKNOWN Verified 12/05/23 15:49 citalopram Allergy Unknown UNKNOWN Verified 12/05/23 15:49 clarithromycin [From Biaxin] Allergy Unknown Unknown Verified 12/05/23 15:49 duloxetine [From Cymbalta] Allergy Unknown Unknown Verified 12/05/23 15:49 escitalopram [From Lexapro] Allergy Unknown Unknown Verified 12/05/23 15:49 ezetimibe [From Vytorin] Allergy Unknown Unknown Verified 12/05/23 15:49 feathers Allergy Unknown ALLERGIC Verified 12/05/23 15:49 RX "SOMETHING WEIRD" gatifloxacin [From Tequin] Allergy Unknown Unknown Verified 12/05/23 15:49 guaifenesin Allergy Unknown UNKNOWN Verified 12/05/23 15:49 insulin lispro protamine Allergy Unknown Unknown Verified 12/05/23 15:49 [From Humalog Mix] Macrolide Antibiotics Allergy Unknown UNKNOWN Verified 12/05/23 15:49 mold Allergy Unknown Unknown Verified 12/05/23 15:49 moxifloxacin [From Avelox] Allergy Unknown Unknown Verified 12/05/23 15:49 paroxetine [From Paxil] Allergy Unknown Unknown Verified 12/05/23 15:49 phenylephrine Allergy Unknown UNKNOWN Verified 12/05/23 15:49 phenylpropanolamine Allergy Unknown UNKNOWN Verified 12/05/23 15:49 Quinolones Allergy Unknown UNKNOWN Verified 12/05/23 15:49 rosuvastatin [From Crestor] Allergy Unknown Unknown Verified 12/05/23 15:49 simvastatin [From Vytorin] Allergy Unknown Unknown Verified 12/05/23 15:49 Sulfa (Sulfonamide Allergy Unknown Unknown Verified 12/05/23 15:49 Antibiotics) Tetracyclines Allergy Unknown Unknown Verified 12/05/23 15:49 levofloxacin AdvReac Intermediate SEVERE Verified 12/05/23 15:49 NAUSEA house dust AdvReac Unknown Unknown Verified 12/05/23 15:49 insulin aspart AdvReac Unknown Unknown Verified 12/05/23 15:49 [From Novolog U-100 Insulin aspart] Consultations 12/05/23 18:15 ED Decision to Admit Stat Ordered Studies 12/05/23 14:24 CT abd pelvis wo con Stat CT cervical spine wo con Stat CT head/brain wo con Stat Hospital Course (1) Ambulatory dysfunction: Supportive care. OT and PT evaluations. Multiple x-rays and CT scans are negative for fracture except she has an L1 compression fracture that may be chronic. CTA/P: L1 compression fracture noted. Cirrhotic liver with splenomegaly unchanged from prior imaging. She also has diverticulosis. (2) Diabetes: Controlled. ADA diet. NPH insulin twice daily. NPH dosage uptitrated on December 07. She states she is allergic to NovoLog so short acting insulin will be avoided. (3) COPD (chronic obstructive pulmonary disease): Stable. Continue current management. She uses oxygen at bedtime (4) Hypothyroidism: Stable. Continue current Synthroid replacement therapy (5) Irritable bowel syndrome: Stable. Continue current medical management (6) Pruritus: No evidence of rash. Hydrocortisone cream ordered twice daily (7) Constipation: Scheduled MiraLAX and Colace ordered Plan She is been approved to go to [facility] later today, December 08 Total Time Total Time Spent Total Time Spent (In Minutes): 45 minutes Discharge Plan Discharge Items Patient Disposition: Transfer Inpatient Rehab Fac Reason For Visit: FALLS, WEAKNESS, PLACEMENT REQUEST Discharge Diagnosis: Multiple falls, failure to thrive, L1 compression fracture with back pain, pruritus, constipation Activity: Resume your previous activity Non-emergency contact: Primary Care Provider Call non-emergency contact if: you have any medication questions and your symptoms worsen Follow-up/Referrals: Chrissy Henry DO [Primary Care Provider] - Diet: Carb Consistent or DM2 and Heart Healthy Addtl Attending Provider Instructions: See your primary care provider soon as possible after discharge from [facility] Pending Studies at Discharge: No Stand-Alone Forms: My [facility] Skilled Items Patient informed of condition?: Yes DNR: No Discharge Level of Care: Acute rehab Communicable Disease: No Discharge Prognosis: Stable Lines: None Urinary Catheter: No Medications and DC Order Prescriptions: New oxycodone 5 mg tablet 5 mg PO Q8H PRN (Reason: pain) Qty: 23 0RF calcitonin (salmon) 200 unit/actuation [place],Non-Aerosol 1 spray NA DAILY Qty: 0 0RF Novolin N NPH U-100 Insulin 100 unit/mL Suspension 20 unit SC BIDM Qty: 0 0RF hydrocortisone 1 % Ointment 1 applic EXT BID PRNQty: 0 0RF polyethylene glycol 3350 [Miralax] 17 gram Powder In Packet 17 g PO BID Qty: 0 0RF Caltrate 600-D Plus Minerals 600 mg calcium- 800 unit-50 mg Tablet 1 tab PO BID Qty: 0 0RF oxycodone 5 mg Tablet 5 mg PO Q6H PRNQty: 0 0RF diphenhydramine HCl [Benadryl] 25 mg Capsule 25 mg PO BIDM Qty: 0 0RF ondansetron 4 mg Tablet,Disintegrating 4 mg PO Q4H PRNQty: 0 0RF docusate sodium 100 mg Capsule 100 mg PO BID Qty: 0 0RF Continued lorazepam 0.5 mg tablet 0.5 - 1 mg PO DAILY PRN (Reason: anxiety) Qty: 30 0RF fluticasone furoate-vilanterol [Breo Ellipta] 100-25 mcg/dose blister with device 1 inh inhalation DAILY Qty: 3 3RF tramadol 50 mg tablet 50 mg PO Q4H PRN (Reason: pain) Qty: 30 0RF Excedrin Migraine 250-250-65 mg tablet 2 tab PO QAM PRN (Reason: headache) Qty: 100 0RF (DME) blood sugar diagnostic Strip See Dose Instructions .ROUTE .MEDSUPPLY Qty: 100 3RF Rx Instructions: Testing four times per day. bupropion HCl 300 mg tablet extended release 24 hr 300 mg PO QPM Qty: 90 3RF cholecalciferol (vitamin D3) 25 mcg (1,000 unit) capsule 5,000 unit PO DAILY Qty: 90 3RF cyanocobalamin (vitamin B-12) 1,000 mcg tablet 1,000 mcg PO DAILY Qty: 90 3RF famotidine 40 mg tablet 40 mg PO BID Qty: 180 3RF ipratropium-albuterol 0.5 mg-3 mg(2.5 mg base)/3 mL solution for nebulization 3 ml inhalation QID PRN (Reason: wheezing) Qty: 90 3RF levothyroxine 137 mcg tablet 137 mcg PO DAILY Qty: 90 3RF pantoprazole 40 mg tablet,delayed release (DR/EC) 40 mg PO DAILY Qty: 90 3RF albuterol sulfate [Ventolin HFA] 90 mcg/actuation HFA aerosol inhaler 1 inh INH QID PRN (Reason: shortness of breath or wheezing) Qty: 18 3RF (DME) Aerochamber Plus Z Stat spacer See Dose Instructions .ROUTE .MEDSUPPLY Qty: 1 Rx Instructions: As directed (DME) insulin admin supplies insulin pen See Dose Instructions .ROUTE .MEDSUPPLY Qty: 1 Rx Instructions: Injecting 4-5 times QD. (DME) pen needle, diabetic [Novofine 32] 32 gauge x 1/4" needle See Dose Instructions .ROUTE .MEDSUPPLY Qty: 50 Rx Instructions: As directed [place] lancets [OneTouch Delica Plus Lancet] 33 gauge misc See Dose Instructions .ROUTE .MEDSUPPLY Qty: 100 Rx Instructions: Testing four times per day. multivitamin [Multiple Vitamins] tablet 1 tab PO DAILY metformin 500 mg tablet extended release 24 hr 500 mg PO DAILY (DME) pen needle, diabetic [BD Ultra-Fine Mini Pen Needle] 31 gauge x 3/16" needle See Rx Instructions .Route Qty: 100 0RF Rx Instructions: As directed (DME) blood-glucose meter [OneTouch Verio Flex meter] [facility] [place] See Rx Instructions .Route Qty: 1 0RF Rx Instructions: Test blood sugar twice daily (DME) OneTouch Verio test strips Strip See Rx Instructions .Route Qty: 100 6RF Rx Instructions: Test blood sugar twice daily (DME) blood-glucose meter [True Metrix Glucose Meter] [facility] [place] See Rx Instructions .Route Qty: 1 0RF Rx Instructions: test blood sugar 2 times daily (DME) True Metrix Glucose Test Strip Strip See Rx Instructions .Route Qty: 100 4RF Rx Instructions: test blood sugar twice daily (DME) pen needle, diabetic [BD Ultra-Fine Mini Pen Needle] 31 gauge x 3/16" needle See Rx Instructions .Route Qty: 100 2RF Rx Instructions: As directed trazodone 150 mg tablet 150 - 300 mg PO HS Rx Instructions: take 1 to 2 tablets by mouth daily montelukast 10 mg tablet 10 mg PO QPM Rx Instructions: take 1 tablet by mouth every evening Discontinued insulin glargine U-300 conc [Toujeo SoloStar U-300 Insulin] 300 unit/mL (1.5 mL) insulin pen 72 unit SUBCUT QAM Rx Instructions: Dispense 90 day supply Discharge Orders: Discharge Order (Routine); Ordered 12/09/23 Ordered By: Ayad Vogel Admission Data Admit Date/Time: 12/07/23 09:40 Attending Provider: Ayad Vogel Admit Provider: Michael Carney Primary Care Provider: Chrissy Henry Other Providers: Michael Carney; [facility] Coding Level of Care Code 50437 INP/OBS DISCH >30 MIN Diagnoses Ambulatory dysfunction R26.2 Type 2 diabetes mellitus with hyperglycemia, without long-term current use of insulin E11.65 Diabetes mellitus type: type 2 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
== END 2023-12-09 15:00 | DRG 552 ==
LOC: ED 13:15 → 3E 13:15 → SUATTDRO 18:40 → 3E 20:53

== ENCOUNTER 2024-01-04 17:26 | Inpatient (IN) ==
--- NOTE | 2024-01-04 17:56 | ED Triage Note ---
Date of Service January 04, 2024 Provider in Triage Author: Rakesh Cueto. History of Present Illness This patient was briefly evaluated while in triage. An abbreviated physical exam was performed. This patient is a 68-year-old Female who presents to the ED for evaluation of right foot pain. Injury occurred 1 week ago. she fell down 2 stairs and hit her head. was able to get back up. can walk on the outside of the foot but has swelling and bruising. was in rehab for back fracture. pr'ed to home 2 weeks ago. Physical Exam CONSTITUTIONAL: in no acute pain or distress, poor historian SKIN: pink, warm, dry CARDIAC: regular rate and rhythm RESPIRATORY: in no respiratory distress MSK: extensive edema and bruising to right foot with metatarsal tenderness Initial orders for labs and / or imaging were placed and patient was placed in the waiting area until a bed is available. Please see further documentation for the full ED course.
--- NOTE | 2024-01-04 18:58 | XRay Report ---
XR foot RT min 3V routine CLINICAL HISTORY: injury 1 wk ago, bruising swelling, metatarsals COMPARISON: Right foot CT and right foot radiographs October 25, 2018. FINDINGS: A mildly displaced fracture within the base of the right first metatarsal is noted. This i s age indeterminate although probably subacute to chronic. No additional fractures within the right f oot are present. Alignment of the tarsometatarsal joints appears anatomic. Dorsal forefoot soft tissu e swelling is noted on lateral projection. 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 IMPRESSION: 1. Mildly displaced fracture within the base of the right first metatarsal. Although age indeterminat e, the appearance favors a subacute to chronic fracture. 2. No additional fractures within the right foot. 3. Dorsal foot soft tissue swelling. ACT 112: Negative or not required by law. Electronically signed by: Israel Oliva M.D. 01/04/2024 6:56 PM
[2024-01-04 19:14] LABS: Basophils # (auto) 0.04 K/uL (0.00-0.20); Basophils % (auto) 0.7 %; Eosinophils % (auto) 3.6 %; Hematocrit (blood only) 36.2 % (37.0-47.0); Hemoglobin 11.2 g/dl (12.0-16.0); Immature Granulocytes # (auto) 0.01 K/uL (0.01-0.20); Immature Granulocytes % (auto) 0.2 %; Lymphocytes # (auto) 1.74 K/uL (1.20-3.40); Mean Corpuscular Hemoglobin 25.9 pg (25.0-34.0); Mean Corpuscular Hgb Conc 30.9 g/dL (32.0-36.0); Mean Corpuscular Volume 83.8 fL (80.0-100.0); Mean Platelet Volume 10.9 fL (9.4-12.4); Monocytes # (auto) 0.55 K/uL (0.11-0.59); Monocytes % (auto) 9.8 %; Neutrophils # (auto) 3.07 K/uL (1.40-6.50); Neutrophils % (auto) 54.7 %; Platelet Count 194 K/uL (130-400); RDW Coefficient of Variation 17.3 % (11.5-14.5); RDW Standard Deviation 52.4 fL (36.4-46.3); Red Blood Count 4.32 M/uL (4.20-5.40); White Blood Count 5.61 K/ul (4.8-10.8)
[2024-01-04 19:31] LABS: Alanine Aminotransferase 9 U/L (7-52); Albumin Level 3.9 gm/dl (3.4-5.0); Alkaline Phosphatase 93 U/L (34-104); Anion Gap 7 (3-11); Aspartate Aminotransferase 25 U/L (13-39); BUN Creatinine Ratio 13.2 (10-20); Bilirubin,Total 0.6 mg/dl (0.2-1.0); Blood Urea Nitrogen 7 mg/dl (6-23); Calcium 9.1 mg/dl (8.6-10.3); Carbon Dioxide 28 mmol/L (21-32); Chloride 100 mmol/L (98-107); Est GFR (African American) 114.7 ml/min; Est GFR (Non-African American) 98.9 ml/min; Glucose 177 mg/dl (70-99(Fasting)); Potassium 3.7 mmol/L (3.5-5.1); Sodium 135 mmol/L (136-145); Total Protein 7.9 gm/dl (6.0-8.3)
--- NOTE | 2024-01-04 20:31 | CT Scan Report ---
Exam(s): CT HEAD Without Contrast EXAM: CT Head Without Intravenous Contrast CLINICAL HISTORY: Reason for exam: fall 1 wk ago w head injury. TECHNIQUE: Axial computed tomography images of the head/brain without intravenous contrast. CTDI is 78.81 mGy and DLP is 813.12 mGy-cm. Automated exposure control was utilized for the study. A dose lowering technique was utilized adhering to the principles of ALARA. COMPARISON: 12/05/2023 FINDINGS: Artifacts: Images are degraded by motion artifact. Brain: No hemorrhage, extra-axial fluid collection, mass effect, or edema. Ventricles: Unremarkable. Bones/joints: Unremarkable. No fracture. Soft tissues: Unremarkable. Sinuses: No acute sinusitis. Mastoid air cells: Unremarkable as visualized. IMPRESSION: 1. No acute intracranial abnormality. Electronically signed by: Domenic Temple MD 01/04/24 20:30 PM
--- NOTE | 2024-01-04 21:55 | Emergency Department Note ---
Impression & Plan Fracture of right foot, Fall, Ambulatory dysfunction ED Provider Note ED Provider Note NAME: KOBI TORIBIO AGE:68 SEX: Female : 1955 ARRIVES VIA: Private vehicle INFORMANT: Patient ED PROVIDER(s): Lakeisha Mckeon DO CHIEF COMPLAINT: Right foot injury HPI: This is a 68-year-old female who presents emergency department due to concern for injury related to a fall 1 week ago. Patient states she fell a week ago but is uncertain how and landed on her foot. She states since then she has had pain, swelling, and bruising noted to the right foot. She has been hobbling around while using her walker but is unable to go very far. She does take low- dose aspirin daily, denies any other anticoagulation. She does not believe she struck her head during the fall a week ago. She denies any neck or back pain, abdominal pain, chest pain, or concern for upper extremity injury. Patient states she was recently admitted for a fall the end of November when she had a compression fracture in her back and was discharged to [facility]. She states she had only been home from [facility] 1 week when this second fall occurred at home. Patient does live alone. PAST MEDICAL HISTORY:See Below PAST SURGICAL HISTORY:See Below FAMILY HISTORY:See Below SOCIAL HISTORY:See Below HOME MEDICATIONS:See Below ALLERGIES:See Below VITALS:See Below PHYSICAL EXAMINATION: GENERAL: alert, well appearing, well nourished, no distress, non-toxic EYE EXAM: normal conjunctiva, PERRL and EOM's grossly intact OROPHARYNX: no exudate, no erythema, lips, buccal mucosa, and tongue normal and mucous membranes are moist NECK: supple, no nuchal rigidity, no adenopathy, non-tender LUNGS: Clear to auscultation. Normal chest wall mechanics, no w/r/r HEART: no murmurs, S1 normal and S2 normal ABDOMEN: abdomen soft, non-tender, normo-active bowel sounds, no masses, no rebound or guarding. SKIN: no rashes, petechiae, orbruising UPPER EXTREMITIES: upper extremities are grossly normal. FROM, nml pulses b/l. LOWER EXTREMITIES: No pitting edema LLE. nml pulses b/l, obvious edema and ecchymosis noted to the right foot, pain with palpation across the dorsal aspect of the right foot, ecchymosis noted laterally and inferiorly additionally, patient with decreased range of motion of the foot and ankle secondary to pain, sensation intact bilaterally. NEURO EXAM: Normal sensorium, cranial nerves II-XII grossly intact, normal speech, no facial droop,nogross weakness of arms, no gross weakness of legs. Gross sensation intact. No ataxia. Vital Signs: reviewed and remarkable Differential Diagnosis: Fracture, dislocation, infection, compartment syndrome, osteomyelitis, sprain/strain, ligamentous injury, as well as others were considered MEDICAL DECISION MAKING: This is a 68-year-old female presents emergency department due to concern for increased pain and swelling of the right foot following a fall 1 week ago. Patient has been using a walker secondary to a prior fall in November in which she sustained a compression fracture. She does live at home alone. She was afebrile and vital signs stable. Labs drawn and sent, IV established, x-rays performed and interpreted by me and patient monitored on telemetry. She was initially given IV Tylenol and started on gentle IV fluids. Patient was unable to ambulate at bedside even with the use of her walker after being placed in a splint for a fracture noted to the right first MTP. Due to concern for safety and inability to immediately place her into rehab as well as the benefit of additional pain control and orthopedic evaluation, case discussed with the hospitalist for additional evaluation and management. I have a low suspicion for any additional occult traumatic injury. Consultation(s): 2201: Discussed with Dr. Snyder, [facility] hospitalist, for additional evaluation and management ER Treatment Provided: See below Diagnostics Interpreted By Me: -Cardiac Monitoring: An order was placed for continuous cardiac monitoring. The monitor shows a rate of 80 with normal sinus rhythm. -Laboratory studies: As stated above and show below. -Imaging studies: xr foot: Fracture of the first MTP Triage Nursing Note Reviewed Prior/Outside Records Reviewed Past Med/Surg History Problem List (Updated 01/05/24 @ 23:38 by Lakeisha Mckeon DO) Ambulatory dysfunction (Acute) Diabetes Depression Fall (Acute) Fracture of right foot (Acute ~01/04/24) fell down stair 1 week ago per the ED report dated 01/04/24 Constipation Pruritus Hyperglycemia due to diabetes mellitus (Acute) Closed compression fracture of L1 vertebra (Acute 12/05/23) from a fall-admitted to [facility] for rehab placement per ED report Gait abnormality Left knee DJD Shoulder pain Encounter for pre-operative examination Pending covid test. Poorly controlled diabetes mellitus Microcytic anemia Obesity Anemia Acute respiratory failure with hypoxia Hyperlipidemia (Chronic) GERD (gastroesophageal reflux disease) (Chronic) Eva's syndrome (Chronic) Chronic sinusitis, unspecified (Chronic) Chronic ischemic heart disease, unspecified (Chronic) Tubular adenoma of colon (Chronic) SNHL (sensorineural hearing loss) (Chronic) Persistent insomnia (Chronic) Migraine, unspecified, not intractable, without status migrainosus (Chronic) Chronic fatigue syndrome (Chronic) Chronic constipation (Chronic) Asthma (Chronic) Arthritis (Acute) Vitamin D deficiency (Acute) Bronchitis (Acute) Obstructive sleep apnea of adult (Chronic) 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) Frequent falls (Chronic) Medical History Polymyalgia rheumatica Acute exacerbation of chronic obstructive pulmonary disease Surgical History History of surgery on arm Left ORIF humerus H/O prior ablation treatment endometrosis History of ear surgery myringotomy right History of adenoidectomy H/O breast surgery biopsy 1989, cyst removal times 3 Family History Grandfather (Maternal) Myocardial infarction Mother Anxiety Depression Lung disease Sinusitis Father Stroke Allergies Social History Smoking Status: Former smoker Tobacco Type: Cigarettes Second Hand Exposure: Yes ( smoked); Hx Alcohol Use: No Hx Substance Use: Yes Last Used Substance: Unknown Substance Use Type Other:: edibles Preferred Language: Senegalese Communication Ability: Effective Visual Impairment: Limited Hearing Ability: Hard of Hearing Vc++ Developer Required: No Beliefs That Will Affect Care: None marital status: / Current Living Situation: Alone current occupational status: retired Feels Safe at Home: Yes caffeine: Yes Dental Care, Regularly: No Physical Activity Frequency: Does not Exercise Seatbelt Use: always (takes bus) Assistive Devices: Walker Allergies Allergies Allergy/AdvReac Type Severity Reaction Status Date / Time avocado Allergy Severe Difficulty Verified 01/05/24 12:49 Breathing cefaclor Allergy Severe HIVES, Verified 12/22/23 10:05 HARD TIME BREATHING Penicillins Allergy Severe THROAT Verified 12/22/23 10:05 SWELLS yellow dye Allergy Severe DIFFICULTY Verified 12/22/23 10:05 BREATHING adhesive Allergy Intermediate WELTS ON Verified 12/22/23 10:05 SKIN fluticasone Allergy Intermediate HARD OF Verified 12/22/23 10:05 BREATHING insulin lispro Allergy Intermediate HIVES Verified 12/22/23 10:05 milk Allergy Intermediate HARD OF Verified 12/22/23 10:05 BREATHING phenol Allergy Intermediate HIVES Verified 12/22/23 10:05 salmeterol Allergy Intermediate HARD OF Verified 12/22/23 10:05 BREATHING fluoxetine Allergy Mild UNKNOWN Verified 12/22/23 10:05 iodine Allergy Mild Rash Verified 12/22/23 10:05 Iodine and Iodide Containing Allergy Mild RASH Verified 12/22/23 10:05 Produc atorvastatin [From Lipitor] Allergy Unknown Unknown Verified 12/22/23 10:05 Cephalosporins Allergy Unknown UNKNOWN Verified 12/22/23 10:05 citalopram Allergy Unknown UNKNOWN Verified 12/22/23 10:05 clarithromycin [From Biaxin] Allergy Unknown Unknown Verified 12/22/23 10:05 duloxetine [From Cymbalta] Allergy Unknown Unknown Verified 12/22/23 10:05 escitalopram [From Lexapro] Allergy Unknown Unknown Verified 12/22/23 10:05 ezetimibe [From Vytorin] Allergy Unknown Unknown Verified 12/22/23 10:05 feathers Allergy Unknown ALLERGIC Verified 12/22/23 10:05 RX "SOMETHING WEIRD" gatifloxacin [From Tequin] Allergy Unknown Unknown Verified 12/22/23 10:05 guaifenesin Allergy Unknown UNKNOWN Verified 12/22/23 10:05 insulin lispro protamine Allergy Unknown Unknown Verified 12/22/23 10:05 [From Humalog Mix] Macrolide Antibiotics Allergy Unknown UNKNOWN Verified 12/22/23 10:05 mold Allergy Unknown Unknown Verified 12/22/23 10:05 moxifloxacin [From Avelox] Allergy Unknown Unknown Verified 12/22/23 10:05 paroxetine [From Paxil] Allergy Unknown Unknown Verified 12/22/23 10:05 phenylephrine Allergy Unknown UNKNOWN Verified 12/22/23 10:05 phenylpropanolamine Allergy Unknown UNKNOWN Verified 12/22/23 10:05 Quinolones Allergy Unknown UNKNOWN Verified 12/22/23 10:05 rosuvastatin [From Crestor] Allergy Unknown Unknown Verified 12/22/23 10:05 simvastatin [From Vytorin] Allergy Unknown Unknown Verified 12/22/23 10:05 Sulfa (Sulfonamide Allergy Unknown Unknown Verified 12/22/23 10:05 Antibiotics) Tetracyclines Allergy Unknown Unknown Verified 12/22/23 10:05 levofloxacin AdvReac Intermediate SEVERE Verified 12/22/23 10:05 NAUSEA house dust AdvReac Unknown Unknown Verified 12/22/23 10:05 insulin aspart AdvReac Unknown Unknown Verified 12/22/23 10:05 [From Novolog U-100 Insulin aspart] Home Meds Home Medications Medication Instructions Recorded Confirmed inhalational spacing device #1 ea 01/01/19 12/22/23 (Aerochamber Plus Z Stat spacer) insulin admin supplies #1 ea 01/01/19 12/22/23 lancets 33 gauge (OneTouch Delica #100 ea 01/01/19 12/22/23 Plus Lancet) multivitamin (Multiple Vitamins 1 tab PO DAILY 01/01/19 01/04/24 tablet) pen needle, diabetic 32 gauge x #50 ea 01/01/19 12/22/23 1/4" (Novofine 32) metformin 500 mg tablet,extended 500 mg PO DAILY 10/14/23 01/04/24 release 24 hr montelukast 10 mg tablet 10 mg PO QPM 12/05/23 01/04/24 trazodone 150 mg tablet 150 - 300 mg PO HS 12/05/23 01/04/24 Oxygen Home 12/21/23 12/21/23 cholecalciferol (vitamin D3) 25 5,000 unit PO QAM 01/04/24 01/04/24 mcg (1,000 unit) capsule docusate sodium 100 mg capsule 100 mg PO QAM 01/04/24 01/04/24 hydrocortisone 1 % topical ointment 1 applic EXT BID PRN Hemorrhoids 01/04/24 01/04/24 ondansetron 4 mg disintegrating 4 mg PO Q4H PRN Nausea 01/04/24 01/04/24 tablet Previous Rx's Medication Instructions Recorded fluticasone furoate 100 1 inh inhalation DAILY #3 ea 04/13/23 mcg-vilanterol 25 mcg/dose inhalation powder (Breo Ellipta) lorazepam 0.5 mg tablet 0.5 - 1 mg (1 - 2 x 0.5 mg) PO 04/13/23 DAILY PRN anxiety #30 tabs pen needle, diabetic 31 gauge x #100 ea 04/28/23 3/16" (BD Ultra-Fine Mini Pen Needle) Ventolin HFA 90 mcg/actuation 1 inh inhalation QID PRN shortness 07/14/23 aerosol inhaler (albuterol sulfate) of breath or wheezing #18 grams kkozfbe-hfffdjmehzwnc-dgitblie 250 2 tab PO QAM PRN headache #100 tabs 07/14/23 mg-250 mg-65 mg tablet (Excedrin Migraine) blood sugar diagnostic #100 ea 07/14/23 bupropion HCl 300 mg 24 hr tablet, 300 mg PO QPM #90 tabs 07/14/23 extended release cyanocobalamin (vitamin B-12) 1,000 mcg PO DAILY #90 tabs 07/14/23 1,000 mcg tablet famotidine 40 mg tablet 40 mg PO BID #180 tabs 07/14/23 ipratropium 0.5 mg-albuterol 3 mg 3 ml inhalation QID PRN wheezing 07/14/23 (2.5 mg base)/3 mL nebulization #90 mL soln levothyroxine 137 mcg tablet 137 mcg PO DAILY #90 tabs 07/14/23 pantoprazole 40 mg tablet,delayed 40 mg PO DAILY #90 tabs 07/14/23 release blood sugar diagnostic (OneTouch #100 ea 09/22/23 Verio test strips) blood-glucose meter (OneTouch #1 ea 09/22/23 Verio Flex Meter) blood sugar diagnostic (True #100 ea 09/30/23 Metrix Glucose Test Strip) blood-glucose meter (True Metrix #1 ea 09/30/23 Glucose Meter) calcitonin (salmon) 200 1 spray NA DAILY #0 mL 12/09/23 unit/actuation nasal spray polyethylene glycol 3350 17 gram 17 g PO BID #0 ea 12/09/23 oral powder packet (Miralax) diphenhydramine HCl 25 mg capsule 25 mg PO ONCE PRN itching #0 caps 12/22/23 (Benadryl) tramadol 50 mg tablet 50 mg PO Q4H PRN pain #30 tabs 12/22/23 insulin glargine U-300 conc 300 72 unit (0.24 mL) subcut DAILY #24 12/25/23 unit/mL (3 mL) subcutaneous pen mL (Toujeo Max U-300 SoloStar) pen needle, diabetic 31 gauge x #100 ea 12/25/23/16" (BD Ultra-Fine Mini Pen Needle) Results & Data (ED) Vital Signs Vital Signs - 24 hr 01/04/24 17:52 01/04/24 21:00 Temperature 36.9 C Temperature Source Temporal Artery Scan Pulse Rate 94 H Pulse Rate [Apical] 81 Pulse Rhythm Regular Pulse Rhythm [Apical] Regular Pulse Strength Normal Pulse Strength [Apical] Normal Respiratory Rate 18 18 Respiratory Effort / Characteristics Non-Labored Non-Labored Respiratory Depth Normal Normal Respiratory Pattern Regular Regular Blood Pressure 117/75 Blood Pressure [Right Arm] 165/76 H Blood Pressure Mean 89 Blood Pressure Mean [Right Arm] 105 Blood Pressure Position Sitting Pulse Oximetry 95 98 Oxygen Delivery Method Room Air Room Air Sepsis Recent Fever Within 48 Hours No Sepsis New/Unexplained Change in Mental Status No Sepsis Action Taken by Nursing No Action Required Laboratory Data 01/05/24 05:50 01/05/24 05:50 Lab Results 01/04/24 01/04/24 Range/Units 18:55 20:51 WBC 5.61 (4.8-10.8) K/ul RBC 4.32 (4.20-5.40) M/uL Hgb 11.2 L (12.0-16.0) g/dl Hct 36.2 L (37.0-47.0) % MCV 83.8 (80.0-100.0) fL MCH 25.9 (25.0-34.0) pg MCHC 30.9 L (32.0-36.0) g/dL RDW Std Deviation 52.4 H (36.4-46.3) fL RDW Coeff of [place] 17.3 H (11.5-14.5) % Plt Count 194 (130-400) K/uL MPV 10.9 (9.4-12.4) fL Immature Gran % (Auto) 0.2 % Neut % (Auto) 54.7 % Lymph % (Auto) 31.0 % [place] % (Auto) 9.8 % Eos % (Auto) 3.6 % Baso % (Auto) 0.7 % Neut # (Auto) 3.07 (1.40-6.50) K/uL Lymph # (Auto) 1.74 (1.20-3.40) K/uL [place] # (Auto) 0.55 (0.11-0.59) K/uL Eos # (Auto) 0.20 (0.00-0.50) K/uL Baso # (Auto) 0.04 (0.00-0.20) K/uL Immature Gran # (Auto) 0.01 (0.01-0.20) K/uL Sodium 135 L (136-145) mmol/L Potassium 3.7 (3.5-5.1) mmol/L Chloride 100 (98-107) mmol/L Carbon Dioxide 28 (21-32) mmol/L Anion Gap 7 (3-11) BUN 7 (6-23) mg/dl Creatinine 0.53 L (0.6-1.2) mg/dl Est Cr Clr Drug Dosing Not Reportable Est GFR ( Amer) 114.7 ml/min Est GFR (Non-Af Amer) 98.9 ml/min BUN/Creatinine Ratio 13.2 (10-20) Glucose 177 H (70-99(Fasting)) mg/dl POC Glucose 154 H (70-99) mg/dl Calcium 9.1 (8.6-10.3) mg/dl Total Bilirubin 0.6 (0.2-1.0) mg/dl AST 25 (13-39) U/L ALT 9 (7-52) U/L Alkaline Phosphatase 93 (34-104) U/L Total Protein 7.9 (6.0-8.3) gm/dl Albumin 3.9 (3.4-5.0) gm/dl Globulin 4.0 (2.5-4.0) gm/dl Albumin/Globulin Ratio 1.0 (0.9-2) Administered Medications Acetaminophen (Acetaminophen 325 Mg Tab) 650 mg PO Q4H PRN PRN Reason: pain/fever Stop: 02/04/24 00:50 Last Admin: 01/05/24 21:58 Dose: 650 mg Documented By: ARI Bupropion HCl (Bupropion Xl 300 Mg Tabcr) 300 mg PO QPM VANE Stop: 02/04/24 20:59 Last Admin: 01/05/24 20:59 Dose: 300 mg Documented By: ARI Calcitonin [place] (Calcitonin [place] Na 200 Iu/Ac 3.7 Ml Btl) 1 sprays NA DAILY VANE Stop: 02/04/24 08:59 Last Admin: 01/05/24 09:01 Dose: 1 sprays Documented By: TERESA Cyanocobalamin (Cyanocobalamin (B-12) 500 Mcg Tablet) 1,000 mcg PO DAILY VANE Stop: 02/04/24 08:59 Last Admin: 01/05/24 08:59 Dose: 1,000 mcg Documented By: TERESA Docusate Sodium (Docusate Sodium 100 Mg Cap) 100 mg PO BID VANE Stop: 02/04/24 08:59 Last Admin: 01/05/24 20:59 Dose: 100 mg Documented By: Admin: 01/05/24 09:00 Dose: 100 mg Documented By: TERESA Famotidine (Famotidine 40 Mg Tablet) 40 mg PO BID VANE Stop: 02/04/24 08:59 Last Admin: 01/05/24 20:59 Dose: 40 mg Documented By: Admin: 01/05/24 09:00 Dose: 40 mg Documented By: TERESA Fluticasone/Vilanterol (Fluticasone/Vilanterol 100/25mcg 14 Puffs/Inhaler) 1 puffs INH DAILY VANE Stop: 02/04/24 08:59 Last Admin: 01/05/24 09:01 Dose: 1 puffs Documented By: TERESA Heparin Sodium (Porcine) (Heparin Sod 5,000 Unit/0.5 Ml Vial) 5,000 units SQ Q12 VANE Stop: 02/04/24 08:59 Last Admin: 01/05/24 20:59 Dose: Not Given Documented By: Admin: 01/05/24 08:57 Dose: Not Given Documented By: TERESA Levothyroxine Sodium (Levothyroxine Sodium 137 Mcg Tablet) 137 mcg PO DAILYBB [facility] Stop: 02/04/24 06:29 Last Admin: 01/05/24 05:48 Dose: 137 mcg Documented By: KOKO Metformin HCl (Metformin Hcl Er 500 Mg Tabcr) 500 mg PO QAM VANE Stop: 02/04/24 09:49 Last Admin: 01/05/24 10:41 Dose: 500 mg Documented By: TERESA Montelukast Sodium (Montelukast Sodium 10 Mg Tablet) 10 mg PO QPM [facility] Stop: 02/04/24 20:59 Last Admin: 01/05/24 20:58 Dose: 10 mg Documented By: ARI Multivitamins (Multivitamin Tab) 1 tab PO DAILY VANE Stop: 02/04/24 08:59 Last Admin: 01/05/24 09:00 Dose: 1 tab Documented By: TERESA Pantoprazole Sodium (Pantoprazole 40 Mg Tab) 40 mg PO [facility] Stop: 02/04/24 08:59 Last Admin: 01/05/24 20:58 Dose: 40 mg Documented By: ARI Polyethylene Glycol (Polyethylene (Miralax) 17 Gm Pack) 17 gm PO BID VANE Stop: 02/04/24 08:59 Last Admin: 01/05/24 20:59 Dose: Not Given Documented By: Admin: 01/05/24 09:00 Dose: 17 gm Documented By: TERESA Tramadol HCl (Tramadol Hcl 50 Mg Tablet) 50 mg PO Q4H PRN PRN Reason: Moderate Pain (Scale 4, 5, 6) Stop: 02/04/24 00:50 Last Admin: 01/05/24 19:37 Dose: 50 mg Documented By: Admin: 01/05/24 12:42 Dose: 50 mg Documented By: Admin: 01/05/24 05:04 Dose: 50 mg Documented By: Admin: 01/05/24 01:05 Dose: 50 mg Documented By: KOKO Trazodone HCl (Trazodone Hcl 50 Mg Tab) 150 mg PO [facility] Stop: 02/04/24 20:59 Last Admin: 01/05/24 21:59 Dose: 150 mg Documented By: ARI Vitamin D (Cholecalciferol 125 Mcg (5,000 Units) Tab) 125 mcg PO DAILY [facility] Stop: 02/04/24 08:59 Last Admin: 01/05/24 08:59 Dose: 125 mcg Documented By: TERESA Discontinued Medications Bupropion HCl (Bupropion Xl 300 Mg Tabcr) 300 mg PO ONE ONE Stop: 01/05/24 01:31 Last Admin: 01/05/24 01:48 Dose: 300 mg Documented By: KOKO Diphenhydramine HCl (Diphenhydramine Capsule 25 Mg Cap) 25 mg PO NOW ONE Stop: 01/05/24 17:01 Last Admin: 01/05/24 17:12 Dose: 25 mg Documented By: TERESA Acetaminophen (Ofirmev) 1,000 mg in 100 mls @ 400 mls/hr IV NOW STA Stop: 01/04/24 22:49 Last Infusion: 01/04/24 23:11 Dose: Infused Documented By: Admin: 01/04/24 22:40 Dose: 400 mls/hr Documented By: BETH Insulin Aspart (Insulin Aspart Per Unit Charge) 0 units SC ACHS [facility]ANE Stop: 02/04/24 07:29 Last Admin: 01/05/24 08:53 Dose: Not Given Documented By: TERESA Insulin Glargine (Lantus Per Unit Charge) 53 units SC DAILY [facility]ANE Stop: 01/05/24 09:01 Last Admin: 01/05/24 09:20 Dose: 53 units Documented By: TERESA Co-signed By: GAB Montelukast Sodium (Montelukast Sodium 10 Mg Tablet) 10 mg PO ONE ONE Stop: 01/05/24 01:31 Last Admin: 01/05/24 01:48 Dose: 10 mg Documented By: KOKO Pantoprazole Sodium (Pantoprazole 40 Mg Tab) 40 mg PO DAILY [facility] Stop: 02/04/24 08:59 Last Admin: 01/05/24 09:36 Dose: Not Given Documented By: TERESA Trazodone HCl (Trazodone Hcl 50 Mg Tab) 150 mg PO ONE ONE Stop: 01/05/24 01:31 Last Admin: 01/05/24 01:47 Dose: 150 mg Documented By: KOKO Imaging Data Radiologist's Impression: Foot X-Ray 01/04/24 17:59 XR foot RT min 3V routine CLINICAL HISTORY: injury 1 wk ago, bruising swelling, metatarsals COMPARISON: Right foot CT and right foot radiographs October 25, 2018. FINDINGS: A mildly displaced fracture within the base of the right first metatarsal is noted. This is age indeterminate although probably subacute to chronic. No additional fractures within the right foot are present. Alignment of the tarsometatarsal joints appears anatomic. Dorsal forefoot soft tissue swelling is noted on lateral projection. 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 IMPRESSION: 1. Mildly displaced fracture within the base of the right first metatarsal. Although age indeterminate, the appearance favors a subacute to chronic fracture. 2. No additional fractures within the right foot. 3. Dorsal foot soft tissue swelling. ACT 112: Negative or not required by law. Electronically signed by: Israel Oliva M.D. 01/04/2024 6:[address] 01/04/24 17:59 Exam(s): CT HEAD Without Contrast EXAM: CT Head Without Intravenous Contrast CLINICAL HISTORY: Reason for exam: fall 1 wk ago w head injury. TECHNIQUE: Axial computed tomography images of the head/brain without intravenous contrast. CTDI is 78.81 mGy and DLP is 813.12 mGy-cm. Automated exposure control was utilized for the study. A dose lowering technique was utilized adhering to the principles of ALARA. COMPARISON: 12/05/2023 FINDINGS: Artifacts: Images are degraded by motion artifact. Brain: No hemorrhage, extra-axial fluid collection, mass effect, or edema. Ventricles: Unremarkable. Bones/joints: Unremarkable. No fracture. Soft tissues: Unremarkable. Sinuses: No acute sinusitis. Mastoid air cells: Unremarkable as visualized. IMPRESSION: 1. No acute intracranial abnormality. Electronically signed by: Domenic Temple MD 01/04/24 20:30 PM Discharge Plan Visit Data Chief Complaint: Foot Injury/Pain Stated Complaint: RT FOOT ED Provider: Lakeisha Mckeon Discharge Problem: Fracture of right foot, Fall, Ambulatory dysfunction Patient Disposition: Admitted As Inpatient Discharge Instructions Interventions: ED Discharge Assessment Last Done: 01/05/24 00:37
[2024-01-04] MEDS: ACETAMINOPHEN 1,000 MG/100 ML VIAL IV STA (22:40)
--- NOTE | 2024-01-04 22:59 | History & Physical Report ---
Date of Service January 04, 2024 Assessment & Plan (1) Fracture of right foot: (2) Fall: (3) Hyperlipidemia: (4) GERD (gastroesophageal reflux disease): (5) Frequent falls: (6) Asthma: (7) [place]'s syndrome: (8) Depression: (9) Diabetes: Plan Fracture of right first MTP/ambulatory dysfunction/frequent falls- Patient unable to walk due to the pain, Her history, happened after she fell about 1 week ago Patient had frequent falls, and had been discharged to [facility] after admission 12/09/2023 Will consult physical therapy to assess for return to [facility] Acetaminophen 650 mg by mouth every 6 hours as needed for mild pain or fever Tramadol 50 mg by mouth every 4 hours as needed for moderate pain Asthma- Continue usual inhalers, Trelegy Ellipta, montelukast and as needed DuoNebs Diabetes mellitus- Hold metformin Continue glargine adjusted from Toujeo Placed on Accu-Cheks with NovoLog SSI History of Present Illness Chief Complaint: The patient presents to the emergency department due to pain in her right foot that occurred when she fell about a week ago, and has had significant difficulty getting with her walker Primary Care Provider: Chrissy Henry DO The patient is a 68-year-old female with a past including diabetes mellitus, closed L1 compression fracture, gait abnormality, diabetes mellitus, anemia, Cu shing syndrome, GERD, chronic ischemic heart disease, insomnia, vitamin D deficiency, NIGHAT, and history of frequent falls. The patient presents to the emergency department due to persistent pain in her right foot causing her to hobble around when she walks with her walker, that occurred after a ground-level fall about 1 week ago. Her most recent admission to [facility] was from 12/04-12/09/2023, where she was then discharged to [facility]. She feels she needs to return to [facility] again due to her inability to walk well with her right foot pain Allergies Allergy/AdvReac Type Severity Reaction Status Date / Time cefaclor Allergy Severe HIVES, Verified 12/22/23 10:05 HARD TIME BREATHING Penicillins Allergy Severe THROAT Verified 12/22/23 10:05 SWELLS yellow dye Allergy Severe DIFFICULTY Verified 12/22/23 10:05 BREATHING adhesive Allergy Intermediate WELTS ON Verified 12/22/23 10:05 SKIN fluticasone Allergy Intermediate HARD OF Verified 12/22/23 10:05 BREATHING insulin lispro Allergy Intermediate HIVES Verified 12/22/23 10:05 milk Allergy Intermediate HARD OF Verified 12/22/23 10:05 BREATHING phenol Allergy Intermediate HIVES Verified 12/22/23 10:05 salmeterol Allergy Intermediate HARD OF Verified 12/22/23 10:05 BREATHING fluoxetine Allergy Mild UNKNOWN Verified 12/22/23 10:05 iodine Allergy Mild Rash Verified 12/22/23 10:05 Iodine and Iodide Containing Allergy Mild RASH Verified 12/22/23 10:05 Produc atorvastatin [From Lipitor] Allergy Unknown Unknown Verified 12/22/23 10:05 Cephalosporins Allergy Unknown UNKNOWN Verified 12/22/23 10:05 citalopram Allergy Unknown UNKNOWN Verified 12/22/23 10:05 clarithromycin [From Biaxin] Allergy Unknown Unknown Verified 12/22/23 10:05 duloxetine [From Cymbalta] Allergy Unknown Unknown Verified 12/22/23 10:05 escitalopram [From Lexapro] Allergy Unknown Unknown Verified 12/22/23 10:05 ezetimibe [From Vytorin] Allergy Unknown Unknown Verified 12/22/23 10:05 feathers Allergy Unknown ALLERGIC Verified 12/22/23 10:05 RX "SOMETHING WEIRD" gatifloxacin [From Tequin] Allergy Unknown Unknown Verified 12/22/23 10:05 guaifenesin Allergy Unknown UNKNOWN Verified 12/22/23 10:05 insulin lispro protamine Allergy Unknown Unknown Verified 12/22/23 10:05 [From Humalog Mix] Macrolide Antibiotics Allergy Unknown UNKNOWN Verified 12/22/23 10:05 mold Allergy Unknown Unknown Verified 12/22/23 10:05 moxifloxacin [From Avelox] Allergy Unknown Unknown Verified 12/22/23 10:05 paroxetine [From Paxil] Allergy Unknown Unknown Verified 12/22/23 10:05 phenylephrine Allergy Unknown UNKNOWN Verified 12/22/23 10:05 phenylpropanolamine Allergy Unknown UNKNOWN Verified 12/22/23 10:05 Quinolones Allergy Unknown UNKNOWN Verified 12/22/23 10:05 rosuvastatin [From Crestor] Allergy Unknown Unknown Verified 12/22/23 10:05 simvastatin [From Vytorin] Allergy Unknown Unknown Verified 12/22/23 10:05 Sulfa (Sulfonamide Allergy Unknown Unknown Verified 12/22/23 10:05 Antibiotics) Tetracyclines Allergy Unknown Unknown Verified 12/22/23 10:05 levofloxacin AdvReac Intermediate SEVERE Verified 12/22/23 10:05 NAUSEA house dust AdvReac Unknown Unknown Verified 12/22/23 10:05 insulin aspart AdvReac Unknown Unknown Verified 12/22/23 10:05 [From Novolog U-100 Insulin aspart] Home Medications Medication Instructions Recorded Confirmed Type inhalational spacing device #1 ea 01/01/19 12/22/23 History (Aerochamber Plus Z Stat spacer) insulin admin supplies #1 ea 01/01/19 12/22/23 History lancets 33 gauge (OneTouch Delica #100 ea 01/01/19 12/22/23 History Plus Lancet) multivitamin (Multiple Vitamins 1 tab PO DAILY 01/01/19 01/04/24 History tablet) pen needle, diabetic 32 gauge x #50 ea 01/01/19 12/22/23 History 1/4" (Novofine 32) fluticasone furoate 100 1 inh inhalation DAILY #3 ea 04/13/23 01/04/24 Rx mcg-vilanterol 25 mcg/dose inhalation powder (Breo Ellipta) lorazepam 0.5 mg tablet 0.5 - 1 mg (1 - 2 x 0.5 mg) PO 04/13/23 01/04/24 Rx DAILY PRN anxiety #30 tabs pen needle, diabetic 31 gauge x #100 ea 04/28/23 12/22/23 Rx 3/16" (BD Ultra-Fine Mini Pen Needle) Ventolin HFA 90 mcg/actuation 1 inh inhalation QID PRN shortness 07/14/23 01/04/24 Rx aerosol inhaler (albuterol sulfate) of breath or wheezing #18 grams rragbcn-ddpxpaxiflgok-xfeoszdr 250 2 tab PO QAM PRN headache #100 tabs 07/14/23 01/04/24 Rx mg-250 mg-65 mg tablet (Excedrin Migraine) blood sugar diagnostic #100 ea 07/14/23 12/22/23 Rx bupropion HCl 300 mg 24 hr tablet, 300 mg PO QPM #90 tabs 07/14/23 01/04/24 Rx extended release cyanocobalamin (vitamin B-12) 1,000 mcg PO DAILY #90 tabs 07/14/23 01/04/24 Rx 1,000 mcg tablet famotidine 40 mg tablet 40 mg PO BID #180 tabs 07/14/23 01/04/24 Rx ipratropium 0.5 mg-albuterol 3 mg 3 ml inhalation QID PRN wheezing 07/14/23 01/04/24 Rx (2.5 mg base)/3 mL nebulization #90 mL soln levothyroxine 137 mcg tablet 137 mcg PO DAILY #90 tabs 07/14/23 01/04/24 Rx pantoprazole 40 mg tablet,delayed 40 mg PO DAILY #90 tabs 07/14/23 01/04/24 Rx release blood sugar diagnostic (OneTouch #100 ea 09/22/23 12/22/23 Rx Verio test strips) blood-glucose meter (OneTouch #1 ea 09/22/23 12/22/23 Rx Verio Flex Meter) blood sugar diagnostic (True #100 ea 09/30/23 12/22/23 Rx Metrix Glucose Test Strip) blood-glucose meter (True Metrix #1 ea 09/30/23 12/22/23 Rx Glucose Meter) metformin 500 mg tablet,extended 500 mg PO DAILY 10/14/23 01/04/24 History release 24 hr montelukast 10 mg tablet 10 mg PO QPM 12/05/23 01/04/24 History trazodone 150 mg tablet 150 - 300 mg PO HS 12/05/23 01/04/24 History calcitonin (salmon) 200 1 spray NA DAILY #0 mL 12/09/23 01/04/24 Rx unit/actuation nasal spray polyethylene glycol 3350 17 gram 17 g PO BID #0 ea 12/09/23 01/04/24 Rx oral powder packet (Miralax) Oxygen Home 12/21/23 12/21/23 History diphenhydramine HCl 25 mg capsule 25 mg PO ONCE PRN itching #0 caps 12/22/23 01/04/24 Rx (Benadryl) tramadol 50 mg tablet 50 mg PO Q4H PRN pain #30 tabs 12/22/23 01/04/24 Rx insulin glargine U-300 conc 300 72 unit (0.24 mL) subcut DAILY #24 12/25/23 01/04/24 Rx unit/mL (3 mL) subcutaneous pen mL (Toujeo Max U-300 SoloStar) pen needle, diabetic 31 gauge x #100 ea 12/25/23 12/25/23 Rx 3/16" (BD Ultra-Fine Mini Pen Needle) cholecalciferol (vitamin D3) 25 5,000 unit PO QAM 01/04/24 01/04/24 History mcg (1,000 unit) capsule docusate sodium 100 mg capsule 100 mg PO QAM 01/04/24 01/04/24 History hydrocortisone 1 % topical ointment 1 applic EXT BID PRN Hemorrhoids 01/04/24 01/04/24 History ondansetron 4 mg disintegrating 4 mg PO Q4H PRN Nausea 01/04/24 01/04/24 History tablet Past Med/Surg History Problem List (Updated 01/05/24 @ 05:21 by David Snyder MD) Diabetes Depression Fall (Acute) Fracture of right foot (Acute) Constipation Pruritus Hyperglycemia due to diabetes mellitus (Acute) Closed compression fracture of L1 vertebra (Acute 12/05/23) from a fall-admitted to [facility] for rehab placement per ED report Gait abnormality Left knee DJD Shoulder pain Encounter for pre-operative examination Pending covid test. Poorly controlled diabetes mellitus Microcytic anemia Obesity Anemia Acute respiratory failure with hypoxia Hyperlipidemia (Chronic) GERD (gastroesophageal reflux disease) (Chronic) Memphis's syndrome (Chronic) Chronic sinusitis, unspecified (Chronic) Chronic ischemic heart disease, unspecified (Chronic) Tubular adenoma of colon (Chronic) SNHL (sensorineural hearing loss) (Chronic) Persistent insomnia (Chronic) Migraine, unspecified, not intractable, without status migrainosus (Chronic) Chronic fatigue syndrome (Chronic) Chronic constipation (Chronic) Asthma (Chronic) Arthritis (Acute) Vitamin D deficiency (Acute) Bronchitis (Acute) Obstructive sleep apnea of adult (Chronic) 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) Frequent falls (Chronic) Medical History Polymyalgia rheumatica Acute exacerbation of chronic obstructive pulmonary disease Surgical History History of surgery on arm Left ORIF humerus H/O prior ablation treatment endometrosis History of ear surgery myringotomy right History of adenoidectomy H/O breast surgery biopsy 1989, cyst removal times 3 Family History Grandfather (Maternal) Myocardial infarction Mother Anxiety Depression Lung disease Sinusitis Father Stroke Allergies Social History Smoking Status: Former smoker Tobacco Type: Cigarettes Second Hand Exposure: Yes ( smoked); Hx Alcohol Use: No Hx Substance Use: Yes Last Used Substance: Unknown Substance Use Type Other:: edibles Preferred Language: Upper Sorbian Communication Ability: Effective Visual Impairment: Limited Hearing Ability: Hard of Hearing [employer] Deputy Director Required: No Beliefs That Will Affect Care: None marital status: / Current Living Situation: Alone current occupational status: retired Feels Safe at Home: Yes caffeine: Yes Dental Care, Regularly: No Physical Activity Frequency: Does not Exercise Seatbelt Use: always (takes bus) Assistive Devices: Denture - Upper, Denture - Lower, Oxygen - at Night and Walker Review of Systems Review of Systems: The patient denies chest pain, palpitations, shortness of breath, dyspnea on exertion, cough, lower extremity swelling, sore throat, fevers, chills, sweats, weight change, fatigue, nausea, vomiting, diarrhea , constipation, abdominal pain, pelvic pain, blood in urine or stool, dysuria, urinary frequency or urgency, lightheadedness, dizziness, headache, memory loss, loss of consciousness, rash, abnormal bruising or bleeding, focal or generalized weakness, numbness or tingling in arms or legs, generalized arthralgias or myalgias, back or neck pain, or night sweats. The review of systems is otherwise negative other than for that already noted above, and at least 10 systems have been reviewed. Physical Exam Physical Exam: The patient is awake, alert and oriented 3, well developed and well nourished, normocephalic and atraumatic, lying in bed and in no acute distress. HEENT--PERRL, EOMI, mucous membranes and oropharynx normal Neck--supple. No JVD. No bruits. Thyroid normal, trachea midline, no adenopathy. Heart--normal S1 and S2. No murmurs, rubs or gallops. Lungs--clear bilaterally, no respiratory distress, no accessory muscle use. Abdomen--normal bowel sounds and soft. Nontender. Nondistended, no hernias or masses, no organomegaly. Extremities--no cyanosis or clubbing. No edema. Dermatologic--normal skin turgor, normal color, no abnormal lymph nodes, no rash. Neurologic--cranial nerves II through XII grossly intact. Rheumatologic--normal range of motion. Psychiatric--normal affect. Results & Data Results & Data Vital Signs (Past 12 Hours) Vital Signs Temp Pulse Pulse Resp BP BP Pulse Ox 01/04/24 21:00 81 18 165/76 H 98 01/04/24 17:52 36.9 C 94 H 18 117/75 95 O2 Del Method 01/04/24 21:00 Room Air 01/04/24 17:52 Room Air Laboratory Results Laboratory Results WBC 5.61 K/ul (4.8-10.8) 01/04/24 18:55 RBC 4.32 M/uL (4.20-5.40) 01/04/24 18:55 Hgb 11.2 g/dl (12.0-16.0) L 01/04/24 18:55 Hct 36.2 % (37.0-47.0) L 01/04/24 18:55 MCV 83.8 fL (80.0-100.0) 01/04/24 18:55 MCH 25.9 pg (25.0-34.0) 01/04/24 18:55 MCHC 30.9 g/dL (32.0-36.0) L 01/04/24 18:55 RDW Std Deviation 52.4 fL (36.4-46.3) H 01/04/24 18:55 RDW Coeff of [place] 17.3 % (11.5-14.5) H 01/04/24 18:55 Plt Count 194 K/uL (130-400) 01/04/24 18:55 MPV 10.9 fL (9.4-12.4) 01/04/24 18:55 Immature Gran % (Auto) 0.2 % 01/04/24 18:55 Neut % (Auto) 54.7 % 01/04/24 18:55 Lymph % (Auto) 31.0 % 01/04/24 18:55 Mcmullen % (Auto) 9.8 % 01/04/24 18:55 Eos % (Auto) 3.6 % 01/04/24 18:55 Baso % (Auto) 0.7 % 01/04/24 18:55 Neut # (Auto) 3.07 K/uL (1.40-6.50) 01/04/24 18:55 Lymph # (Auto) 1.74 K/uL (1.20-3.40) 01/04/24 18:55 Mcmullen # (Auto) 0.55 K/uL (0.11-0.59) 01/04/24 18:55 Eos # (Auto) 0.20 K/uL (0.00-0.50) 01/04/24 18:55 Baso # (Auto) 0.04 K/uL (0.00-0.20) 01/04/24 18:55 Immature Gran # (Auto) 0.01 K/uL (0.01-0.20) 01/04/24 18:55 Sodium 135 mmol/L (136-145) L 01/04/24 18:55 Potassium 3.7 mmol/L (3.5-5.1) 01/04/24 18:55 Chloride 100 mmol/L (98-107) 01/04/24 18:55 Carbon Dioxide 28 mmol/L (21-32) 01/04/24 18:55 Anion Gap 7 (3-11) 01/04/24 18:55 BUN 7 mg/dl (6-23) 01/04/24 18:55 Creatinine 0.53 mg/dl (0.6-1.2) L 01/04/24 18:55 Est Cr Clr Drug Dosing Not Reportable 01/04/24 18:55 Est GFR ( Amer) 114.7 ml/min 01/04/24 18:55 Est GFR (Non-Af Amer) 98.9 ml/min 01/04/24 18:55 BUN/Creatinine Ratio 13.2 (10-20) 01/04/24 18:55 Glucose 177 mg/dl (70-99(Fasting)) H 01/04/24 18:55 POC Glucose 141 mg/dl (70-99) H 01/05/24 00:38 Calcium 9.1 mg/dl (8.6-10.3) 01/04/24 18:55 Total Bilirubin 0.6 mg/dl (0.2-1.0) 01/04/24 18:55 AST 25 U/L (13-39) 01/04/24 18:55 ALT 9 U/L (7-52) 01/04/24 18:55 Alkaline Phosphatase 93 U/L (34-104) 01/04/24 18:55 Total Protein 7.9 gm/dl (6.0-8.3) 01/04/24 18:55 Albumin 3.9 gm/dl (3.4-5.0) 01/04/24 18:55 Globulin 4.0 gm/dl (2.5-4.0) 01/04/24 18:55 Albumin/Globulin Ratio 1.0 (0.9-2) 01/04/24 18:55 Impressions Foot X-Ray 01/04/24 17:59 XR foot RT min 3V routine CLINICAL HISTORY: injury 1 wk ago, bruising swelling, metatarsals COMPARISON: Right foot CT and right foot radiographs October 25, 2018. FINDINGS: A mildly displaced fracture within the base of the right first metatarsal is noted. This is age indeterminate although probably subacute to chronic. No additional fractures within the right foot are present. Alignment of the tarsometatarsal joints appears anatomic. Dorsal forefoot soft tissue swelling is noted on lateral projection. 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 IMPRESSION: 1. Mildly displaced fracture within the base of the right first metatarsal. Although age indeterminate, the appearance favors a subacute to chronic fracture. 2. No additional fractures within the right foot. 3. Dorsal foot soft tissue swelling. ACT 112: Negative or not required by law. Electronically signed by: Israel Oliva M.D. 01/04/2024 6:[address] 01/04/24 17:59 Exam(s): CT HEAD Without Contrast EXAM: CT Head Without Intravenous Contrast CLINICAL HISTORY: Reason for exam: fall 1 wk ago w head injury. TECHNIQUE: Axial computed tomography images of the head/brain without intravenous contrast. CTDI is 78.81 mGy and DLP is 813.12 mGy-cm. Automated exposure control was utilized for the study. A dose lowering technique was utilized adhering to the principles of ALARA. COMPARISON: 12/05/2023 FINDINGS: Artifacts: Images are degraded by motion artifact. Brain: No hemorrhage, extra-axial fluid collection, mass effect, or edema. Ventricles: Unremarkable. Bones/joints: Unremarkable. No fracture. Soft tissues: Unremarkable. Sinuses: No acute sinusitis. Mastoid air cells: Unremarkable as visualized. IMPRESSION: 1. No acute intracranial abnormality. Electronically signed by: Domenic Temple MD 01/04/24 20:30 PM Code Status & VTE Plan Code Status DNR/DNI VTE Prophylaxis Plan VTE Prophylaxis will be ordered: Yes PG Care Time/CCT Total # of Minutes Spent Total Time Spent with Patient: Total time spent is greater than 50% in coordination of care (as documented) at patient's floor/unit and/or counseling patient: Coding Level of Care Code 74128 INT INP/OBS CARE 3/75MIN Diagnoses Fracture of right foot S92.901A Fall W19.XXXA Hyperlipidemia E78.5 GERD (gastroesophageal reflux disease) K21.9 Frequent falls R29.6 Mild intermittent asthma without complication J45.20 Asthma complication type: uncomplicated Asthma persistence: intermittent Asthma severity: mild Memphis's syndrome E24.9 Dysthymia F34.1 Depression Type: dysthymia Type 2 diabetes mellitus with hyperglycemia, without long-term current use of insulin E11.65 Diabetes mellitus complication status: with hyperglycemia Diabetes mellitus buttermaker helper insulin use: without correction use Diabetes mellitus type: type 2 (6) Asthma Asthma complication type: uncomplicated Asthma persistence: intermittent Ast hma severity: mild Qualified Code(s): J45.20 - Mild intermittent asthma, uncomplicated (8) Depression Depression Type: dysthymia Qualified Code(s): F34.1 - Dysthymic disorder (9) Diabetes Diabetes mellitus complication status: with hyperglycemia Diabetes mellitus correction insulin use: without correction use Diabetes mellitus type: type 2 Qualified Code(s): E11.65 - Type 2 diabetes mellitus with hyperglycemia
[2024-01-05] MEDS ORDERED: CARBOHYDRATES FOR HYPOGLYCEMIA PO PRN (00:51)
[2024-01-05] MEDS ORDERED: GLUCAGON FOR INJ 1 MG VIAL SQ PRN (00:51)
[2024-01-05] MEDS ORDERED: LORazepam 0.5 MG TAB PO PRN (00:51)
[2024-01-05] MEDS ORDERED: ONDANSETRON 4 MG OD TAB PO PRN (00:51)
[2024-01-05] MEDS ORDERED: DEXTROSE 50% 50 ML SYRINGE IV PRN (00:51)
[2024-01-05] MEDS ORDERED: NON-FORMULARY MEDICATION (Aspirin-Acetaminophen-Caffeine [Excedrin Migraine] 250-250-65 mg PO PRN (00:51)
[2024-01-05] MEDS ORDERED: GLUCOSE 10 TAB/TUBE PO PRN (00:51)
[2024-01-05] MEDS ORDERED: GLUCOSE 40% GEL 15 GM TUBE PO PRN (00:51)
[2024-01-05] MEDS ORDERED: ALBUT/IPRATROP 3MG/0.5MG NEB 3 ML VIAL INH PRN (00:51)
[2024-01-05] MEDS: traMADol HCL 50 MG TABLET PO PRN (01:05)
[2024-01-05] MEDS: traZODone HCL 50 MG TAB PO ONE (01:47)
[2024-01-05] MEDS: buPROPion XL 300 MG TABCR PO ONE (01:48)
[2024-01-05] MEDS: MONTELUKAST SODIUM 10 MG TABLET PO ONE (01:48)
[2024-01-05] MEDS: LEVOTHYROXINE SODIUM 137 MCG TABLET PO SCH (05:48)
[2024-01-05 06:24] LABS: Basophils # (auto) 0.03 K/uL (0.00-0.20); Basophils % (auto) 0.7 %; Eosinophils # (auto) 0.16 K/uL (0.00-0.50); Eosinophils % (auto) 3.6 %; Hematocrit (blood only) 32.8 % (37.0-47.0); Hemoglobin 10.2 g/dl (12.0-16.0); Immature Granulocytes # (auto) 0.01 K/uL (0.01-0.20); Immature Granulocytes % (auto) 0.2 %; Lymphocytes # (auto) 1.74 K/uL (1.20-3.40); Lymphocytes % (auto) 39.5 %; Mean Corpuscular Hemoglobin 26.2 pg (25.0-34.0); Mean Corpuscular Hgb Conc 31.1 g/dL (32.0-36.0); Mean Corpuscular Volume 84.3 fL (80.0-100.0); Mean Platelet Volume 10.8 fL (9.4-12.4); Monocytes # (auto) 0.44 K/uL (0.11-0.59); Neutrophils # (auto) 2.02 K/uL (1.40-6.50); Platelet Count 178 K/uL (130-400); RDW Coefficient of Variation 17.6 % (11.5-14.5); RDW Standard Deviation 54.6 fL (36.4-46.3); Red Blood Count 3.89 M/uL (4.20-5.40)
[2024-01-05 06:42] LABS: Albumin Level 3.2 gm/dl (3.4-5.0); BUN Creatinine Ratio 12.2 (10-20); Calcium 8.6 mg/dl (8.6-10.3); Creatinine Clr Calc Pharmacy 129.2 ml/min; Est GFR (African American) 117.7 ml/min; Est GFR (Non-African American) 101.5 ml/min; Magnesium 1.6 mg/dl (1.7-2.4); Phosphorus 4.7 mg/dl (2.5-4.9); Potassium 3.7 mmol/L (3.5-5.1)
--- NOTE | 2024-01-05 07:02 | Ultrasound Report ---
ULTRASOUND RIGHT LOWER EXTREMITY VENOUS CLINICAL HISTORY: RIght foot injury/pain. COMPARISON STUDY: No priors. TECHNIQUE: Real-time, grayscale, and color Doppler sonography of the deep veins of the right lower ex tremity was performed from the inguinal crease to the calf. Compression and augmentation were utilize d. FINDINGS: There is no sonographic evidence of deep venous thrombosis identified in the right lower ex tremity. The common femoral, superficial femoral, and popliteal veins are patent and normally eloise sible. The greater saphenous vein and the profunda femoris vein at the junction with the common femor al vein are clear. The visualized calf veins are patent. IMPRESSION: There is no sonographic evidence of deep venous thrombosis identified in the right lower extremity. ACT 112: Negative or not required by law. Electronically signed by: Lamont Land M.D. 01/05/2024 7:00 AM
--- NOTE | 2024-01-05 07:18 | XRay Report ---
RIGHT ANKLE 3 VIEWS CLINICAL HISTORY: Right ankle injury. Fall. FINDINGS: 3 views of the right ankle are obtained. No prior studies are available for comparison at t he time of dictation. The skeletal structures are osteopenic. There is no radiographic evidence of ac [place] fracture at the ankle joint. Fracture at the base of the first metatarsal is better seen on today 's foot x-rays. The ankle mortise is intact. There is no significant joint effusion. Tiny dorsal and plantar heel spurs are observed. Soft tissue edema is noted throughout the right leg. IMPRESSION: 1. Soft tissue swelling with no fracture seen at the ankle joint. 2. Fracture at the base of the first metatarsal is better seen on today's foot x-rays. Electronically signed by: Lamont Land M.D. 01/05/2024 7:17 AM
[2024-01-05 07:29] LABS: Estimated Average Glucose 229 mg/dl; Hemoglobin A1C 9.6 % (4.5-5.6)
[2024-01-05 08:20] LABS: Appearance Urine Clear (Clear); Bacteria Urine Automated None Seen (None Seen); Bilirubin Urine Negative (Negative); Blood Urine Negative (Negative); Cast Urine Automated 0-2 /lpf (0-2); Color Urine Yellow; Epithelial Cell Urine Auto 0-2 /hpf (0-2); Glucose Urine UA Trace (Negative); Ketones Urine Negative (Negative); Leukocyte Esterase Urine Trace (Negative); Nitrite Urine Negative (Negative); Protein Urine Negative (Negative); RBC Urine Automated 0-2 /hpf (0-2); Urobilinogen Urine Negative (Negative); WBC Urine Automated 0-5 /hpf (0-5)
[2024-01-05] MEDS: INSULIN ASPART PER UNIT CHARGE SC SCH (08:53)
[2024-01-05] MEDS: HEPARIN SOD 5,000 UNIT/0.5 ML VIAL SQ SCH (08:57)
[2024-01-05] MEDS: CHOLECALCIFEROL 125 MCG (5,000 UNITS) TAB PO SCH (08:59)
[2024-01-05] MEDS: CYANOCOBALAMIN (B-12) 500 MCG TABLET PO SCH (08:59)
[2024-01-05] MEDS: POLYETHYLENE (MIRALAX) 17 GM PACK PO SCH (09:00)
[2024-01-05] MEDS: MULTIVITAMIN TAB PO SCH (09:00)
[2024-01-05] MEDS: DOCUSATE SODIUM 100 MG CAP PO SCH (09:00)
[2024-01-05] MEDS: FAMOTIDINE 40 MG TABLET PO SCH (09:00)
[2024-01-05] MEDS: FLUTICASONE/VILANTEROL 100/25MCG 14 PUFFS/INHALER INH SCH (09:01)
[2024-01-05] MEDS: CALCITONIN SALMON NA 200 IU/AC 3.7 ML BTL SCH (09:01)
[2024-01-05] MEDS: LANTUS PER UNIT CHARGE SC SCH (09:20)
[2024-01-05] MEDS ORDERED: Nursing to Pharmacy Communication SCH (09:30)
[2024-01-05] MEDS: PANTOprazole 40 MG TAB PO SCH ×2 (09:36→20:58)
[2024-01-05] MEDS: metFORMIN HCL ER 500 MG TABCR PO SCH (10:41)
--- NOTE | 2024-01-05 12:25 | Hospitalist Progress Note ---
Date of Service January 05, 2024 Assessment & Plan (1) Fracture of right foot: Plan: Right first metatarsal fracture at the base. Nonweightbearing at this time. Podiatry consultation requested (2) Fall: Plan: Mechanical. She suffered a right first metatarsal fracture at the base. OT and PT assessments requested. She probably will need to return to [facility] (3) Hyperlipidemia: Plan: Stable. Continue current medical management (4) GERD (gastroesophageal reflux disease): Plan: Stable. Continue current medical management (5) Frequent falls: Plan: OT and PT assessments requested. She probably will need to return to [facility] (6) Asthma: Plan: Stable. Continue current medical management (7) Diabetes: Plan: ADA diet. She refuses NovoLog sliding scale coverage. Metformin ER has been restarted. Plan Await podiatry consultation and OT and PT evaluations. She probably will need to return to [facility]. Admission and Anticipated Discharge Date Admission Date: January 04, 2024 Subjective Alert and oriented. No distress. Right foot reveals extensive bruising from the underlying right first metatarsal fracture. Podiatry consultation requested. Venous Doppler of the right lower extremity is negative for DVT. It appears she will have to return to [facility]. She refuses to take NovoLog insulin and her metformin ER has been restarted. Review of Systems 2 Review of Systems: Constitutional-no fever or chills ENT-no blurred vision, no double vision, no epistaxis, no sore throat Respiratory-no cough, no wheezing, no shortness of breath Cardiac-no palpitations, no chest pain, no syncope GI-no nausea, vomiting, diarrhea, melena, hematochezia -no urinary retention, no urinary incontinence, no dysuria, no hematuria Musculoskeletal-right foot pain at rest and with weightbearing Skin-extensive ecchymoses right foot Neuro-no isolated weakness, no paresthesia Psych-no depression, no anxiety Physical Exam 2 Physical Exam: General-alert and oriented x3, no fever, no chills HEENT-head atraumatic and normocephalic, pupils equal and reactive to light, extraocular muscles intact Neck-no lymphadenopathy or thyromegaly, trachea midline Chest-clear to auscultation. No rales, wheezing or rhonchi Cardiac-regular rate and rhythm, normal S1 and S2 Abdomen-normal bowel sounds, no hepatosplenomegaly Extremities-extensive ecchymoses noted right foot Neuro-cranial nerves II through XII intact, motor and sensory function within normal limits, strength symmetrical, no focal deficits Psych-normal affect, normal mood Results & Data Results & Data Vital Signs (Past 12 Hours) Vital Signs Temp Pulse Resp BP Pulse Ox O2 Del Method O2 Flow Rate 01/05/24 00:55 Nasal Cannula 2 01/05/24 00:55 36.5 C 80 16 137/73 94 Room Air Laboratory Results 01/05/24 05:50 01/05/24 05:50 PG Care Time/CCT Total # of Minutes Spent Total Time Spent with Patient: Total time spent is greater than 50% in coordination of care (as documented) at patient's floor/unit and/or counseling patient: Coding Level of Care Code 77399 SUB INP/OBS CARE 3/50MIN Diagnoses Fracture of right foot S92.901A Fall W19.XXXA Hyperlipidemia E78.5 GERD (gastroesophageal reflux disease) K21.9 Frequent falls R29.6 Mild intermittent asthma without complication J45.20 Asthma severity: mild Asthma persistence: intermittent Asthma complication type: uncomplicated Type 2 diabetes mellitus with hyperglycemia, without long-term current use of insulin E11.65 Diabetes mellitus type: type 2 Diabetes mellitus usp insulin use: without usp use Diabetes mellitus complication status: with hyperglycemia (6) Asthma Asthma severity: mild Asthma persistence: intermittent Asthma complication type: uncomplicated Qualified Code(s): J45.20 - Mild intermittent asthma, uncomplicated (7) Diabetes Diabetes mellitus type: type 2 Diabetes mellitus intermediate card tender insulin use: w [facility] usp use Diabetes mellitus complication status: with hyperglycemia Qualified Code(s): E11.65 - Type 2 diabetes mellitus with hyperglycemia
--- NOTE | 2024-01-05 13:43 | Orthopedic Consultation ---
Date of Consultation January 05, 2024 Assessment & Plan (1) Fracture of right foot: Patient has a first metatarsal fracture of her right foot. This appears to be potentially old but she states it happened last week. Will treat as an acute fracture due to the amount of edema and ecchymosis that she has present in the foot. She also may have a coinciding right ankle sprain. She may do range of motion of the toes and ankle as tolerated. We will place her in a fracture boot. She requested a short boot as she has had 1 of these in the past. She states they do feel very heavy for her but I think it is necessary to incorporate the foot and the ankle with immobilization especially with weightbearing. She can weight-bear as tolerated in the boot with most of her weight on her heel. She can take the boot off to apply ice and work on range of motion. She only needs the boot on when out of bed with ambulation. Recommend PT and OT while she is here in the hospital. She understands and agrees with the plan. All questions were answered. I will recheck on her tomorrow to see how she is doing getting out of bed with the boot. Approximately 30 minutes were spent chart revieweing, communication with attending physician, reviewing xrays, taking a history and performing physical exam, and discussing treatment plan. Present on Admission?: Yes Supervising Physician Co-Signing Physician Notes I, Dr. Hatch, saw and examined the patient. I discussed the management with my PA. I reviewed my PAs note and agree with the documented findings and attest to completing the substantive portion of medical decision making and plan of care I developed. I, Dr. Hatch, spent 30 minutes reviewing the chart, reading the imaging, evaluating the patient, discussing care plan I developed with the patient and my PA. RLE: Sensation to light touch unchanged. BCR < 2 sec. Able to wiggle toes and ankle. + TTP 1st metatarsal. ++ Swelling and ecchymosis ankle, foot, toes. Forefoot squeeze test caused pain at 1st metatarsal. - calf squeeze test. History of Present Illness Reason for Consultation: Right first metatarsal fracture Requesting Physician: Carlos Hatch MD Attending Physician: Ayad Vogel MD History of Present Illness Patient is a pleasant 68-year-old female who is here today in the hospital with complaints of right foot pain. She "fractured her back approximately a month ago". She has been getting in-home physical therapy. She states that she fell at home she thinks maybe Thursday. She has been getting in-home physical therapy and Occupational Therapy since her back fracture. She thinks that she fell right onto the right foot. She denies any previous right foot pain. 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 Since then it has been very hard to weight-bear. She has been using a walker but states that she does not typically use any assistive device. Due to the bruising and swelling she was concerned for more serious injury. She presented to the emergency room. She had x-rays of the foot and ankle which showed a right first metatarsal fracture, age-indeterminate. She has not been treated by the anyone else for this fracture. She states that she is a diabetic. Denies any numbness or tingling in the foot. Denies any history of peripheral neuropathy. She has been icing and elevating. She states is painful mainly across the top of her foot. Denies any other injuries. 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 Allergies Allergy/AdvReac Type Severity Reaction Status Date / Time avocado Allergy Severe Difficulty Verified 01/05/24 12:49 Breathing cefaclor Allergy Severe HIVES, Verified 12/22/23 10:05 HARD TIME BREATHING Penicillins Allergy Severe THROAT Verified 12/22/23 10:05 SWELLS yellow dye Allergy Severe DIFFICULTY Verified 12/22/23 10:05 BREATHING adhesive Allergy Intermediate WELTS ON Verified 12/22/23 10:05 SKIN fluticasone Allergy Intermediate HARD OF Verified 12/22/23 10:05 BREATHING insulin lispro Allergy Intermediate HIVES Verified 12/22/23 10:05 milk Allergy Intermediate HARD OF Verified 12/22/23 10:05 BREATHING phenol Allergy Intermediate HIVES Verified 12/22/23 10:05 salmeterol Allergy Intermediate HARD OF Verified 12/22/23 10:05 BREATHING fluoxetine Allergy Mild UNKNOWN Verified 12/22/23 10:05 iodine Allergy Mild Rash Verified 12/22/23 10:05 Iodine and Iodide Containing Allergy Mild RASH Verified 12/22/23 10:05 Produc atorvastatin [From Lipitor] Allergy Unknown Unknown Verified 12/22/23 10:05 Cephalosporins Allergy Unknown UNKNOWN Verified 12/22/23 10:05 citalopram Allergy Unknown UNKNOWN Verified 12/22/23 10:05 clarithromycin [From Biaxin] Allergy Unknown Unknown Verified 12/22/23 10:05 duloxetine [From Cymbalta] Allergy Unknown Unknown Verified 12/22/23 10:05 escitalopram [From Lexapro] Allergy Unknown Unknown Verified 12/22/23 10:05 ezetimibe [From Vytorin] Allergy Unknown Unknown Verified 12/22/23 10:05 feathers Allergy Unknown ALLERGIC Verified 12/22/23 10:05 RX "SOMETHING WEIRD" gatifloxacin [From Tequin] Allergy Unknown Unknown Verified 12/22/23 10:05 guaifenesin Allergy Unknown UNKNOWN Verified 12/22/23 10:05 insulin lispro protamine Allergy Unknown Unknown Verified 12/22/23 10:05 [From Humalog Mix] Macrolide Antibiotics Allergy Unknown UNKNOWN Verified 12/22/23 10:05 mold Allergy Unknown Unknown Verified 12/22/23 10:05 moxifloxacin [From Avelox] Allergy Unknown Unknown Verified 12/22/23 10:05 paroxetine [From Paxil] Allergy Unknown Unknown Verified 12/22/23 10:05 phenylephrine Allergy Unknown UNKNOWN Verified 12/22/23 10:05 phenylpropanolamine Allergy Unknown UNKNOWN Verified 12/22/23 10:05 Quinolones Allergy Unknown UNKNOWN Verified 12/22/23 10:05 rosuvastatin [From Crestor] Allergy Unknown Unknown Verified 12/22/23 10:05 simvastatin [From Vytorin] Allergy Unknown Unknown Verified 12/22/23 10:05 Sulfa (Sulfonamide Allergy Unknown Unknown Verified 12/22/23 10:05 Antibiotics) Tetracyclines Allergy Unknown Unknown Verified 12/22/23 10:05 levofloxacin AdvReac Intermediate SEVERE Verified 12/22/23 10:05 NAUSEA house dust AdvReac Unknown Unknown Verified 12/22/23 10:05 insulin aspart AdvReac Unknown Unknown Verified 12/22/23 10:05 [From Novolog U-100 Insulin aspart] Home Medications Medication Instructions Recorded Confirmed Type inhalational spacing device #1 ea 01/01/19 12/22/23 History (Aerochamber Plus Z Stat spacer) insulin admin supplies #1 ea 01/01/19 12/22/23 History lancets 33 gauge (OneTouch Delica #100 ea 01/01/19 12/22/23 History Plus Lancet) multivitamin (Multiple Vitamins 1 tab PO DAILY 01/01/19 01/04/24 History tablet) pen needle, diabetic 32 gauge x #50 ea 01/01/19 12/22/23 History 1/4" (Novofine 32) fluticasone furoate 100 1 inh inhalation DAILY #3 ea 04/13/23 01/04/24 Rx mcg-vilanterol 25 mcg/dose inhalation powder (Breo Ellipta) lorazepam 0.5 mg tablet 0.5 - 1 mg (1 - 2 x 0.5 mg) PO 04/13/23 01/04/24 Rx DAILY PRN anxiety #30 tabs pen needle, diabetic 31 gauge x #100 ea 04/28/23 12/22/23 Rx 3/16" (BD Ultra-Fine Mini Pen Needle) Ventolin HFA 90 mcg/actuation 1 inh inhalation QID PRN shortness 07/14/23 01/04/24 Rx aerosol inhaler (albuterol sulfate) of breath or wheezing #18 grams anbbjzd-tsvrcrkxmltqc-ydfzggvy 250 2 tab PO QAM PRN headache #100 tabs 07/14/23 01/04/24 Rx mg-250 mg-65 mg tablet (Excedrin Migraine) blood sugar diagnostic #100 ea 07/14/23 12/22/23 Rx bupropion HCl 300 mg 24 hr tablet, 300 mg PO QPM #90 tabs 07/14/23 01/04/24 Rx extended release cyanocobalamin (vitamin B-12) 1,000 mcg PO DAILY #90 tabs 07/14/23 01/04/24 Rx 1,000 mcg tablet famotidine 40 mg tablet 40 mg PO BID #180 tabs 07/14/23 01/04/24 Rx ipratropium 0.5 mg-albuterol 3 mg 3 ml inhalation QID PRN wheezing 07/14/23 01/04/24 Rx (2.5 mg base)/3 mL nebulization #90 mL soln levothyroxine 137 mcg tablet 137 mcg PO DAILY #90 tabs 07/14/23 01/04/24 Rx pantoprazole 40 mg tablet,delayed 40 mg PO DAILY #90 tabs 07/14/23 01/04/24 Rx release blood sugar diagnostic (OneTouch #100 ea 09/22/23 12/22/23 Rx Verio test strips) blood-glucose meter (OneTouch #1 ea 09/22/23 12/22/23 Rx Verio Flex Meter) blood sugar diagnostic (True #100 ea 09/30/23 12/22/23 Rx Metrix Glucose Test Strip) blood-glucose meter (True Metrix #1 ea 09/30/23 12/22/23 Rx Glucose Meter) metformin 500 mg tablet,extended 500 mg PO DAILY 10/14/23 01/04/24 History release 24 hr montelukast 10 mg tablet 10 mg PO QPM 12/05/23 01/04/24 History trazodone 150 mg tablet 150 - 300 mg PO HS 12/05/23 01/04/24 History calcitonin (salmon) 200 1 spray NA DAILY #0 mL 12/09/23 01/04/24 Rx unit/actuation nasal spray polyethylene glycol 3350 17 gram 17 g PO BID #0 ea 12/09/23 01/04/24 Rx oral powder packet (Miralax) Oxygen Home 12/21/23 12/21/23 History diphenhydramine HCl 25 mg capsule 25 mg PO ONCE PRN itching #0 caps 12/22/23 01/04/24 Rx (Benadryl) tramadol 50 mg tablet 50 mg PO Q4H PRN pain #30 tabs 12/22/23 01/04/24 Rx insulin glargine U-300 conc 300 72 unit (0.24 mL) subcut DAILY #24 12/25/23 01/04/24 Rx unit/mL (3 mL) subcutaneous pen mL (Toujeo Max U-300 SoloStar) pen needle, diabetic 31 gauge x #100 ea 12/25/23 12/25/23 Rx 3/16" (BD Ultra-Fine Mini Pen Needle) cholecalciferol (vitamin D3) 25 5,000 unit PO QAM 01/04/24 01/04/24 History mcg (1,000 unit) capsule docusate sodium 100 mg capsule 100 mg PO QAM 01/04/24 01/04/24 History hydrocortisone 1 % topical ointment 1 applic EXT BID PRN Hemorrhoids 01/04/24 01/04/24 History ondansetron 4 mg disintegrating 4 mg PO Q4H PRN Nausea 01/04/24 01/04/24 History tablet Patient History Medical History Polymyalgia rheumatica Acute exacerbation of chronic obstructive pulmonary disease Surgical History History of surgery on arm Left ORIF humerus H/O prior ablation treatment endometrosis History of ear surgery myringotomy right History of adenoidectomy H/O breast surgery biopsy 1989, cyst removal times 3 Family History Grandfather (Maternal) Myocardial infarction Mother Anxiety Depression Lung disease Sinusitis Father Stroke Allergies Social History Smoking Status: Former smoker Tobacco Type: Cigarettes Second Hand Exposure: Yes ( smoked); Hx Alcohol Use: No Hx Substance Use: Yes Last Used Substance: Unknown Substance Use Type Other:: edibles Preferred Language: Urdu Communication Ability: Effective Visual Impairment: Limited Hearing Ability: Hard of Hearing Recreation Superintendent Required: No Beliefs That Will Affect Care: None marital status: / Current Living Situation: Alone current occupational status: retired Feels Safe at Home: Yes caffeine: Yes Dental Care, Regularly: No Physical Activity Frequency: Does not Exercise Seatbelt Use: always (takes bus) Assistive Devices: Walker Review of Systems Review of Systems: As per HPI. Physical Exam Musculoskeletal: Exam of her right lower extremity: She has mild edema of the right foot with a large amount of ecchymosis across the dorsum of the foot and into the bottom of her ankle. She has soft tissue swelling around the ankle and the midfoot. Her toes are not edematous but do have ecchymosis. Her toes are nontender with palpation. She is able to actively move her toes and hold against resistance. She has full range of motion of the right ankle and strength of the right foot and ankle is 5/5. She is point tender with palpation along the first through fifth metatarsals. Most exquisitely tender at the base of the first metatarsal. There is no crepitation palpated. She does have some plantar ecchymosis in the arch. The heel is nontender. The plantar fascia is intact. The Achilles is intact. Calves are supple and nontender. She has no tenderness over the lateral malleolus but she does have tenderness around some soft tissue around the lateral malleolus. She is mildly tender over the tip of the medial malleolus. Negative squeeze test. Nontender of the syndesmosis. She is able to independent straight leg raise and flex her knee comfortably. No effusion to the right knee. She has some superficial scratches on the anterior aspect of the knee and look into the lower leg. Sensation seems to be normal throughout. Her pulses are 1+ at the foot and ankle. Exam of her left lower extremity: There is no evidence of trauma such as ecchymosis or erythema. She has a old superficial abrasion on the anterior aspect of her left knee. No knee effusion. Full range of motion of the ankle, toes, foot, knee and hip without discomfort. Results & Data Vital Signs (Past 12 Hours) 01/05/24 01/05/24 01/05/24 Range/Units 11:35 07:38 05:50 WBC 4.40 L (4.8-10.8) K/ul RBC 3.89 L (4.20-5.40) M/uL Hgb 10.2 L (12.0-16.0) g/dl Hct 32.8 L (37.0-47.0) % MCV 84.3 (80.0-100.0) fL MCH 26.2 (25.0-34.0) pg MCHC 31.1 L (32.0-36.0) g/dL RDW Std Deviation 54.6 H (36.4-46.3) fL RDW Coeff of [place] 17.6 H (11.5-14.5) % Plt Count 178 (130-400) K/uL MPV 10.8 (9.4-12.4) fL Immature Gran % (Auto) 0.2 % Neut % (Auto) 46.0 % Lymph % (Auto) 39.5 % [place] % (Auto) 10.0 % Eos % (Auto) 3.6 % Baso % (Auto) 0.7 % Neut # (Auto) 2.02 (1.40-6.50) K/uL Lymph # (Auto) 1.74 (1.20-3.40) K/uL [place] # (Auto) 0.44 (0.11-0.59) K/uL Eos # (Auto) 0.16 (0.00-0.50) K/uL Baso # (Auto) 0.03 (0.00-0.20) K/uL Immature Gran # (Auto) 0.01 (0.01-0.20) K/uL Sodium 136 (136-145) mmol/L Potassium 3.7 (3.5-5.1) mmol/L Chloride 101 (98-107) mmol/L Carbon Dioxide 28 (21-32) mmol/L Anion Gap 7 (3-11) BUN 6 (6-23) mg/dl Creatinine 0.49 L (0.6-1.2) mg/dl Est Cr Clr Drug Dosing 129.2 Est GFR ( Amer) 117.7 ml/min Est GFR (Non-Af Amer) 101.5 ml/min BUN/Creatinine Ratio 12.2 (10-20) Glucose 179 H (70-99(Fasting)) mg/dl POC Glucose 218 H 184 H (70-99) mg/dl Estimat Average Glucose 229 mg/dl Hemoglobin A1c 9.6 H (4.5-5.6) % Calcium 8.6 (8.6-10.3) mg/dl Phosphorus 4.7 (2.5-4.9) mg/dl Magnesium 1.6 L (1.7-2.4) mg/dl Total Bilirubin (0.2-1.0) mg/dl AST (13-39) U/L ALT (7-52) U/L Alkaline Phosphatase (34-104) U/L Total Protein (6.0-8.3) gm/dl Albumin 3.2 L (3.4-5.0) gm/dl Globulin (2.5-4.0) gm/dl Albumin/Globulin Ratio (0.9-2) Urine Color Urine Appearance (Clear) Urine pH (4.5-7.5) Ur Specific [place] (1.000-1.030) Urine Protein (Negative) Urine Glucose (UA) (Negative) Urine Ketones (Negative) Urine Blood (Negative) Urine Nitrite (Negative) Urine Bilirubin (Negative) Urine Urobilinogen (Negative) Ur Leukocyte Esterase (Negative) Urine WBC (Auto) (0-5) /hpf Urine RBC (Auto) (0-2) /hpf U Hyaline Cast (Auto) (0-2) /lpf U Epithel Cells (Auto) (0-2) /hpf Urine Bacteria (Auto) (None Seen) 01/05/24 01/05/24 01/04/24 Range/Units 05:45 00:38 20:51 WBC (4.8-10.8) K/ul RBC (4.20-5.40) M/uL Hgb (12.0-16.0) g/dl Hct (37.0-47.0) % MCV (80.0-100.0) fL MCH (25.0-34.0) pg MCHC (32.0-36.0) g/dL RDW Std Deviation (36.4-46.3) fL RDW Coeff of [place] (11.5-14.5) % Plt Count (130-400) K/uL MPV (9.4-12.4) fL Immature Gran % (Auto) % Neut % (Auto) % Lymph % (Auto) % [place] % (Auto) % Eos % (Auto) % Baso % (Auto) % Neut # (Auto) (1.40-6.50) K/uL Lymph # (Auto) (1.20-3.40) K/uL [place] # (Auto) (0.11-0.59) K/uL Eos # (Auto) (0.00-0.50) K/uL Baso # (Auto) (0.00-0.20) K/uL Immature Gran # (Auto) (0.01-0.20) K/uL Sodium (136-145) mmol/L Potassium (3.5-5.1) mmol/L Chloride (98-107) mmol/L Carbon Dioxide (21-32) mmol/L Anion Gap (3-11) BUN (6-23) mg/dl Creatinine (0.6-1.2) mg/dl Est Cr Clr Drug Dosing Est GFR ( Amer) ml/min Est GFR (Non-Af Amer) ml/min BUN/Creatinine Ratio (10-20) Glucose (70-99(Fasting)) mg/dl POC Glucose 141 H 154 H (70-99) mg/dl Estimat Average Glucose mg/dl Hemoglobin A1c (4.5-5.6) % Calcium (8.6-10.3) mg/dl Phosphorus (2.5-4.9) mg/dl Magnesium (1.7-2.4) mg/dl Total Bilirubin (0.2-1.0) mg/dl AST (13-39) U/L ALT (7-52) U/L Alkaline Phosphatase (34-104) U/L Total Protein (6.0-8.3) gm/dl Albumin (3.4-5.0) gm/dl Globulin (2.5-4.0) gm/dl Albumin/Globulin Ratio (0.9-2) Urine Color Yellow Urine Appearance Clear (Clear) Urine pH 6.0 (4.5-7.5) Ur Specific [place] 1.010 (1.000-1.030) Urine Protein Negative (Negative) Urine Glucose (UA) Trace H (Negative) Urine Ketones Negative (Negative) Urine Blood Negative (Negative) Urine Nitrite Negative (Negative) Urine Bilirubin Negative (Negative) Urine Urobilinogen Negative (Negative) Ur Leukocyte Esterase Trace H (Negative) Urine WBC (Auto) 0-5 (0-5) /hpf Urine RBC (Auto) 0-2 (0-2) /hpf U Hyaline Cast (Auto) 0-2 (0-2) /lpf U Epithel Cells (Auto) 0-2 (0-2) /hpf Urine Bacteria (Auto) None Seen (None Seen) 01/04/24 Range/Units 18:55 WBC 5.61 (4.8-10.8) K/ul RBC 4.32 (4.20-5.40) M/uL Hgb 11.2 L (12.0-16.0) g/dl Hct 36.2 L (37.0-47.0) % MCV 83.8 (80.0-100.0) fL MCH 25.9 (25.0-34.0) pg MCHC 30.9 L (32.0-36.0) g/dL RDW Std Deviation 52.4 H (36.4-46.3) fL RDW Coeff of [place] 17.3 H (11.5-14.5) % Plt Count 194 (130-400) K/uL MPV 10.9 (9.4-12.4) fL Immature Gran % (Auto) 0.2 % Neut % (Auto) 54.7 % Lymph % (Auto) 31.0 % [place] % (Auto) 9.8 % Eos % (Auto) 3.6 % Baso % (Auto) 0.7 % Neut # (Auto) 3.07 (1.40-6.50) K/uL Lymph # (Auto) 1.74 (1.20-3.40) K/uL [place] # (Auto) 0.55 (0.11-0.59) K/uL Eos # (Auto) 0.20 (0.00-0.50) K/uL Baso # (Auto) 0.04 (0.00-0.20) K/uL Immature Gran # (Auto) 0.01 (0.01-0.20) K/uL Sodium 135 L (136-145) mmol/L Potassium 3.7 (3.5-5.1) mmol/L Chloride 100 (98-107) mmol/L Carbon Dioxide 28 (21-32) mmol/L Anion Gap 7 (3-11) BUN 7 (6-23) mg/dl Creatinine 0.53 L (0.6-1.2) mg/dl Est Cr Clr Drug Dosing Not Reportable Est GFR ( Amer) 114.7 ml/min Est GFR (Non-Af Amer) 98.9 ml/min BUN/Creatinine Ratio 13.2 (10-20) Glucose 177 H (70-99(Fasting)) mg/dl POC Glucose (70-99) mg/dl Estimat Average Glucose mg/dl Hemoglobin A1c (4.5-5.6) % Calcium 9.1 (8.6-10.3) mg/dl Phosphorus (2.5-4.9) mg/dl Magnesium (1.7-2.4) mg/dl Total Bilirubin 0.6 (0.2-1.0) mg/dl AST 25 (13-39) U/L ALT 9 (7-52) U/L Alkaline Phosphatase 93 (34-104) U/L Total Protein 7.9 (6.0-8.3) gm/dl Albumin 3.9 (3.4-5.0) gm/dl Globulin 4.0 (2.5-4.0) gm/dl Albumin/Globulin Ratio 1.0 (0.9-2) Urine Color Urine Appearance (Clear) Urine pH (4.5-7.5) Ur Specific [place] (1.000-1.030) Urine Protein (Negative) Urine Glucose (UA) (Negative) Urine Ketones (Negative) Urine Blood (Negative) Urine Nitrite (Negative) Urine Bilirubin (Negative) Urine Urobilinogen (Negative) Ur Leukocyte Esterase (Negative) Urine WBC (Auto) (0-5) /hpf Urine RBC (Auto) (0-2) /hpf U Hyaline Cast (Auto) (0-2) /lpf U Epithel Cells (Auto) (0-2) /hpf Urine Bacteria (Auto) (None Seen) Diagnostic Findings ULTRASOUND RIGHT LOWER EXTREMITY VENOUS CLINICAL HISTORY: RIght foot injury/pain. COMPARISON STUDY: No priors. TECHNIQUE: Real-time, grayscale, and color Doppler sonography of the deep veins of the right lower extremity was performed from the inguinal crease to the calf. Compression and augmentation were utilized. FINDINGS: There is no sonographic evidence of deep venous thrombosis identified in the right lower extremity. The common femoral, superficial femoral, and popliteal veins are patent and normally compressible. The greater saphenous vein and the profunda femoris vein at the junction with the common femoral vein are clear. The visualized calf veins are patent. IMPRESSION: There is no sonographic evidence of deep venous thrombosis identified in the right lower extremity. RIGHT ANKLE 3 VIEWS CLINICAL HISTORY: Right ankle injury. Fall. FINDINGS: 3 views of the right ankle are obtained. No prior studies are available for comparison at the time of dictation. The skeletal structures are osteopenic. There is no radiographic evidence of acute fracture at the ankle joint. Fracture at the base of the first metatarsal is better seen on today's foot x-rays. The ankle mortise is intact. There is no significant joint effusion. Tiny dorsal and plantar heel spurs are observed. Soft tissue edema is noted throughout the right leg. IMPRESSION: 1. Soft tissue swelling with no fracture seen at the ankle joint. 2. Fracture at the base of the first metatarsal is better seen on today's foot x-rays. XR foot RT min 3V routine CLINICAL HISTORY: injury 1 wk ago, bruising swelling, metatarsals COMPARISON: Right foot CT and right foot radiographs October 25, 2018. FINDINGS: A mildly displaced fracture within the base of the right first metatarsal is noted. This is age indeterminate although probably subacute to chronic. No additional fractures within the right foot are present. Alignment of the tarsometatarsal joints appears anatomic. Dorsal forefoot soft tissue swelling is noted on lateral projection. 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 IMPRESSION: 1. Mildly displaced fracture within the base of the right first metatarsal. Although age indeterminate, the appearance favors a subacute to chronic fracture. 2. No additional fractures within the right foot. 3. Dorsal foot soft tissue swelling.
[2024-01-05] MEDS: diphenhydrAMINE Capsule 25 MG CAP PO ONE (17:12)
[2024-01-05] MEDS: MONTELUKAST SODIUM 10 MG TABLET PO SCH (20:58)
[2024-01-05] MEDS: buPROPion XL 300 MG TABCR PO SCH (20:59)
[2024-01-05] MEDS: ACETAMINOPHEN 325 MG TAB PO PRN (21:58)
[2024-01-05] MEDS: traZODone HCL 50 MG TAB PO SCH (21:59)
[2024-01-06 07:57] LABS: Basophils # (auto) 0.03 K/uL (0.00-0.20); Basophils % (auto) 0.8 %; Eosinophils # (auto) 0.15 K/uL (0.00-0.50); Hematocrit (blood only) 31.9 % (37.0-47.0); Hemoglobin 9.8 g/dl (12.0-16.0); Immature Granulocytes # (auto) 0.01 K/uL (0.01-0.20); Immature Granulocytes % (auto) 0.3 %; Lymphocytes # (auto) 1.44 K/uL (1.20-3.40); Mean Corpuscular Hgb Conc 30.7 g/dL (32.0-36.0); Mean Corpuscular Volume 84.6 fL (80.0-100.0); Mean Platelet Volume 10.6 fL (9.4-12.4); Monocytes # (auto) 0.47 K/uL (0.11-0.59); Monocytes % (auto) 12.4 %; Neutrophils # (auto) 1.69 K/uL (1.40-6.50); Neutrophils % (auto) 44.5 %; Platelet Count 153 K/uL (130-400); RDW Coefficient of Variation 17.8 % (11.5-14.5); RDW Standard Deviation 54.7 fL (36.4-46.3); Red Blood Count 3.77 M/uL (4.20-5.40); White Blood Count 3.79 K/ul (4.8-10.8)
[2024-01-06 08:17] LABS: Calcium 8.7 mg/dl (8.6-10.3); Creatinine Clr Calc Pharmacy 126.6 ml/min; Est GFR (African American) 116.9 ml/min; Est GFR (Non-African American) 100.9 ml/min; Potassium 4.2 mmol/L (3.5-5.1)
[2024-01-06] MEDS: diphenhydrAMINE Capsule 25 MG CAP PO PRN ×2 (08:17→15:25)
[2024-01-06] MEDS: LANTUS PER UNIT CHARGE SC SCH (08:50)
--- NOTE | 2024-01-06 09:36 | Orthopedic Progress Note ---
Date of Service January 06, 2024 Assessment & Plan (1) Fracture of right foot: Plan: 1st Metatarsal fracture right foot WBAT with boot on when out of bed RLE Use walker to assist with ambulation Ice and elevation as needed for pain/swelling. Allowed for range of motion of right ankle and toes as tolerated Case management for discharge needs Will discuss findings with Dr. Hatch. Follow up as scheduled in approximately 10-14 days. Patient understands and agrees with the plan. Admission and Anticipated Discharge Date Admission Date: January 04, 2024 Subjective Patient is doing well, out of bed with physical and occupational therapy today. Using walker and boot on right foot. No pain in right foot. States that the swelling has improved slightly. She does have difficulty getting the boot on by herself. Physical Exam Musculoskeletal: Exam of right foot: Distal N/V intact. moves toes freely. Boot in place. Mild edema and ecchymosis still present Results & Data Vital Signs (Past 12 Hours) Vital Signs Temp Pulse Resp BP Pulse Ox O2 Del Method O2 Flow Rate 01/06/24 09:05 Nasal Cannula 2 01/06/24 07:24 36.9 C 78 18 123/77 93 Nasal Cannula 2.0 01/05/24 22:12 36.9 C 90 18 124/76 91 Room Air
[2024-01-06] MEDS: diphenhydrAMINE Capsule 25 MG CAP PO ONE (11:37)
--- NOTE | 2024-01-06 16:45 | Hospitalist Progress Note ---
Date of Service January 06, 2024 Assessment & Plan (1) Fracture of right foot: Plan: Right first metatarsal fracture at the base. Appreciate orthopedic consultation and recommendations. She now has a walking boot with weightbearing as tolerated. They will follow-up with her in the office in 10 to 14 days. (2) Fall: Plan: Mechanical. She suffered a right first metatarsal fracture at the base. OT and PT ordered. (3) Hyperlipidemia: Plan: Stable. Continue current medical management (4) GERD (gastroesophageal reflux disease): Plan: Stable. Continue current medical management (5) Frequent falls: Plan: Continue OT and PT while hospitalized. (6) Asthma: Plan: Stable. Continue current medical management (7) Diabetes: Plan: ADA diet. She refuses NovoLog sliding scale coverage. Metformin ER has been restarted. Plan Anticipate discharge to [facility] when bed is available. She is medically stable. Admission and Anticipated Discharge Date Admission Date: January 06, 2024 Subjective Alert and oriented. She has requested that her Benadryl dosage be increased from 25 to 50 mg which has been done. She was seen by orthopedics because podiatry was not available. She is now in a walking boot with weightbearing as tolerated. They will follow-up with her in the office in 10 to 14 days. Placement at [facility] is pending Review of Systems 2 Review of Systems: Constitutional-no fever or chills ENT-no blurred vision, no double vision, no epistaxis, no sore throat Respiratory-no cough, no wheezing, no shortness of breath Cardiac-no palpitations, no chest pain, no syncope GI-no nausea, vomiting, diarrhea, melena, hematochezia -no urinary retention, no urinary incontinence, no dysuria, no hematuria Musculoskeletal-right foot discomfort at rest and with weightbearing Skin-extensive ecchymoses right foot Neuro-no isolated weakness, no paresthesia Psych-no depression, no anxiety Physical Exam 2 Physical Exam: General-alert and oriented x3, no fever, no chills HEENT-head atraumatic and normocephalic, pupils equal and reactive to light, extraocular muscles intact Neck-no lymphadenopathy or thyromegaly, trachea midline Chest-clear to auscultation. No rales, wheezing or rhonchi Cardiac-regular rate and rhythm, normal S1 and S2 Abdomen-normal bowel sounds, no hepatosplenomegaly Extremities-extensive ecchymoses noted right foot previously. She now has a walking boot on Neuro-cranial nerves II through XII intact, motor and sensory function within normal limits, strength symmetrical, no focal deficits Psych-normal affect, normal mood Results & Data Results & Data Vital Signs (Past 12 Hours) Vital Signs Temp Pulse Resp BP Pulse Ox Pulse Ox Pulse Ox 01/06/24 14:38 36.6 C 85 16 114/71 90 01/06/24 12:34 94 93 01/06/24 09:05 01/06/24 07:24 36.9 C 78 18 123/77 93 O2 Del Method O2 Flow Rate O2 Flow Rate O2 Flow Rate 01/06/24 14:38 Room Air 01/06/24 12:34 0 0 01/06/24 09:05 Nasal Cannula 2 01/06/24 07:24 Nasal Cannula 2.0 Laboratory Results 01/06/24 06:56 01/06/24 06:56 PG Care Time/CCT Total # of Minutes Spent Total Time Spent with Patient: Total time spent is greater than 50% in coordination of care (as documented) at patient's floor/unit and/or counseling patient: Coding Level of Care Code 42861 SUB INP/OBS CARE 235MIN Diagnoses Fracture of right foot S92.901A Fall W19.XXXA Hyperlipidemia E78.5 GERD (gastroesophageal reflux disease) K21.9 Frequent falls R29.6 Mild intermittent asthma without complication J45.20 Asthma severity: mild Asthma persistence: intermittent Asthma complication type: uncomplicated Type 2 diabetes mellitus with hyperglycemia, without long-term current use of insulin E11.65 Diabetes mellitus type: type 2 Diabetes mellitus termite exterminator insulin use: without residential use Diabetes mellitus complication status: with hyperglycemia (6) Asthma Asthma severity: mild Asthma persistence: intermittent Asthma complication type: uncomplicated Qualified Code(s): J45.20 - Mild intermittent asthma, uncomplicated (7) Diabetes Diabetes mellitus type: type 2 Diabetes mellitus residential insulin use: w ithout residential use Diabetes mellitus complication status: with hyperglycemia Qualified Code(s): E11.65 - Type 2 diabetes mellitus with hyperglycemia
[2024-01-07 08:06] LABS: Basophils # (auto) 0.02 K/uL (0.00-0.20); Basophils % (auto) 0.5 %; Eosinophils # (auto) 0.15 K/uL (0.00-0.50); Eosinophils % (auto) 3.9 %; Hematocrit (blood only) 31.5 % (37.0-47.0); Hemoglobin 9.5 g/dl (12.0-16.0); Immature Granulocytes # (auto) 0.01 K/uL (0.01-0.20); Immature Granulocytes % (auto) 0.3 %; Lymphocytes % (auto) 33.6 %; Mean Corpuscular Hemoglobin 25.8 pg (25.0-34.0); Mean Corpuscular Hgb Conc 30.2 g/dL (32.0-36.0); Mean Corpuscular Volume 85.6 fL (80.0-100.0); Monocytes # (auto) 0.45 K/uL (0.11-0.59); Monocytes % (auto) 11.6 %; Neutrophils # (auto) 1.94 K/uL (1.40-6.50); Neutrophils % (auto) 50.1 %; Platelet Count 156 K/uL (130-400); RDW Coefficient of Variation 17.9 % (11.5-14.5); RDW Standard Deviation 56.1 fL (36.4-46.3); Red Blood Count 3.68 M/uL (4.20-5.40); White Blood Count 3.87 K/ul (4.8-10.8)
[2024-01-07 08:24] LABS: BUN Creatinine Ratio 12.5 (10-20); Calcium 8.6 mg/dl (8.6-10.3); Creatinine Clr Calc Pharmacy 131.9 ml/min; Est GFR (African American) 118.5 ml/min; Est GFR (Non-African American) 102.2 ml/min; Potassium 4.2 mmol/L (3.5-5.1)
--- NOTE | 2024-01-07 12:38 | Hospitalist Progress Note ---
Date of Service January 07, 2024 Assessment & Plan (1) Fracture of right foot: Plan: Right first metatarsal fracture at the base. Appreciate orthopedic consultation and recommendations. She now has a walking boot with weightbearing as tolerated. She will follow-up with orthopedics in 10 to 14 days (2) Fall: Plan: Mechanical. She suffered a right first metatarsal fracture at the base. OT and PT while hospitalized (3) Hyperlipidemia: Plan: Stable. Continue current medical management (4) GERD (gastroesophageal reflux disease): Plan: Stable. Continue current medical management (5) Frequent falls: Plan: Continue OT and PT while hospitalized. (6) Asthma: Plan: Stable. Continue current medical management (7) Diabetes: Plan: ADA diet. She refuses NovoLog sliding scale coverage. Metformin ER has been restarted. Well-controlled Plan Anticipate discharge to [facility] when bed is available. She is medically stable. Admission and Anticipated Discharge Date Admission Date: January 06, 2024 Subjective Alert and oriented. No distress. Awaiting placement at [facility]. Stable overall Review of Systems 2 Review of Systems: Constitutional-no fever or chills ENT-no blurred vision, no double vision, no epistaxis, no sore throat Respiratory-no cough, no wheezing, no shortness of breath Cardiac-no palpitations, no chest pain, no syncope GI-no nausea, vomiting, diarrhea, melena, hematochezia -no urinary retention, no urinary incontinence, no dysuria, no hematuria Musculoskeletal-right foot discomfort at rest and with weightbearing Skin-extensive ecchymoses right foot Neuro-no isolated weakness, no paresthesia Psych-no depression, no anxiety Physical Exam 2 Physical Exam: General-alert and oriented x3, no fever, no chills HEENT-head atraumatic and normocephalic, pupils equal and reactive to light, extraocular muscles intact Neck-no lymphadenopathy or thyromegaly, trachea midline Chest-clear to auscultation. No rales, wheezing or rhonchi Cardiac-regular rate and rhythm, normal S1 and S2 Abdomen-normal bowel sounds, no hepatosplenomegaly Extremities-extensive ecchymoses noted right foot previously. She now has a walking boot on Neuro-cranial nerves II through XII intact, motor and sensory function within normal limits, strength symmetrical, no focal deficits Psych-normal affect, normal mood Results & Data Results & Data Vital Signs (Past 12 Hours) Vital Signs Temp Pulse Resp BP Pulse Ox O2 Del Method O2 Flow Rate 01/07/24 07:45 Room Air 01/07/24 07:10 36.9 C 79 16 123/75 95 Nasal Cannula 2.0 Laboratory Results 01/07/24 07:09 01/07/24 07:09 PG Care Time/CCT Total # of Minutes Spent Total Time Spent with Patient: Total time spent is greater than 50% in coordination of care (as documented) at patient's floor/unit and/or counseling patient: Coding Level of Care Code 86681 SUB INP/OBS CARE 2/35MIN Diagnoses Fracture of right foot S92.901A Fall W19.XXXA Hyperlipidemia E78.5 GERD (gastroesophageal reflux disease) K21.9 Frequent falls R29.6 Mild intermittent asthma without complication J45.20 Asthma severity: mild Asthma persistence: intermittent Asthma complication type: uncomplicated Type 2 diabetes mellitus with hyperglycemia, without long-term current use of insulin E11.65 Diabetes mellitus type: type 2 Diabetes mellitus detention insulin use: without wastewater manager use Diabetes mellitus complication status: with hyperglycemia (6) Asthma Asthma severity: mild Asthma persistence: intermittent Asthma complication type: uncomplicated Qualified Code(s): J45.20 - Mild intermittent asthma, uncomplicated (7) Diabetes Diabetes mellitus type: type 2 Diabetes mellitus wastewater manager insulin use: w [facility] wastewater manager use Diabetes mellitus complication status: with hyperglycemia Qualified Code(s): E11.65 - Type 2 diabetes mellitus with hyperglycemia
[2024-01-07 22:16] VITALS: RESP 16
[2024-01-08 07:35] VITALS: BP 117/71; PULSE 81; TEMP 98.1
[2024-01-08 08:30] LABS: BUN Creatinine Ratio 13.3 (10-20); Calcium 8.6 mg/dl (8.6-10.3); Creatinine Clr Calc Pharmacy 140.7 ml/min; Est GFR (Non-African American) 104.4 ml/min; Potassium 4.2 mmol/L (3.5-5.1)
--- NOTE | 2024-01-08 09:41 | XRay Report ---
XR chest 1V portable CLINICAL HISTORY: Hypoxia. COMPARISON STUDY: Chest CT February 17, 2020. Chest radiograph December 05, 2023. FINDINGS: Lung volumes are normal. There is no consolidation. Linear right midlung density represents atelectasis. There is no pneumothorax or pleural effusion. Cardiac size is normal. Mediastinal conto urs are normal. There is no evidence for pulmonary edema. IMPRESSION: No acute cardiopulmonary findings. ACT 112: Negative or not required by law. Electronically signed by: Israel Oliva M.D. 01/08/2024 9:40 AM
[2024-01-08 09:52] VITALS: O2SAT 93
--- NOTE | 2024-01-08 11:59 | Discharge Summary ---
Date of Service January 08, 2024 Admission HPI Per Admitting Provider The patient is a 68-year-old female with a past including diabetes mellitus, closed L1 compression fracture, gait abnormality, diabetes mellitus, anemia, Eva syndrome, GERD, chronic ischemic heart disease, insomnia, vitamin D deficiency, NIGHAT, and history of frequent falls. The patient presents to the emergency department due to persistent pain in her right foot causing her to hobble around when she walks with her walker, that occurred after a ground-level fall about 1 week ago. Her most recent admission to [facility] was from 12/04-12/09/2023, where she was then discharged to [facility]. She feels she needs to return to [facility] again due to her inability to walk well with her right foot pain Principal Diagnosis Right foot fracture, ambulatory dysfunction, transient hypoxia probably from atelectasis Discharge Exam General-alert and oriented x3, no fever, no chills HEENT-head atraumatic and normocephalic, pupils equal and reactive to light, extraocular muscles intact Neck-no lymphadenopathy or thyromegaly, trachea midline Chest-clear to auscultation. No rales, wheezing or rhonchi Cardiac-regular rate and rhythm, normal S1 and S2 Abdomen-normal bowel sounds, no hepatosplenomegaly Extremities-extensive ecchymoses noted right foot previously. She now has a walking boot on Neuro-cranial nerves II through XII intact, motor and sensory function within normal limits, strength symmetrical, no focal deficits Psych-normal affect, normal mood Discharge Data Allergies Allergy/AdvReac Type Severity Reaction Status Date / Time avocado Allergy Severe Difficulty Verified 01/05/24 12:49 Breathing cefaclor Allergy Severe HIVES, Verified 12/22/23 10:05 HARD TIME BREATHING Penicillins Allergy Severe THROAT Verified 12/22/23 10:05 SWELLS yellow dye Allergy Severe DIFFICULTY Verified 12/22/23 10:05 BREATHING adhesive Allergy Intermediate WELTS ON Verified 12/22/23 10:05 SKIN fluticasone Allergy Intermediate HARD OF Verified 12/22/23 10:05 BREATHING insulin lispro Allergy Intermediate HIVES Verified 12/22/23 10:05 phenol Allergy Intermediate HIVES Verified 12/22/23 10:05 salmeterol Allergy Intermediate HARD OF Verified 12/22/23 10:05 BREATHING fluoxetine Allergy Mild UNKNOWN Verified 12/22/23 10:05 iodine Allergy Mild Rash Verified 12/22/23 10:05 Iodine and Iodide Containing Allergy Mild RASH Verified 12/22/23 10:05 Produc atorvastatin [From Lipitor] Allergy Unknown Unknown Verified 12/22/23 10:05 Cephalosporins Allergy Unknown UNKNOWN Verified 12/22/23 10:05 citalopram Allergy Unknown UNKNOWN Verified 12/22/23 10:05 clarithromycin [From Biaxin] Allergy Unknown Unknown Verified 12/22/23 10:05 duloxetine [From Cymbalta] Allergy Unknown Unknown Verified 12/22/23 10:05 escitalopram [From Lexapro] Allergy Unknown Unknown Verified 12/22/23 10:05 ezetimibe [From Vytorin] Allergy Unknown Unknown Verified 12/22/23 10:05 feathers Allergy Unknown ALLERGIC Verified 12/22/23 10:05 RX "SOMETHING WEIRD" gatifloxacin [From Tequin] Allergy Unknown Unknown Verified 12/22/23 10:05 guaifenesin Allergy Unknown UNKNOWN Verified 12/22/23 10:05 insulin lispro protamine Allergy Unknown Unknown Verified 12/22/23 10:05 [From Humalog Mix] Macrolide Antibiotics Allergy Unknown UNKNOWN Verified 12/22/23 10:05 mold Allergy Unknown Unknown Verified 12/22/23 10:05 moxifloxacin [From Avelox] Allergy Unknown Unknown Verified 12/22/23 10:05 paroxetine [From Paxil] Allergy Unknown Unknown Verified 12/22/23 10:05 phenylephrine Allergy Unknown UNKNOWN Verified 12/22/23 10:05 phenylpropanolamine Allergy Unknown UNKNOWN Verified 12/22/23 10:05 Quinolones Allergy Unknown UNKNOWN Verified 12/22/23 10:05 rosuvastatin [From Crestor] Allergy Unknown Unknown Verified 12/22/23 10:05 simvastatin [From Vytorin] Allergy Unknown Unknown Verified 12/22/23 10:05 Sulfa (Sulfonamide Allergy Unknown Unknown Verified 12/22/23 10:05 Antibiotics) Tetracyclines Allergy Unknown Unknown Verified 12/22/23 10:05 levofloxacin AdvReac Intermediate SEVERE Verified 12/22/23 10:05 NAUSEA house dust AdvReac Unknown Unknown Verified 12/22/23 10:05 insulin aspart AdvReac Unknown Unknown Verified 12/22/23 10:05 [From Novolog U-100 Insulin aspart] Consultations 01/04/24 22:03 ED Decision to Admit Stat 01/05/24 12:31 Consult Orthopedic Surgery Routine Ordered Studies 01/04/24 17:59 CT head/brain wo con Stat 01/05/24 01:12 US venous doppler LE RT Stat Hospital Course (1) Fracture of right foot: Right first metatarsal fracture at the base. Appreciate orthopedic consultation and recommendations. She now has a walking boot with weightbearing as tolerated. She will follow-up with orthopedics in 10 to 14 days (2) Fall: Mechanical. She suffered a right first metatarsal fracture at the base. OT and PT while hospitalized (3) Hyperlipidemia: Stable. Continue current medical management (4) GERD (gastroesophageal reflux disease): Stable. Continue current medical management (5) Frequent falls: Continue OT and PT while hospitalized. (6) Asthma: Stable. Continue current medical management (7) Diabetes: ADA diet. She refuses NovoLog sliding scale coverage. Metformin ER has been restarted. Well-controlled (8) Hypoxia: Resolved. She is now on room air. This was probably due to pulmonary atelectasis which has resolved with incentive spirometry Plan Discharge to [facility] today, January 07 Total Time Total Time Spent Total Time Spent (In Minutes): 50 minutes Discharge Plan Discharge Items Patient Disposition: Transfer Inpatient Rehab Fac Reason For Visit: RIGHT 1ST MTP FRACTURE S/P FALL Discharge Diagnosis: Right first metatarsal fracture, right ankle sprain, transient hypoxia, ambulatory dysfunction Activity: Per Instructions section Non-emergency contact: Primary Care Provider Follow-up/Referrals: Kim Wall PA-C [Physician Hvac Service Technician] - 01/20/24 4:00 pm Chrissy Henry DO [Primary Care Provider] - Diet: Carb Consistent or DM2 Addtl Attending Provider Instructions: Follow-up with orthopedic mechanic in 10 to 14 days Addtl Keg Inspector Provider Instructions: Orthopedic instructions: -Fracture boot on when out of bed with ambulation. -You may bear weight as tolerated on the right foot with the boot in place. -Use walker at all times with ambulation. -Ice to right foot as needed for pain and swelling. -Elevate right lower extremity above your heart to relieve pain and swelling. -Allowed for full range of motion of the right hip, knee, ankle and toes as tolerated. -Do not need to boot to sleep. -Follow-up with Kim Briones PA-C at [facility] orthopedics as scheduled. -Call [phone] with any increased pain, swelling, questions or concerns regarding your right foot and ankle. -Continue physical therapy and Occupational Therapy as ordered. -Tylenol as needed for pain. Pending Studies at Discharge: No Stand-Alone Forms: My [facility] Skilled Items Patient informed of condition?: Yes DNR: No Discharge Level of Care: Acute rehab Communicable Disease: No Discharge Prognosis: Stable Lines: None Urinary Catheter: No Medications and DC Order Prescriptions: New acetaminophen 325 mg Tablet 650 mg PO Q4H PRN (Reason: fever or pain) Qty: 0 0RF diphenhydramine HCl [Benadryl] 25 mg Capsule 50 mg PO Q6H PRN (Reason: itching) Qty: 0 0RF Continued lorazepam 0.5 mg tablet 0.5 - 1 mg PO DAILY PRN (Reason: anxiety) Qty: 30 0RF fluticasone furoate-vilanterol [Breo Ellipta] 100-25 mcg/dose blister with device 1 inh inhalation DAILY Qty: 3 3RF Excedrin Migraine 250-250-65 mg tablet 2 tab PO QAM PRN (Reason: headache) Qty: 100 0RF (DME) blood sugar diagnostic Strip See Dose Instructions .ROUTE .MEDSUPPLY Qty: 100 3RF Rx Instructions: Testing four times per day. bupropion HCl 300 mg tablet extended release 24 hr 300 mg PO QPM Qty: 90 3RF cyanocobalamin (vitamin B-12) 1,000 mcg tablet 1,000 mcg PO DAILY Qty: 90 3RF famotidine 40 mg tablet 40 mg PO BID Qty: 180 3RF ipratropium-albuterol 0.5 mg-3 mg(2.5 mg base)/3 mL solution for nebulization 3 ml inhalation QID PRN (Reason: wheezing) Qty: 90 3RF levothyroxine 137 mcg tablet 137 mcg PO DAILY Qty: 90 3RF pantoprazole 40 mg tablet,delayed release (DR/EC) 40 mg PO DAILY Qty: 90 3RF albuterol sulfate [Ventolin HFA] 90 mcg/actuation HFA aerosol inhaler 1 inh INH QID PRN (Reason: shortness of breath or wheezing) Qty: 18 3RF (DME) Aerochamber Plus Z Stat spacer See Dose Instructions .ROUTE .MEDSUPPLY Qty: 1 Rx Instructions: As directed (DME) insulin admin supplies insulin pen See Dose Instructions .ROUTE .MEDSUPPLY Qty: 1 Rx Instructions: Injecting 4-5 times QD. (DME) pen needle, diabetic [Novofine 32] 32 gauge x 1/4" needle See Dose Instructions .ROUTE .MEDSUPPLY Qty: 50 Rx Instructions: As directed (DME) lancets [OneTouch Delica Plus Lancet] 33 gauge misc See Dose Instructions .ROUTE .MEDSUPPLY Qty: 100 Rx Instructions: Testing four times per day. multivitamin [Multiple Vitamins] tablet 1 tab PO DAILY metformin 500 mg tablet extended release 24 hr 500 mg PO DAILY (DME) pen needle, diabetic [BD Ultra-Fine Mini Pen Needle] 31 gauge x 3/16" needle See Rx Instructions .Route Qty: 100 0RF Rx Instructions: As directed (DME) blood-glucose meter [OneTouch Verio Flex meter] [facility] [place] See Rx Instructions .Route Qty: 1 0RF Rx Instructions: Test blood sugar twice daily (DME) OneTouch Verio test strips Strip See Rx Instructions .Route Qty: 100 6RF Rx Instructions: Test blood sugar twice daily (DME) blood-glucose meter [True Metrix Glucose Meter] [facility] [place] See Rx Instructions .Route Qty: 1 0RF Rx Instructions: test blood sugar 2 times daily (DME) True Metrix Glucose Test Strip Strip See Rx Instructions .Route Qty: 100 4RF Rx Instructions: test blood sugar twice daily insulin glargine U-300 conc [Toujeo Max U-300 SoloStar] 300 unit/mL (3 mL) insulin pen 72 unit subcut DAILY Qty: 24 2RF (DME) pen needle, diabetic [BD Ultra-Fine Mini Pen Needle] 31 gauge x 3/16" needle See Rx Instructions .Route Qty: 100 2RF Rx Instructions: Inject once daily (DME) Oxygen Home Liters Per Minute See Rx Instructions .ROUTE Rx Instructions: 2 L HS and PRN -As directed tramadol 50 mg tablet 50 mg PO Q4H PRN (Reason: pain) Qty: 30 0RF trazodone 150 mg tablet 150 - 300 mg PO HS Rx Instructions: take 1 to 2 tablets by mouth daily montelukast 10 mg tablet 10 mg PO QPM Rx Instructions: take 1 tablet by mouth every evening polyethylene glycol 3350 [Miralax] 17 gram Powder In Packet 17 g PO BID Qty: 0 0RF calcitonin (salmon) 200 unit/actuation [place],Non-Aerosol 1 spray NA DAILY Qty: 0 0RF docusate sodium 100 mg capsule 100 mg PO QAM cholecalciferol (vitamin D3) 25 mcg (1,000 unit) capsule 5,000 unit PO QAM hydrocortisone 1 % ointment 1 applic EXT BID PRN (Reason: Hemorrhoids) ondansetron 4 mg tablet,disintegrating 4 mg PO Q4H PRN (Reason: Nausea) Discontinued diphenhydramine HCl [Benadryl] 25 mg capsule 25 mg PO ONCE PRN (Reason: itching) Qty: 0 0RF Discharge Orders: Discharge Order (Routine); Ordered 01/08/24 Ordered By: Ayad Vogel Admission Data Admit Date/Time: 01/06/24 10:09 Attending Provider: Ayad Vogel Admit Provider: David Snyder Primary Care Provider: Chrissy Henry Other Providers: David Snyder; Hunter Hatch; [facility] Coding Level of Care Code 44943 INP/OBS DISCH >30 MIN Diagnoses Fracture of right foot S92.901A Fall W19.XXXA Hyperlipidemia E78.5 GERD (gastroesophageal reflux disease) K21.9 Frequent falls R29.6 Mild intermittent asthma without complication J45.20 Asthma severity: mild Asthma persistence: intermittent Asthma complication type: uncomplicated Type 2 diabetes mellitus with hyperglycemia, without long-term current use of insulin E11.65 Diabetes mellitus type: type 2 Diabetes mellitus [facility] insulin use: without [facility] use Diabetes mellitus complication status: with hyperglycemia Hypoxia R09.02
[2024-01-08 12:02] LABS: D Dimer 2560 ug/L FEU (0-500)
== END 2024-01-08 15:21 | DRG 563 ==
LOC: 3N 17:26 → ED 17:26 → SUATTDRO 22:58 → 3N 01-05 00:37